=== PATIENT | female | born 1975 | race Caucasian/White ===

== ENCOUNTER 2017-12-24 02:38 | Outpatient (CLI) | payer BC, SELFPAY ==
--- NOTE | 2017-12-24 08:30 | DI.MAMMO_ITS ---
SYMPTOM/DIAGNOSIS: SCREENING, Z12.31 MAMMOGRAMS: Mammograms were interpreted according to the usual protocol including computer analysis with CAD system, tomosynthesis and C view imaging. Comparison is made with prior examinations. Breast density, category B. No suspicious masses or microcalcifications are seen. Well circumscribed nodules are again seen in the left breast. The skin and axilla are unremarkable. IMPRESSION: No evidence for malignancy. Yearly mammography is recommended. Category 2B. MQSA ASSESSMENT OF FINDINGS: Negative with benign findings. Category 2. Patient will receive a letter notifying them of these results. BI-RADS category B. There are scattered areas of fibroglandular density.
[2017-12-24 10:27] LABS: ALT 25 U/L (12-78); AST 16 U/L (15-37); Alkaline Phosphatase 89 U/L (46-116); Anion Gap 7.3 mmol/L (3-11); BUN 9 mg/dL (7-18); Bilirubin, Total 0.4 mg/dL (0.2-1.0); CO2 27.7 mmol/L (21.0-32.0); CREATININE 1.01 mg/dL (0.55-1.02); Calcium 9.1 mg/dL (8.5-10.1); Chloride 104 mmol/L (98-107); Cholesterol 185 mg/dL (50-200); Glucose 91 mg/dL (70-100); HDL Cholesterol 47 mg/dL (40-60); LDL CHOLESTEROL 129 mg/dL (<100); Potassium 4.7 mmol/L (3.5-5.1); Sodium 139 mmol/L (136-145); Total Protein 7.3 g/dL (6.4-8.2); Triglyceride 88 mg/dL (30-150)
== END 2017-12-24 02:58 ==
DX: Z12.31 Encounter for screening mammogram for malignant neoplasm of breast (principal); Z13.220 Encounter for screening for lipoid disorders; R63.8 Other symptoms and signs concerning food and fluid intake; Z00.00 Encounter for general adult medical examination without abnormal findings
CPT/HCPCS: 36415; 77063; 77067; 80053; 80061; 83721

== ENCOUNTER 2018-11-19 22:25 | Observation (INO) | payer BC, SELFPAY ==
[2018-11-19] VITALS (18 sets, daily range): BP systolic 105–131; BP diastolic 72–87; PULSE 71–112; RESP 13–22; TEMP 36.8; O2SAT 90–100
--- NOTE | 2018-11-19 22:30 | ED.GENADUL_ITS ---
Discharge Plan Disposition Patient [facility] Condition: Fair Discharge Details Chief Complaint: Chest Pain Clinical Impression: Pulmonary embolism Primary Care Provider: Shayy Donohue ED Provider: Aristeo Wade [place] Meds and New Rx's Prescriptions: No Action sertraline 100 mg tablet 100 mg PO DAILY Qty: 90 RF: 3 ibuprofen 200 MG capsule 3 tab PO PRN RF: 0 Medical Decision Making Patient presenting to ED with chest pain radiating to the back and neck. Ongoing for 3 hours. Pleuritic in nature to some degree. Initial EKG is unremarkable. Because of radiation to back and neck and will scan for dissection and will hold off on aspirin for the time being. We will try nitroglycerin to see if it helps at all. IV established and fluids started. Laboratory studies obtained. Nitroglycerin did not really seem to help. 4 mg of morphine given with decent relief. Laboratory studies unremarkable. First troponin negative. CT scan obtained. Per preliminary radiology report there is a right lower lobe segmental PE. Patient remains hemodynamically stable. Saturations remain normal on room air other than estrogen control in the form of Mirena which she has had for some time there appears to be no provoking etiology for PE. There is a history of factor V Leiden disease in the family. Patient reportedly has been tested for this in the past and was negative. Patient will be started on anticoagulation. Case discussed with hospitalist for admission. Lab Data Lab results reviewed: Yes I reviewed the patient's lab results. ECG Data Attestation: I personally reviewed and interpreted this ECG (s) as follows: Prior ECG tracings: not available for review Interpretation: Normal sinus rhythm at a rate of 81. Normal axis and intervals. No acute ST changes. HPI General Mode of arrival: ambulatory . Date/Time Provider Initiated Documentation: 11/19/18 22:29 . Limitations to Documentation: no limitations . Information obtained by: patient and RN notes reviewed . HPI Narrative: Patient presents to ED with complaint of chest pain that is now radiating to the back and neck. She has also developed some achiness in the right arm. Pain is pleuritic. She feels a little short of breath. She has some nausea but denies diaphoresis. Mild lightheadedness. Has never had this previously. Has had no recent illnesses or trauma. Has no leg pain or leg swelling. Has no significant past medical history. She is not a smoker. Father had cardiac disease but age over 55. Symptoms started about 3 hours ago. They are ongoing and seemed to be worse which is what prompted her to come in. Related Data Home Medications Medication Instructions Recorded Confirmed ibuprofen 3 tab PO PRN 12/08/12 11/19/18 sertraline 100 mg tablet 100 mg PO DAILY #90 tab 02/10/18 11/19/18 Previous Rx's Medication Instructions Recorded sertraline 100 mg tablet 100 mg PO DAILY #90 tab 02/10/18 Allergies Allergy/AdvReac Type Severity Reaction Status Date / Time amoxicillin Allergy Intermediate Rash Unverified 11/19/18 22:38 sulfamethoxazole Allergy Unknown SKIN RASH Verified 11/19/18 22:38 Review of Systems Review of Systems 01/25 Review of Systems completed and is negative except as stated above in HPI (Systems reviewed: Const, Eyes, ENT, Resp, CV, GI, , MSK, Skin, Neuro) [facility] Medical History Depression (Chronic) GERD (gastroesophageal reflux disease) (Chronic) Surgical History Cholecystectomy (10/31/09) Status post Mohs surgery (Acute ~09/02/18) Family History Mother Essential hypertension Depression Hyperlipidemia Neoplasm Father Essential hypertension Hyperlipidemia Myocardial infarction Sister Depression Factor 5 Leiden mutation, heterozygous Sister Depression Brother No problems noted. Grandfather Heart disease Grandfather Hyperlipidemia Myocardial infarction Grandmother Essential hypertension Hyperlipidemia Neoplasm Stroke Son Depression Daughter No problems noted. Daughter No problems noted. Daughter No problems noted. 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 Const: Overweight female in NAD. HEENT: NC/AT. Normal facial exam. Eyes: Normal conjunctiva and sclera. Neck: Supple. Trachea midline. Lungs: Normal respiratory effort. Lungs are clear. No chest wall tenderness. Cor: RRR without murmur/gallop. Good radial pulses. GI: Soft. NT/ND. No guarding or rebound. Neuro: A+O x 3. CN grossly in tact. Good strength and no focal deficit. Ext: No C/C/E. No calf tenderness. Skin: Warm and dry without rash.
[2018-11-19] MEDS: Lactated Ringers 1,000 ML 150 ML IV (22:47)
[2018-11-19 22:50] LABS: Abs Immature Grans 0.01 k/cumm (0.0-0.09); Absolute Basophil Count 0.02 k/cumm (0.0-0.2); Absolute Eosinophil Count 0.11 k/cumm (0.0-0.7); Absolute Lymphocyte Count 1.29 k/cumm (1.2-3.4); Absolute Monocyte Count 0.52 k/cumm (0.11-0.7); Absolute Neutrophil Count 7.72 k/cumm (1.2-6.7); Basophils % 0.2; Eosinophils % 1.1; HCT 38.2 % (36.0-46.0); HGB 12.8 g/dL (12.0-15.5); Immature Grans % 0.1; Lymphocytes % 13.3; Mean Corp. HGB Concentration 33.5 g/dL (32.0-36.0); Mean Corpuscular Hemoglobin 26.6 pg (27.0-33.0); Mean Corpuscular Volume 79.3 fL (80-95); Mean Platelet Volume 9.5 fL (8.0-11.0); Monocytes % 5.4; Neutrophils % 79.9; Platelet Count 307 x1000/uL (130-400); RBC 4.82 m/cumm (4.00-5.20); RBC Distribution Width 14.7 % (11.7-14.6); White Blood Cell Count 9.67 k/cumm (4.4-10.8)
[2018-11-19 23:07] LABS: ALT 28 U/L (12-78); AST 11 U/L (15-37); Albumin 3.4 g/dL (3.4-5.0); Alkaline Phosphatase 108 U/L (46-116); Anion Gap 9.5 mmol/L (3-11); BUN 13 mg/dL (7-18); Bilirubin, Total 0.2 mg/dL (0.2-1.0); CO2 25.5 mmol/L (21.0-32.0); CREATININE 0.98 mg/dL (0.55-1.02); Chloride 102 mmol/L (98-107); Glucose 116 mg/dL (70-100); Magnesium 1.8 mg/dL (1.8-2.4); Potassium 3.4 mmol/L (3.5-5.1); Sodium 137 mmol/L (136-145); Total Protein 7.6 g/dL (6.4-8.2); Troponin I < 0.05 ng/mL (0.00-0.06)
[2018-11-19 23:14] LABS: INR 0.9 (0.9-1.1); PTT Activated 22.8 sec (21.0-31.4); Prothrombin Time 9.3 sec (9.3-11.0)
[2018-11-19] MEDS: Omnipaque 350 MG/ML 100 ML BTL IJ (23:36)
[2018-11-19] MEDS: Omnipaque 350 MG/ML 50 ML BTL IJ (23:36)
--- NOTE | 2018-11-19 23:39 | DI.CT_ITS ---
SYMPTOM/DIAGNOSIS: CHEST/BACK/NECK PAIN, ? DISSECTION OR PE CHEST AND ABDOMEN CTA: CT angiography was performed with multi slice acquisition and multi planar and 3D reconstruction. CTA examination of the chest and abdomen was performed. 145 cc's of Omnipaque 350 was injected intravenously. Scanning of the thorax shows no bony abnormality. No aortic dissection or aneurysm. No mediastinal hematoma. No pericardial effusion. There are pulmonary emboli in right lower lobe segmental and subsegmental pulmonary arteries with associated peripheral areas of consolidation/atelectasis, pulmonary infarct may be present peripherally. Minimal findings of subsegmental pulmonary emboli also present in left lower lobe pulmonary arterial circulation. No evidence of right heart strain. There is mosaic attenuation of the lungs which is nonspecific. Tracheobronchial tree appears intact. No pleural effusion or pneumothorax. Scanning of the abdomen shows no focal bony abnormality. Liver and spleen are unremarkable. Gallbladder has been surgically removed. No biliary dilatation is seen. Pancreas appears normal. Adrenals and kidneys unremarkable except for an incidental approximately 3.5 cm. in diameter cyst of the right kidney. Abdominal aorta is of normal diameter as are the common iliac arteries and proximal internal and external iliac arteries. Major arterial branches of the abdomen are normal. No abdominal wall hernia is seen. Normal appearance of the appendix. CONCLUSION: 1. Pulmonary embolic disease predominantly involving right lower lobe segmental and subsegmental vessels with suspected peripheral pulmonary infarct. 2. No evidence of right heart strain. 3. No significant abnormality involving abdominal vasculature or abdominal contents.
[2018-11-20] VITALS (14 sets, daily range): BP systolic 119–128; BP diastolic 75–82; PULSE 61–117; RESP 16–23; TEMP 36.4–36.8; O2SAT 94–100
--- NOTE | 2018-11-20 00:17 | DI.VRAD_ITS ---
EXAM: CT Angiography Chest With Contrast EXAM DATE/TIME: 11/19/2018 10:42 PM CLINICAL HISTORY: 42 years old, female; Pain; Other: Chest/back neck; Prior surgery; Surgery date: 6+ months; Surgery type: Gallbladder TECHNIQUE: Imaging protocol: Axial computed tomographic angiography images of the chest with intravenous contrast using CT angiography protocol. Coronal and sagittal reformatted images were created and reviewed. 3D rendering: MIP reconstructed images were created and reviewed. Radiation optimization: All CT scans at this facility use at least one of these dose optimization techniques: automated exposure control; mA and/or kV adjustment per patient size (includes targeted exams where dose is matched to clinical indication); or iterative reconstruction. Contrast material: [id number];Contrast volume: 145 ml;Contrast route: IV 18G RAC; COMPARISON: No relevant prior studies available. FINDINGS: Pulmonary arteries: Right lower lobe segmental pulmonary artery filling defects. Aorta: Unremarkable. No aortic aneurysm. No aortic dissection. Lungs: Right lower lobe parenchymal consolidation. Scattered areas of subsegmental atelectasis in each lung. Pleural space: Small right pleural effusion. Heart: Unremarkable. No cardiomegaly. No pericardial effusion. Lymph nodes: Unremarkable. No enlarged lymph nodes. Bones/joints: Unremarkable. No acute fracture. Soft tissues: Unremarkable. IMPRESSION: 1. Right lower lobe segmental pulmonary emboli. 2. Right lower lobe infiltrate. 3. Small right pleural effusion EXAM: CT Angiography Abdomen With Contrast EXAM DATE/TIME: 11/19/2018 10:42 PM CLINICAL HISTORY: 42 years old, female; Pain; Other: Chest/back neck; Prior surgery; Surgery date: 6+ months; Surgery type: Gallbladder TECHNIQUE: Imaging protocol: Axial computed tomographic angiography images of the abdomen with intravenous contrast material. Coronal and sagittal reformatted images were created and reviewed. 3D rendering: MIP reconstructed images were created and reviewed. Radiation optimization: All CT scans at this facility use at least one of these dose optimization techniques: automated exposure control; mA and/or kV adjustment per patient size (includes targeted exams where dose is matched to clinical indication); or iterative reconstruction. COMPARISON: No relevant prior studies available. FINDINGS: VASCULATURE: Aorta: No aortic aneurysm or dissection. Celiac trunk and mesenteric arteries: No occlusion or significant stenosis. Renal arteries: No occlusion or significant stenosis. ABDOMEN: Liver: Normal. No mass. Gallbladder and bile ducts: The patient is status post cholecystectomy. No biliary ductal dilatation. Pancreas: Normal. No ductal dilation. Spleen: Normal. No splenomegaly. Adrenals: Normal. No mass. Kidneys and ureters: 3.5 cm simple cyst in interpolar right kidney. Too small to characterize lesion in left kidney. No hydronephrosis. Stomach and bowel: There is no evidence of intestinal perforation or obstruction. Intraperitoneal space: Unremarkable. No free air. No significant fluid collection. Bones/joints: Unremarkable. No acute fracture. No dislocation. Soft tissues: Unremarkable. Lymph nodes: Unremarkable. No enlarged lymph nodes. IMPRESSION: 1. No acute findings. 2. 3.5 cm cyst in right kidney. THIS REPORT CONTAINS FINDINGS THAT MAY BE CRITICAL TO PATIENT CARE. The findings were verbally communicated via telephone conference with Dr. Aristeo Wade, 11/20/2018 12:17 AM EDT. The findings were acknowledged and understood. Dictated and Authenticated by: Martin Jenkins MD. Ordering:HELENA Alberts MD
[2018-11-20] MEDS: Enoxaparin 100 MG/ML SYR SC ×2 (00:50→12:24)
--- NOTE | 2018-11-20 01:41 | HPE_ITS ---
Date of service: 11/20/18 Time of Service: 01:41 Assessment and Plan (1) Pulmonary embolus, right: Current visit: Yes Status: Acute continue w/ enoxaparin at 1 mg/kg SC Q 12hr and transition to oral anticoagulant tomorrow. I discussed pro/con of using DOAC vs warfarin. She understands that if she goes home on warfarin she will need to overlap for 5 to 7 days w/ enoxaparin shots and will have to have frequent prothrombin times checked. She favors using a DOAC. I will have the day hospitalist follow up on this and have rn case mgr check her insurance coverage for use of Apixaban or Rivaroxaban. She will get echo in the a.m. to evaluate for RV strain/PHTN although I doubt that this will be a problem due to the low clot burden seen on CT and her stable hemodynamic presentation. There is no clinical reason to check venous duplex and she has no symptoms of leg pain or edema. 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 Apparently she was checked for Leiden Factor V deficiency when she was 18 and was told that she is negative. However she has multiple family members with either some heterozygocity for Leiden Factor V or they have had thromboembolic events. I told her that she should remain on anticoagulants for minimum of 3 to 6 months. She also needs to inform her public weigher of her P.E. as she is higher risk of future PE with use of any hormonal based therapy. History of Present Illness Chief Complaint: chest pain Narrative: 42 yr old female non-smoker w/ PMH depression and GERD who presented to the ER with acute pleuritc right sided chest pain w/ radiation into her neck and right upper back. 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 She thought that this was indigestion. She drove herself home and called her mother who brought her to the ER. Dr. Wade, ER attending, performed workup that included CTA of her chest out of concern for dissecting aneurysm. CTA however demonstrated RLL segmental PE and RLL parenchymal consolidation and bilateral subsegmental atelectasis. NTG was intially tried to alleviate her pain prior to discovery of PE. NTG did not help with her pain. Morphine 4 mg IV however provided some relief. The patient w as hemodynamically stable and never hypoxemic. Her risk factors for PE included use of Mirena (an estrogen IUD) as well as use of oral BCP a few weeks ago while awaiting having her IUD replaces. There is a FH of Leiden Factor V in her family (sister is heterozygous, father is also a carrier for Leiden Factor V, mother has had multiple PE and DVT) however the patient has previously been tested and reportedly negative. The rest of her workup including EKG, troponin, CMP and CBC and coagulation profile were unremarkable, however a d-dimer was not performed. Patient will be admitted to med/surg on telemetry and enoxaparin at 1 mg/kg SC was intiated in the ER (100 mg dose). She will remain on enoxaparin overnight and can be transitioned to a DOAC tomorrow (Apixaban or Rivaroxaban); if Dabigatran or Edoxaban are used she will need to use concommittant enoxaparin 1 mg/kg SC Q12h for 5 day prior to either Dabigatran or Edoxaban. An echo has been ordered to evaluate for PHTN or RV strain. I will continue to cycle troponin and check BNP for prognostic reasons. Review of Systems Constitutional Reports system reviewed and no additional complaints, except as docu Cardiovascular Reports chest pain, Reports chest pain at rest, Denies chest pain with activity, Denies syncope, Denies pedal edema, Denies edema, Denies leg edema, Denies lightheadedness, Reports radiating jaw, neck or arm pain, Reports dyspnea, Reports dyspnea on exertion and Denies orthopnea Respiratory Denies chest congestion, Denies cough, Reports pain on inspiration, Reports dyspnea, Reports dyspnea on exertion and Denies wheezing Gastrointestinal Reports system reviewed and no additional complaints, except as docu Neurologic Denies syncope Hematologic/Lymphatic Reports system reviewed and no additional complaints, except as docu Allergic/Immunologic Denies wheezing [facility] Medical History (Updated 11/20/18 @ 03:08 by Josse Mcknight) Depression (Chronic) GERD (gastroesophageal reflux disease) (Chronic) Surgical History (Updated 11/20/18 @ 03:24 by Josse Mcknight) Cholecystectomy (10/31/09) History of laparoscopy (Chronic) S/P tubal ligation (Acute) Status post Mohs surgery (Acute ~09/02/18) Family History (Updated 11/20/18 @ 02:53 by Josse Mcknight) Mother Essential hypertension Depression Hyperlipidemia Neoplasm History of pulmonary embolism Father Essential hypertension Hyperlipidemia Myocardial infarction Factor V Leiden carrier Sister Depression Factor 5 Leiden mutation, heterozygous Sister Depression Grandfather Heart disease Grandfather Hyperlipidemia Myocardial infarction Grandmother Essential hypertension Hyperlipidemia Neoplasm Stroke Son Depression Maternal Uncle Myocardial infarction Daughter No problems noted. Daughter No problems noted. 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 Pets and animals: Yes Pets and animals: dog(s) Duration: 15-30 minutes/day Frequency: 1-2 times per week Special rachelle needs: No Female Reproductive History Menstrual control method: progestin IUCD History History 4 Para Hx # Term Pregnancies 3 Multiple births Hx # Pregnancies 3 Ectopic pregnancies AB induced Hx Number of Living Children 3 AB spontaneous 1 Meds Home Medications Medication Instructions Recorded Confirmed Type ibuprofen 3 tab PO PRN 12/08/12 11/19/18 History sertraline 100 mg tablet 100 mg PO DAILY #90 tab 02/10/18 11/19/18 Rx Allergies Allergy/AdvReac Type Severity Reaction Status Date / Time amoxicillin Allergy Intermediate Rash Unverified 11/19/18 22:38 sulfamethoxazole Allergy Unknown SKIN RASH Verified 11/19/18 22:38 Exam Const General: cooperative, healthy appearing and no acute distress Nutritional Appearance: overweight Orientation: alert, awake and oriented x3 Neck Neck: normal visual inspection, full ROM, no lymphadenopathy, trachea midline, supple and no JVD Carotids: normal carotid upstroke Resp Effort & Inspection: normal respiratory effort and able to speak in complete sentences Auscultation: clear to auscultation bilaterally Cardio Jugular venous pressure: no JVD Palpation: normal PMI Rate: regular rate Rhythm: regular rhythm Heart Sounds: S1 normal, S2 normal, normal, physiologic split S2, no gallops, no murmurs and no rubs Pulses: normal peripheral pulses GI Inspection: normal to inspection Palpation: soft, no hepatosplenomegaly and nontender Percussion: normal to percussion Auscultation: normal bowel sounds Neuro General: alert, awake and oriented x3 Cognition: normal cognition Speech: speech normal Motor: muscle tone normal throughout, strength 5/5 throughout and no movement abnormalities noted Sensory Exam: no sensory deficits noted Extrem General: normal to inspection, full ROM, no clubbing, cyanosis or edema, no pedal edema and no calf tenderness Psych Appearance: grossly normal Mental Status: mental status grossly normal Speech and Movement: speech and movement normal Mood: congruent mood Affect: normal affect Attitude: cooperative Thought Process: normal Thought Content: normal Insight: insight good Judgment: judgment good Results Imaging CT scan - chest: report reviewed (IMPRESSION: 1. Right lower lobe segmental pulmonary emboli. 2. Right lower lobe infiltrate. 3. Small right pleural effusion IMPRESSION: 1. Right lower lobe segmental pulmonary emboli. 2. Right lower lobe infiltrate. 3. Small right pleural effusion ) EKG: image reviewed Labs : 11/19/18 22:35 11/19/18 22:35 Laboratory Results - last 24 hr 11/19/18 11/19/18 11/19/18 22:35 22:35 22:35 WBC 9.67 RBC 4.82 Hgb 12.8 Hct 38.2 MCV 79.3 L MCH 26.6 L MCHC 33.5 RDW 14.7 H Plt Count 307 MPV 9.5 Immature Gran % 0.1 Neutrophils % 79.9 Lymphocytes % 13.3 Monocytes % 5.4 Eosinophils % 1.1 Basophils % 0.2 Absolute Neutrophils 7.72 H Absolute Lymphocytes 1.29 Absolute Monocytes 0.52 Absolute Eosinophils 0.11 Absolute Basophils 0.02 PT 9.3 INR 0.9 APTT 22.8 Sodium 137 Potassium 3.4 L Chloride 102 Carbon Dioxide 25.5 Anion Gap 9.5 BUN 13 Creatinine 0.98 Estimated GFR/1.73 m2 >= 60.00 Glucose 116 H Calcium 9.0 Magnesium 1.8 Total Bilirubin 0.2 AST 11 L ALT 28 Alkaline Phosphatase 108 Troponin I < 0.05 Total Protein 7.6 Albumin 3.4 11/20/18 01:45 WBC RBC Hgb Hct MCV MCH MCHC RDW Plt Count MPV Immature Gran % Neutrophils % Lymphocytes % Monocytes % Eosinophils % Basophils % Absolute Neutrophils Absolute Lymphocytes Absolute Monocytes Absolute Eosinophils Absolute Basophils PT INR APTT Sodium Potassium Chloride Carbon Dioxide Anion Gap BUN Creatinine Estimated GFR/1.73 m2 Glucose Calcium Magnesium Total Bilirubin AST ALT Alkaline Phosphatase Troponin I Cancelled Total Protein Albumin Last Vital Signs Temp 36.8 C 08/09/19 01:39 Pulse 72 11/20/18 01:39 Resp 18 11/20/18 01:39 BP 128/81 11/20/18 01:39 Pulse Ox 100 11/20/18 01:39
[2018-11-20] MEDS: Potassium Chloride 20 MEQ TABCR 40 MEQ PO (02:01)
[2018-11-20] MEDS: Pantoprazole 40 MG TABCR PO (02:08)
[2018-11-20] MEDS: Acetaminophen 325 MG TAB PO (02:08)
[2018-11-20 03:53] LABS: NT-proBNP 52 pg/mL; Troponin I < 0.05 ng/mL (0.00-0.06)
--- NOTE | 2018-11-20 04:37 | NUR.NOTE ---
Patient was admitted to the Med-Surg unit with a history of pleutric right sided chest pain with radiation into her neck and right upper back. She stated her symptoms began around 19:30 and she thought it was indigestion. She was taken to the hospital by her mother where she was treated and then subsequently admitted to the floor. She is totally alert and rational she complaint of headache which she was medicated with tylenol to alleviate symptoms. Other assessments done and charted.
[2018-11-20] MEDS: Lactated Ringers 1,000 ML 150 ML IV (05:44)
[2018-11-20] MEDS: traMADol 50 MG TAB 100 MG PO ×2 (05:46→10:54)
[2018-11-20 06:58] LABS: HCT 36.8 % (36.0-46.0); HGB 12.1 g/dL (12.0-15.5); Mean Corp. HGB Concentration 32.9 g/dL (32.0-36.0); Mean Corpuscular Hemoglobin 26.2 pg (27.0-33.0); Mean Corpuscular Volume 79.7 fL (80-95); Mean Platelet Volume 9.6 fL (8.0-11.0); Platelet Count 311 x1000/uL (130-400); RBC 4.62 m/cumm (4.00-5.20); RBC Distribution Width 14.7 % (11.7-14.6); White Blood Cell Count 10.49 k/cumm (4.4-10.8)
[2018-11-20 07:07] LABS: Anion Gap 11.1 mmol/L (3-11); BUN 9 mg/dL (7-18); CO2 22.9 mmol/L (21.0-32.0); Calcium 8.7 mg/dL (8.5-10.1); Chloride 103 mmol/L (98-107); Glucose 104 mg/dL (70-100); Potassium 4.2 mmol/L (3.5-5.1); Sodium 137 mmol/L (136-145)
[2018-11-20] MEDS: Sertraline 50 MG TAB 100 MG PO (07:55)
--- NOTE | 2018-11-20 10:41 | DI.US_ITS ---
SYMPTOMS/DIAGNOSIS: ACUTE PE DUPLEX VENOUS ULTRASOUND BOTH LOWER EXTREMITIES: Duplex evaluation of the deep venous system was performed according to the usual protocol. The deep veins are freely compressible throughout to the level of the popliteal veins. There is normal doppler flow visible throughout and there is excellent flow augmentation with manual calf compression. CONCLUSION: No evidence of deep venous thrombosis.
[2018-11-20] MEDS: Normal Saline Flush 10 ML SYR IVP (10:53)
--- NOTE | 2018-11-20 13:14 | DSE_ITS ---
Date of service: 11/20/18 Time of Service: 13:14 DS: Diagnosis Discharge Diagnosis (1) Pulmonary embolus, right: Status: Acute Discharge Plan Disposition Patient Disposition: HOME Condition: Stable Discharge Details Chief Complaint: Chest Pain Clinical Impression: Pulmonary embolism Reason For Visit: PULMONARY EMBOLUS Admit Date/Time: 11/20/18 00:40 Admit Provider: Josse Mcknight Attending Provider: Josse Mcknight Primary Care Provider: Shayy Donohue ED Provider: Aristeo Wade [facility] Course Hospital Course: Chief Complaint: Chest Pain HPI: For detailed history please see admission History & Physical from Dr. Demetrius Mcknight earlier this morning. In brief, 42 year old woman with a strong family history of hypercoagulability, with a father and sister who are diagnosed with FVL (father is a carrier), and a mother who has tested negative for this in the past but has a history of mu ltiple PEs, presented to the [facility] Emergency Department with chest pain and dyspnea, diagnosed with Pulmonary Emboli. She reports a recent history of OCP use via her [employer], while awaiting a change in her IUD - she states that this is due to a history of heavy menses. The patient presented with pleuritic chest pain with radiation into her neck and right upper back. CT showed evidence of segmental and subsegmental Embolic Disease in the RUL, with suspected peripheral pulmonary infarcts. Also with minimal findings of subsegmental PE in the LLL as well. There was no evidence of right heart strain by CT, and the patient was hemodynamically stable with normal blood pressure and heart rate, and nontachycardic. Subsequent LE Ultrasound showed no evidence of blood clot bilaterally. She was also afebrile, and without evidence of pulmonary infection. Dicussed case with Hematology at [facility], Dr. Xander Luz, in detail regarding Mrs. Silva's case - given her presentation and family history, recommendations are for maintaining patient on Therapeutic weight based Enoxaparin for now, with rapid follow-up with the Thrombosis Clinic at [facility] Hematology and Oncology offices for further work-up and ultimate determination of optimal anticoagulant for patient. She is being discharged with a prescription for both anticoagulation and PPI therapy. Care Management will ensure coverage for medication, and patient has undergone injection training prior to discharge. She is stable and deemed safe for discharge at this time, with a normal HR, normotensive, afebrile, and normal oxygen sats on room air. Home Meds and New Rx's Prescriptions: New acetaminophen [Tylenol] 325 mg Tablet 325 mg PO Q4H PRN PRN (Reason: pain) Qty: 1 RF: 0 pantoprazole 40 mg Tablet,Delayed Release (Dr/Ec) 40 mg PO HS Qty: 30 RF: 0 enoxaparin 100 mg/mL Syringe 100 mg subcut Q12H 30 Days Qty: 60 RF: 0 Continued sertraline 100 mg tablet 100 mg PO DAILY Qty: 90 RF: 3 Discontinued ibuprofen 200 MG capsule 3 tab PO PRN RF: 0 Discharge Instructions Activity:: No Strenuous Activity. No contact activities/sports. Equipment/Supplies:: No Equipment Needed Diet:: As Tolerated Discharge Orders Discharge Orders: Discharge Order (Routine); Ordered 11/20/18 Ordered By: Kirk Seay Exam Narrative Exam Narrative: General: Patient appears comfortable, AAOX3, NAD Neck: Supple CV: Regular, nontachycardic, S1S2, No rubs, murmurs, or gallops. Pulmonary: Clear to auscultation bilaterally, no crackles, wheezing, or rhonchi Abdomen: + Bowel Sounds, soft, nontender, nondistended Vascular: No lower extremity edema Psych: Normal mood and affect. DS: Data Vitals/I&O Vitals and I&O: Vital Signs Temperature 36.4 C L 11/20/18 07:25 Temperature Source Tympanic 11/20/18 07:25 Pulse 62 11/20/18 07:25 Pulse Rhythm Regular 11/20/18 07:55 Pulse 117 H 11/20/18 00:50 Respiratory Rate 16 11/20/18 07:25 Respiratory Effort Non-Labored 11/20/18 07:55 Respiratory Depth Normal 11/20/18 07:55 Respiratory Pattern Normal 11/20/18 07:55 Blood Pressure 119/80 11/20/18 07:25 Blood Pressure Mean 89 11/20/18 00:46 Blood Pressure Position Supine 11/19/18 22:30 Pulse Oximetry 96 11/20/18 07:25 Oxygen Delivery Method Room Air 11/20/18 07:25 Oxygen Flow Rate 0 11/20/18 07:25 Pain Level 5 11/20/18 10:54 Intake & Output 11/19/18 11/20/18 11/20/18 23:59 11:59 23:59 Intake Total 1240 / 1240 Output Total 550 / 550 Balance 690 / 690 Weight 98.1 kg 97.522 kg Intake: IV 1000 / 1000 Oral 240 / 240 Output: Urine 550 / 550 Other: Urine Color Yellow Urine Appearance Clear Urine Odor None Voiding Methods Toilet Completed studies during hospitalization [Text1]: Exam(s) 11/20/[address]:CT thorax & abdomen CTA SYMPTOM/DIAGNOSIS: CHEST/BACK/NECK PAIN, ? DISSECTION OR PE CHEST AND ABDOMEN CTA: CT angiography was performed with multi slice acquisition and multi planar and 3D reconstruction. CTA examination of the chest and abdomen was performed. 145 cc's of Omnipaque 350 was injected intravenously. Scanning of the thorax shows no bony abnormality. No aortic dissection or aneurysm. No mediastinal hematoma. No pericardial effusion. There are pulmonary emboli in right lower lobe segmental and subsegmental pulmonary arteries with associated peripheral areas of consolidation/atelectasis, pulmonary infarct may be present peripherally. Minimal findings of subsegmental pulmonary emboli also present in left lower lobe pulmonary arterial circulation. No evidence of right heart strain. There is mosaic attenuation of the lungs which is nonspecific. Tracheobronchial tree appears intact. No pleural effusion or pneumothorax. Scanning of the abdomen shows no focal bony abnormality. Liver and spleen are unremarkable. Gallbladder has been surgically removed. No biliary dilatation is seen. Pancreas appears normal. Adrenals and kidneys unremarkable except for an incidental approximately 3.5 cm. in diameter cyst of the right kidney. Abdominal aorta is of normal diameter as are the common iliac arteries and proximal internal and external iliac arteries. Major arterial branches of the abdomen are normal. No abdominal wall hernia is seen. Normal appearance of the appendix. CONCLUSION: 1. Pulmonary embolic disease predominantly involving right lower lobe segmental and subsegmental vessels with suspected peripheral pulmonary infarct. 2. No evidence of right heart strain. 3. No significant abnormality involving abdominal vasculature or abdominal contents. Exam(s) 11/20/2018 a US:US extremity venous BI SYMPTOMS/DIAGNOSIS: ACUTE PE DUPLEX VENOUS ULTRASOUND BOTH LOWER EXTREMITIES: Duplex evaluation of the deep venous system was performed according to the usual protocol. The deep veins are freely compressible throughout to the level of the popliteal veins. There is normal doppler flow visible throughout and there is excellent flow augmentation with manual calf compression. CONCLUSION: No evidence of deep venous thrombosis. Labs on day of discharge: Labs from last 24 hours 11/20/18 11/20/18 11/20/18 06:34 06:34 02:30 WBC 10.49 RBC 4.62 Hgb 12.1 Hct 36.8 MCV 79.7 L MCH 26.2 L MCHC 32.9 RDW 14.7 H Plt Count 311 MPV 9.6 Immature Gran % Neutrophils % Lymphocytes % Monocytes % Eosinophils % Basophils % Absolute Neutrophils Absolute Lymphocytes Absolute Monocytes Absolute Eosinophils Absolute Basophils PT INR APTT Sodium 137 Potassium 4.2 D Chloride 103 Carbon Dioxide 22.9 Anion Gap 11.1 H BUN 9 Creatinine 0.90 Estimated GFR/1.73 m2 >= 60.00 Glucose 104 H Calcium 8.7 Magnesium Total Bilirubin AST ALT Alkaline Phosphatase Troponin I < 0.05 NT-Pro-B Natriuret Pep 52 Total Protein Albumin 11/20/18 11/19/18 11/19/18 01:45 22:35 22:35 WBC 9.67 RBC 4.82 Hgb 12.8 Hct 38.2 MCV 79.3 L MCH 26.6 L MCHC 33.5 RDW 14.7 H Plt Count 307 MPV 9.5 Immature Gran % 0.1 Neutrophils % 79.9 Lymphocytes % 13.3 Monocytes % 5.4 Eosinophils % 1.1 Basophils % 0.2 Absolute Neutrophils 7.72 H Absolute Lymphocytes 1.29 Absolute Monocytes 0.52 Absolute Eosinophils 0.11 Absolute Basophils 0.02 PT 9.3 INR 0.9 APTT 22.8 Sodium Potassium Chloride Carbon Dioxide Anion Gap BUN Creatinine Estimated GFR/1.73 m2 Glucose Calcium Magnesium Total Bilirubin AST ALT Alkaline Phosphatase Troponin I Cancelled NT-Pro-B Natriuret Pep Total Protein Albumin 11/19/18 22:35 WBC RBC Hgb Hct MCV MCH MCHC RDW Plt Count MPV Immature Gran % Neutrophils % Lymphocytes % Monocytes % Eosinophils % Basophils % Absolute Neutrophils Absolute Lymphocytes Absolute Monocytes Absolute Eosinophils Absolute Basophils PT INR APTT Sodium 137 Potassium 3.4 L Chloride 102 Carbon Dioxide 25.5 Anion Gap 9.5 BUN 13 Creatinine 0.98 Estimated GFR/1.73 m2 >= 60.00 Glucose 116 H Calcium 9.0 Magnesium 1.8 Total Bilirubin 0.2 AST 11 L ALT 28 Alkaline Phosphatase 108 Troponin I < 0.05 NT-Pro-B Natriuret Pep Total Protein 7.6 Albumin 3.4 PFSH Medical History Depression (Chronic) GERD (gastroesophageal reflux disease) (Chronic) Surgical History Cholecystectomy (10/31/09) History of laparoscopy (Chronic) S/P tubal ligation (Acute) Status post Mohs surgery (Acute ~09/02/18) Family History Mother Essential hypertension Depression Hyperlipidemia Neoplasm History of pulmonary embolism Father Essential hypertension Hyperlipidemia Myocardial infarction Factor V Leiden carrier Sister Depression Factor 5 Leiden mutation, heterozygous Sister Depression Grandfather Heart disease Grandfather Hyperlipidemia Myocardial infarction Grandmother Essential hypertension Hyperlipidemia Neoplasm Stroke Son Depression Maternal Uncle Myocardial infarction Daughter No problems noted. Daughter No problems noted. 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
--- NOTE | 2018-11-20 14:58 | CHAPLAIN ---
Kesha was out of the room for an ultrasound when I visited, but I spoke with her mom, explained my role and offered support.
--- NOTE | 2018-11-20 17:52 | CMPROGNOTE_ITS ---
- If Service Date Differs Date of service: 11/20/18 Time of Service: 17:52 Care Management Progress Note S/O: CM met with Kesha at the bedside she is alert but tired she states she was awake most of the night. She describes events that led to admission and her concerns related to the PE's. She is planning on being discharged today on Lovenox BID. CM contacted [email or web address] in [facility] confirmed dose in stock and co-pay of 15.00. Kesha was shown by primary nurse how to inject the medication, CM provided additional education including recommended sites and how to dispose of needles. She has an educational kit in the room. She declines the need for home health. 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 P: Kesha will be discharged home with family. CM faxed and contacted [facility] hematology for follow up. [facility] will contact the patient directly to schedule.
== END 2018-11-20 16:10 | disposition home or self-care (01) ==
LOC: ER 11-20 00:53 → MS 11-20 01:30
PROVIDERS: Admitting Provider Internal Medicine; Emergency Provider Emergency Medicine; Visit Provider Internal Medicine
DX: I26.99 Other pulmonary embolism without acute cor pulmonale (principal); Z79.3 Long term (current) use of hormonal contraceptives; Z83.2 Family history of diseases of the blood and blood-forming organs and certain disorders involving the immune mechanism
CPT/HCPCS: 36415; 71275; 74175; 80048; 80053; 85027; 93005; 96360; 96361; 99217; 99220; 99285; 83735; 83880; 84484; 85025; 85610; 85730; 93010; 93970; 99236; G0378; J1650; J3490; Q9967

== ENCOUNTER 2019-02-03 08:28 | Outpatient (CLI) | payer BC, SELFPAY ==
[2019-02-03 09:46] LABS: HCT 39.6 % (36.0-46.0); Mean Corp. HGB Concentration 32.8 g/dL (32.0-36.0); Mean Corpuscular Hemoglobin 25.9 pg (27.0-33.0); Mean Platelet Volume 9.1 fL (8.0-11.0); Platelet Count 332 x1000/uL (130-400); RBC 5.01 m/cumm (4.00-5.20); RBC Distribution Width 15.1 % (11.7-14.6); White Blood Cell Count 9.59 k/cumm (4.4-10.8)
[2019-02-03 18:48] LABS: D-Dimer (UVM) <200 ng/mL (<230); PTT (UVM) 31 secs (26-37)
[2019-02-04 10:17] LABS: Antithrombin 3, Funct. 116 % (85-125); Factor 8 Assay 218 % (50-150)
[2019-02-04 16:47] LABS: Dilute Russell Viper Venom 35.2 secs (27.2-36.9); LA Cascade Summary SEE COMMENTS; Silica Clotting Time 37.3 sec (30.2-48.4)
[2019-02-05 13:53] LABS: Beta 2 GP1 Ab IgG <9.4 U/mL; Beta 2 GP1 Ab IgM <9.4 U/mL
[2019-02-05 18:43] LABS: Beta 2 Glycoprotein 1 Ab IgA <9.4 U/mL
[2019-02-10 14:20] LABS: Protein C, Functional 138 % (71-199)
[2019-02-10 14:56] LABS: Protein S, Functional 130 % (64-147)
== END 2019-02-03 08:48 ==
PROVIDERS: Visit Provider Internal Medicine Hematology
DX: D68.59 Other primary thrombophilia (principal)
CPT/HCPCS: 36415; 81240; 81241; 85027; 85300; 85303; 85306; 85307; 85610; 85613; 85730; 85732; 86146; 86147; 85240; 85379

== ENCOUNTER 2019-06-08 07:42 | Outpatient (CLI) | payer BC, SELFPAY ==
[2019-06-08 09:04] LABS: Calculated LDL 218 mg/dL (<100); Cholesterol 292 mg/dL (<200); HDL Cholesterol 44 mg/dL (40-60); Triglyceride 150 mg/dL (<150)
== END 2019-06-08 08:02 ==
PROVIDERS: Visit Provider Nurse Practitioner
DX: E78.5 Hyperlipidemia, unspecified (principal)
CPT/HCPCS: 36415; 80061

== ENCOUNTER 2019-08-04 01:47 | Outpatient (CLI) | payer BC, SELFPAY ==
[2019-08-04 14:49] LABS: HCT 39.1 % (36.0-46.0); Mean Corp. HGB Concentration 33.2 g/dL (32.0-36.0); Mean Corpuscular Hemoglobin 26.1 pg (27.0-33.0); Mean Corpuscular Volume 78.4 fL (80-95); Mean Platelet Volume 9.5 fL (8.0-11.0); Platelet Count 364 x1000/uL (130-400); RBC 4.99 m/cumm (4.00-5.20); RBC Distribution Width 15.2 % (11.7-14.6); White Blood Cell Count 8.84 k/cumm (4.4-10.8)
[2019-08-04 16:05] LABS: Calculated LDL 89 mg/dL (<100); Cholesterol 177 mg/dL (<200); Folate 15.2 ng/mL (8.6-20.0); HDL Cholesterol 53 mg/dL (40-60); Triglyceride 177 mg/dL (<150); Vitamin B12 283 pg/mL (193-986)
== END 2019-08-04 02:07 ==
PROVIDERS: PCP Nurse Practitioner; Visit Provider Nurse Practitioner
DX: E78.2 Mixed hyperlipidemia (principal); R20.0 Anesthesia of skin; R20.2 Paresthesia of skin
CPT/HCPCS: 36415; 80061; 85027; 82607; 82746

== ENCOUNTER 2019-11-11 08:25 | Emergency (ER) | payer BC, SELFPAY ==
[2019-11-11] VITALS (41 sets, daily range): BP systolic 110–138; BP diastolic 79–89; PULSE 54–88; RESP 11–24; TEMP 36.6–36.7; O2SAT 96–100
--- NOTE | 2019-11-11 08:15 | RT.EKG_ITS ---
APPROVED REPORT Exam: Resting ECG Patient Location: E HR:73 bpm ECG Measurements Heart Rate 73 AXIS WA 138 P 47 QRSd 84 QRS 4 QT 390 T 21 QTc 432 <Conclusion> Sinus rhythm...normal P axis, V-rate 60- 99 Low voltage, precordial leads...precordial leads <1.0mV
[2019-11-11] MEDS: Aspirin 81 MG CHEW 324 MG CH (09:07)
[2019-11-11 09:09] LABS: Abs Immature Grans 0.05 10^3/uL (0.0-0.06); Absolute Basophil Count 0.02 10^3/uL (0.0-0.2); Absolute Eosinophil Count 0.12 10^3/uL (0.0-0.7); Absolute Monocyte Count 0.56 10^3/uL (0.1-0.8); Absolute Neutrophil Count 6.87 10^3/uL (1.2-6.7); Basophils % 0.2; Eosinophils % 1.3; HCT 41.1 % (36.0-46.0); HGB 13.3 g/dL (11.2-15.7); Immature Grans % 0.6; Lymphocytes % 15.5; MCH 25.8 pg (27.0-33.0); MCHC 32.4 % (32.0-36.0); MCV 79.7 fL (80-95); MPV 10.3 fL (8.0-11.0); Monocytes % 6.2; Neutrophils % 76.2; Platelet Count 303 10^3/uL (130-400); RBC 5.16 10^6/uL (3.93-5.22); RDW 14.8 % (11.7-14.6); RDW-SD 42.6 fL; WBC 9.02 10^3/uL (4.4-10.8)
[2019-11-11 09:23] LABS: PTT Activated 24.3 sec (21.0-31.4); Prothrombin Time 9.8 sec (9.3-11.0)
[2019-11-11 09:31] LABS: ALT 39 U/L (14-59); AST 21 U/L (15-37); Albumin 4.1 g/dL (3.4-5.0); Alkaline Phosphatase 111 U/L (46-116); Anion Gap 8.5 mmol/L (3-11); BUN 16 mg/dL (7-18); Bilirubin, Total 0.3 mg/dL (0.2-1.0); CO2 27.5 mmol/L (21.0-32.0); CREATININE 1.07 mg/dL (0.55-1.02); Calcium 8.9 mg/dL (8.5-10.1); Chloride 102 mmol/L (98-107); Estimated GFR 56.24 (mL/min/1.73m2); Glucose 106 mg/dL (74-106); NT-proBNP 157 pg/mL (<300); Potassium 3.9 mmol/L (3.5-5.1); Sodium 138 mmol/L (136-145); Total Protein 8.2 g/dL (6.4-8.2)
[2019-11-11 09:32] LABS: Troponin I < 0.05 ng/mL (<0.06)
[2019-11-11] MEDS: Normal Saline 1,000 ML 1000 ML IV (09:57)
[2019-11-11] MEDS: Omnipaque 350 MG/ML 100 ML BTL IJ (09:59)
[2019-11-11] MEDS: Normal Saline - Diluent 50 ML VIAL IV (09:59)
--- NOTE | 2019-11-11 10:00 | DI.CT_ITS ---
EXAM: CT CHEST PE CTA CLINICAL HISTORY: pain/sob, hx of PE, not anticoagulated. TECHNIQUE: Imaging Protocol: Axial CT angiography was performed with multi-slice acquisition and mu lti-planar and/or 3D reconstructions. CONTRAST MATERIAL: Intravenous: Omnipaque 350 Contrast volume:100 ml COMPARISON: CT CT thorax abdomen CTA from 11/19/2018 FINDINGS: The exam is somewhat limited by patient body habitus and mild respiratory motion. Pulmonary Arteries: No evidence of filling defect to suggest pulmonary emboli. Tracheobronchial tree: Patent where visualized. Mediastinum and Elidia: No dominant adenopathy or fluid collection. Pulmonary parenchyma: There is a small area of atelectasis at the right costophrenic angle posteriorl y. Pleura: No effusion or pneumothorax. Heart: The heart is not dilated. No coronary artery calcifications are seen. Aorta: Thoracic aorta non-dilated. Upper abdomen: Enlarged fatty liver. Bones: Normal. IMPRESSION: No evidence of pulmonary embolism or other acute abnormality.. RADIATION DOSE DELIVERED: 468.9mGy.cm Total DLP DATA REPOSITORY: All CT scans at this facility are submitted to the National Radiology Data Registry (NRDR) Dose Index Registry (DIR) with the [employer] (A[employer]). RADIATION OPTIMIZATION: All CT scans at this facility use at least one of these dose optimization te chniques: automated exposure control; mA and/or kV adjustment per patient size (includes targeted exa ms where dose is matched to clinical indication); or iterative reconstruction.
[2019-11-11] MEDS: Ketorolac 30 MG/ML VIAL IVP (10:33)
--- NOTE | 2019-11-11 11:15 | RT.EKG_ITS ---
APPROVED REPORT Exam: Resting ECG Patient Location: E HR:56 bpm ECG Measurements Heart Rate 56 AXIS ME 156 P 40 QRSd 83 QRS 3 QT 430 T 17 QTc 417 <Conclusion> Sinus bradycardia...rate< 60 Low voltage, precordial leads...precordial leads <1.0mV
[2019-11-11 12:13] LABS: Troponin I < 0.05 ng/mL (<0.06)
--- NOTE | 2019-11-11 12:49 | ED.GENADUL_ITS ---
Discharge Plan Disposition Patient Disposition: HOME Condition: Stable Discharge Details Chief Complaint: SOB Clinical Impression: Chest pain, Dyspnea, Arm pain, left Primary Care Provider: Sylvie Hays ED Provider: Josse Lomeli Home Meds and New Rx's Prescriptions: Continued trazodone 50 mg tablet 50 mg PO QHS Qty: 30 RF: 6 sertraline 100 mg tablet 150 mg PO DAILY Qty: 135 RF: 3 pantoprazole 40 mg tablet,delayed release (DR/EC) 40 mg PO HS Qty: 30 RF: 12 atorvastatin 40 mg tablet 40 mg PO DAILY Qty: 90 RF: 3 acetaminophen [Tylenol] 325 mg Tablet 325 mg PO Q4H PRN PRN (Reason: pain) Qty: 1 RF: 0 Discharge Instructions Instructions: Chest Pain (ED), Dyspnea (ED) Additional Instructions: Work-up in the ER today does not reveal any obvious emergent process. As we discussed I do recommend that you attempt to expedite your outpatient sightseeing guide appointment. Also recommend that you contact your primary care provider for prompt outpatient reevaluation. Outpatient stress test may be david cated if your symptoms persist. Please watch for new or worsening symptoms and return to the ER for any concerns. Discharge Data Discharge Date/Time-TO BE ENTERED AT DEPARTURE: 11/11/19 13:06 Medical Decision Making 43-year-old female history of PE, factor VIII disorder, presents reporting year- long history of chest pain and back pain currently being evaluated by a wiping rag washer and recently referred to a sightseeing guide. Now with 2-week history of left-sided neck shoulder and left arm pain. Pain is worse with movement or deep breathing. On exam she appears well, nontoxic in no acute distress. O2 sats are 99% on room air, she is without a fever. Pulse in the 70s, blood pressure 138/80. There is reproducible discomfort to her chest, back, left trapezius. Given the duration of her symptoms, certainly lower suspicion for ACS but with her history of PE and factor VIII disorder, I do believe initiating a cardiac work-up including chest CTA, repeat troponin 3 hours as well as a repeat troponin is certainly reasonable. She denies cough or fever, lower suspicion for infectious process. Very well could be musculoskeletal in nature. Now with the left arm pain and trapezius sensation there may be a radicular component, denies any posterior neck discomfort. I had a long discussion with the patient regarding my thought process and work-up. She is agreeable. She currently has no questions or concerns. Although low suspicion for ACS, will give a full dose aspirin initiate 1 L IV fluid. Initial laboratory values reveal a white count of 9.02 hemoglobin 13.3 hematocrit 41.1. Platelet count 303. Coags unremarkable. Chemistries reveal normal electrolytes, creatinine of 1.07 with a GFR of 56.24. Magnesium 2. LFTs unremarkable. Initial troponin less than 0.05. CTA read by radiology as negative, no acute process. Discussed initial work-up with patient. She is relieved. She is agreeable to wait for repeat troponin and EKG. In the meantime will provide a single dose of Toradol. Repeat troponin is less than 0.05. Repeat EKG at 1142 reviewed and interpreted with Dr. Pavon, please see his official report. Sinus bradycardia, ventricular rate 56. No STEMI On reevaluation after repeat troponin and EKG. She did experience some relief with the Toradol. Negative chest CTA for any etiology. 3-hour repeat troponin EKG negative here in the ER. No clear emergent source of her discomfort. We discussed her options. She is quite comfortable with discharge now been relieved that the work-up here in the ER did not reveal any obvious process. She will continue to follow-up with her wiping rag washer and she will contact her pulmonology team to help expedite outpatient care for her ongoing symptoms. She was encouraged to watch for new or worsening symptoms and return immediately to the ER. Medical Records Medical records reviewed: Yes I reviewed the patient's medical records. Lab Data Lab results reviewed: Yes I reviewed the patient's lab results. Lab results narrative: Laboratory Tests Range/Units 11/11/19 11/11/19 11/11/19 08:40 08:40 08:40 WBC (4.4-10.8) 10^3/uL 9.02 RBC (3.93-5.22) 10^6/uL 5.16 Hgb (11.2-15.7) g/dL 13.3 Hct (36.0-46.0) % 41.1 MCV (80-95) fL 79.7 L MCH (27.0-33.0) pg 25.8 L MCHC (32.0-36.0) % 32.4 RDW (11.7-14.6) % 14.8 H Plt Count (130-400) 10^3/uL 303 MPV (8.0-11.0) fL 10.3 Immature Gran % 0.6 Neutrophils % 76.2 Lymphocytes % 15.5 Monocytes % 6.2 Eosinophils % 1.3 Basophils % 0.2 Absolute Neutrophils (1.2-6.7) 10^3/uL 6.87 H Absolute Lymphocytes (1.2-3.4) 10^3/uL 1.40 Absolute Monocytes (0.1-0.8) 10^3/uL 0.56 Absolute Eosinophils (0.0-0.7) 10^3/uL 0.12 Absolute Basophils (0.0-0.2) 10^3/uL 0.02 PT (9.3-11.0) sec 9.8 INR (0.9-1.1) 1.0 APTT (21.0-31.4) sec 24.3 Sodium (136-145) mmol/L 138 Potassium (3.5-5.1) mmol/L 3.9 Chloride (98-107) mmol/L 102 Carbon Dioxide (21.0-32.0) mmol/L 27.5 Anion Gap (3-11) mmol/L 8.5 BUN (7-18) mg/dL 16 Creatinine (0.55-1.02) mg/dL 1.07 H Estimated GFR/1.73 m2 (mL/min/1.73m2) 56.24 Glucose (74-106) mg/dL 106 Calcium (8.5-10.1) mg/dL 8.9 Magnesium (1.8-2.4) mg/dL 2.0 Total Bilirubin (0.2-1.0) mg/dL 0.3 AST (15-37) U/L 21 ALT (14-59) U/L 39 Alkaline Phosphatase (46-116) U/L 111 Troponin I (<0.06) ng/mL < 0.05 NT-Pro-B Natriuret Pep (<300) pg/mL 157 Total Protein (6.4-8.2) g/dL 8.2 Albumin (3.4-5.0) g/dL 4.1 Range/Units 11/11/19 11:40 WBC (4.4-10.8) 10^3/uL RBC (3.93-5.22) 10^6/uL Hgb (11.2-15.7) g/dL Hct (36.0-46.0) % MCV (80-95) fL MCH (27.0-33.0) pg MCHC (32.0-36.0) % RDW (11.7-14.6) % Plt Count (130-400) 10^3/uL MPV (8.0-11.0) fL Immature Gran % Neutrophils % Lymphocytes % Monocytes % Eosinophils % Basophils % Absolute Neutrophils (1.2-6.7) 10^3/uL Absolute Lymphocytes (1.2-3.4) 10^3/uL Absolute Monocytes (0.1-0.8) 10^3/uL Absolute Eosinophils (0.0-0.7) 10^3/uL Absolute Basophils (0.0-0.2) 10^3/uL PT (9.3-11.0) sec INR (0.9-1.1) APTT (21.0-31.4) sec Sodium (136-145) mmol/L Potassium (3.5-5.1) mmol/L Chloride (98-107) mmol/L Carbon Dioxide (21.0-32.0) mmol/L Anion Gap (3-11) mmol/L BUN (7-18) mg/dL Creatinine (0.55-1.02) mg/dL Estimated GFR/1.73 m2 (mL/min/1.73m2) Glucose (74-106) mg/dL Calcium (8.5-10.1) mg/dL Magnesium (1.8-2.4) mg/dL Total Bilirubin (0.2-1.0) mg/dL AST (15-37) U/L ALT (14-59) U/L Alkaline Phosphatase (46-116) U/L Troponin I (<0.06) ng/mL < 0.05 NT-Pro-B Natriuret Pep (<300) pg/mL Total Protein (6.4-8.2) g/dL Albumin (3.4-5.0) g/dL ECG Data Attestation: I personally reviewed and interpreted this ECG (s) as follows: Interpretation: EKG performed at 836, reviewed and interpreted with Dr. Pavon, please see his official report. Sinus rhythm, ventricular of 73. No STEMI HPI General Mode of arrival: ambulatory . Date/Time Provider Initiated Documentation: 11/11/19 08:29 . Limitations to Documentation: no limitations . Information obtained by: patient . HPI Narrative: This is a 43-year-old female with history of hypertension, factor VIII disorder, hyperlipidemia, GERD, obesity, depression, PE presenting to the ER today with chest pain, back pain, left [id number] discomfort. She reports that she has had chest pain and back pain chronically now for approximately 1 year. She is followed by a wiping rag washer in [place] and has most recently been referred to a pulmonolo gist for her ongoing symptoms. She reports a history of PE last year however was taken off any anticoagulation last February. She reports that the chest pain is more like a pressure, constant, mild, the back pain is moderate in nature and constant as well. They are made worse with deep breathing or movement. She reports now for the past 2 weeks she has had some left-sided neck, shoulder, arm aching with some occasional paresthesias. She later tells me that she has had paresthesias in all 4 extremities intermittently for several months and that her wiping rag washer does already know about this. She denies recent illness or trauma. She denies fever, posterior neck pain, sore throat, visual changes, cough, shortness of breath, abdominal pain, nausea, vomiting, weakness, change in bowel or bladder function. She is concerned primarily today regarding her factor a disorder and history of PE although the symptoms today do not feel exactly like her PE. She denies any cardiac history. She does report that when she had her PE she did have an echocardiogram but never had a stress test. The pain that she is experiencing feels separate and they do not radiate from one place to the next. She is not a smoker. She does admit to a dull headache over the past several days. Related Data Home Medications Medication Instructions Recorded Confirmed acetaminophen [Tylenol] 325 mg PO Q4H PRN PRN #1 tab 11/20/18 11/11/19 sertraline 100 mg tablet 150 mg PO DAILY #135 tab 05/11/19 11/11/19 pantoprazole 40 mg tablet,delayed 40 mg PO HS #30 tab 08/02/19 11/11/19 release atorvastatin 40 mg tablet 40 mg PO DAILY #90 tab 08/18/19 11/11/19 trazodone 50 mg tablet 50 mg PO QHS #30 tab 08/19/19 11/11/19 Previous Rx's Medication Instructions Recorded acetaminophen [Tylenol] 325 mg PO Q4H PRN PRN #1 tab 11/20/18 sertraline 100 mg tablet 150 mg PO DAILY #135 tab 05/11/19 pantoprazole 40 mg tablet,delayed 40 mg PO HS #30 tab 08/02/19 release atorvastatin 40 mg tablet 40 mg PO DAILY #90 tab 08/18/19 trazodone 50 mg tablet 50 mg PO QHS #30 tab 08/19/19 Allergies Allergy/AdvReac Type Severity Reaction Status Date / Time amoxicillin Allergy Intermediate Rash Verified 11/11/19 08:39 sulfamethoxazole Allergy Unknown SKIN RASH Verified 11/11/19 08:39 General Stated Complaint: SOB DALY: 2 Review of Systems Constitutional Constitutional: Denies fatigue, Reports fever(s), Reports headache(s) and Denies weakness Eyes Eyes: Denies change in vision ENT Ears, Nose, Mouth, and Throat: Reports headache(s), Reports neck pain and Denies sore throat Cardiovascular Cardiovascular: Reports chest pain and Denies dyspnea Respiratory Respiratory: Denies cough and Denies dyspnea Gastrointestinal Gastrointestinal: Denies abdominal pain, Denies diarrhea and Denies vomiting Genitourinary Genitourinary: Denies dysuria Musculoskeletal Musculoskeletal: Reports back pain, Reports neck pain, Denies numbness and Reports tingling Integumentary/Breasts Skin/Breast: Denies rash Neurologic Neurologic: Reports headache(s), Denies numbness, Reports tingling and Denies weakness Endocrine Endocrine: Denies fatigue Hematologic/Lymphatic Hematologic/Lymphatic: Denies easy bleeding and Denies easy bruising [facility] Medical History Depression (Chronic) GERD (gastroesophageal reflux disease) (Chronic) Pulmonary embolus, right (Inactive) Surgical History Cholecystectomy (10/31/09) [facility]; Dr. Gloria Acosta History of laparoscopy (Chronic) S/P tubal ligation (Acute) Status post Mohs surgery (Acute ~09/02/18) 09/02/18 [facility] [place] TIP OF NOSE-KB Family History Mother Essential hypertension Depression Hyperlipidemia Neoplasm BREAST History of pulmonary embolism Father Essential hypertension Hyperlipidemia Myocardial infarction X 2 07/30 Factor V Leiden carrier Sister Depression Factor 5 Leiden mutation, heterozygous Sister Depression Grandfather Heart disease Grandfather Hyperlipidemia Myocardial infarction Grandmother Essential hypertension Hyperlipidemia Neoplasm SKIN Stroke Son Depression Maternal Uncle Myocardial infarction Daughter No problems noted. Daughter No problems noted. 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 Pets and animals: Yes Pets and animals: dog(s) Duration: 15-30 minutes/day Frequency: 1-2 times per week Special rachelle needs: No Female Reproductive History Menstrual control method: progestin IUCD History History 4 Para Hx # Term Pregnancies 3 Multiple births Hx # Pregnancies 3 Ectopic pregnancies AB induced Hx Number of Living Children 3 AB spontaneous 1 Exam Const General: cooperative, healthy appearing, comfortable and no acute distress Orientation: alert, awake and oriented x3 HENMT Head: normal to inspection, normocephalic and atraumatic Ears: external ears normal, TM's normal bilaterally and EAC's normal Face and sinus: normal facial exam Mouth: moist mucous membranes Throat: posterior oropharynx normal Eyes General: appearance normal, both eyes and all related structures Alignment and Position: alignment normal Periorbital: periorbital findings normal Eyelids: eyelids normal Conjunctivae: conjunctivae normal Sclera: sclerae normal Cornea: corneas normal Pupils: PERRL EOM: EOM intact bilaterally Direct ophthalmoscopy: normal light reflex Neck Neck: normal visual inspection, full ROM, no lymphadenopathy, trachea midline, supple and nontender Chest Chest: normal inspection of the chest and tenderness costochondral junction (Mild, left-sided) Resp Effort & Inspection: normal respiratory effort and able to speak in complete sentences Auscultation: clear to auscultation bilaterally Cardio Rate: regular rate Rhythm: regular rhythm GI Palpation: soft, not firm, no guarding, not rigid and nontender Back/Spine/Pelvis Back: no CVA tenderness and back tenderness (Diffuse thoracic, mild. No midline tenderness) Skin General skin exam: no rashes or lesions noted Neuro General: patient alert, patient awake, patient oriented x3, moves all extremities and no focal motor deficits Cranial Nerves: CN's II-XI intact bilaterally Cognition: normal cognition Speech: speech normal Gait: normal gait Motor: muscle tone normal throughout and strength 5/5 throughout Sensory Exam: no sensory deficits noted Extrem General: normal to inspection, full ROM and capillary refill normal Right upper extremity: normal to inspection, full ROM and normal capillary refill Left upper extremity: normal to inspection, full ROM, normal capillary refill and shoulder/upper arm Details: inspection abnormal, tenderness (Mild left trapezius discomfort), axillary nerve sensory function normal and normal ROM; no swelling, no ecchymosis and no crepitus Right lower extremity: normal to inspection, full ROM and normal capillary refill Left lower extremity: normal to inspection, full ROM and normal capillary refill Other: Negative Homans sign bilateral lower extremities Psych Appearance: grossly normal Mental Status: mental status grossly normal Course Vital Signs Vital signs: Vital Signs Pulse 79 11/11/19 08:33 Blood Pressure 138/80 11/11/19 08:33 Temperature 36.7 C 11/11/19 08:34 Temperature Source Skin 11/11/19 08:34 Pulse 55 L 11/11/19 11:31 Pulse 63 11/11/19 11:31 Respiratory Rate 20 11/11/19 11:31 Respiratory Effort Non-Labored 11/11/19 08:43 Respiratory Depth Normal 11/11/19 08:43 Respiratory Pattern Normal 11/11/19 08:43 Blood Pressure 114/82 11/11/19 11:31 Blood Pressure Mean 89 11/11/19 11:31 Blood Pressure Position Supine 11/11/19 08:34 Pulse Oximetry 96 11/11/19 11:31 Oxygen Delivery Method Room Air 11/11/19 08:34 Oxygen Flow Rate 0 11/11/19 08:34 Pain Level 7 11/11/19 10:33 Lab/Test Results Lab/Test Results: Laboratory Tests Range/Units 11/11/19 11/11/19 11/11/19 08:40 08:40 08:40 WBC (4.4-10.8) 10^3/uL 9.02 RBC (3.93-5.22) 10^6/uL 5.16 Hgb (11.2-15.7) g/dL 13.3 Hct (36.0-46.0) % 41.1 MCV (80-95) fL 79.7 L MCH (27.0-33.0) pg 25.8 L MCHC (32.0-36.0) % 32.4 RDW (11.7-14.6) % 14.8 H Plt Count (130-400) 10^3/uL 303 MPV (8.0-11.0) fL 10.3 Immature Gran % 0.6 Neutrophils % 76.2 Lymphocytes % 15.5 Monocytes % 6.2 Eosinophils % 1.3 Basophils % 0.2 Absolute Neutrophils (1.2-6.7) 10^3/uL 6.87 H Absolute Lymphocytes (1.2-3.4) 10^3/uL 1.40 Absolute Monocytes (0.1-0.8) 10^3/uL 0.56 Absolute Eosinophils (0.0-0.7) 10^3/uL 0.12 Absolute Basophils (0.0-0.2) 10^3/uL 0.02 PT (9.3-11.0) sec 9.8 INR (0.9-1.1) 1.0 APTT (21.0-31.4) sec 24.3 Sodium (136-145) mmol/L 138 Potassium (3.5-5.1) mmol/L 3.9 Chloride (98-107) mmol/L 102 Carbon Dioxide (21.0-32.0) mmol/L 27.5 Anion Gap (3-11) mmol/L 8.5 BUN (7-18) mg/dL 16 Creatinine (0.55-1.02) mg/dL 1.07 H Estimated GFR/1.73 m2 (mL/min/1.73m2) 56.24 Glucose (74-106) mg/dL 106 Calcium (8.5-10.1) mg/dL 8.9 Magnesium (1.8-2.4) mg/dL 2.0 Total Bilirubin (0.2-1.0) mg/dL 0.3 AST (15-37) U/L 21 ALT (14-59) U/L 39 Alkaline Phosphatase (46-116) U/L 111 Troponin I (<0.06) ng/mL < 0.05 NT-Pro-B Natriuret Pep (<300) pg/mL 157 Total Protein (6.4-8.2) g/dL 8.2 Albumin (3.4-5.0) g/dL 4.1 Range/Units 11/11/19 11:40 WBC (4.4-10.8) 10^3/uL RBC (3.93-5.22) 10^6/uL Hgb (11.2-15.7) g/dL Hct (36.0-46.0) % MCV (80-95) fL MCH (27.0-33.0) pg MCHC (32.0-36.0) % RDW (11.7-14.6) % Plt Count (130-400) 10^3/uL MPV (8.0-11.0) fL Immature Gran % Neutrophils % Lymphocytes % Monocytes % Eosinophils % Basophils % Absolute Neutrophils (1.2-6.7) 10^3/uL Absolute Lymphocytes (1.2-3.4) 10^3/uL Absolute Monocytes (0.1-0.8) 10^3/uL Absolute Eosinophils (0.0-0.7) 10^3/uL Absolute Basophils (0.0-0.2) 10^3/uL PT (9.3-11.0) sec INR (0.9-1.1) APTT (21.0-31.4) sec Sodium (136-145) mmol/L Potassium (3.5-5.1) mmol/L Chloride (98-107) mmol/L Carbon Dioxide (21.0-32.0) mmol/L Anion Gap (3-11) mmol/L BUN (7-18) mg/dL Creatinine (0.55-1.02) mg/dL Estimated GFR/1.73 m2 (mL/min/1.73m2) Glucose (74-106) mg/dL Calcium (8.5-10.1) mg/dL Magnesium (1.8-2.4) mg/dL Total Bilirubin (0.2-1.0) mg/dL AST (15-37) U/L ALT (14-59) U/L Alkaline Phosphatase (46-116) U/L Troponin I (<0.06) ng/mL < 0.05 NT-Pro-B Natriuret Pep (<300) pg/mL Total Protein (6.4-8.2) g/dL Albumin (3.4-5.0) g/dL
== END 2019-11-11 13:06 | disposition home or self-care (01) ==
PROVIDERS: Emergency Provider Physician Assistant; PCP Nurse Practitioner
DX: R06.00 Dyspnea, unspecified (principal); R07.9 Chest pain, unspecified; M79.602 Pain in left arm; M54.2 Cervicalgia; Z86.711 Personal history of pulmonary embolism; D68.318 Other hemorrhagic disorder due to intrinsic circulating anticoagulants, antibodies, or inhibitors; I10 Essential (primary) hypertension
CPT/HCPCS: 36415; 71275; 80053; 93005; 96361; 96374; 99285; 83735; 83880; 84484; 85025; 85610; 85730; 93010; J1885; J3490

== ENCOUNTER 2019-12-06 09:01 | Outpatient (CLI) | payer BC, SELFPAY ==
[2019-12-08 02:38] LABS: COVID-19 RT-PCR Result NEGATIVE (Negative)
== END 2019-12-06 09:21 ==
PROVIDERS: PCP Nurse Practitioner; Visit Provider Nurse Practitioner
DX: R06.09 Other forms of dyspnea (principal)
CPT/HCPCS: U0003

== ENCOUNTER 2019-12-07 00:28 | Outpatient (CLI) | payer BC, SELFPAY ==
--- NOTE | 2019-12-07 06:15 | DI.MAMMO_ITS ---
EXAM: MAMMO SCREENING CLINICAL HISTORY: screening,Z12.39 TECHNIQUE: Mammograms were interpreted according to the usual protocol including computer analysis w [employer] CAD system, tomosynthesis and C-view imaging. COMPARISON: FINDINGS: The breasts are of moderate density with fairly symmetrical distribution of fibroglandular tissue. N o dominant mass or clumped microcalcification is identified in either breast. The current examinatio n is compared with prior studies including December 2017 and there is increased prominence of a foca l area of asymmetric density with a vaguely nodular appearance projected in the medial portion of the left breast on CC view, this may lie posteriorly and inferiorly on the MLO view. Additional mammogr aphic views of this area are requested to include CC and MLO spot compression views of the left breas t. Left breast ultrasound recommended as well. No other significant change seen in comparison with the previous studies. IMPRESSION: Additional mammographic views of the left breast and left breast ultrasound requested as described ab azul. BI-RADS Category 0 - Assessment Incomplete: Need additional imaging evaluation Breast Density - Category B - Scattered areas of fibroglandular density
== END 2019-12-07 00:48 ==
PROVIDERS: PCP Nurse Practitioner; Visit Provider Nurse Practitioner
DX: Z12.31 Encounter for screening mammogram for malignant neoplasm of breast (principal); R92.2 Inconclusive mammogram; R92.8 Other abnormal and inconclusive findings on diagnostic imaging of breast
CPT/HCPCS: 77063; 77067

== ENCOUNTER 2019-12-13 02:16 | Outpatient (CLI) | payer BC, SELFPAY ==
--- NOTE | 2019-12-13 | DI.MAMMO_ITS ---
EXAM: MG MAMMO SCREEN CALL BACK UNI and U/S breast LT limited CLINICAL HISTORY: F/U MAMMO, FOCAL ASYMMETRIC DENSITY LT. TECHNIQUE: Craniocaudal and mediolateral oblique Full Field Digital Mammography views of the left br east with Computer Aided Diagnosis followed by Tomosynthesis and left breast ultrasound. COMPARISON: Priors available for comparison. FINDINGS: Mammography/Tomosynthesis: Masses/Architectural Distortion: There is a persistent small ovoid asymmetric density in the central medial left breast on the additional view. It is only appreciated on the craniocaudad view. A well- circumscribed ovoid density is seen more anteriorly in the medial portion of the left breast which ap pears stable. Microcalcifictions: No suspicious pleomorphic-type are seen. Skin Thickening/Nipple Retraction: None. Left breast US: Echotexture: Normal appearance of the glandular tissue. Shadowing: No suspicious foci. Cyst: There is a 0.6 x 0.4 x 0.5 cm cyst in the medial left breast which appears to correspond to the stable more anterior lesion. No other cystic or solid lesions are seen in the medial half of the br east sonographically. Solid lesions: None seen. Ductal dilation: None. IMPRESSION: 1. No evidence of malignancy is noted. 2. A six-month follow-up left mammogram is recommended for further evaluation. 3. The findings were discussed with the patient on the date of the examination. BI-RADS Category 3 - 6 month - Probably Benign Finding: Recommend follow-up mammography in 6 months Breast Density - Category B - Scattered areas of fibroglandular density A negative radiographic report should not delay biopsy if a dominant or clinically suspicious mass is present. Up to ten percent of cancers are not identified on mammography. A negative report may reinforce clinical impression. Adenosis and dense breasts may obscure an underlying neoplasm. False positive reports average 6 to 10%. Patient will receive a letter notifying them of these results.
== END 2019-12-13 02:36 ==
PROVIDERS: PCP Nurse Practitioner; Visit Provider Nurse Practitioner
DX: Z12.39 Encounter for other screening for malignant neoplasm of breast (principal); R92.8 Other abnormal and inconclusive findings on diagnostic imaging of breast
CPT/HCPCS: 76642; 77063; 77067

== ENCOUNTER → 2020-03-27 01:10 | Outpatient (CLI) | payer BC, SELFPAY ==
--- NOTE | 2020-03-27 | DI.MRI_ITS ---
EXAM: MR ORBIT FACIAL NECK WO/W CLINICAL HISTORY: PSEUDOPAPILLEDEMA OF OPTIC DISC,VISUAL FIELD DEFECTS,COLOR VISION DEFICIENC TECHNIQUE: Multiplanar multisequence MRI was performed. CONTRAST MATERIAL: IV Contrast: 20 mL of oral contrast administered. No glands FINDINGS: There is no evidence of proptosis or obvious dysconjugate gaze. Orbital globes appear unremarkable. Lacrimal glands unremarkable. Retro conal fat is unremarkable with no abnormal infiltration. Extra-ocular muscles appear unremarkable. Optic nerves appear unremarkable. Optic chiasm also appears unremarkable. There is no evidence of pituitary or suprasellar mass. Indeed, the pituitary gland appears confined mostly to the floor of the sella turcica consistent with an element of empty sella syndrome. Caverno us sinuses appear unremarkable. Expected flow voids are noted. No aneurysm evident. Basilar artery is formed by the dominant right vertebral artery. Visualized maxillary sinuses appear unremarkable. The oil air cells and sphenoid sinuses unremarkabl e. IMPRESSION: No significant intraorbital findings. Other incidental findings as above. DATA REPOSITORY:
--- NOTE | 2020-03-27 | DI.MRI_ITS ---
EXAM: MR BRAIN WO/W CLINICAL HISTORY: HEADACHES,PSEUDOPAPILLEDEMA OF OPTIC DISC,VISUAL FIELD DEFECT,COLOR TECHNIQUE: Multiplanar multisequence MRI of the brain was performed. Both noninfused and contrast i nfused sequences were performed. IV Contrast injected was 20 cc Dotarem. COMPARISON: Brain CT scan October 2009 was reviewed. FINDINGS: CEREBRAL PARENCHYMA: No evidence of intracranial hemorrhage, mass effect nor shift of midline structu re. No extraaxial fluid collections. Ventricles are not enlarged nor shifted. There is no significant focal signal abnormality in the cerebellar hemispheres nor within the jose, m idbrain, and thalami. There are multiple small tiny nonspecific FLAIR bright signal foci in the Carol in supra ventricular w franklin matter, not associated with abnormal enhancement or surrounding edema. There are no ring enhancing lesions in the brain. There is no abnormal meningeal enhancement. PITUITARY GLAND: No mass nor parasellar abnormality. No obvious abnormality in the cavernous sinuses. FLOW VOIDS: The expected flow void are noted. No evidence of obvious aneurysm nor obvious vascular ma lformation. PARANASAL SINUSES: The visualized paranasal sinuses appear unremarkable. IMPRESSION: 1. No significant intracranial findings on this MRI scan of the brain. 2. No abnormal enhancing intracranial lesions. No abnormal meningeal enhancement. DATA REPOSITORY:
[2020-03-27] MEDS: Normal Saline Flush 10 ML SYR IVP (08:35)
[2020-03-27] MEDS: Gadoterate meglumine 20 ML VIAL IVP (08:36)
== END ==
PROVIDERS: PCP Nurse Practitioner; Visit Provider Optometrist
DX: R51.9 Headache, unspecified (principal); H47.339 Pseudopapilledema of optic disc, unspecified eye; H54.7 Unspecified visual loss; H53.50 Unspecified color vision deficiencies
CPT/HCPCS: 70553; 70543

== ENCOUNTER 2020-06-08 02:05 | Outpatient (CLI) | payer BC, SELFPAY ==
--- NOTE | 2020-06-08 08:15 | DI.MAMMO_ITS ---
EXAM: MG MAMMO DIAGNOSTIC UNI-left CLINICAL HISTORY: f/u ABNORMAL MAMMO,close follow pu, r92.8. TECHNIQUE: Cc and MLO 3D images were obtained with 3D Tomosynthesistechnique and utilizing computer aided detection (CAD). COMPARISON: Prior mammograms dating back to 2017, the most recent being November 2019. Prior ultrasou nd was reviewed. FINDINGS: Findings remain stable and benign appearance. Nodular density located medially in the left breast ap pears unchanged from prior studies. Another fainter benign-appearing nodule which exhibits a notch i s noted which is probably a benign lymph node, unchanged. There are no new spiculated masses nor malignant-appearing microcalcification groups in the left crystal st. No new architectural distortion or skin thickening-traction. IMPRESSION: Stable benign-appearing left breast findings. Appropriate follow-up is keep this patient yearly mammogram schedule, this implying the next bilatera l mammogram would be in November 2020, with earlier imaging if a self detected breast changes noted.. BI-RADS Category 2 - Benign Findings Breast Density - Category B - Scattered areas of fibroglandular density Breast density Category C or D implies that the patient has dense breast tissue. Dense breast tissue can make it harder to find cancer on a mammogram. Dense breast tissue is also associated with an incr eased risk of breast cancer. This information about the result of the mammogram report was provided to the patient to raise their awareness. Use this report when you speak with the patient about their risks for breast cancer, which includes their family history. At that time, you may recommend additional screening tests (Ultrasoun d or MRI) as these tests may add significant information. A negative radiographic report should not delay biopsy if a dominant or clinically suspicious mass is present. Up to ten percent of cancers are not identified on mammography. A negative report may reinforce clinical impression. Adenosis and dense breasts may obscure an underlying neoplasm. False positive reports average 6 to 10%. Patient will receive a letter notifying them of these results.
== END 2020-06-08 02:06 ==
LOC: DI 02:05
PROVIDERS: PCP Nurse Practitioner; Visit Provider Nurse Practitioner
DX: R92.8 Other abnormal and inconclusive findings on diagnostic imaging of breast (principal)
CPT/HCPCS: 77061; 77065; G0279

== ENCOUNTER 2020-11-09 04:11 | Outpatient (CLI) | payer BC, SELFPAY ==
[2020-11-09 07:49] LABS: Hemoglobin A1C 6.1 % (<5.7)
[2020-11-09 09:19] LABS: Calculated LDL 106 mg/dL (<100); Cholesterol 178 mg/dL (<200); HDL Cholesterol 43 mg/dL (40-60); Triglyceride 145 mg/dL (<150)
== END 2020-11-09 04:12 | disposition home or self-care (01) ==
LOC: LBO 04:11
PROVIDERS: PCP Nurse Practitioner; Visit Provider Nurse Practitioner
DX: E78.2 Mixed hyperlipidemia (principal); R73.03 Prediabetes
CPT/HCPCS: 36415; 80061; 83036

== ENCOUNTER 2021-07-03 03:21 | Outpatient (CLI) | payer BC, SELFPAY ==
--- NOTE | 2021-07-03 11:30 | NS.NUTBLAN_ITS ---
Kesha was referred for weight management education. 64 inches 233 lbs BMI 39. She has gained 70 lbs in last 6 years. PMH: obesity, HLD, prediabetes, hx of PE. Meds: statin. Typical weight as adult: 155-160 lbs. 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 Has 2 adult children. Diet Recall: fruit, chicken delilah salad, cereal and milk Exericse: 4-5 times weekly, walking, spin Session today discussed impact of metabolic syndrome on trunkal weight gain, lipids and glycemic control. Suspect Kesha may have insulin resistance leading to progressive weight gain despite eating healthy diet. Provided education on how to follow a lower carb, higher protein diet with focus on non starchy vegetables, lean protein and healthy fats. Encouraged daily walking of 30 minutes. Reviewed how Trulicity or a GLP1ra may help her lose weight. Goal is for 1-2 lbs weight loss per week with initial goal weight of 199 lbs. Discussed role of weight loss surgery if unable to attain significant weight loss with diet and exercise. Follow up scheduled 07/31/21 at 1130
== END 2021-07-03 03:22 | disposition home or self-care (01) ==
PROVIDERS: PCP Nurse Practitioner; Visit Provider Dietitian, Registered
DX: E66.8 Other obesity (principal); R73.03 Prediabetes; E78.5 Hyperlipidemia, unspecified; Z71.3 Dietary counseling and surveillance
CPT/HCPCS: 97802

== ENCOUNTER 2021-07-06 03:45 | Outpatient (CLI) | payer BC, SELFPAY ==
[2021-07-06 11:54] LABS: Hemoglobin A1C 6.2 % (<5.7)
== END 2021-07-06 03:46 | disposition home or self-care (01) ==
LOC: LBO 03:45
PROVIDERS: PCP Nurse Practitioner; Visit Provider Nurse Practitioner
DX: R73.03 Prediabetes (principal)
CPT/HCPCS: 36415; 83036

== ENCOUNTER 2021-07-31 02:31 | Outpatient (CLI) | payer BC, SELFPAY | END 2021-07-31 02:32 | disposition home or self-care (01) | LOC: DS 02:32 | PROVIDERS: PCP Nurse Practitioner; Visit Provider Dietitian, Registered ==

== ENCOUNTER 2021-08-06 05:35 | Outpatient (CLI) | payer BC, SELFPAY ==
--- NOTE | 2021-08-06 10:30 | NS.NUTBLAN_ITS ---
Kesha returns for weight management education. Wt: 226 lbs, has lost 7 lbs in last 4 weeks. Kesha reports using boogie on her phone to log her meals and that she is following following recommendations daily: [id number] k carly, 80-100 g CHO, 60-70 g Pro, 45-55 g FAT. Diet Recall: eggs with toast, cottage cheese and quest bar, meat/vegetable at night. No routine exercise but wants to start walking daily again. Kesha is doing great with following lower carb diet and losing weight. Recommend minimum of 8000 steps daily to help her continue to lose weight and reach her goal of 190 lbs. Follow up scheduled for 09/10/21 at 1130.
== END 2021-08-06 05:36 | disposition home or self-care (01) ==
PROVIDERS: PCP Nurse Practitioner; Visit Provider Dietitian, Registered
DX: E66.8 Other obesity (principal); Z71.3 Dietary counseling and surveillance
CPT/HCPCS: 97803

== ENCOUNTER → 2021-12-11 01:47 | Outpatient (CLI) | payer BC, SELFPAY ==
--- NOTE | 2021-12-11 07:43 | DI.MAMMO_ITS ---
Exam(s) MAMMO SCREENING EXAM: MAMMO SCREENING CLINICAL HISTORY: screening, Z12.39 TECHNIQUE: Mammograms were interpreted according to the usual protocol including computer analysis w Digitel CAD system, tomosynthesis and C-view imaging. COMPARISON: FINDINGS: The breasts are of moderate density with fairly symmetrical distribution of fibroglandular tissue. N o dominant mass or clumped microcalcification is identified in either breast. The current examinatio n is compared with previous examinations including November 2019 and there has been no gross interval c hange in appearance in comparison with the prior studies. IMPRESSION: No specific evidence of malignancy at this time. Routine screening examinations are suggested at yea rly intervals due to the family history of breast carcinoma. BI-RADS Category 1 - Negative Breast Density - Category B - Scattered areas of fibroglandular density
== END ==
PROVIDERS: PCP Nurse Practitioner; Visit Provider Nurse Practitioner
DX: Z12.31 Encounter for screening mammogram for malignant neoplasm of breast (principal); Z80.3 Family history of malignant neoplasm of breast
CPT/HCPCS: 77063; 77067

== ENCOUNTER 2021-12-11 03:05 | Outpatient (CLI) | payer BC, SELFPAY ==
[2021-12-11 08:14] LABS: Calculated LDL 77 mg/dL (<100); Cholesterol 157 mg/dL (<200); HDL Cholesterol 52 mg/dL (40-60); Triglyceride 144 mg/dL (<150)
== END 2021-12-11 03:06 | disposition home or self-care (01) ==
PROVIDERS: PCP Nurse Practitioner; Visit Provider Nurse Practitioner
DX: E78.2 Mixed hyperlipidemia (principal)
CPT/HCPCS: 36415; 80061

== ENCOUNTER 2022-06-24 01:58 | Outpatient (CLI) | payer BC, SELFPAY ==
--- NOTE | 2022-06-24 06:51 | DI.CT_ITS ---
Exam(s) CT CHEST PE CTA EXAM: CT CHEST PE CTA CLINICAL HISTORY: Chest pressure with cough, hx of PE,COUGH, R05.9,R07.89. TECHNIQUE: Imaging Protocol: Axial CT angiography was performed with multi-slice acquisition and mu lti-planar and/or 3D reconstructions. CONTRAST MATERIAL: Intravenous: Omnipaque 350 contrast volume:100 mL COMPARISON: CT CT CHEST PE CTA from 11/11/2019 FINDINGS: Tracheobronchial tree: Patent where visualized. Pulmonary parenchyma: There is poor inspiration with atelectasis present. There is an area of atelec tasis in the right lower lobe. No focal consolidating infiltrates are seen. No architectural distor tion. Pulmonary Arteries: No evidence of filling defect to suggest pulmonary emboli. Mediastinum and Elidia: No dominant adenopathy or fluid collection. The esophagus is unremarkable. Visualized thyroid gland: Unremarkable. Pleura: No effusion or pneumothorax. Heart: The heart is not dilated. No coronary artery calcifications are seen. No pericardial effusion. Aorta: Thoracic aorta non-dilated. No evidence of dissection. Upper abdomen: Unremarkable. Soft tissues: Unremarkable. Bones: Within normal limits for the patient's age. IMPRESSION: 1. No evidence of pulmonary embolism, thoracic aortic dissection or aneurysm. 2. Poor inspiration with areas of atelectasis. 3. Focal atelectasis in the right lower lobe. RADIATION DOSE DELIVERED: 472.29mGy.cm Total DLP DATA REPOSITORY: All CT scans at this facility are submitted to the National Radiology Data Registry (NRDR) Dose Index Registry (DIR) with the [employer] (ACR). RADIATION OPTIMIZATION: All CT scans at this facility use at least one of these dose optimization te chniques: automated exposure control; mA and/or kV adjustment per patient size (includes targeted exa ms where dose is matched to clinical indication); or iterative reconstruction.
[2022-06-24] MEDS: Normal Saline - Diluent 50 ML VIAL IJ (08:15)
[2022-06-24] MEDS: Omnipaque 350 MG/ML 100 ML BTL IJ (08:15)
[2022-06-24] MEDS: Normal Saline Flush 10 ML SYR IVP (08:16)
== END 2022-06-24 02:18 ==
LOC: DI 01:58
PROVIDERS: PCP Nurse Practitioner Family; Visit Provider Nurse Practitioner Family
DX: R07.89 Other chest pain (principal); R05.8 Other specified cough; J98.11 Atelectasis; Z86.711 Personal history of pulmonary embolism
CPT/HCPCS: 71275; J3490

== ENCOUNTER → 2023-07-15 03:42 | Outpatient (CLI) | payer BC, SELFPAY ==
--- NOTE | 2023-07-15 08:00 | DI.MAMMO_ITS ---
Exam(s) MAMMO SCREENING EXAM: MAMMO SCREENING CLINICAL HISTORY: screening,z12.39. TECHNIQUE: Bilateral full field digital CC and MLO mammographic images were obtained with 3D tomosyn thesis and utilizing computer aided detection (CAD). COMPARISON: Prior mammograms were reviewed. FINDINGS: There has been no significant change in the appearance and distribution of the fibroglandular tissue. Asymmetric tissue posteriorly in the right breast is unchanged from prior studies. There are no new spiculated masses nor malignant appearing microcalcification groups. There is no significant architectural distortion nor skin thickening-retraction. IMPRESSION: No radiographic evidence of malignancy. BI-RADS Category 1 - Negative Breast Density - Category B - Scattered areas of fibroglandular density Breast density Category C or D implies that the patient has dense breast tissue. Dense breast tissue can make it harder to find cancer on a mammogram. Dense breast tissue is also associated with an incr eased risk of breast cancer. This information about the result of the mammogram report was provided to the patient to raise their awareness. Use this report when you speak with the patient about their risks for breast cancer, which includes their family history. At that time, you may recommend additional screening tests (Ultrasoun d or MRI) as these tests may add significant information. A negative radiographic report should not delay biopsy if a dominant or clinically suspicious mass is present. Up to ten percent of cancers are not identified on mammography. A negative report may reinforce clinical impression. Adenosis and dense breasts may obscure an underlying neoplasm. False positive reports average 6 to 10%. Patient will receive a letter notifying them of these results.
== END ==
PROVIDERS: PCP Nurse Practitioner Family; Visit Provider Nurse Practitioner Family
DX: Z12.31 Encounter for screening mammogram for malignant neoplasm of breast (principal)
CPT/HCPCS: 77063; 77067

== ENCOUNTER 2023-07-15 04:52 | Outpatient (CLI) | payer BC, SELFPAY ==
[2023-07-15 11:07] LABS: Abs Immature Grans 0.07 10^3/uL (0.0-0.06); Absolute Basophil Count 0.03 10^3/uL (0.0-0.2); Absolute Eosinophil Count 0.13 10^3/uL (0.0-0.7); Absolute Lymphocyte Count 1.35 10^3/uL (1.2-3.4); Absolute Monocyte Count 0.53 10^3/uL (0.1-0.8); Absolute Neutrophil Count 6.84 10^3/uL (1.2-6.7); Basophils % 0.3; ESR 5 mm/hr (0-20); Eosinophils % 1.5; HCT 41.5 % (36.0-46.0); Immature Grans % 0.8; Lymphocytes % 15.1; MCH 25.8 pg (27.0-33.0); MCHC 31.3 % (32.0-36.0); MCV 82 fL (80-95); MPV 9.7 fL (8.0-11.0); Monocytes % 5.9; Neutrophils % 76.4; Platelet Count 265 10^3/uL (130-400); RBC 5.04 10^6/uL (3.93-5.22); RDW 14.6 % (11.7-14.6); RDW-SD 43.8 fL; WBC 8.95 10^3/uL (4.4-10.8)
[2023-07-15 12:37] LABS: ALT 70 U/L (14-59); AST 27 U/L (15-37); Albumin 3.9 g/dL (3.4-5.0); Alkaline Phosphatase 134 U/L (46-116); Anion Gap 12.2 mmol/L (3-11); BUN 12 mg/dL (7-18); Bilirubin, Total 0.3 mg/dL (0.2-1.0); CO2 24.8 mmol/L (21.0-32.0); Calcium 9.1 mg/dL (8.5-10.1); Calculated LDL 111 mg/dL (<100); Chloride 106 mmol/L (98-107); Cholesterol 189 mg/dL (<200); Estimated GFR 70.36 (mL/min/1.73m2); Glucose 92 mg/dL (74-106); HDL Cholesterol 62 mg/dL (40-60); Potassium 4.4 mmol/L (3.5-5.1); Sodium 143 mmol/L (136-145); TSH (W/Ref FT4) 1.97 uIU/mL (0.36-3.74); Total Protein 7.4 g/dL (6.4-8.2); Triglyceride 84 mg/dL (<150)
[2023-07-15 18:12] LABS: CRP, High Sensitivity 2.53 mg/L (See Note); Rheumatoid Factor <8.6 IU/mL (<12.0)
[2023-07-16 08:18] LABS: Cyclic Citrullinated Peptide <2.5 U/mL (<5.0)
[2023-07-16 10:47] LABS: Lyme Ab w Rflx to Lyme Confirm Negative (Negative)
[2023-07-16 12:22] LABS: ANA Interpretation Negative (Negative)
[2023-07-18 16:48] LABS: Anaplasma phagocytophilum Negative (Negative); B. miyamotoi PCR Negative (Negative); Babesia divergens/MO-1 Negative (Negative); Babesia duncani Negative (Negative); Babesia microti Negative (Negative); Ehrlichia chaffeensis Negative (Negative); Ehrlichia ewingii/canis Negative (Negative); Ehrlichia muris eauclairensis Negative (Negative)
== END 2023-07-15 04:53 | disposition home or self-care (01) ==
PROVIDERS: PCP Nurse Practitioner Family; Visit Provider Nurse Practitioner Family
DX: Z00.00 Encounter for general adult medical examination without abnormal findings; K21.9 Gastro-esophageal reflux disease without esophagitis; R73.03 Prediabetes; D68.318 Other hemorrhagic disorder due to intrinsic circulating anticoagulants, antibodies, or inhibitors; E78.2 Mixed hyperlipidemia; F32.9 Major depressive disorder, single episode, unspecified
CPT/HCPCS: 36415; 80053; 80061; 85652; 86141; 86200; 87798; 84443; 85025; 86038; 86431; 86618

== ENCOUNTER 2023-09-19 08:13 | Day surgery (SDC) | payer BC, SELFPAY ==
--- NOTE | 2023-09-18 20:15 | W.PM.DSUDISC ---
Date of service: 09/19/23 Time of Service: 10:06 Discharge Plan Disposition Patient Disposition: Home Condition: Good Discharge Details Reason For Visit: screening colonoscopy Attending Provider: Valente Patel Primary Care Provider: Oxana Maciel Home Meds and New Rx's Prescriptions: Continued albuterol sulfate 90 mcg/actuation HFA aerosol inhaler 2 inh inhalation Q6H PRN (Reason: shortness of breath or wheezing) Qty: 18 4RF Women's Daily Formula 27-0.4 mg tablet 1 tab PO DAILY acetazolamide 500 mg capsule, extended release 500 mg PO QHS atorvastatin 40 mg tablet 40 mg PO DAILY Qty: 90 3RF pantoprazole 40 mg tablet,delayed release (DR/EC) 40 mg PO DAILY Qty: 90 3RF sertraline 100 mg tablet 150 mg PO DAILY Qty: 135 3RF trazodone 50 mg tablet 50 mg PO QHS PRN (Reason: insomnia) Qty: 30 1RF acetaminophen [Tylenol] 325 mg Tablet 325 mg PO Q4H PRN PRN (Reason: pain) Qty: 1 0RF Discontinued polyethylene glycol 3350 17 gram/dose powder 238 g PO ONCE Qty: 238 0RF Rx Instructions: take per colonoscopy instructions bisacodyl [Dulcolax (bisacodyl)] 5 mg tablet,delayed release (DR/EC) 5 mg PO ONCE Qty: 4 0RF Rx Instructions: take per colonoscopy instructions Discharge Instructions Instructions: Colorectal Polyps (GEN) Additional Instructions: Needed, we are able to complete the colonoscopy today without any difficulty. There were 2 very small areas that had some features consistent with polyp. I did remove these today, and I will send them off for testing. Once I have the results of that, the office will be in touch with any other recommendations. If you have any questions in the meantime, please do not hesitate to call or ask at any point. 1. If tolerated, consume a soft, low fiber diet for 1-2 days. 2[address] Do not drive, drink alcohol, operate machinery, make critical decisions, or do activities that require coordination or balance for 24 hours. 3. Because air was put into your colon during the procedure, expelling air from your rectum (passing gas or farting) is normal. 4. You may not have a bowel movement for 1-3 days because of the colonoscopy prep. This is normal. 5. Go directly to the emergency room if you notice any of the following: Develop chills (warm to touch), or if you have a thermometer and your temperature is above 101 Difficulty breathing or difficultly swallowing Persistent vomiting Severe abdominal pain, other than gas cramps Severe chest pain Black, tarry stools Any bleeding ? exceeding one tablespoon 6. Call your physician if the site where your intravenous was started becomes red, swollen, painful, and warm to touch. 7. Your physician has reviewed your pre-procedure medications. Please continue to take those medications as previously ordered. You will be given specific information/education regarding any changes to your medications before leaving. Activity:: Activity as Tolerated Diet:: As Tolerated Discharge Orders Discharge Orders: Discharge Order (Routine); Ordered 09/18/23 Ordered By: Valente Patel DS: Diagnosis Discharge Diagnosis (1) Encounter for screening colonoscopy: Status: Acute Asessment and Plan: Follow-up on polypectomy results
--- NOTE | 2023-09-18 20:16 | COLE_ITS ---
Date of service: 09/19/23 Time of Service: 10:10 Colonoscopy Report Date of procedure: 09/19/23 Pre-op diagnosis general: screening colonoscopy Post-op diagnosis procedure note: other (Colon polyps) Procedure: colonoscopy with polypectomy Surgeon: Valente Patel Anesthesia Type: General:No Airway Estimated blood loss (mL): 5 Pathology: other (0.25 cm flat polyps at 70 cm, and 20 cm) Complications: None Disposition: same day Indications: Kesha is a47 year old woman who needs a screening colonoscopy Prep: Miralax/Dulcolax Procedure Start Time: 09:46 Procedure End Time: 10:02 Retraction Time: 11 Findings: 0.25 cm flat polyp at 70 cm, 0.25 cm flat polyp 20 cm Procedure Description: After the induction of anesthesia, and with the patient in left lateral decubitus position, I began by performing an external anorectal exam.? Perineum and skin were normal, as was the anal verge.? There was no evidence of external hemorrhoids.? Next, I performed a digital rectal exam.? I did not appreciate any abnormal findings.? Next, I advanced a colonoscope into the rectal vault.? I performed retroflexion.? This was normal.? Using insufflation, I then advanced the colonoscope beyond the rectal folds and into the sigmoid colon before a dvancing towards the cecum.? The scope was noted to be in the cecum by identification of the ileocecal valve and appendiceal orifice.? I then began withdrawing the colonoscope using repeated irrigation as necessary for full evaluation of the colonic mucosa. Around 70 cm from the anal verge was a small area of polypoid mucosa. It was well less than 0.25 cm this was removed with cold forceps without any issues. I found another polyp around 20 cm from the anal verge. This was also about 0.25 cm and flat. Similar to the first, this was removed with cold forceps without any difficulty. Once the scope was withdrawn to the level of the rectum, great care was taken to examine portions of the rectal folds.? Finally, the scope was withdrawn and the patient was brought to the same-day surgery recovery unit as the anesthetic wore off. ?The findings and instructions were shared with the patient prior to discharge. [place] Bowel Prep [place] Bowel Prep Right Colon: 3 Left Colon: 3 Transverse Colon: 3 Total Score: 9
[2023-09-19 08:37] VITALS: BP 144/97; PULSE 79; RESP 16; TEMP 36.7; O2SAT 94
[2023-09-19] MEDS: Lactated Ringers 1,000 ML 80 ML IV (08:40)
--- NOTE | 2023-09-19 09:25 | ANES.PREOP_ITS ---
General Info Date of Service Date Performed: 09/19/23 Height: 5 ft 4 in Weight: 107.1 kg Body Mass Index (BMI): 40.5 Surgical Procedure: Operation Date: 09/19/23 10:05 Proposed Procedure Side Surgeon p Colonoscopy Valente Patel MD Actual Procedure Side Surgeon p Colonoscopy Not Applicable Valente Patel MD Meds Allergies and Home Medications Allergies Allergy/AdvReac Type Severity Reaction Status Date / Time amoxicillin Allergy Intermediate Rash Verified 09/19/23 08:22 sulfamethoxazole Allergy Unknown SKIN RASH Verified 09/19/23 08:22 Home Medication Medication Instructions Recorded acetaminophen 325 mg tablet 325 mg PO Q4H PRN PRN pain #1 tab 11/20/18 (Tylenol) acetazolamide 500 mg 500 mg PO QHS 05/16/20 capsule,extended release albuterol sulfate 90 mcg/actuation 2 inh inhalation Q6H PRN shortness 06/20/22 aerosol inhaler of breath or wheezing #18 grams atorvastatin 40 mg tablet 40 mg PO DAILY #90 tabs 09/05/22 pantoprazole 40 mg tablet,delayed 40 mg PO DAILY #90 tabs 09/05/22 release sertraline 100 mg tablet 150 mg (1.5 x 100 mg) PO DAILY 09/05/22 #135 tabs trazodone 50 mg tablet 50 mg PO QHS PRN insomnia #30 tabs 09/05/22 hwovltagzljh-Du-owaz-minerals 27 1 tab PO DAILY 09/09/23 mg-0.4 mg tablet (Women's Daily Formula) Current Visit Medications: Current Medications Generic Name Dose Route Start Last Admin Trade Name Freq PRN Reason Stop Dose Admin Hyoscyamine Sulfate 0.125 mg 09/18/23 20:18 Hyoscyamine 0.125 Mg Sl/Oral/Chew SL 10/18/23 20:17 DIRECTED PRN Ringer's Solution 1,000 mls @ 80 mls/hr 09/19/23 06:00 09/19/23 08:40 IV 09/19/23 23:59 80 mls/hr INFUSION MARJAN Administration IV Miscellaneous Supplies 1 each 09/19/23 06:00 Iv Access IV 09/19/23 23:59 DIRECTED MARJAN Ondansetron HCl 4 mg 09/18/23 20:18 Ondansetron 4 Mg/2 Ml Vial IVP 10/18/23 20:17 Q4H PRN PRN Nausea / Vomiting Sodium Chloride 0 ml 09/19/23 06:00 Normal Saline Flush 10 Ml Syr IV 09/19/23 23:59 PRN PRN Sodium Chloride 0 ml 09/19/23 06:00 Normal Saline 10 Ml Vial IJ 09/19/23 23:59 DIRECTED PRN Sterile Water 0 ml 09/19/23 06:00 Water,Injection,Sterile 10 Ml Vial IJ 09/19/23 23:59 DIRECTED PRN PFSH Active Problems Active Problems: Problem Status Onset Code Encounter for screening colonoscopy Z12.11 Joint ache M25.50 Asthma J45.909 Empty sella syndrome E23.6 Prediabetes R73.03 Fatigue R53.83 Insomnia G47.00 Factor VIII inhibitor disorder D68.318 Hyperlipidemia E78.5 Obesity E66.9 Depression F32.9 GERD (gastroesophageal reflux disease) K21.9 Medical History Medical History History of pulmonary embolism 2018-Has f/u and been released from their care Pulmonary embolus, right Surgical History Surgical History S/P hysterectomy 2020-Not for cancer; looks like ovarys left in place-([facility]) History of suburethral sling procedure [facility] 2020 History of laparoscopy S/P tubal ligation Status post Mohs surgery (~09/02/18) 09/02/18 [facility] [place]; LEFT TIP OF NOSE-KB Cholecystectomy (10/31/09) [facility]; Dr. Gloria Acosta Tobacco Smoking/Tobacco Use Status: Never Passive smoking exposure: No Second hand exposure: Yes Alcohol Alcohol Intake: current Alcohol intake frequency: a few times a month Alcohol type: beer, wine and hard liquor Substance Use Substance use: Never Substance use type: does not use Prental History History 4 Para Hx # Term Pregnancies 3 Multiple births Hx # Pregnancies 3 Ectopic pregnancies AB induced Hx Number of Living Children 3 AB spontaneous 1 Vital Signs and Lab Results Vital Signs Most Recent Vital Signs in EMR: Most Recent Vital Signs Temp Pulse Resp BP Pulse Ox 36.7 C 79 16 144/97 H 94 09/19/23 08:37 09/19/23 08:37 09/19/23 08:37 09/19/23 08:37 09/19/23 08:37 Lab Results Blood Type / Crossmatch: No Data to Display Complete Blood Count: No Data to Display Complete Metabolic Panel: No Data to Display Liver Function Panel: No Data to Display Coagulation Panel: No Data to Display Cardiac Panel: No Data to Display Arterial Blood Gas: No Data to Display Venous Blood Gas: No Data to Display Pancreas Panel: No Data to Display Thyroid Panel: No Data to Display Infectious Disease: No Data to Display Blood Cultures: No Data to Display Toxicology Panel: No Data to Display Panel: No Data to Display Anesthesia Assessment and Plan Anesthesia History Personal History: No History of Anesthesia Complications Family History: No Family History of Anesthesia Complications Exercise Tolerance Exercise Tolerance: Metabolic Equivalents>4 Pertinent Negatives Pertinent Negatives: No Symptoms of GERD Cardiac & Pulmonary Exam Cardiac Exam: Normal S1/S2 Heart Sounds Pulmonary Exam: Clear Bilateral Breath Sounds Implantable Cardiac Device Does patient have a Pacemaker or an ICD?: No Airway Exam Known Difficult Airway: No Mallampati Class: 2 Mouth Opening: Normal (> 3cm) Thyromental Distance: Greater than 3 cm Neck Range of Motion: Full ROM Neck Circumference: Normal Teeth Condition: Normal Dentition ASA Classification ASA Score: ASA 2 Emergency Case?: No NPO Status NPO Status: NPO Clears >2 hours, Solids >8 hours Status Status: History of Hysterectomy Anesthesia Plan Resuscitation Status: Full Code Anesthesia Technique: General Anesthesia Airway Planned: Natural Airway Monitors Used: Standard Monitors
[2023-09-19 09:26] VITALS: BMI 40.5
--- NOTE | 2023-09-19 09:53 | BOWEL_PTH ---
PATIENT: Kesha Silva LOC: [facility] U#:[id number] AGE/SX: 47/F ROOM: RE09/19/[address]: Valente Patel MD : 1975 BED: DIS: 09/19/2023 SPEC #: [id number] RECD: 09/19/23 10:35 STATUS: JULIA RE #: [id number] JF: 09/19/23 09:[address]: Valente Patel DEPT: Surgical Specimen RECD BY: Kirti Fuchs ENTERED: 09/19/23 10:36 SP TYPE: Bowel OTHR DR: Oxana Maciel, SARABJIT Tissues: 1 - BIOPSY BOWEL 2 - BIOPSY BOWEL Procedures: GROSS AND MICRO LEVEL 4 Comments: [id number]
[2023-09-19 10:08] VITALS: BP 124/84; PULSE 82; RESP 18; TEMP 36.3; O2SAT 96
--- NOTE | 2023-09-19 10:15 | W.ANESPOSTOP ---
Postoperative Evaluation Date, Time and Location Date Performed: 09/19/23 Time Performed: 10:15 Patient Location: Day Surgery Unit Vital Signs Most Recent Imported Vital Signs: Most Recent Vital Signs Temp Pulse Resp BP Pulse Ox 36.7 C 79 16 144/97 H 94 09/19/23 08:37 09/19/23 08:37 09/19/23 08:37 09/19/23 08:37 09/19/23 08:37 Pain Score Most Recent Pain Score: Most Recent Pain Score Pain Level 0 09/19/23 08:37 Assessment Mental Status: Awake (Alert & Oriented to Patient Baseline) Airway and Respiratory Function: Patent airway with normal (patient baseline) respiratory exam Cardiovascular Function: Hemodynamically Stable Hydration Status: Adequately Hydrated Nausea & Vomiting: No Nausea or Vomiting Pain: Pt. Denies Any Pain Peripheral Nerve Block: Patient did not receive a nerve block Postoperative Comments:: Significant EVELYN.
[2023-09-19 10:32] VITALS: BP 124/84; PULSE 80; RESP 131; TEMP 36.4; O2SAT 97
== END 2023-09-19 10:45 | disposition home or self-care (01) ==
LOC: SUR 08:14
PROVIDERS: PCP Nurse Practitioner Family; Visit Provider Surgery
PROC: 0DJD8ZZ Inspection of Lower Intestinal Tract, Via Natural or Artificial Opening Endoscopic (ICD-10-PCS; CPT 45378; principal; 2023-09-19 10:00)
DX: Z12.11 Encounter for screening for malignant neoplasm of colon (principal); K63.5 Polyp of colon; K21.9 Gastro-esophageal reflux disease without esophagitis
CPT/HCPCS: 45380; 88305; J2001; J2704

== ENCOUNTER 2024-02-25 15:16 | Outpatient (CLI) | payer BC, SELFPAY ==
--- NOTE | 2024-02-25 15:00 | DI.RAD_ITS ---
Exam(s) XR CHEST 2V PA LATERAL EXAM: XR CHEST 2V PA LATERAL CLINICAL HISTORY: ASTHMA,COUGH, PROBABLE PNEUMONIA,R05.9,J45.909,J18.9 TECHNIQUE: 2D digital imaging was performed. Two views. COMPARISON: CT CT CHEST PE CTA from 06/24/2022 FINDINGS: HEART: Normal size. Aorta: Not dilated. PULMONARY VASCULATURE: Normal. MEDIASTINUM: Unremarkable. LUNGS: Question of streaky density seen above the left diaphragm which could represent infiltrate caitlin yola atelectasis. PLEURAL SPACE: No pleural effusion or pneumothorax. BONE:Unremarkable for age. SOFT TISSUES: Unremarkable. IMPRESSION: Question of infiltrate versus atelectasis at the left lung base. DATA REPOSITORY: RADIATION DOSE DELIVERED:
--- OUTSIDE RECORDS SUMMARY | 2024-02-25 15:18 | XMS_ITS | Continuity of Care Document ---
Author Organization [facility] Address [address] [place] [address] Care Team Providers Care Sleever Name Role Phone Janell KELLY-N, Oxana Cadet Primary Care Physici an Encounter [facility] Date(s): 10/21/23 - 10/21/23 [facility] [address] [place] [address] Discharge Disposition: Home Allergies, Adverse Reactions, Alerts Substance Reaction Severity Status amoxicillin Rash Mild Active sulfamethizole 1 Rash Moderate Active 1mild to moderate severity Assessment and Plan Future Appointments Medications acetaZOLAMIDE 500 mg oral capsule, extended release 500 mg = 1 cap, Oral, Daily, # 30 cap, 0 Refill(s) Start Date: 02/04/22 Status: Ordered atorvastatin 40 mg oral tablet 40 mg = 1 tab, Oral, Daily, # 30 tab, 0 Refill(s) Start Date: 02/04/22 Status: Ordered fluticasone CFC free 44 mcg/inh inhalation aerosol 2 puffs, Inhale, BID, # 10.6 g, 0 Refill(s) Start Date: 02/04/22 Status: Ordered pantoprazole 40 mg oral delayed release tablet 40 mg = 1 tab, Oral, Daily, # 60 tab, 0 Refill(s) Start Date: 02/04/22 Status: Ordered sertraline 100 mg oral tablet 150 mg = 1.5 tab, Oral, Daily, # 30 tab, 0 Refill(s) Start Date: 02/04/22 Status: Ordered traZODone 50 mg oral tablet 50 mg = 1 tab, Oral, # 270 tab, 0 Refill(s) Start Date: 02/04/22 Status: Ordered zolpidem 5 mg oral tablet See Instructions, Take 1-2 PO night of sleep study if needed, # 2 tab, 0 Refill(s), Pharmacy: [id number], 162.56, cm, 10/21/23 11:06:00 EDT, Height, 108.86, kg, 10/21/23 11:09:00 EDT, Weight Dosing Start Date: 10/21/23 Status: Ordered Problem List Condition Confirmation Course Effective Dates Status H ealth Status Informant 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 Active Body mass index 38.0-38.9, adult Confirmed Active Chronic depression Confirmed 01/14/20 Active Other hemorrhagic disorder due to intrinsic circulating anticoagulants, antibodies, or inhibitors Confirmed Active Other disorders of pituitary gland Confirmed Active Other fatigue Confirmed Active Gastroesophageal reflux disease Confirmed 01/14/20 Active Gastro-esophageal reflux disease without esophagitis Confirmed Active Other insomnia Confirmed Active Insomnia Confirmed Active Major depressive disorder, single episode, unspecified Confirmed Active Mixed hyperlipidemia Confirmed Active Encounter for other screening for malignant neoplasm of breast Confirmed Active Adult general medical exam Confirmed Active Prediabetes Confirmed Active Pulmonary embolism Confirmed 01/14/20 Active Restless leg syndrome Confirmed Active Other obesity due to excess calories Confirmed Active Snoring Confirmed Active Social History Social History Type Response Tobacco Never tobacco user T obacco Use:. Sex Female Patient Care team information Care Team Personnel Name: Oxana Villanueva NP Position: PowerChart View Only Member Role: Primary Care Physician Address: Address: [address] [address]- [place] Care Team Related Persons Name: JASON HERNANDEZ
--- OUTSIDE RECORDS SUMMARY | 2024-02-25 15:19 | XMS_ITS | Encounter Summary ---
Author Organization [facility] Address [address] [place] [address] Care Team Providers Care Public Health Advisor Name Role Phone Shayy Donohue NP Primary Care Provider Encounter Details Date Type Department Care Team (Late st Contact Info) Description 09/22/2023 Lab Requisition [facility] Pathology & Laboratory Medicine - [facility] [address] [place] [address] Valente Patel MD [address] [place] [address], [address] [place], [place] [id number] Encounter for other general examination Social History Tobacco Use Types Packs/Day Years Used Date Smoking Tobacco: Never Smokeless Tobacco: Never Alcohol Use Standard Drinks/Week Comments Yes 0 (1 standard drink = 0.6 oz pure alcohol) 1-2 drinks a few times a months AUDIT-C Answer Date Recorded Frequency of Alcohol Consumption 2-4 times a mon 11/23/2018 Average Number of Drinks Not on file 019 Frequency of Binge Drinking Not on file 11/12 PHQ-2 Answer Date Recorded PHQ-2 Score 0 11/14/2019 Interpersonal Safety Answer Date Record ed Physically Hurt Never 11/14/2019 Verbally Threaten Not on file 11/14/2019 Comments No Sex and Gender Information Value Date Recorded Sex Assigned at Not on file Legal Sex Female 18:13 EST Gender Identity Female 02/22/2019 12:49 EST Sexual Orientation Not on file documented as of this encounter Functional Status * Because of a physical, mental, or emotional condition, does this person have difficulty doing errands alone such as visiting a doctor's office or shopping? Answer Date of Assessment Author No 11/23/2018 12:12 EDT documented as of this encounter Mental Status * Because of a physical, mental, or emotional condition, does this person have serious difficulty concentrating, remembering, or making decisions? Answer Entry Date Author No 11/23/2018 12:12 EDT documented in this encounter Plan of Treatment Not on file documented as of this encounter Procedures Procedure Name Priority Date/Time Associated Diagnosis Comments SURGICAL PATHOLOGY Today 09/19/2023 9: 53 EDT Encounter for other general examination documented in this encounter Results * SURGICAL PATHOLOGY (09/19/2023 9:53 EDT) Note to Patient The following pathology results have been interpreted by your pathologist and may be available to you before your health provider has had the opportunity to review them. Please allow time for your provider to receive these results and explore management options, if applicable. 09/24/2023 9:27 [facility] Final Diagnosis A. COLON, 70 CM, POLYP, BIOPSY: - Colonic mucosa with no significant diagnostic abnormalities. - Deeper levels have been examined. B. COLON, 20 CM, POLYP, BIOPSY: - Colonic mucosa with prominent lymphoid aggregate. - Deeper levels have been examined. 09/24/2023 9:27 [facility] Attestation By the signature below, the attending physician certifies that they have 1) personally conducted a gross and/or microscopic examination of the described specimen(s), and/or personally interpreted the results of laboratory testing of the described specimen(s), and 2) personally rendered or confirmed the above diagnosis. 09/24/2023 9:27 [facility] at 0927 Clinical History Screening colonoscopy, polyps 09/24/2023 9:27 [facility] Gross Description A. Specimen (B) is initially received with the incorrect specimen site. In accordance with the Laboratory Specimen Rejection Policy and Laboratory Accountability policy, ELIJAH Llanes, spoke with ELIJAH Cotto, at [facility]. They have verified that specimen (B) is ? colon polyp at 20 cm? and have taken full responsibility for correcting specimen B with the correct specimen site. Received in formalin labelled with proper patient identification (initials M, A) and 1. Colon polyp at 70 cm is a correa tissue (0.8 x 0.3 x 0.1 cm). Entirely submitted in A1. B. Received in formalin labelled with proper patient identification (initials M, A) and 2. Colon polyp at 20 cm is a correa-brown tissue (0.4 x 0.2 x 0.1 cm). Entirely submitted in B1. SOLANGE ARCHIBALD(ASCP) 09/22/2023 13:48 09/24/2023 9:27 EDT [facility] Performing Lab [facility] 09/24/2023 9:27 EDT [facility] Scanned Images 09/24/2023 9:27 EDT [facility] Tissue COLON STRUCTURE / Unknown 09/19/2023 9:53 EDT 09/22/2023 11:49 EDT Tissue specimen (specimen) COLON STRUCTURE / Unknown 09/19/2023 9:53 EDT 09/22/2023 11:50 EDT us Valente Patel MD PATHOLOGY ORDERABLES Final Resu lt [facility] [address], [place] [address] documented in this encounter Visit Diagnoses Diagnosis Encounter for other general examination documented in this encounter Care Teams Public Health Advisor Relationship Specialty Start Date End Date Shayy Donohue NP [address] [place] [phone] PCP - General 11/20/18 documented as of this encounter
--- OUTSIDE RECORDS SUMMARY | 2024-02-25 15:19 | XMS_ITS | Encounter Summary ---
Author Organization [facility] Address [address] [place] [address] Care Team Providers Care Progress Clerk Name Role Phone Shayy Donohue REGIONAL BUSINESS MANAGER Primary Care Provider [phone] Encounter Details Date Type Department Care Team (Late st Contact Info) Description 12/06/2019 Lab Requisition [facility] Pathology & Laboratory Medicine - [facility] [address] [place] [address] Outr Resulting Lab, Provider Social History Tobacco Use Types Packs/Day Years Used Date Smoking Tobacco: Never Smokeless Tobacco: Never Alcohol Use Standard Drinks/Week Comments Yes 0 (1 standard drink = 0.6 oz pure alcohol) 1-2 drinks a few times a months AUDIT-C Answer Date Recorded Frequency of Alcohol Consumption 2-4 times a fri11/23/2018 Average Number of Drinks Not on file [...] Procedure Name Priority Date/Time Associated Diagnosis Comments DO NOT ORDER STANDALONE - BROAD COVID TEST Today 12/06/2019 11:13 EDT COVID-19 TESTING Routine 12/06/2019 11:1 3 EDT documented in this encounter Results * DO NOT ORDER STANDALONE - BROAD COVID TEST (12/06/2019 11:13 EDT) COVID-19 rt-PCR Result NEGATIVE Negative 12/07/2019 23:45 EDT [facility] Comment: 2019-novel Coronavirus (2019-nCoV) not detected by the qRT-PCR assay. Consider testing for other respiratory viruses or re-collecting for 2019-nCoV testing. Note: Optimum timing for peak viral levels during infections caused by 2019-nCoV have not been determined. Collection of multiple specimens from the same patient may be necessary to detect the virus. Limitations Positive results are indicative of active infection with SARS-CoV-2 but do not rule out bacterial infection or co-infection with other viruses. The agent detected may not be the definite cause of disease. In addition, detection of viral RNA may not indicate the presence of infectious virus or that SARS-CoV-2 is the causative agent for clinical symptoms. Negative results do not preclude SARS-CoV-2 infection and should not be used as the sole basis for patient management decisions. Negative results must be combined with clinical observations, patient history, and epidemiological information. False negative results may also occur if amplification inhibitors are present in the specimen or if inadequate numbers of organisms are present in the specimen. Optimum specimen types and timing for peak viral levels during infections caused by SARS-CoV-2 have not been fully determined. Collection of multiple specimens (types and time points) from the same patient may be necessary to detect the virus. The test was validated for use with upper respiratory specimens obtained via nasopharyngeal or oropharyngeal swabs in VTM, UTM, M4, M5, M6, saline, and MTM media. The performance of this test has not been established for other specimens. Specimens collected using other FDA recommended Specimen Collection Materials listed in the FDA COVID-19 [employer] communication (July 08, 2019) are processed with the caveat that they were not all validated for use with this test and the result must be interpreted in this context. Furthermore, a false negative results may occur if a specimen is improperly collected, transported or handled. If the virus mutates in the RT-PCR target region, SARS-CoV-2 may not be detected or may be detected less predictably. Inhibitors or other types of interference may produce a false negative result. An interference study evaluating the effect of common cold medications was not performed. This test is not FDA-cleared but its performance characteristics were established by our CLIA-certified, CAP-accredited, high complexity laboratory in accordance with CLIA regulations, College of [place] [employer] (CAP) guidelines (Jul 01, 2019), and FDA guidance (Jun 12, 2019). This test is only for use under the Food and Drug Administration's Emergency Use Authorization. Swab ENTIRE NASOPHARYNX / Unknown 12/06/2019 11:13 EDT 12/06/2019 15:49 EDT us Provider Outr Resulting Lab MICROBIOLOGY - GENER AL ORDERABLES Final Result [facility] [place] [place] * COVID-19 TESTING (12/06/2019 11:13 EDT) COVID-19 rt-PCR Result NEGATIVE Negative 12/08/2019 2:32 EDT [facility] Comment: 2019-novel Coronavirus (2019-nCoV) not detected by the qRT-PCR assay. Consider testing for other respiratory viruses or re-collecting for 2019-nCoV testing. Note: Optimum timing for peak viral levels during infections caused by 2019-nCoV have not been determined. Collection of multiple specimens from the same patient may be necessary to detect the virus. Limitations Positive results are indicative of active infection with SARS-CoV-2 but do not rule out bacterial infection or co-infection with other viruses. The agent detected may not be the definite cause of disease. In addition, detection of viral RNA may not indicate the presence of infectious virus or that SARS-CoV-2 is the causative agent for clinical symptoms. Negative results do not preclude SARS-CoV-2 infection and should not be used as the sole basis for patient management decisions. Negative results must be combined with clinical observations, patient history, and epidemiological information. False negative results may also occur if amplification inhibitors are present in the specimen or if inadequate numbers of organisms are present in the specimen. Optimum specimen types and timing for peak viral levels during infections caused by SARS-CoV-2 have not been fully determined. Collection of multiple specimens (types and time points) from the same patient may be necessary to detect the virus. The test was validated for use with upper respiratory specimens obtained via nasopharyngeal or oropharyngeal swabs in VTM, UTM, M4, M5, M6, saline, and MTM media. The performance of this test has not been established for other specimens. Specimens collected using other FDA recommended Specimen Collection Materials listed in the FDA COVID-19 [employer] communication (July 08, 2019) are processed with the caveat that they were not all validated for use with this test and the result must be interpreted in this context. Furthermore, a false negative results may occur if a specimen is improperly collected, transported or handled. If the virus mutates in the RT-PCR target region, SARS-CoV-2 may not be detected or may be detected less predictably. Inhibitors or other types of interference may produce a false negative result. An interference study evaluating the effect of common cold medications was not performed. This test is not FDA-cleared but its performance characteristics were established by our CLIA-certified, CAP-accredited, high complexity laboratory in accordance with CLIA regulations, College of [place] [employer] (CAP) guidelines (Jul 01, 2019), and FDA guidance (Jun 12, 2019). This test is only for use under the Food and Drug Administration's Emergency Use Authorization. Performing Lab [email or web address] 12/08/2019 2:32 EDT [facility] Swab 12/06/2019 11:1 3 EDT 12/06/2019 15:49 EDT us Provider Outr Resulting Lab MICROBIOLOGY - GENER AL ORDERABLES Final Result [facility] [address] [place] [address] [facility] [place] documented in this encounter Visit Diagnoses Not on filedocumented in this encounter Care Teams Progress Clerk Relationship Specialty Start Date End Date Shayy Donohue NP [address] [place] [phone] PCP - General 11/20/18 documented as of this encounter
--- OUTSIDE RECORDS SUMMARY | 2024-02-25 15:19 | XMS_ITS | Encounter Summary ---
Author Organization [facility] Address [address] [place] [address] Care Team Providers Care Supervisor Paper Coating Name Role Phone Shayy Donohue APPRENTICE COOK Primary Care Provider [phone] Encounter Details Date Type Department Care Team (Late st Contact Info) Description 09/19/2023 Lab Requisition [facility] Pathology & Laboratory Medicine - [facility] [address] [place] [address] Valente Patel MD [address] [place] [address], [address] [place], [place] [id number] Encounter for screening for malignant neoplasm of colon Social History Tobacco Use Types Packs/Day Years [...] documented in this encounter Plan of Treatment Scheduled Orders Name Type Priority Associated Diagnoses Orde r Schedule SURGICAL PATHOLOGY Pathology Today Encounter for screening for malignant neoplasm of colon Ordered: 09/19/2023 documented as of this encounter Visit Diagnoses Diagnosis Encounter for screening for malignant neoplasm of colon Special screening for malignant neoplasms, colon documented in this encounter Care Teams Supervisor Paper Coating Relationship Specialty Start Date End Date Shayy Donohue NP [address] [place] [phone] PCP - General 11/20/18 documented as of this encounter
--- OUTSIDE RECORDS SUMMARY | 2024-02-25 15:19 | XMS_ITS | Referral Summary ---
Author Organization [facility] Address [address] [place] [address] Care Team Providers Care Butcher'S Assistant Name Role Phone Shayy Donohue TRUCK REPAIR SUPERVISOR Primary Care Provider [phone] Allergies Active Allergy Reactions Criticality Noted Date Comments Penicillins 11/23/2018 rash Glycopyrrolate Other (See Comments) 07/02/2011 Visual changes for 2 weeks following Sulfa (Sulfonamide Antibiotics) Rash 07/02/2011 Medications acetaminophen 325 mg capsule Take by mouth as needed. Active sertraline (ZOLOFT) 50 mg tabletIndicatio ns:Patient is taking 150 mg per day Take 150 mg by mouth daily. Active pantoprazole (PROTONIX) 40 mg tablet Take 40 mg by mouth daily. Active apixaban (ELIQUIS) 5 mg tablet Take 1 Tab by mouth 2 times daily. 60 Tab 3 9 Active Additional Information Patient not taking.Reported on 10/29/2019 atorvastatin (LIPITOR) 10 mg tablet Take 1 Tab by mouth daily. 30 Tab 2 9 Active traZODone (DESYREL) 50 mg tablet Take 50 mg by mouth daily. Active fluticasone propionate (FLOVENT HFA) 44 mcg/actuation inhaler Inhale 2 Puffs as directed 2 times daily. 1 Inhaler 3 0 Active Active Problems Problem Noted Date Diagnosed Date Other pulmonary embolism wit hout acute cor pulmonale (HCC-CMS) 10/29/2019 Prothrombin gene mutation ([facility]) 10/29/2019 Overview (10/29/2019): heterozygous Other hyperlipidemia 02/22/2019 Overview (02/22/2019): LDL cholesterol 190 in . Advised weight loss and exercise. Would advocate atorvastatin 10 mg daily. -also has prediabetes by A1C criteria Elevated hemoglobin A1c 02/22/2019 Overview (02/22/2019): -5.8 in 2019 Class 2 obesity in adult 02/21/2019 Hypercoagulable state ([facility]) 11/23/2018 Overview (01/02/2020): 1. Event: Unprovoked isolated PE age 43 associated with OC use for 2 weeks, Nov 20, 2018 (confirmed with prescriber - there was some question about it). Was awaiting insurance approval to replace IUD as Rx for heavy menses. Unknown which pill. Rx lovenox then transition to apixaban 12-03-18. ED eval for persistent pleuritic CP, fatigue and MCKENZIE 12-11-18. CTPE: improved from previous and discharged on apixaban. 2. FH: pos for VTE on both sides -Sister with DVT and possible PE age 17 on OCP with FVL. S/p stent placement. -Mother with CTEPH s/p surgery for that; not known if tested for thrombophilia (never saw hat cone inspector so perhaps no). -Father with factor V Leiden and no thrombosis but has CAD. -17 yo daughter on OCP- switched to IUD. 19 yo daughter with IUD 3. Risk Factors -Prior testing after IUFD pos for prothrombin mutation heterozygosity ([facility]) and neg for FVL. 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 D-dimer <200. APCr normal. -Obesity (BMI 37.4 in 2019; rising). 4. 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 Resolved Problems Problem Noted Date Diagnosed Date Resolved Date Female infertility 01/10/2009 9 Social History Tobacco Use Types Packs/Day Years [...] 12:49 EST Sexual Orientation Not on file Last Filed Vital Signs Vital Sign Reading Time Taken Comments Blood Pressure 127/94 12/10/2019921 EDT Pulse 80 12/10/2019921 EDT Temperature 36.2 ??C (97.1 ??F) 12/10/2019921 EDT Respiratory Rate 18 12/10/2019921 EDT Oxygen Saturation 97% 12/10/2019921 EDT Inhaled Oxygen Concentration - - Weight 106.5 kg (234 lb 12.6 oz) 12/10/2019921 EDT Height 163.2 cm (5' 4.25) 12/10/2019921 EDT Body Mass Index 39.99 12/10/2019921 EDT Functional Status * Because of a physical, mental, or emotional condition, does this person have difficulty doing errands alone such as visiting a doctor's office or shopping? Answer Date of Assessment Author No 11/23/2018 12:12 EDT Mental Status * Because of a physical, mental, or emotional condition, does this person have serious difficulty concentrating, remembering, or making decisions? Answer Entry Date Author No 11/23/2018 12:12 EDT Plan of Treatment Not on file Procedures Procedure Name Priority Date/Time Associated Diagnosis Comments PROFILE IVF NON DONOR Routine 07/02/2011 16:30 EDT Female infertility of unspecified origin from Last 3 Months or Most Recently Relevant to Health Maintenance Results * PROFILE IVF NON DONOR (07/02/2011 16:30 EDT) Hepatitis B Surface Ag Negative [facility] Comment:Reference Range: Neg ative Syphilis Serology Interpretation: Nonreactive [facility] Comment:Reference Range: Non reactive Hep B Core Ab Negative [facility] Comment: Reference Range: ??Negative Interpretation depends on clinical setting. Hepatitis C Ab Negative [facility] Comment:Reference Range: Neg ative HIV 1/2 Antibody Negative [facility] Comment: Reference Range: ??Negative Assayed utilizing [employer] chemiluminescent technology. Blood specimen (specimen) 07/02/2011 16:30 EDT 07/02/2011 17:19 EDT Renee Blackman MD PACKAGES & DNA PROBE OR DERABLES Final Result [facility] [address] [place] [address] from Last 3 Months or Most Recently Relevant to Health Maintenance [address] [place], [place] [address] Care Teams Butcher'S Assistant Relationship Specialty Start Date End Date Shayy Donohue NP [address] [place] [phone] [facility] - General 11/20/18
--- OUTSIDE RECORDS SUMMARY | 2024-02-25 15:19 | XMS_ITS | Encounter Summary ---
Author Organization [facility] Address [address] [place] [address] Care Team Providers Care Dock Grader Name Role Phone Shayy Donohue BLOCK FEEDER Primary Care Provider [phone] Encounter Details Date Type Department Care Team (Late st Contact Info) Description 07/15/2023 Lab Requisition [facility] Pathology & Laboratory Medicine - [facility] [address] [place] [address] Outr Resulting Lab, Provider Social History Tobacco [...] Procedure Name Priority Date/Time Associated Diagnosis Comments CCP ANTIBODIES Routine 07/15/2023 10:48 EDT LYME AB Routine 07/15/2023 10:48 EDT RHEUMATOID FACTOR Routine 07/15/2023 10: 48 EDT HIGH SENSITIVITY C-REACTIVE PROTEIN (CARDIOVASCULAR DISEASE) Routine 07/15/2023 10:48 EDT ANTI NUCLEAR AB (LUKE), IFA Routine 07/15/2023 10:48 EDT documented in this encounter Results * LYME AB (07/15/2023 10:48 EDT) Lyme Ab Negative Negative 07/16/2023 10:43 EDT [facility] Blood VENOUS BLOOD / Unknown 07/15/2023 10:48 EDT 07/15/2023 17:27 EDT us Provider Outr Resulting Lab IMMUNOLOGY AND SEROL OGY ORDERABLES Final Result [facility] [address] [place] [address] * RHEUMATOID FACTOR (07/15/2023 10:48 EDT) Rheumatoid Factor <8.6 <12.0 IU/mL 07/15/2023 18:07 EDT [facility] Blood VENOUS BLOOD / Unknown 07/15/2023 10:48 EDT 07/15/2023 17:27 EDT us Provider Outr Resulting Lab CHEMISTRY & BLOOD GA S ORDERABLES Final Result Performing Organization Address [facility]/ZIP Co de Phone Number [facility] [address] [place] [address] * ANTI NUCLEAR AB (LUKE), IFA (07/15/2023 10:48 EDT) [facility] LUKE Interpretation Negative Negative 2023 12:16 EDT [facility] Comment:No titer performed, LUKE Screen is negative. Blood VENOUS BLOOD / Unknown 07/15/2023 10:48 EDT 07/15/2023 17:27 EDT Narrative [facility] - 07/16/2023 12:16 EDT Results were obtained with the [employer] NOVA Lite HEp-2 LUKE Kit by indirect immunofluorescence. us Provider Outr Resulting Lab IMMUNOLOGY AND SEROL OGY ORDERABLES Final Result Performing Organization Address [facility] Co de Phone Number [facility] [address] [place] [phone] * CCP ANTIBODIES (07/15/2023 10:48 EDT) [facility] CCP Antibodies <2.5 <5.0 U/mL 07/16/2023 8:13 EDT [facility] Blood VENOUS BLOOD / Unknown 07/15/2023 10:48 EDT 07/15/2023 17:27 EDT us Provider Outr Resulting Lab IMMUNOLOGY AND SEROL OGY ORDERABLES Final Result Performing Organization Address [facility]/ZIP Co de Phone Number [facility] [address] [place], [place] [id number] * HIGH SENSITIVITY C-REACTIVE PROTEIN (CARDIOVASCULAR DISEASE) (07/15/2023 10:48 EDT) [facility] High Sensitivity CRP 2.53 See Note mg/L 07/15/2023 18:07 EDT [facility] Comment: Reference Range: ??Low Risk: ? <1.0 mg/L ??Average Risk: ?? 1.0 - 3.0 mg/L ??High Risk: ?>3.0 mg/L ??Indeterminate*: >10.0 mg/L ??*May be an indication of another source of inflammation or infection Blood VENOUS BLOOD / Unknown 07/15/2023 10:48 EDT 07/15/2023 17:27 EDT us Provider Outr Resulting Lab CHEMISTRY & BLOOD GA S ORDERABLES Final Result Performing Organization Address City/State/[facility] Co de Phone Number [facility] [address] [place], [place] [phone] documented in this encounter Visit Diagnoses Not on filedocumented in this encounter Care Teams Dock Grader Relationship Specialty Start Date End Date Shayy Donohue NP [address] [place] [phone] PCP - General 11/20/18 documented as of this encounter
--- OUTSIDE RECORDS SUMMARY | 2024-02-25 15:19 | XMS_ITS | Encounter Summary ---
Author Organization [facility] Address [address] [place] [address] Care Team Providers Care Lead Massage Therapist Name Role Phone Shayy Donohue NP Primary Care Provider [phone] Reason for Visit * Reason Comments New Patient Visit * Consult (Routine) - Order Cancelled Specialty Diagnoses / Procedures Referred By Paula perrin Referred To Contact Pulmonary Disease Diagnoses Primary hypercoagulable state ([facility]) Ace Pickett PA-C Phone: tel: fax: [facility] [address] [address] Phone: tel: fax: Referral ID Status Reason Start Date Expiration Date Visits Requested Visits Authorized [id number] Order Cancelled Specialty Services Required 10/29/2019 1 1 Encounter Details Date Type Department Care Team (Late st Contact Info) Description 12/10/2019 10:00 EDT Office Visit [facility] Pulmonology & Critical [address] [id number] Felicia Grullon MD [address] [facility], [address] [place] [phone] Dyspnea on exertion (Primary Dx) Social History Tobacco Use Types Packs/Day Years [...] on file documented as of this encounter Last Filed Vital Signs Vital Sign Reading Time Taken Comments Blood Pressure 127/94 12/10/2019921 EDT Pulse 80 12/10/2019921 EDT Temperature 36.2 ??C (97.1 ??F) 12/10/2019921 EDT Respiratory Rate 18 12/10/2019921 EDT Oxygen Saturation 97% 12/10/2019921 EDT Inhaled Oxygen Concentration - - Weight 106.5 kg (234 lb 12.6 oz) 12/10/2019921 EDT Height 163.2 cm (5' 4.25) 12/10/2019921 EDT Body Mass Index 39.99 12/10/2019921 EDT documented in this encounter Functional Status * Because of [...] 11/23/2018 12:12 EDT documented in this encounter Ordered Prescriptions Prescription Sig Dispense Quantity Refills Last Filled Start Date End Date fluticasone propionate (FLOVENT HFA) 44 mcg/actuation inhaler Inhale 2 Puffs as directed 2 times daily. 1 Inhaler 3 12/10/2019 documented in this encounter Progress Notes * Graciela Amaya MA - 12/10/2019 1000 EDT Pulmonary Review of Symptoms Constitutional: Malaise/Fatigue, Weakness and Snoring Hematology: NONE Eyes: Blurred Vision Ear, Nose and Throat: Headaches Allergies: Seasonal and Dust Skin: NONE Neurological: NONE Genitourinary: NONE Endocrine / Heme / Allergies: NONE Psychiatric: Difficulty Sleeping Gastrointestinal: NONE Cardiovascular: Chest Pain and Shortness of Breath when Lying Down Musculoskeletal: Back Pain; pt reports back pain seems to be behind her lungs Respiratory: Cough, Shortness of Breath, Wheezing and Medication Allergy Other Comments / Notes: * Felicia Grullon MD - 12/10/2019 1000 EDT Images from the original note were not included. [facility] - Pulmonary Clinic NEW PATIENT EVALUATION PCP: Shayy Donohue Chief Complaint Patient presents with ??? New Patient Visit HISTORY OF PRESENT ILLNESS: Kesha is a 44 yo woman with history of pulmonary embolism diagnosed in 11/19/18 at [facility] when she presented with acute pleuritic right sided chest pain. CTA revealed RLL segmental PE and infarct. She was hemodynamically stable and on room air. She had negative biomarkers. Echo performed a few days later 11/23/18 revealed mildly dilated RV, normal function, and normal PASP 25-30mmHg. Bilateral dopplers negative for DVT. She was initially started on Lovenox and transitioned to Eliquis BID. There is documentation from [facility] that this was related to oral contraceptive use but the patient denies this today, stating that she has an IUD. She had continued symptoms including cough and dyspnea on exertion prompting repeat CTA done on 12/10/18 that revealed improvement in PE and evolution of the infarction. No new pulmonary emboli. She completed 3 months of anticoagulation with Eliquis and stopped. [facility] notes indicate they recommended taking Aspirin daily after stopping AC but patient says she never did this. Hypercoag work up did reveal hetrozygous prothrombin mutation and elevated factor VIII levels. Today she reports continued dyspnea on exertion over the last 1 year. She has gained 60-70lbs, starting before the PE, due to stress and fear of overexerting herself. She complains of an intermittentsensation in the center of her chest and into her throat that feels like it is on fire. This happens at rest and with exertion. She also has an occasional ache in her upper back, presumably unrelated. She does report dry cough most days and intermittent wheezing as well. She has no limitations inADLS but feels like moderate activity makes her easily winded and fatigued. She denies any new leg pain or swelling. No pleuritic chest pain or palpitations. Rare lightheadedness but no syncope. She r eports having another CT PE done at [facility] earlier this month for her complaints which was negative for acute or chronic PE but we do not have these results for review. She denies any reflux or heartburn taking PPI daily. She denies significant sinus congestion or post nasal drip, does have mild seasonal allergies. Also states that PCP is working her up for possible sleep apnea, sleep study pendingin January. PAST MEDICAL HISTORY: has a past medical history of Basal cell carcinoma of nose, Class 2 obesity in adult, Depression, Elevated hemoglobin A1c, GERD, History of IUFD, Infertility, Hyperlipidemia, pulmonary embolism. PAST SURGICAL HISTORY has a past surgical history that includes Cholecystectomy (2009). CURRENT MEDICATIONS: Current Outpatient Medications on File Prior to Visit Medication Sig Dispense Refill ??? acetaminophen 325 mg capsule Take by mouth as needed. ??? apixaban (ELIQUIS) 5 mg tablet Take 1 Tab by mouth 2 times daily. (Patient not taking: Reportedon 10/29/2019) 60 Tab 3 ??? atorvastatin (LIPITOR) 10 mg tablet Take 1 Tab by mouth daily. 30 Tab 2 ??? pantoprazole (PROTONIX) 40 mg tablet Take 40 mg by mouth daily. ??? sertraline (ZOLOFT) 50 mg tablet Take 150 mg by mouth daily. ??? traZODone (DESYREL) 50 mg tablet Take 50 mg by mouth daily. No current facility-administered medications on file prior to visit. ALLERGIES: Allergies Allergen Reactions ??? Penicillins rash ??? Robinul [Glycopyrrolate] Other (See Comments) Visual changes for 2 weeks following ??? Sulfa (Sulfonamide Antibiotics) Rash FAMILY HISTORY: family history includes Cancer in her mother; Clotting Disorder in her father, mother, and sister; Heart Attack (age of onset: 64) in her father; High Blood Pressure in her father and mother; High Cholesterol in her father and mother; No Known in her brother and sister; Stroke (age of onset: 45) inher maternal grandmother. Mother with CTEPH s/p [facility]. SOCIAL HISTORY: Social History Socioeconomic History ??? Marital status: Occupational History ??? 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 [place]. Tobacco Use ??? Smoking status: Never Smoker ??? Smokeless tobacco: Never Used Substance and Sexual Activity ??? Alcohol use: Yes Frequency: 2-4 times a month Comment: 1-2 drinks a few times a months ??? Drug use: Not Currently Social History Narrative Lives in old home (built in 1800s) in [facility]. Pet dog who sleeps in her bedroom. No cats or birds. Basement is partial cement with dirt crawl space. No water or mold damage. No wood stove or fireplace. No down products. No hot tub or sauna. Minimal carpet. REVIEW OF SYSTEMS: ROS 14 point completed, please see MA note and HPI for further details PHYSICAL EXAM: BP (!) 127/94 Pulse 80 Temp 36.2 ??C (97.1 ??F) (Tympanic) Resp 18 Ht 163.2 cm (64.25) Wt (!) 106.5 kg (234 lb 12.6 oz) SpO2 97% BMI 39.99 kg/m?? Physical Exam Constitutional: She is oriented to person, place, and time and well-developed, well-nourished, and in no distress. overweight female, appears stated age, wearing mask HENT: Head: Normocephalic and atraumatic. Eyes: Pupils are equal, round, and reactive to light. EOM are normal. No scleral icterus. Neck: Neck supple. No JVD (at 45 degrees) present. Cardiovascular: Normal rate, regular rhythm and normal heart sounds. No murmur heard. P2 not accentuated Pulmonary/Chest: Effort normal. She has no wheezes. She has no rales. Abdominal: Soft. Bowel sounds are normal. She exhibits no distension. There is no abdominal tenderness. Musculoskeletal: Normal range of motion. General: No tenderness or edema. Lymphadenopathy: She has no cervical adenopathy. Neurological: She is alert and oriented to person, place, and time. No cranial nerve deficit. Skin: Skin is warm and dry. No rash noted. Psychiatric: Mood and affect normal. IMAGING FINDINGS: I have independently reviewed the images below. Echo 11/23/18 1. Left ventricle: The cavity size was normal. Wall thickness was normal. Systolic function was normal. The estimated ejection fraction was 60-65%. Wall motion was normal; there were no regional wall motion abnormalities. Diastolic parameters were normal. 2. Right ventricle: The cavity size was mildly dilated. Wall thickness was normal. Systolic function was normal. 3. Tricuspid valve: There was mild-moderate regurgitation. 4. Inferior vena cava: The vessel was normal in size. The respirophasic diameter changes were in the normal range (greater than or equal to 50%), consistent with normal central venous pressure CT Chest 12/10/18 Pulmonary emboli within the right lower lobe have largely resolved since the prior examination, andthere is decreased size of the region of consolidation in the right lower lobe consistent with evolution of the infarct in this region. No new pulmonary emboli. CT Chest 11/19/18 ([facility]) 1. RLL segmental PE 2. RLL infiltrate 3. Small R pleural effusion BLE Doppler 11/24/18 ([facility]) PULMONARY FUNCTION TESTS: Pulmonary function tests were performed as a separate procedure today Pulmonary function testing Date FVC FEV1 FEV1/FVC TLC FRC ERV RV DLCO 12/10/19 3.44 (94) 2.67 (90) 78% 105% Six minute walk test 12/10/19 - 1470 feet, Amber 3, normal sat on room air IMPRESSION Kesha is a very pleasant 44 yo woman with family history of VTE and CTEPH who had acute low risk PEin 11/2018, presumed provoked due to OCP use but patient denies this today. She completed 3 months of therapeutic anticoagulation with hypercoagulable work up revealing heterozygous prothrombin mutation and elevated factor VIII level. It was recommended for her to take daily baby aspirin but she hasnot been doing that. She currently complains of dyspnea on exertion, exercise intolerance, intermittent cough and wheezing. She reportedly had recent CT for these complaints at [facility] that was negativefor acute PE. We discussed that her current complaints are unlikely related to chronic thromboembolic disease or CTEPH given diagnostic testing to date. Need to review images from recent CT PE to confirm. Today she has normal PFTs including DLCO and excellent 6MWD of almost 500 meters. I wonder if her complaintsare related to another etiology such as asthma, with obesity and deconditioning as well. We discussed empiric therapy for asthma with ICS vs pursuing confirmatory testing with Methacholine challenge.She is willing to trial empiric Flovent. I will call her in a few weeks to see how she is feeling on this. RECOMMENDATIONS 1. Will attempt to obtain recent CT PE study images from [facility] 2. Start Flovent BID with spacer, teaching provided today 3. Consider Methacholine challenge for confirmation of asthma if not responding to empiric therapy 4. Will touch base with [facility] clinic providers about need for anticoagulation or aspirin prophylaxis going forward to prevent recurrent VTE 5. Encouraged exercise and dietary changes for weight loss as able 6. Agree with work up for EVELYN per PCP 7. Low threshold to consider V/Q scan +/- repeat TTE in the future if not responding to asthma therapy or clinical picture changes Thank you for letting me participate in the care of Kesha Silva. I will see her back in 3 monthsvia video. Please call me at [phone] if any further questions arise. Felicia Grullon MD Pulmonary and Critical Care Medicine [facility] * Shimon Ramirez RT - 12/10/2019 1000 EDT Patient Education Topic: Flovent and spacer Method: Demonstration and Verbal Taught to: Patient Barriers: None Outcomes: verbalized understanding and return demonstration documented in this encounter Plan of Treatment Not on file documented as of this encounter Visit Diagnoses Diagnosis Dyspnea on exertion- Primary Other dyspnea and respiratory abnormality documented in this encounter Care Teams Lead Massage Therapist Relationship Specialty Start Date End Date Shayy Donohue, TRACK LAMINATING MACHINE TENDER [address] [place] [phone] PCP - General 11/20/18 documented as of this encounter
--- OUTSIDE RECORDS SUMMARY | 2024-02-25 15:19 | XMS_ITS | Encounter Summary ---
Author Organization [facility] Address [address] [place] [address] Care Team Providers Care Cold Type Composing Machine Operator Name Role Phone Shayy Donohue TRACK REPAIR WORKER Primary Care Provider [phone] Encounter Details Date Type Department Care Team (Late st Contact Info) Description 11/02/2019 Orders Only [facility] Pulmonology & Critical Care - [facility] [address], [place] [phone] Cong Quevedo, JUAN R Other acute pulmonary embolism without acute cor pulmonale (HCC-CMS) (Primary Dx) Social History Tobacco Use Types [...] of Binge Drinking Not on file 11/12 Comments No Sex and Gender Information Value [...] 11/23/2018 12:12 EDT documented in this encounter Progress Notes * Cong Quevedo, RN - 11/02/2019 1553 EDT Pre-procedure COVID-19 testing ordered for 12/10/19 PFT. documented in this encounter Plan of Treatment Not on file documented as of this encounter Visit Diagnoses Diagnosis Other acute pulmonary embolism without acute cor pulmonale (HCC-CMS)- Primary documented in this encounter Care Teams Cold Type Composing Machine Operator Relationship Specialty Start Date End Date Shayy Donohue NP [address] [place] [phone] PCP - General 11/20/18 documented as of this encounter
--- OUTSIDE RECORDS SUMMARY | 2024-02-25 15:19 | XMS_ITS | Encounter Summary ---
Author Organization [facility] Address [address] [place] [address] Care Team Providers Care Radiographer Angiogram Name Role Phone Shayy Donohue NP Primary Care Provider [phone] Reason for Visit * Reason Comments Follow-up Encounter Details Date Type Department Care Team (Late st Contact Info) Description 12/25/2018 14:00 EDT Office Visit [facility] Hematology & Oncology - [facility] [address] [place] [address] Ace Pickett, PA-C [address] [facility], [address] 2 [place] [phone] Hypercoagulable state (HCC-CMS) (Primary Dx); Menorrhagia with irregular cycle Social History Tobacco Use Types Packs/Day Years [...] Sign Reading Time Taken Comments Blood Pressure 128/86 12/25/2018 1332 EDT Pulse 72 12/25/2018 1332 EDT Temperature 37.2 ??C (99 ??F) 12/25/2018 1332 EDT Respiratory Rate 18 12/25/2018 1332 EDT Oxygen Saturation 97% 12/25/2018 1332 EDT Inhaled Oxygen Concentration - - Weight 98.7 kg (217 lb 8 oz) 12/25/2018 1332 EDT Height - - Body Mass Index 37.33 12/10/2018 1542 EDT documented in this encounter Functional Status [...] documented in this encounter Progress Notes * Ace Torres - 12/25/2018 1400 EDT Thrombosis & Hemostasis Program (THP) Follow Up Visit Date of Service: 12/24/2018 Reason for Visit: hypercoagulable state Problem List: Patient Active Problem List Diagnosis ??? Depression ??? GERD (gastroesophageal reflux disease) ??? Hypercoagulable state ([facility]) -Unprovoked isolated PE age 43 associated with OC use Nov 20, 2018. Pt had a few weeks of OC exposure prescribed while awaiting insurance approval to replace her IUD as Rx for heavy menses. Unknown which pill. Rx lovenox initially and transition to apixaban 12-03-18. -FH pos for VTE on both sides -Sister with DVT and possible PE age 17 on OCP with FVL. S/p stent placement. -Mother with CTEPH s/p surgery for that; not known if tested for thrombophilia (never saw tenant relations coordinator so perhaps no). -Father with factor V Leiden and no thrombosis but has CAD. -17 yo daughter on OCP. 19 yo daughter with IUD -Pt negative for factor V Leiden and antiphospholipid syndrome, but pos for prothrombin mutation and 'normal protein C and S,' tested after IUFD. To ED with persistent pleuritic CP, fatigue and MCKENZIE 12-11-18. CTPE: Filling defects in segmental andsubsegment of pulmonary arteries in the right lower lobe, some of which are linear and eccentric and likely chronic in etiology whereas others remain nearly occlusive particularly involving subsegmental pulmonary arteries. As there is no comparison CT available for review, new thrombus cannot be excluded. In the distribution of the aforementioned filling defects, there is a wedge-shaped opacity which is most likely a pulmonary infarct.Filling defects in segmental and subsegment of pulmonary arteries in the right lower lobe, some of which are linear and eccentric and likely chronic in etiologywhereas others remain nearly occlusive particularly involving subsegmental pulmonary arteries. As there is no comparison CT available for review, new thrombus cannot be excluded. In the distribution of the aforementioned filling defects, there is a wedge-shaped opacity which is most likely a pulmonary infarct. ED review of her prior CT found the current CT was improved and pt was discharged on her apixaban. ??? History of IUFD -IUFD of di-di twin A end of trimester 1, then twin B 1 week before term with autopsy showing no apparent reason ( hypoxia), though placenta small with one peripheral infarct ??? Female infertility of tubal origin HPI: Kesha Silva presents today for 1 month follow up for hypercoagulable state outlined above, afterinitially seeing Dr. Dior. In review, Kesha has a known history of prothrombin gene mutation, who was admitted at OSH in November, with PE after presenting with right sided pleuritic pain radiating to her neck and back and shortness of breath. CTA of the chest was done which revealed RLL segmental PE and atelectasis. Bilateral ultrasounds were negative for DVT. Just prior to this event, she had taken several weeks of OCPs for menorrhagia while waiting for IUD to be covered by insurance. She was kept overnight for observation and treated with enoxaparin, which she was discharged on. She was then seen by Dr. Dior in our clinic on 11/23/18, who transitioned her to [facility]. She alsohad an echocardiogram performed on 12/10, which showed a mildly dilated RV but with normal systolicfunction and thickness. She has mild-moderate tricuspid regurgitation. Pt negative for factor V Leiden and antiphospholipid syndrome, but pos for prothrombin mutation and 'normal protein C and S,' tested after IUFD. Most recently, Kesha was seen in the ED for cough on 12/10/18 to rule out progression. She was hemodynamically stable. She underwent CT PE protocol, which when compared to initial CT performed on 11/19/18, did not show propagation of clot and looked improved, so she was discharged with the plan to continue with Eliquis. Today, Kesha reports overall her symptoms are relatively unchanged. She notes that she gets winded easily, even with light exertion like walking down the hallway. She does not have any chest pain or shortness of breath she is sitting quietly. Has not been doing any physical activity because of thisconcern for her shortness of breath. She continues to have a mild cough which comes and goes and isnonproductive. She also reports that she has been having some left-sided arm pain that started a few days after her IV when she was in the emergency department at the end of November. There is no discoloration, cording, or swelling, but she will have some tingling which can span from the neck down to her fingers. In regards to her menorrhagia, she had continued vaginal bleeding from the time of her IUD placement until about 2 days ago. She is hoping that this will regulate, as she did well with her prior IUD for about 4 years. If this is not successful, her next step will be to proceed with hysterectomy. ROS: I completed a 10 point review of systems which is documented on the follow up visit form scanned into [employer]. Pertinent positives and negatives are mentioned above. Social History: Patient reports that she has never smoked. She has never used smokeless tobacco. She reports that she drinks alcohol. She reports that she has current or past drug history. Medications: acetaminophen, apixaban, enoxaparin, pantoprazole, and sertraline Allergies: Patient is allergic to penicillins; robinul [glycopyrrolate]; and sulfa (sulfonamide antibiotics). Physical Exam: There were no vitals filed for this visit. Estimated body mass index is 36.39 kg/m?? as calculated from the following: Height as of 12/10/18: 162.6 cm (64). Weight as of 12/10/18: 96.2 kg (212 lb). General: Alert and cooperative and in no acute distress. Speaking in full sentences without difficulty or without any tachypnea or shortness of breath. Lungs: Clear to auscultation bilaterally. Heart: Regular, normal S1 and S2, no murmurs, rubs, or gallops Abdomen: Deferred Extremities: Upper: No erythema, cording, swelling or discoloration bilaterally. Lower: No lower extremity edema, no discoloration. Calves soft, non-tender on compression. Labs: Basic Metabolic Panel Lab Results Component Value Date NA 139 12/10/2018 K 4.1 12/10/2018 CL 104 12/10/2018 CO2 23 12/10/2018 BUN 9 (L) 12/10/2018 CREATININE 0.98 12/10/2018 CALCGFR 71 12/10/2018 MG 2.1 12/10/2018 Complete Blood Count Lab Results Component Value Date WBC 6.59 12/10/2018 WBC 8.08 11/23/2018 RBC 5.04 12/10/2018 HGB 13.2 12/10/2018 HGB 12.7 11/23/2018 HCT 39.6 12/10/2018 MCV 79 (L) 12/10/2018 PLT 278 12/10/2018 PLT 347 11/23/2018 MPV 9.8 12/10/2018 RDWCV 14.4 12/10/2018 Coagulation Lab Results Component Value Date PROTIME 13.3 12/10/2018 INR 1.1 12/10/2018 PTT 32 12/10/2018 PATT50 Test cancelled, normal APTT 08/01/2011 CARDIOLIGGC 2.98 08/01/2011 CARDIOLIGMC 5.38 08/01/2011 DRVVT 31.9 08/01/2011 Imaging: *STUDY CONCLUSIONS* Summary: 1. Left ventricle: The cavity size was normal. Wall thickness was ? normal. Systolic function was normal. The estimated ejection fraction ? was 60-65%. Wall motion was normal; there were no regional wall ? motion abnormalities. Diastolic parameters were normal. 2. Right ventricle: The cavity size was mildly dilated. Wall thickness ? was normal. Systolic function was normal. 3. Tricuspid valve: There was mild-moderate regurgitation. 4. Inferior vena cava: The vessel was normal in size. The respirophasic ? diameter changes were in the normal range (greater than or equal to ? 50%), consistent with normal central venous pressure. CTA CHEST W CONTRAST (PE) PROTOCOL ??12/10/2018 6:08 PM ?? Clinical History/Comments: known pulmonary embolism sent here for repeat CT ?? Technique: A contrast-enhanced helical CT acquisition of the chest from apices through the lung bases was performed with a reconstructed slice thickness of 0.9 mm with overlapping 0.45 mm intervals following the intravenous administration of 75-100 cc of 350-370 mg% nonionic contrast injected at a rate of 4-5 cc/second. ??A small test bolus was used for image acquisition. Scans were reviewed on a dedicated PACS workstation for analysis. The radiologist reviewed and/or adjusted the images for the 3D/MIP rendering on an independent workstation, as necessary, prior to interpretation. ?? Exam description: CTA of the chest ?? Comparison: 11/19/2018. ?? Findings: Opacification of the pulmonary vasculature is good. Some of the previous pulmonary emboli within the right lower lobe have resorbed, with a few minimal regions of residual filling defect within the posterior basal and lateral basal segmental arteries in the right lower lobe. No new pulmonary emboli. ?? Lower neck: No abnormalities. ?? Chest wall soft tissues: No abnormalities. ?? Mediastinum and viry: No enlarged mediastinal or hilar lymph nodes. ?? Heart and mediastinal vasculature: ??Normal. RV to LV ratio is less than one. ?? Large airways: ??The large airways are mildly thickened. ?? Lungs: ??There is evolution of the infarct within the lateral basal segment of the right lower lobe, denser than previously but also smaller. Increased lung attenuation is due to deflation. No new parenchymal abnormalities. ?? Pleura: Resolved right pleural effusion. ?? Upper abdomen (limited to upper abdomen, not optimized for abdominal imaging): No abnormalities. ?? Bones: ??No significant abnormalities. ?? Impression: 1. ??Pulmonary emboli within the right lower lobe have largely resolved since the prior examination, and there is decreased size of the region of consolidation in the right lower lobe consistent with evolution of the infarct in this region. No new pulmonary emboli. Assessment: 43 y.o. female with prothrombin gene mutation and family history of VTE in her mother and father, recently diagnosed with PE after a few weeks of oral contraceptive pills. She was initially treated with a few weeks of Lovenox injections and was then transitioned to Eliquis 5 mg twice daily. She wasseen in the emergency department here at [facility] on [facility], for worsening cough. She underwent CT PE protocol to rule out clot propagation. When compared to her prior CT on 11/20, clot burden appeared improved with decreased size of consolidation in the right lobe, suggesting improvement in the infarction.She continues to have some symptoms related to this event including decreased stamina and dyspnea with exertion. She admittedly has not been doing much physical activity because of this concern of her breathing. We discussed that healing can be a slow process. Her imaging thus far has been encouraging with her echocardiogram being unremarkable without elevated pressures or RV strain and her CT PEprotocol revealing improvement after only a few weeks. Discussed that she does not have any activity restrictions at this point as long as she is being active within her abilities, stopping with any chest pain, dizziness, or significant shortness of breath. 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 In regards to her left upper extremity discomfort, I have a low suspicion that that this is a DVT. There is no swelling, cording, or any discoloration noted in that arm when compared to the left. Symptoms sound more consistent with MSK origin with tingling with head movements and a sore neck. We did discuss that if this worsens or she should develop any swelling or discoloration, I would send herfor an upper extremity ultrasound. Plan: 1. Anticoagulation: Continue Eliquis 5 mg twice daily. 2. Echocardiogram performed 12/10 without evidence of right heart strain or elevated pulmonary pressures. Also had repeat CT scan that same day due to concern of worsening cough, which revealed improvement in clot burden and pulmonary infarct. 3. Education: Reviewed signs/symptoms of VTE and increased bleeding risk while on an anticoagulant.Head trauma sustained while on full dose anticoagulation warrants immediate medical evaluation. 4. Okay to be physically active as long as she is doing this within her capacity. 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 5. She will inform us if arm or neck pain worsens or she develops any erythema or swelling, and will send for upper extremity ultrasound. 6. She has had continued menorrhagia since her IUD was placed in October. Bleeding recently stopped 2 days ago. Will check iron studies today to make sure she is not anemic. If so, she will start an iron supplemen 7. Follow-up: Follow up in [address] Dior to check in and discuss pursuing thrombophiliatesting. Please contact my office with questions/concerns. *I spent a total of 25 minutes in face to face time with this patient today and >15 minutes was spent in direct patient education and counseling. SOLANGE Ferreira 12/24/2018 15:11 Thrombosis and Hemostasis Program CC: Shayy Donohue documented in this encounter Plan of Treatment Not on file documented as of this encounter Results * IBC (12/25/2018 14:18 EDT) TIBC 366 265 - 497 ug/dl 12/25/2018 15:14 EDT [facility] Blood specimen (specimen) BLOOD SPECIMEN / Unknown 12/25/2018 14:18 EDT 12/25/2018 14:31 EDT Ace Pickett PA-C CHEMISTRY & BLOOD GAS ORDE RABDELIA Final Result Performing Organization Address City/[facility]/ZIP Co de Phone Number [facility] [address] [place] [id number] * FERRITIN (12/25/2018 14:18 EDT) Ferritin 50 10 - 291 ng/ml 12/28/2018 15:54 EDT [facility] Blood specimen (specimen) BLOOD SPECIMEN / Unknown 12/25/2018 14:18 EDT 12/25/2018 14:31 EDT Ace Pickett PA-C CHEMISTRY & BLOOD GAS ORDE RABDELIA Final Result [facility] [address] [place] [address] * IRON (12/25/2018 14:18 EDT) Iron 57 37 - 170 ug/dl 12/25/2018 15:04 [facility] Blood specimen (specimen) BLOOD SPECIMEN / Unknown 12/25/2018 14:18 EDT 12/25/2018 14:31 EDT Ace Pickett PA-C CHEMISTRY & BLOOD GAS ORDJeannie HOOKER Final Result [facility] [address] [place] [address] * (ABNORMAL) COMPLETE BLOOD COUNT AND DIFFERENTIAL (12/25/2018 14:18 EDT) WBC 8.38 4.0 - 12.4 K/cmm 12/25/2018 14:39 [facility] RBC 5.09(H) 3.86 - 5.04 M/cmm 12/25/2018 14:39 [facility] Hemoglobin 13.5 11.6 - 15.2 gm/dl 12/25/2018 14:39 [facility] HCT 40.5 34.9 - 44.4 % 12/25/2018 14:39 [facility] MCV 80(L) 81 - 98 fl 12/25/2018 14:39 [facility] MCH 26.5(L) 26.7 - 33.3 pg 12/25/2018 14:39 [facility] MCHC 33.3 32.1 - 35.9 gm/dl 12/25/2018 14:39 [facility] RDW-CV 14.5 <14.7 % 12/25/2018 14:39 [facility] RDW-SD 41.7 <50.4 fl 12/25/2018 14:39 [facility] PLT 303 141 - 377 K/cmm 12/25/2018 14:39 [facility] MPV 9.6 9.5 - 12.7 fl 12/25/2018 14:39 [facility] % Neutrophils 70.9 % 12/25/2018 14:39 [facility] % Lymphocytes 19.2 % 12/25/2018 14:39 [facility] % Monocytes 7.2 % 12/25/2018 14:39 [facility] % Eosinophils 1.7 % 12/25/2018 14:39 [facility] % Basophils 0.2 % 12/25/2018 14:39 [facility] % Immature Grans 0.8 % 12/25/2018 14:39 [facility] ABS Neutrophils 5.94 2.20 - 8.85 K/cmm 12/25/2018 14:39 [facility] ABS Lymphs 1.61 1.09 - 3.30 K/cmm 12/25/2018 14:39 [facility] ABS Monocytes 0.60 0.1 - 0.8 K/cmm 12/25/2018 14:39 [facility] ABS Eosinophils 0.14 0.03 - 0.61 K/cmm 12/25/2018 14:39 [facility] ABS Basophils 0.02 0.01 - 0.11 K/cmm 12/25/2018 14:39 [facility] ABS Immature Grans 0.07(H) 0 - 0.06 K/cmm 12/25/2018 14:39 [facility] Type of Diff: Automated 12/25/2018 14:39 [facility] Blood specimen (specimen) BLOOD SPECIMEN / Unknown 12/25/2018 14:18 EDT 12/25/2018 14:31 EDT us Ace Pickett PA-C PACKAGES & DNA PROBE ORDER SHARAN Final Result [facility] [address] [place] [address] documented in this encounter Visit Diagnoses Diagnosis Hypercoagulable state (HCC-CMS)- Primary Primary hypercoagulable state Menorrhagia with irregular cycle Excessive or frequent menstruation documented in this encounter Care Teams Radiographer Angiogram Relationship Specialty Start Date End Date Shayy Donohue NP [address] [place] [phone] PCP - General 11/20/18 documented as of this encounter
--- OUTSIDE RECORDS SUMMARY | 2024-02-25 15:19 | XMS_ITS | Encounter Summary ---
Author Organization [facility] Address [address] [place] [address] Care Team Providers Care Pipeline Maintenance Supervisor Name Role Phone Shayy Donohue NP Primary Care Provider [phone] Reason for Visit * Reason Onset Date Comments Cough 12/09/2018 Encounter Details Date Type Department Care Team (Late st Contact Info) Description 12/09/2018 Telephone [facility] Cancer Center Hematology & Oncology - [facility] [address] [place] [address] Anitha Dior MD [address] [facility], [address] [place] [phone] Cough Social History Tobacco Use Types Packs/Day Years [...] 11/23/2018 12:12 EDT documented in this encounter Miscellaneous Notes * Telephone Encounter - Lexy Reich RN - 12/10/2018 1542 EDT Pt stopped by clinic today. Discussed cough, current s/s decided to take pt to ED for eval for progression of PE. Pt agrees with plan * Telephone Encounter - Devora Alberts - 12/09/2018 0847 EDT Reason for Call: Cough Summary/Symptoms: Patient is reporting a cough that is giving her a tingy bloody taste but no visual blood Would like to speak to Haley about this please call back Devora Alberts 12/09/2018 8:47 documented in this encounter Plan of Treatment Not on file documented as of this encounter Visit Diagnoses Not on filedocumented in this encounter Care Teams Pipeline Maintenance Supervisor Relationship Specialty Start Date End Date Shayy Donohue NP [address] [place] [phone] PCP - General 11/20/18 documented as of this encounter
--- OUTSIDE RECORDS SUMMARY | 2024-02-25 15:19 | XMS_ITS | Encounter Summary ---
Author Organization [facility] Address [address] [place] [address] Care Team Providers Care Oracle Sql Developer Name Role Phone Shayy Donohue NP Primary Care Provider [phone] Encounter Details Date Type Department Care Team (Late st Contact Info) Description 12/25/2018 14:10 EDT - 12/25/2018 23:59 EDT Hospital Encounter [facility] [address] [place] [address] Ace Pickett, PA-C [address] [facility], [address] [place] [phone] Discharge Disposition: Auto Discharge Social History Tobacco Use Types Packs/Day Years [...] 11/23/2018 12:12 EDT documented in this encounter Discharge Diagnoses Diagnosis 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 apixaban (ELIQUIS) 5 mg tablet Take 1 Tab by mouth 2 times daily. 60 Tab 3 12/03/2018 pantoprazole (PROTONIX) 40 mg tablet Take 40 mg by mouth daily. sertraline (ZOLOFT) 50 mg tabletIndications :Patient is taking 150 mg per day Take 150 mg by mouth daily. enoxaparin (LOVENOX) 100 mg/mL syringe Inject 100 mg into the skin every 12 hours. 02/22/2019 documented as of this encounter Discharge Disposition Disposition Code Departure Means Destination Auto Discharge Home documented in this encounter Plan of Treatment Not on file documented as of this encounter Visit Diagnoses Not on filedocumented in this encounter Care Teams Oracle Sql Developer Relationship Specialty Start Date End Date Shayy Donohue NP [address] [place] [phone] PCP - General 11/20/18 documented as of this encounter
--- OUTSIDE RECORDS SUMMARY | 2024-02-25 15:19 | XMS_ITS | Encounter Summary ---
Author Organization [facility] Address [address] [place] [address] Care Team Providers Care Taxicab Driver Name Role Phone Shayy Donohue [employer] COUNSELOR Primary Care Provider Reason for Visit * Reason Comments Cough At [facility] for echocar diogram. Pt has recently changed blood thinners and has developed a cough, Has some central chest pain at baseline, has been increasing over last several days. Encounter Details Date Type Department Care Team (Late st Contact Info) Description 12/10/2018 15:33 EDT - 12/10/2018 21:09 EDT Emergency [facility] Emergency Department - [place] [address] [place] [address] [id number] Michele Diez MD MSc [address] [facility] [place] [id number] Emergency, MD Мария Chronic pulmonary embolism without acute cor pulmonale, unspecified pulmonary embolism type (HCC-CMS) (Primary Dx) Discharge Disposition: Home or Self Care Social History Tobacco Use Types Packs/Day Years [...] Sign Reading Time Taken Comments Blood Pressure 113/72 12/10/20182099 EDT Pulse 70 12/10/2018 154 EDT Temperature 36.1 ??C (97 ??F) 12/10/2018 154 EDT Respiratory Rate 17 12/10/20182099 EDT Oxygen Saturation 96% 12/10/20182099 EDT Inhaled Oxygen Concentration - - Weight 96.2 kg (212 lb) 12/10/2018 154 EDT Height 162.6 cm (5' 4) 12/10/2018 154 EDT Body Mass Index 36.39 12/10/2018 154 EDT documented in this encounter Functional Status [...] documented in this encounter Discharge Diagnoses Diagnosis I27.82 Chronic pulmonary embolism-I27.82[ICD-10-CM] K21.9 Gastro-esophageal reflux disease without esophagitis-K21.9[ICD-10-CM] Z86.711 Personal history of pulmonary embolism-Z86.711[ICD-10-CM] Z90.49 Acquired absence of other specified parts of digestive tract-Z90.49[ICD-10-CM] 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 You underwent a CT scan and blood work which were reassuring. The clot burden in your chest appears somewhat improved and the CAT scan today is not worse compared to before. 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 Should you feel worse or develop any new or additional symptoms of concern, then return right away. Both theCAT scan today and 3 weeks ago does suggest a pulmonary infarct which may be causing the persistentdiscomfort which you should continue to control with acetaminophen. * Attachments The following attachments cannot be sent through Care Everywhere. * Pulmonary Embolism (Hungarian) documented in this encounter Medications at Time [...] Discharge Disposition Disposition Code Departure Means Destination Home or Self Care documented in this encounter ED Notes * Jenny Beckett RN - 12/10/20182105 EDT NAD at dispo. Able to ambulate with steady gait and clear speech to lobby at dispo. States mom to drive her home. Verb understanding of DC instructions. * Jaime Anton RN - 12/10/20181947 EDT Patient ambulatory to the bathroom, in no apparent distress * Jaime Anton RN - 12/10/2018 1945 EDT Patient with headache, requested tylenol, patient updated on ct scan and to hold eliquis at this time * Jaime Anton RN - 12/10/[address], in no apparent distress * Michele Diez MD - 12/10/2018 1643 EDT This patient received an evaluation and medical screening exam for emergent medical conditions at the [facility] on 12/10/2018 Scribe attestation: This documentation is recorded by Ramona Rachel acting as Scribe under the direction and presence of Michele Diez MD. Michele Diez MD: I personally performed the services recorded by the scribe in my presence. I confirm the scribe's documentation has been reviewed by me to accurately and completely record my work, treatment, procedures, and medical decision making. HEAVEN Silva is a 43 y.o. female with PMH including pulmonary embolism, heavy vaginal bleeding, and GERD who presents to the ED for a cough. Patient reports on 11/19/18 she was diagnosed with pulmonary embolism. Patient states that because of this diagnosis, she was concerned about her worsening persistent cough that she reports began four days ago. Patient reports associated symptoms SOB, chest pain on deep inspiration, and headache, as well as moderate MCKENZIE. She reports she spoke to a nurse inhematology at her scheduled echocardiogram appointment today, who suggested she come to the ED for a CT scan to ensure clotting was not worse. Patient additionally explains that because of her chronic heavy vaginal bleeding, she had to switch medications from Lovenox to Eliquis one week ago. She states that she is worried that her body may not be working well with the Eliquis. Of note, patient had an echocardiogram that appeared normal today. Patient denies abdominal pain, fever, N/V/D, fever, chills, dysuria, or hematuria. Family Hx: Patient reports her sister has a factor-5 iron deficiency and her mother has had surgeryfor pulmonary hypertension. Social history: Patient denies smoking. History was provided by: Patient. Medical records. Patient's pertinent PMH, FH, SH were reviewed and updated PRN. ROS A 10-point review of systems was performed. The patient answered negative to all questions with theexceptions of those explicitly detailed as positives in the HPI. Pertinent negatives are also explicitly stated. Physical Exam Vital Signs Temp: 36.1 ??C (97 ??F) Temp src: Temporal Pulse: 70 Heart Rate: 68 BPM Cardiac Rhythm: Normal sinus rhythm Resp: 17 SpO2: 96 % BP: 113/72 BP MAP: 81 mm Hg O2 Device: None (Room air) Nursing notes and vital signs were reviewed. Constitutional: Well appearing in no acute distress Eyes: Pupils equal and reactive to light, no scleral icterus Mouth: Moist oral mucosa without apparent lesions Neck: Full ROM, no cervical LAD Heart: RRR without MRG, no friction rub, no chest wall tenderness Lungs: Clear to auscultation Abdomen: Soft NT/ND, positive BS Skin: No overt rashes on exposed skin, no pallor. Extremities: Moving spontaneously, warm and well perfused, no edema, no calf tenderness. Neuro: Grossly neurologically intact with normal speech, A&Ox3 Psych: No agitation or overt thought disorder Results Labs Reviewed PROFILE ED CARDIAC PACK - Abnormal Result Value Status Sodium 139 Final Potassium 4.1 Final Chloride 104 Final CO2 23 Final BUN 9 (*) Final Creatinine 0.98 Final GFR, Calculated 71 Final Magnesium 2.1 Final WBC 6.59 Final RBC 5.04 Final Hemoglobin 13.2 Final HCT 39.6 Final MCV 79 (*) Final MCH 26.2 (*) Final MCHC 33.3 Final RDW-CV 14.4 Final RDW-SD 40.9 Final PLT 278 Final MPV 9.8 Final Neutrophils 66.4 Final Lymphocytes 22.6 Final Monocytes 7.6 Final Eosinophils 2.6 Final Basophils 0.3 Final Immature Grans 0.5 Final ABS Neutrophils 4.38 Final ABS Lymphs 1.49 Final ABS Monocytes 0.50 Final ABS Eosinophils 0.17 Final ABS Basophils 0.02 Final ABS Immature Grans 0.03 Final Type of Diff: Automated Final Troponin I <0.034 Final Glucose, Screening 92 Final Hold Blue Top Final Value: Sample for coagulation will be discarded after 4 hours PROTIME Pro Time 13.3 Final I.N.R. 1.1 Final PTT PTT 32 Final NT PRO BNP NT Pro BNP [address] CHEST (PE) PROTOCOL W CONTRAST (Preliminary result) Result time 12/10/18 18:19:43 Preliminary result Narrative: PRELIMINARY RESIDENT REPORT CTA CHEST W CONTRAST (PE) PROTOCOL 12/10/2018 6:08 PM Clinical History/Comments: known pulmonary embolism sent here for repeat CT Technique: A contrast-enhanced helical CT acquisition of the chest from apices through the lung bases was performed with a reconstructed slice thickness of 0.9 mm with overlapping 0.45 mm intervals following the intravenous administration of 75-100 cc of 350-370 mg% nonionic contrast injected at a rate of 4-5 cc/second. A small test bolus was used for image acquisition. Scans were reviewed on a dedicated PACS workstation for analysis. The radiologist reviewed and/or adjusted the images for the 3D/MIP rendering on an independent workstation, as necessary, prior to interpretation. Exam Description: CTA of the chest. Comparison: Outside DVT ultrasound from November 20, 2018. Findings: Opacification of the pulmonary vasculature is good. There are filling defects noted in segmental and subsegmental pulmonary arteries in the right lower lobe. While some of these filling defects are more eccentric and linear, others continue to remain nearly occlusive, for example a subsegmental pulmonary artery (axial #247). Lower neck: No significant abnormality. Chest wall soft tissues: No significant abnormality. Mediastinum and viry: No enlarged mediastinal or hilar lymph nodes. The esophagus appears normal. Heart and mediastinal vasculature: The cardiac chambers are normal in size. There is no evidence of right heart strain. The aorta and pulmonary trunk are normal in caliber. No pericardial effusion. No coronary or aortic atherosclerosis. Large airways: Mildly diffusely thickened, however normal in caliber. Lungs: A wedge-shaped opacity is present in the posterior right costal phrenic sulcus. There is bibasilar atelectasis. Heterogeneous attenuation of the lung parenchyma is likely attributable to expiratory phase. Pleura: No pleural effusion or pneumothorax. Upper abdomen (limited to upper abdomen, not optimized for abdominal imaging): Prior cholecystectomy. No significant intra-abdominal abnormality. Bones: No significant abnormalities. Impression: Filling defects in segmental and subsegment of pulmonary [...] which is most likely a pulmonary infarct. Data Interpretation Imaging obtained was reviewed and independently interpreted: Filing defects in segmental and subsegmet of pulmonary arteries in the right lower lobe Laboratory results independently reviewed, significant for: No acute abnormalities Procedures Procedures Medical Decision Making/ED Course A medical screening exam was performed. In summary, the patient is a 43-year-old woman with a known pulmonary embolism diagnosed earlier this month who presents at the request of the hematology clinic nurse for reevaluation of possible clot progression via CT scan. She reports persistent pleuritic chest discomfort and dyspnea and easy fatigability despite compliance with Lovenox and transition to Eliquis. She has been evaluated by hematology for possible hypercoagulable state as she has a family history of factor V Leiden deficiency,but does not know of any hypercoagulability in herself. She reports chronic irregular vaginal bleeding, but denies new symptoms, abdominal pain, fever, hemoptysis although she does report a 10 taste in her mouth with coughing. She denies new fever or additional new symptoms. On exam, she is awake and alert, well-appearing, hemodynamically stable and afebrile. Heart rate is regular and without murmur or pericardial friction rub, lungs are clear to auscultation and breath sounds are symmetric, abdomen is soft, nontender and nondistended. Mucous membranes are moist, there is no JVD, no pretibialpitting edema and her extremities are warm and well- perfused and there is no calf tenderness or palpable cords. She had an echocardiogram earlier today which was unremarkable. I clinically doubt signi ficant progression of pulmonary embolism although there is clinical concern that she may not be an appropriate responder to her current anticoagulants and does have persistent symptoms so it is reasonable to obtain labs to assess for right heart strain and a repeat CT scan today. (0) Hydrated with 500 mL IV Bolus. (1854) Paged hematology and spoke to hematology fellow about the pulmonary infarct. They suggested we compare prior CT to today's and admit if clot burden significantly worsens. (1944) Gave 1000 mg PO Tylenol. On comparison of CT today with CT on 11/19, condition somewhat improved. Given this information, the patient is appropriate for discharge. (2057) Re-evaluated patient and informed her of the results. The patient is amenable with the plan for discharge The patient was discharged with instructions to continue her medications as prescribed. Pain Management While under my care in the Emergency Department, the patient's pain was managed to an adequate level weighing risk vs. benefit of medication. Upon departure from the Emergency Department, the patient's pain was 1 on a zero to ten scale. Any further pain treatment will be at the discretion of the provider following up with the patient based on their clinical assessment. Condition at departure from the Emergency Department: Improved Following departure from our facility, any remaining pain can with all likelihood be managed by thepatient using prescribed non-opioid medication, OTC analgesics, or non-pharmacological agents such heat or ice packs. The patient was advised to follow-up with his/her primary care provider if additional or prolonged pain management is needed. If the pain worsens, the patient is instructed to return for re-evaluation. Disposition Disposition decisions were made weighing risks and benefits of hospitalization vs. outpatient treatment, the risk for further decompensation, and the patient???s wishes. - If discharged: the patient was stable, improved, or requested discharge. Prior to discharge my usual and customary return precautions were reviewed with the patient and/or family. This included follow-up instructions and reasons to return to the Emergency Department if condition worsens, does notimprove as expected, or other new concerns arise. - If admitted: the patient???s condition was severe enough to require additional inpatient evaluation and treatment, or the patient was at risk of sudden decompensation. This documentation is recorded by Ramona Rachel acting as Scribe under the direction and presence of Michele Diez MD. Michele Diez MD: I personally performed the services recorded by the scribe in my presence. I confirm the scribe's documentation has been reviewed by me to accurately and completely record my work, treatment, procedures, and medical decision making. documented in this encounter Miscellaneous Notes * Plan of Care - Amber Negron MD PhD - 12/10/[address] Diez called from ED re: patient with known PE on apixaban after lovenox induction who was referred for increasing pleuritic pain and SOB. On scan, PEs have some appearance of chronicity but someare completely occlusive. They were not compared to prior study as it was done at OSH Recommend retrieval of images from prior PE for comparison; if there is progression of the thrombosis or no other explanation for pain recommend admission for heparin gtt or lovenox. If no change or improved recommended continued apixaban and symptom control. Discussed with Dr. Barby Negron MD PHD 12/10/2018 19:21 Cosigned by Anitha Dior MD, MD at 12/11/2018 10:22 EDT documented in this encounter Plan of Treatment Not on file documented as of this encounter Procedures Procedure Name Priority Date/Time Associated Diagnosis Comments CT CHEST (PE) PROTOCOL W CONTRAST STAT 12/10/2018 18:08 EDT PROFILE ED CARDIAC PACK STAT 12/10/2018 17:01 EDT PTT STAT 12/10/2018 17:01 EDT PROTIME STAT 12/10/2018 17:01 EDT NT PRO BNP STAT 12/10/2018 17:01 EDT documented in this encounter Results * CT CHEST (PE) PROTOCOL W CONTRAST (12/10/2018 18:08 EDT) Anatomical Region Laterality Modality Other 12/10/2018 18:0 8 EDT 12/11/2018 8:38 EDT Narrative 12/11/2018 8:38 EDT CTA CHEST W CONTRAST (PE) PROTOCOL ??12/10/2018 6:08 PM Clinical History/Comments: known pulmonary embolism sent here for repeat CT Technique: A contrast-enhanced helical CT acquisition of [...] independent workstation, as necessary, prior to interpretation. Exam description: CTA of the chest Comparison: 11/19/2018. Findings: Opacification of the pulmonary vasculature is good. Some of the previous pulmonary emboli within the right lower lobe have resorbed, with a few minimal regions of residual filling defect within the posterior basal and lateral basal segmental arteries in the right lower lobe. No new pulmonary emboli. Lower neck: No abnormalities. Chest wall soft tissues: No abnormalities. Mediastinum and viry: No enlarged mediastinal or hilar lymph nodes. Heart and mediastinal vasculature: ??Normal. RV to LV ratio is less than one. Large airways: ??The large airways are mildly thickened. Lungs: ??There is evolution of the infarct within the lateral basal segment of the right lower lobe, denser than previously but also smaller. Increased lung attenuation is due to deflation. No new parenchymal abnormalities. Pleura: Resolved right pleural effusion. Upper abdomen (limited to upper abdomen, not optimized for abdominal imaging): No abnormalities. Bones: ??No significant abnormalities. Impression: 1. ??Pulmonary emboli within the right lower lobe have largely resolved since the prior examination, and there is decreased size of the region of consolidation in the right lower lobe consistent with evolution of the infarct in this region. No new pulmonary emboli. I have personally reviewed the images and the above interpretation and agree with the findings. Procedure Note Dg Stephen MD, MD - 12/11/2018 CTA CHEST W CONTRAST (PE) PROTOCOL 12/10/2018 6:08 PM Clinical History/Comments: known pulmonary embolism sent here for repeat CT Technique: A contrast-enhanced helical CT acquisition of the chest from apices through the lung bases was performed with a reconstructed slice thickness of 0.9 mm with overlapping 0.45 mm intervals following the intravenous administration of 75-100 cc of 350-370 mg% nonionic contrast injected at a rate of 4-5 cc/second. A small test bolus was used for image acquisition. Scans were reviewed on a dedicated PACS workstation for analysis. The radiologist reviewed and/or adjusted the images for the 3D/MIP rendering on an independent workstation, as necessary, prior to interpretation. Exam description: CTA of the chest Comparison: 11/19/2018. Findings: Opacification of the pulmonary vasculature is good. Some of the previous pulmonary emboli within the right lower lobe have resorbed, with a few minimal regions of residual filling defect within the posterior basal and lateral basal segmental arteries in the right lower lobe. No new pulmonary emboli. Lower neck: No abnormalities. Chest wall soft tissues: No abnormalities. Mediastinum and viry: No enlarged mediastinal or hilar lymph nodes. Heart and mediastinal vasculature: Normal. RV to LV ratio is less than one. Large airways: The large airways are mildly thickened. Lungs: There is evolution of the infarct within the lateral basal segment of the right lower lobe, denser than previously but also smaller. Increased lung attenuation is due to deflation. No new parenchymal abnormalities. Pleura: Resolved right pleural effusion. Upper abdomen (limited to upper abdomen, not optimized for abdominal imaging): No abnormalities. Bones: No significant abnormalities. Impression: 1. Pulmonary emboli within the right lower lobe have largely resolved since the prior examination, and there is decreased size of the region of consolidation in the right lower lobe consistent with evolution of the infarct in this region. No new pulmonary emboli. I have personally reviewed the images and the above interpretation and agree with the findings. us Michele Diez MD MSc IMG CT ORDERABLES Final R esult * NT PRO BNP (12/10/2018 17:01 EDT) NT Pro BNP 89 <300 pg/ml 12/10/2018 17:53 EDT [facility] Comment: Reference Range: NT-proBNP values less than 300 pg/ml have a 99% negative predictive value for excluding acute congestive heart failure. A diagnostic NT-proBNP cutoff of 900 pg/ml has been suggested in adults over 50 years of age in the absence of renal failure. A cutoff of 1200 pg/ml for patients with an eGFR <60 yields a diagnostic sensitivity and specificity of 89% and 72% for acute congestive failure. The results of this assay can be falsely lowered due to the consumption of Biotin. Blood specimen (specimen) BLOOD SPECIMEN / Unknown 12/10/2018 17:01 EDT 12/10/2018 17:23 EDT us Michele Diez MD MSc CHEMISTRY & BLOOD GAS ORD ERABLES Final Result Performing Organization Address [facility]/ZIP Co de Phone Number [facility] [address] [place] [address] * PTT (12/10/2018 17:01 EDT) PTT 32 26 - 37 secs 12/10/2018 17:49 EDT [facility] Blood specimen (specimen) BLOOD SPECIMEN / Unknown 12/10/2018 17:01 EDT 12/10/2018 17:23 EDT Result Poppy Diez MD, MSc HEMATOLOGY & PF4 ORDERABL ES Final Result Performing Organization Address [facility] Co de Phone Number [facility] [address] [place] [address] * PROTIME (12/10/2018 17:01 EDT) Pro Time 13.3 10.3 - 13.4 secs 12/10/2018 17:49 EDT [facility] I.N.R. 1.1 0.9 - 1.1 Ratio 12/10/2018 17:49 EDT [facility] Comment: Moderate Intensity Coumadin INR = 2.0-3.0 Adjustments in anticoagulant therapy dose should be based upon the INR and NOT the Pro Time. Blood specimen (specimen) BLOOD SPECIMEN / Unknown 12/10/2018 17:01 EDT 12/10/2018 17:23 EDT us Michele Diez MD MSc HEMATOLOGY & PF4 ORDERABL ES Final Result Performing Organization Address [facility]/ZIP Co de Phone Number [facility] [address] [place] [address] * (ABNORMAL) PROFILE ED CARDIAC PACK (12/10/2018 17:01 EDT) Sodium 139 136 - 145 mEq/L 12/10/2018 17:47 [facility] Potassium 4.1 3.5 - 5.0 mEq/L 12/10/2018 17:47 [facility] Chloride 104 96 - 110 mEq/L 12/10/2018 17:47 [facility] CO2 23 22 - 32 mEq/L 12/10/2018 17:47 [facility] BUN 9(L) 10 - 26 mg/dl 12/10/2018 17:47 [facility] Creatinine 0.98 0.52 - 1.04 mg/dl 12/10/2018 17:47 [facility] GFR, Calculated 71 >60 ml/min/1 .73m2 12/10/2018 17:47 [facility] Comment: eGFR calculated using CKD-EPI equation for non Americans. Multiply eGFR by 1.16 for Americans. Magnesium 2.1 1.7 - 2.8 mg/dl 12/10/2018 17:47 [facility] WBC 6.59 4.0 - 12.4 K/cmm 12/10/2018 17:37 [facility] RBC 5.04 3.86 - 5.04 M/cmm 12/10/2018 17:37 [facility] Hemoglobin 13.2 11.6 - 15.2 gm/dl 12/10/2018 17:37 [facility] HCT 39.6 34.9 - 44.4 % 12/10/2018 17:37 [facility] MCV 79(L) 81 - 98 fl 12/10/2018 17:37 [facility] MCH 26.2(L) 26.7 - 33.3 pg 12/10/2018 17:37 [facility] MCHC 33.3 32.1 - 35.9 gm/dl 12/10/2018 17:37 [facility] RDW-CV 14.4 <14.7 % 12/10/2018 17:37 [facility] RDW-SD 40.9 <50.4 fl 12/10/2018 17:37 [facility] PLT 278 141 - 377 K/cmm 12/10/2018 17:37 [facility] MPV 9.8 9.5 - 12.7 fl 12/10/2018 17:37 [facility] % Neutrophils 66.4 % 12/10/2018 17:37 [facility] % Lymphocytes 22.6 % 12/10/2018 17:37 [facility] % Monocytes 7.6 % 12/10/2018 17:37 [facility] % Eosinophils 2.6 % 12/10/2018 17:37 [facility] % Basophils 0.3 % 12/10/2018 17:37 [facility] % Immature Grans 0.5 % 12/10/2018 17:37 [facility] ABS Neutrophils 4.38 2.20 - 8.85 K/cmm 12/10/2018 17:37 [facility] ABS Lymphs 1.49 1.09 - 3.30 K/cmm 12/10/2018 17:37 [facility] SERVICES ABS Monocytes 0.50 0.1 - 0.8 K/cmm 12/10/2018 17:37 [facility] ABS Eosinophils 0.17 0.03 - 0.61 K/cmm 12/10/2018 17:37 [facility] ABS Basophils 0.02 0.01 - 0.11 K/cmm 12/10/2018 17:37 [facility] ABS Immature Grans 0.03 0 - 0.06 K/cmm 12/10/2018 17:37 [facility] Type of Diff: Automated 12/10/2018 17:37 [facility] Troponin I (ng/mL) <0.034 <0.034 ng/ml 12/10/2018 17:53 [facility] Comment: The results of this assay can be falsely lowered due to the consumption of Biotin. Glucose, Screening 92 70 - 100 mg/dl 12/10/2018 17:47 [facility] Hold Blue Top Sample for coagulation will be discarded after 4 hours 12/10/2018 17:43 EDT [facility] Blood specimen (specimen) BLOOD SPECIMEN / Unknown 12/10/2018 17:01 EDT 12/10/2018 17:23 EDT us Michele Diez MD MSc PACKAGES & DNA PROBE KIRSTY HOOKER Final Result [facility] [address] [place] [address] documented in this encounter Visit Diagnoses Diagnosis Chronic pulmonary embolism without acute cor pulmonale, unspecified pulmonary embolism type ([facility])- Primary documented in this encounter Administered Medications Inactive Administered Medications - up to 3 most recent administrations Medication Order MAR Action Action Date Dose Rate Site acetaminophen (TYLENOL) tablet 1,000 mg 1,000 mg, oral, NOW X1, 1 dose, On Liana 12/10/18 at 1945, STAT Given 12/10/2018 19:45 EDT 1,000 mg lactated ringers BOLUS 500 mL 500 mL, intravenous, NOW X1, 1 dose, On Liana 12/10/18 at 1700, STAT New Bag 12/10/2018 17:17 EDT 500 mL documented in this encounter Active and Recently Administered Medications Times are shown in EDT. Scheduled Medication Order 12/08/2018 12/09/2018 12/10/2018 acetaminophen (TYLENOL) tablet 1,000 mg (COMPLETED) 1,000 mg, oral, NOW X1, 1 dose, On Liana 12/10/18 at 1945, STAT 1945 (Given - Provid er: Jaime Anton RN) lactated ringers BOLUS 500 mL (COMPLETED) 500 mL, intravenous, NOW X1, 1 dose, On Liana 12/10/18 at 1700, STAT 1717 (New Bag - Prov ider: Jaime Anton RN)2105 (Completed - Provider: Jenny Beckett RN) documented in this encounter Care Teams Taxicab Driver Relationship Specialty Start Date End Date Shayy Donohue NP [address] [place] [phone] PCP - General 11/20/18 documented as of this encounter
--- OUTSIDE RECORDS SUMMARY | 2024-02-25 15:19 | XMS_ITS | Encounter Summary ---
Author Organization [facility] Address [address] [place] [address] Care Team Providers Care Ship Scaler Name Role Phone Shayy Donohue SODA FLAKER Primary Care Provider [phone] Encounter Details Date Type Department Care Team (Latest Contact Info) Description 12/10/2018 Travel Social History Tobacco Use Types Packs/Day Years [...] on filedocumented in this encounter Care Teams Ship Scaler Relationship Specialty Start Date End Date Shayy Donohue, SARABJIT [address] [place] [phone] PCP - General 11/20/18 documented as of this encounter
--- OUTSIDE RECORDS SUMMARY | 2024-02-25 15:19 | XMS_ITS | Encounter Summary ---
Author Organization [facility] Address [address] [place] [address] Care Team Providers Care Envelope Press Operator Name Role Phone Shayy Donohue NP Primary Care Provider [phone] Reason for Visit * Reason Comments Follow-up Encounter Details Date Type Department Care Team (Late st Contact Info) Description 02/22/2019 11:30 EST Office Visit [facility] Hematology & Oncology - [facility] [address] [place] [address] Anitha Dior MD [address] [facility], [address] [place] [phone] At risk for cardiovascular event (Primary Dx); Class 2 severe obesity due to excess calories with serious comorbidity and body mass index (BMI) of 37.0 to 37.9 in adult ([facility]); Hypercoagulable state ([facility]) Social History Tobacco Use Types Packs/Day Years [...] Sign Reading Time Taken Comments Blood Pressure 137/90 02/22/2019 1136 EST Pulse 72 02/22/2019 1136 EST Temperature 36.7 ??C (98 ??F) 02/22/2019 1136 EST Respiratory Rate 14 02/22/2019 1136 EST Oxygen Saturation 97% 02/22/2019 1136 EST Inhaled Oxygen Concentration - - Weight 98.9 kg (218 lb) 02/22/2019 1136 EST Height - - Body Mass Index 37.42 12/10/2018 1542 EDT documented in this encounter [...] 11/23/2018 12:12 EDT documented in this encounter Patient Instructions * Patient Instructions* Anitha Dior MD, MD - 02/22/2019 11:30 EST -stop Eliquis -Start aspirin 81 mg daily -I will let you know about your cholesterol and sugar Useful Websites about Obesity Treatment Calculate Your BMI: http://www.nhlbisupport.com/bmi/bmicalc.htm Obesity Education Initiative: http://www.nhlbi.nih.gov/about/oei/index.htm Aim for a Healthy Weight: Http://nhlbi.nih.gov/health/public/heart/obesity/lose_wt/index.htm Some of our patient find nutrition phone apps like My Fitness Pal helpful Our Website [email or web address] You can find information about thrombosis and bleeding problems, links to other educational websites and to your doctor's research programs on our website. You can also make a donation to our programthrough the website. For information on national patient initiatives [place] Heart Association: Heart.org/VTE National Blood Clot [place]: StopTheClot.org/ World Thrombosis Day: WorldThrombosisDay.org documented in this encounter Progress Notes * Anitha Dior MD, MD - 02/22/2019 1130 EST Thrombosis & Hemostasis Program (THP) Follow Up Visit Date of Service: 02/21/2019 Problem List: Patient Active Problem List Diagnosis ??? Class 2 obesity in adult ??? Hypercoagulable state ([facility]) 1. Event: Unprovoked isolated PE age 43 associated with OC use for 2 weeks, Nov 20, 2018. Was awaiting insurance approval to replace IUD [...] known if tested for thrombophilia (never saw typewriter tester so perhaps no). -Father with factor V Leiden and no thrombosis but has CAD. -17 yo daughter on OCP. 19 yo daughter with IUD 3. 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 D-dimer <200. APCr normal. -Obesity (BMI 36 in 2019) ??? History of IUFD -IUFD of di-di twin A end of trimester 1, then twin B 1 week before term with autopsy showing no apparent reason ( hypoxia), though placenta small with one peripheral infarct ??? Depression ??? GERD (gastroesophageal reflux disease) ??? Female infertility of tubal origin CC: Chief Complaint Patient presents with ??? Follow-up HPI: Citlalli returns for re-evaluation of thrombosis, with her history as outlined above. We think she might have the prothrombin mutation but she is unsure and we apparently weren't able to get records as best I can tell. She had her anticoagulation interrupted to do a thrombosis panel, which was drawn in [facility]. She has had no s/sx recurrent thrombosis. 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 She is not exercising an has not lost any weight. She had an IUD placed for bleeding and cramping. On ELEVATOR ERECTOR HELPER u/s she has fibroids and a large uterus. There is talk about getting a hysterectomy. Plan would be transvaginal. ROS: I completed a 10 point review of systems which is documented on the follow up visit form scanned into PRISM Pertinent positives: per form. She doesn't know her cholesterol Pertinent negatives: per form Social History: Patient reports that she has never smoked. She has never used smokeless tobacco. She reports that she drinks alcohol. She reports that she has current or past drug history. Social History Social History Narrative -she has 3 children and 1 lives at home. Oldest is a son, 22 and lives in [place]. Others are 19 and 12 (girls). 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 Medications: Current Outpatient Medications: acetaminophen 325 mg capsule apixaban (ELIQUIS) 5 mg tablet pantoprazole (PROTONIX) 40 mg tablet sertraline (ZOLOFT) 50 mg tablet No current facility-administered medications for this visit. Allergies: Patient is allergic to penicillins; robinul [glycopyrrolate]; and sulfa (sulfonamide antibiotics). Physical Exam: Vitals: 02/22/19 1136 BP: 137/90 Pulse: 72 Resp: 14 Temp: 36.7 ??C (98 ??F) TempSrc: Tympanic SpO2: 97% Weight: 98.9 kg (218 lb) Estimated body mass index is 37.42 kg/m?? as calculated from the following: Height as of 12/10/18: 162.6 cm (64). Weight as of this encounter: 98.9 kg (218 lb). Wt Readings from Last 3 Encounters: 02/22/19 98.9 kg (218 lb) 12/25/18 98.7 kg (217 lb 8 oz) 11/23/18 95.9 kg (211 lb 8 oz) BMI Readings from Last 3 Encounters: 09/13/19 37.33 kg/m?? 08/12/19 35.67 kg/m?? 08/01/11 27.60 kg/m?? Gen: Alert and oriented x3. No distress. Ext: Right: No lower extremity edema, hemosiderin deposits, petechiae, varicose veins. Left: No lower extremity edema, hemosiderin deposits, petechiae, varicose veins. Pulses: 2+ and symmetric Labs: Complete Blood Count Lab Results Component Value Date WBC 8.38 12/25/2018 WBC 6.59 12/10/2018 WBC 8.08 11/23/2018 RBC 5.09 (H) 12/25/2018 HGB 13.5 12/25/2018 HGB 13.2 12/10/2018 HGB 12.7 11/23/2018 HCT 40.5 12/25/2018 MCV 80 (L) 12/25/2018 PLT 303 12/25/2018 PLT 278 12/10/2018 PLT 347 11/23/2018 MPV 9.6 12/25/2018 RDWCV 14.5 12/25/2018 Lab Results Component Value Date DIFFTYPE Automated 12/25/2018 NEUTROABS 5.94 12/25/2018 LYMPHSABS 1.61 12/25/2018 MONOSABS 0.60 12/25/2018 EOSABS 0.14 12/25/2018 BASOSABS 0.02 12/25/2018 Chemistries Lab Results Component Value Date NA 139 12/10/2018 K 4.1 12/10/2018 CL 104 12/10/2018 CO2 23 12/10/2018 BUN 9 (L) 12/10/2018 CREATININE 0.98 12/10/2018 CALCGFR 71 12/10/2018 MG 2.1 12/10/2018 ALKPHOS 107 11/23/2018 AST 44 11/23/2018 ALT 50 11/23/2018 CONJBILI 0.0 11/23/2018 UNCONJBILI 0.2 11/23/2018 TBIL <0.5 11/23/2018 TP 7.5 11/23/2018 LABALBU 4.4 11/23/2018 Cardiovascular No results found for: SCRP No results found for: CHOL, LDLBASE, CHOLHDL, HDL, HDLC, LPA, LIPOA, TRIG Lab Results Component Value Date TROPONINI <0.034 12/10/2018 Thrombosis Panel Lab Results Component Value Date PROTIME 13.3 12/10/2018 INR 1.1 12/10/2018 PTT 32 12/10/2018 PATT50 Test cancelled, normal APTT 08/01/2011 CARDIOLIGGC 2.98 08/01/2011 CARDIOLIGMC 5.38 08/01/2011 DRVVT 31.9 08/01/2011 Prothrombin gene mutation and factor V Leiden testing not covered by patient's insurance. [facility] - 02/03/19 DDimer - <200 B2GP IgG - <9.4 IgM - <9.4 IgA - <9.4 APCR - 2.9 AT3 - 116% Factor VIII - 218% (50-150) PT - 11.4 INR - 1.0 PTT - 31 DRVVT - 35.2 SCT - 37.3 Cardiolipin IgG - 2.43 IgM - 5.99 Imaging: Results for orders placed in visit on 11/23/18 ECHOCARDIOGRAM Narrative *Interpreting Group:* *[facility]* [address] [place] [address] Date of study: 12/10/2018 Transthoracic Echocardiography M-mode, complete 2D, 3D, complete spectral Doppler, and color Doppler *STUDY CONCLUSIONS* Summary: 1. Left ventricle: The [...] to 50%), consistent with normal central venous pressure. *PATIENT PRESENTATION* Height: 165.1cm (65in ) S/D Pressure: 106 / 67 Weight: 96.2kg (211.6lb ) BSA: 2.14m^2 Test start time: 02:22 PM. Test stop time: 02:53 PM. ADMITTING Barby, Anitha ATTENDING Barby, Anitha ORDERING Barby, Anitha PERFORMING [facility], Op REFERRING Shayy Donohue DATA POWER CONSULTANT Nancy Patel, [facility] *PROCEDURE DATA* Procedure information: The patient was identified by two identifiers. This study was interpreted by [facility]. Pertinent images and digital data are archived for permanent storage and are available for subsequent review. Study status: Routine. Transthoracic echocardiography. M-mode, complete 2D, 3D, complete spectral Doppler, and color Doppler. A Transthoracic Echocardiogram was performed. Scanning was performed from the parasternal, apical, subcostal, and suprasternal notch acoustic windows. Images were obtained using an Epiq 15 cardiac ultrasound machine. Image quality was adequate. Study completion: The patient tolerated the procedure well. There were no complications. *INDICATIONS AND HISTORY* Indications: Other pulmonary embolism without acute cor pulmonale (I26.99). *CARDIAC ANATOMY* Left ventricle: The cavity size was normal. Wall thickness was normal. Systolic function was normal. The estimated ejection fraction was 60-65%. Wall motion was normal; there were no regional wall motion abnormalities. Diastolic parameters were normal. Aortic valve: Trileaflet; normal thickness leaflets. Mobility was not restricted. Doppler: Transvalvular velocity was within the normal range. There was no stenosis. There was no significant regurgitation. Aorta: Aortic root: The aortic root was normal in size. Mitral valve: Structurally normal valve. Mobility was not restricted. Doppler: Transvalvular velocity was within the normal range. There was no evidence for stenosis. There was no significant regurgitation. Left atrium: The atrium was normal in size. Right ventricle: The cavity size was mildly dilated. Wall thickness was normal. Systolic function was normal. Pulmonic valve: Doppler: Transvalvular velocity was within the normal range. There was no evidence for stenosis. There was trivial regurgitation. Tricuspid valve: Doppler: Transvalvular velocity was within the normal range. There was no evidence for stenosis. There was mild-moderate regurgitation. Pulmonary artery: Pulmonary systolic pressure was within the normal range, in the range of 25mm Hg to 30mm Hg. Right atrium: The atrium was normal in size. Pericardium: There was no pericardial effusion. Systemic veins: Inferior vena cava: The vessel was normal in size. The respirophasic diameter changes were in the normal range (greater than or equal to 50%), consistent with normal central venous pressure. Measurements Left ventricle Value Reference LV ID, ED, PLAX 4.5 cm 3.5 - 6.0 LV ID, ES, PLAX 3.2 cm 2.1 - 4.0 LV PW thickness, ED, PLAX 1.1 cm --------- LV end-diastolic volume, 1-p A2C 76 ml --------- LV ejection fraction, 1-p A2C 63 % --------- LV end-diastolic volume, 1-p A4C 76 ml --------- LV ejection fraction, 1-p A4C 65 % --------- LV IVRT, DP 85 ms 60 - 100 LV e', lateral 0.104 m/sec --------- LV E/e', lateral 7 --------- LV e', medial 0.089 m/sec --------- LV E/e', medial 8 --------- LV e', average 0.097 m/sec --------- LV E/e', average 7 --------- Ventricular septum Value Reference IVS thickness, ED, PLAX 1.0 cm --------- LVOT Value Reference LVOT ID, S 2.1 cm --------- LVOT area 3.5 cm^2 --------- LVOT peak velocity, S 0.89 m/sec --------- LVOT mean velocity, S 0.6 m/sec --------- LVOT VTI, S 20.7 cm --------- LVOT mean gradient, S 2 mm Hg --------- Stroke volume (SV), LVOT DP 72 ml --------- Stroke index (SV/bsa), LVOT DP 34 ml/m^2 --------- Aorta Value Reference Aortic root ID 3.0 cm --------- Ascending aorta ID, A-P 3.1 cm --------- Ascending aorta ID, A-P, S 3.1 cm --------- Left atrium Value Reference LA ID, A-P, ES 2.9 cm --------- LA ID/bsa, A-P 1.4 cm/m^2 <=2.2 LA volume, ES, 2-p 43 ml --------- LA volume/bsa, ES, 2-p 20 ml/m^2 --------- LA/aortic root ratio 0.97 --------- Mitral valve Value Reference Mitral E-wave peak velocity 0.69 m/sec --------- Mitral A-wave peak velocity 0.58 m/sec --------- Mitral deceleration time 183 ms 150 - 230 Mitral E/A ratio, peak 1.2 --------- Legend: (L) and (H) shelbie values outside specified reference range. I have personally reviewed the images and have reviewed and edited the reported findings. Electronically signed by Narayan Cole MD 12/10/2018 16:24 Addendum info after she left: I received the labs mentioned above that were missing. It confirms she was negative for factor V Leiden and positive for heterozygous prothrombin mutation. Assessment: This pt has OCP related PE as outlined above in association with older age (for OC use). She has FHof thrombosis also outlined above and obesity as an additional risk factor. If you consider use of OC at age >40 with FH VTE and obesity then the risk of OC is actually quite apparent relative to the risk in younger people. I'd estimate the annual risk in that setting at about 2%. We now know she also has elevated factor VIII as an additional risk factor, and the prothrombin mutation(though her family members seem to have factor V Leiden it is not clear that they do - they weren't seen here though her sister might come - citlalli has no evidence of this with no APC resistance). Her coagulation disorders would be expected to increase her risk even further. Given that she was on OCP at the time of her thrombosis, the risk in OC related VTE of recurrent VTE is generally low, even though she has a hypercoagulabe state. However, as she ages risk will rise so it is critical that she lose weight. Her near term risk of thrombosis is sufficiently low that fci anticoagulation is not indicated, though an aspirin a day might be helpful from the vascularhealth perspective. Obesity and deconditioned state. She did not have evidence of pulm htn on her workup for PE so I think her current respiroatry sx, which are mild and related to work, are likely due to deconditioned state. She should be able to keep going with this and try to improve her fitness through increasing activity and weight loss with better nutrition. If she doesn't improve, it would be reasonable to see pulmonary. Plan: -stop eliquis -ASA 81 mg daily -she doesn't know her lipid or glucose status and hasn't eaten today so we will check this. If she has high cholesterol she might be a candidate for a statin, which can lower VTE risk. -contingency for pulm referral if her symptoms do not improve. She will let me know. -if she needs hysterectomy it will be important for cardiovascular protection to keep her ovaries in place. We can provide a post op DVT prevention plan for her - would probably give her lovenox 40 mg/d for two weeks. -aggressive weight management with PCP. I also disussed strategies with her extensively, and gave her some web resources, but she would benefit from the support of her PCP. -I gave Citlalli good web educational resources including our website and that of the [place] Heart Association (heart.org/VTE), StopTheClot.org, and WorldThrombosisDay.org. I also suggested that they follow @WorldThrombosisDay and @American_Heart on Twitter or Facebook for reliable information. -return in 6 months with Ace Pickett to reinforce all the education she received today, and to see how she is doing in terms of weight loss. I spent 60 minutes face to face with the patient today, with 35 minutes solely in counseling and education Please contact my office with questions/concerns. Anitha Dior MD, MSc director regulatory compliance Director, Thrombosis and Hemostasis Program CC: Shayy Jon Addendum Her cholesterol is very high and she is probably going to need to take a statin for this, with LDL >190. Statins will also reduce risk of venous thrombosis so would be an excellent choice for her.Her coagulation factor issues - prothrombin mutation and elevated factor VIII, taken together with her obesity and these lab findings, will put her at risk of cardiovascular disease as well so I would just go ahead and treat with moderate intensity statin like atorvastatin 10 mg daily. Her A1c is in the prediabetic range and she is really going to need to step up the lifestyle intervention for this. Plan: We will let her know her numbers and I'm happy to provide rx for a statin or let her talk with Shayy Gamezkeara about this, but will hope that it is addressed prior to her next visit. Ref. Range 02/22/2019 12:57 Cholesterol Latest Ref Range: See Note mg/dL 272 Triglycerides Latest Ref Range: See Note mg/dL 124 HDL Latest Ref Range: See Note mg/dL 57 LDL, Calculated Latest Ref Range: See Note mg/dL 190.2 Chol/HDL Ratio, External Latest Ref Range: See Note 4.8 Non HDL Cholesterol Latest Ref Range: See Note mg/dL 215 Hemoglobin A1C Latest Ref Range: <5.7 % 5.8 (H) Est Avg Glucose Latest Units: mg/dL 120 Anitha Dior MD documented in this encounter Plan of Treatment Not on file documented as of this encounter Results * (ABNORMAL) HEMOGLOBIN A1C (02/22/2019 12:57 EST) [facility] Hemoglobin A1c 5.8(H) <5.7 % 02/22/2019 15:08 [facility] Comment: Glycemic Status References: Normal: ??<5.7% Pre-Diabetes: ??5.7% - 6.4% Diagnostic of Diabetes: ??> or = 6.5% (if confirmed) Goals for glycemic control in diabetics (ADA 2017): <7.0% target for non adults with diabetes. <7.5% target for children and adolescents with Type I Diabetes. More or less stringent targets may be appropriate for individual patients. Est Avg Glucose 120 mg/dL 9 15:08 [facility] Comment: The eAG represents the A1c result expressed as average glucose in mg/dL. Blood VENOUS BLOOD / Unknown Venipuncture / Unknown 02/22/2019 12:57 EST 02/22/2019 13:15 EST Anitha Dior MD CHEMISTRY & BLOOD GAS ORDERABLES Final Result [facility] [address] [place] [address] * LIPID PROFILE (INCLUDES CHOLESTEROL, TRIGLYCERIDES, HDL, LDL) (02/22/2019 12:57 EST) [facility] Signature Cholesterol 272 See Note mg/dL 02/22/2019 13:48 [facility] Comment: Acceptable: ?<200 mg/dL Borderline High: 200-239 mg/dL High: ?> or = 240 mg/dL HDL 57 See Note mg/dL 02/22/2019 13:48 [facility] Comment: Low: ? <40 mg/dL Normal: ??40-60 mg/dL High: ?>60 mg/dL LDL, Calculated 190.2 See Note mg/dL 02/22/2019 13:48 [facility] Comment: Optimal: ? <100 mg/dL Near Optimal: ?100-129 mg/dL Borderline High: 130-159 mg/dL High: ?160-189 mg/dL Very High: ? > or = 190 mg/dL Triglyceride 124 See Note mg/dL 02/22/2019 13:48 [facility] Comment: Normal: ? <150 mg/dL Borderline High: ??150 - 199 mg/dL High: ? 200 - 499 mg/dL Very High: ?> or = 500 mg/dL Chol/HDL Ratio 4.8 See Note 02/22/2019 13:48 [facility] Comment: No reference range has been established for CHOL/HDL ratio. Non HDL Cholesterol 215 See Note mg/dL 02/22/2019 13:48 EST [facility] Comment: Desirable: ?<130 mg/dL Borderline High: ??130-159 mg/dL High: ? 160-189 mg/dL Very High: ?> or = 190 mg/dL Blood VENOUS BLOOD / Unknown Venipuncture / Unknown 02/22/2019 12:57 EST 02/22/2019 13:14 EST us Anitha Dior MD CHEMISTRY & BLOOD GAS ORDERABLES Final Result [facility] [address] [place] [address] documented in this encounter Visit Diagnoses Diagnosis At risk for cardiovascular event- Primary Class 2 severe obesity due to excess calories with serious comorbidity and body mass index (BMI) of 37.0 to 37.9 in adult (HCC-CMS) Hypercoagulable state ([facility]) Primary hypercoagulable state documented in this encounter Discontinued Medications Medication Sig Discontinue Reason Start Date End Da te enoxaparin (LOVENOX) 100 mg/mL syringe Inject 100 mg into the skin every 12 hours. Therapy completed 02/22/2019 documented as of this encounter Care Teams Envelope Press Operator Relationship Specialty Start Date End Date Shayy Donohue NP [address] [place] [phone] PCP - General 11/20/18 documented as of this encounter
--- OUTSIDE RECORDS SUMMARY | 2024-02-25 15:19 | XMS_ITS | Encounter Summary ---
Author Organization [facility] Address [address] [place] [address] Care Team Providers Care Np Name Role Phone Shayy Donohue NP Primary Care Provider [phone] Reason for Visit * Reason Onset Date Comments COVID-19 12/04/2019 Encounter Details Date Type Department Care Team (Late st Contact Info) Description 12/04/2019 Telephone [facility] Pulmonology & Critical Care - [facility] [address] [place], [place] [id number] Felicia Grullon MD [address] [facility], [address] [place] [address] COVID-19 Social History Tobacco Use Types Packs/Day Years [...] encounter Miscellaneous Notes * Telephone Encounter - Arianna Dawn - 12/04/2019 1229 EDT Patient called to advise [facility] did not call back for scheduling test. Will fax orderagain for patient. Informed patient [facility] is only open for testing Mon, Tu, Fri, so if faxwas received after 2pm Fri, the testing was closed. documented in this encounter Plan of Treatment Not on file documented as of this encounter Visit Diagnoses Not on filedocumented in this encounter Care Teams Np Relationship Specialty Start Date End Date Shayy Donohue NP [address] [place] [phone] PCP - General 11/20/18 documented as of this encounter
--- OUTSIDE RECORDS SUMMARY | 2024-02-25 15:19 | XMS_ITS | Encounter Summary ---
Author Organization [facility] Address [address] [place] [address] Care Team Providers Care Commodity Buyer Name Role Phone Shayy Donohue NP Primary Care Provider [phone] Reason for Visit * (Routine) - Receiving Office to Obtain Authorization Specialty Diagnoses / Procedures Referred By Contjeni t Referred To Contact Procedures CT OUTSIDE IMAGES CHEST Unknown, Provider, MD Referral ID Status Reason Start Date Expiration Date Visits Requested Visits Authorized [id number] Receiving Office to Obtain Authorization 12/11/2019 1 1 Encounter Details Date Type Department Care Team (Latest Contact Info) Description 11/11/2019 - 11/11/2019 23:59 EDT Hospital Encounter [facility] Radiology - Main [place] [address] [place] [address] Discharge Disposition: Home or Self Care Social [...] 11/23/2018 12:12 EDT documented in this encounter Medications at Time of Discharge acetaminophen 325 mg capsule Take by mouth as needed. apixaban (ELIQUIS) 5 mg tablet Take 1 Tab by mouth 2 times daily. 60 Tab 3 12/03/2018 atorvastatin (LIPITOR) 10 mg tablet Take 1 Tab by mouth daily. 30 Tab 2 02/23/2019 pantoprazole (PROTONIX) 40 mg tablet Take 40 mg by mouth daily. sertraline (ZOLOFT) 50 mg tabletIndications: Patient is taking 150 mg per day Take 150 mg by mouth daily. traZODone (DESYREL) 50 mg tablet Take 50 mg by mouth daily. documented as of this encounter Discharge Disposition Disposition Code Departure Means Destination Home or Self Care documented in this encounter Plan of Treatment Not on file documented as of this encounter Procedures Procedure Name Priority Date/Time Associated Diagnosis Comments CT OUTSIDE IMAGES CHEST Routine 12/11/2019 8:50 EDT documented in this encounter Results * CT OUTSIDE IMAGES CHEST (12/11/2019 8:50 EDT) Narrative DEXTER - 12/11/2019 8:50 EDT This is a non-reportable exam. us Provider Unknown MD CORTEZ OTHER IMAGING ORDERABLES Final Result DEXTER documented in this encounter Visit Diagnoses Not on filedocumented in this encounter Care Teams Commodity Buyer Relationship Specialty Start Date End Date Shayy Donohue NP [address] [place] [phone] PCP - General 11/20/18 documented as of this encounter
--- OUTSIDE RECORDS SUMMARY | 2024-02-25 15:19 | XMS_ITS | Encounter Summary ---
Author Organization [facility] Address [address] [place] [address] Care Team Providers Care Theater Teacher Name Role Phone Shayy Donohue NP Primary Care Provider [phone] Reason for Visit * Reason Onset Date Comments Appointment Related 06/30/2020 Encounter Details Date Type Department Care Team (Late st Contact Info) Description 06/30/2020 Telephone [facility] Pulmonology & Critical Care - [facility] [address] [place], [place] [id number] Felicia Grullon MD [address] [facility], [address] [place] [address] Appointment Related Social History Tobacco Use Types Packs/Day Years [...] encounter Miscellaneous Notes * Telephone Encounter - Opal Rubalcava MA - 06/30/2020 1435 EDT LMOM for patient to call back if she would like her appointment from 02/22/21. documented in this encounter Plan of Treatment Not on file documented as of this encounter Visit Diagnoses Not on filedocumented in this encounter Care Teams Theater Teacher Relationship Specialty Start Date End Date Shayy Donohue NP [address] [place] [phone] PCP - General 11/20/18 documented as of this encounter
--- OUTSIDE RECORDS SUMMARY | 2024-02-25 15:19 | XMS_ITS | Encounter Summary ---
Author Organization [facility] Address [address] [place] [address] Care Team Providers Care Bread Supervisor Name Role Phone Shayy Donohue NP Primary Care Provider [phone] Reason for Visit * Reason Onset Date Comments COVID-19 12/02/2019 Encounter Details Date Type Department Care Team (Late st Contact Info) Description 12/02/2019 Telephone [facility] [address] [place] [address] Felicia Grullon MD [address] [facility], [facility] [address] [place] [address] COVID-19 Social History Tobacco Use [...] encounter Miscellaneous Notes * Telephone Encounter - Haley Patel - 12/02/2019 9546 EDT Left message for patient to call back and schedule Covid test. documented in this encounter Plan of Treatment Not on file documented as of this encounter Visit Diagnoses Not on filedocumented in this encounter Care Teams Bread Supervisor Relationship Specialty Start Date End Date Shayy Donohue NP [address] [place] [phone] PCP - General 11/20/18 documented as of this encounter
--- OUTSIDE RECORDS SUMMARY | 2024-02-25 15:19 | XMS_ITS | Encounter Summary ---
Author Organization [facility] Address [address] [place] [address] Care Team Providers Care Buffing Machine Operator Name Role Phone Shayy Donohue HOSPITAL ADMISSIONS OFFICER Primary Care Provider [phone] Encounter Details Date Type Department Care Team (Late st Contact Info) Description 12/10/2018 Results Only Imaging [facility]- [facility] [phone] Unknown, Provider, Social History Tobacco Use Types Packs/Day Years [...] documented in this encounter Plan of Treatment Pending Results Name Type Priority Associated Diagnoses Date /Time OUTSIDE IMAGES - CT CHEST Imaging 12/10/2018 19:50 EDT documented as of this encounter Visit Diagnoses Not on filedocumented in this encounter Care Teams Buffing Machine Operator Relationship Specialty Start Date End Date Shayy Donohue NP [address] [place] [phone] PCP - General 11/20/18 documented as of this encounter
--- OUTSIDE RECORDS SUMMARY | 2024-02-25 15:19 | XMS_ITS | Encounter Summary ---
Author Organization [facility] Address [address] [place] [address] Care Team Providers Care Learning Support Assistant Name Role Phone Shayy Donohue NP Primary Care Provider [phone] Encounter Details Date Type Department Care Team (Late st Contact Info) Description 11/23/2018 Phlebotomy Only [facility] [address] [place] [address] Certified Surgical Technologist, Outpatient Pulmonary embolism and infarction (HCC-CMS) (Primary Dx) Social History Tobacco Use [...] Procedure Name Priority Date/Time Associated Diagnosis Comments COMPLETE BLOOD COUNT AND DIFFERENTIAL Routine 11/23/2018 13:39 EDT Pulmonary embolism and infarction (HCC-CMS) HEPATIC FUNCTION PANEL (ALB,ALK PHOS,ALT,AST,DBIL,TOT HENRY,TOT PROT) Routine 11/23/2018 13:39 EDT Pulmonary embolism and infarction (HCC-CMS) documented in this encounter Results * (ABNORMAL) COMPLETE BLOOD COUNT AND DIFFERENTIAL (11/23/2018 13:39 EDT) WBC 8.08 4.0 - 12.4 K/cmm 11/23/2018 14:21 [facility] RBC 4.89 3.86 - 5.04 M/cmm 11/23/2018 14:21 [facility] Hemoglobin 12.7 11.6 - 15.2 gm/dl 11/23/2018 14:21 [facility] HCT 38.9 34.9 - 44.4 % 11/23/2018 14:21 [facility] MCV 80(L) 81 - 98 fl 11/23/2018 14:21 [facility] MCH 26.0(L) 26.7 - 33.3 pg 11/23/2018 14:21 [facility] Hypochromia 1+ 11/23/2018 14:21 [facility] MCHC 32.6 32.1 - 35.9 gm/dl 11/23/2018 14:21 [facility] RDW-CV 14.0 <14.7 % 11/23/2018 14:21 [facility] RDW-SD 40.5 <50.4 fl 11/23/2018 14:21 [facility] PLT 347 141 - 377 K/cmm 11/23/2018 14:21 [facility] MPV 9.7 9.5 - 12.7 fl 11/23/2018 14:21 [facility] % Neutrophils 72.6 % 11/23/2018 14:21 [facility] % Lymphocytes 17.6 % 11/23/2018 14:21 [facility] % Monocytes 7.4 % 11/23/2018 14:21 [facility] % Eosinophils 1.6 % 11/23/2018 14:21 [facility] % Basophils 0.2 % 11/23/2018 14:21 [facility] % Immature Grans 0.6 % 11/23/2018 14:21 [facility] ABS Neutrophils 5.86 2.20 - 8.85 K/cmm 11/23/2018 14:21 [facility] ABS Lymphs 1.42 1.09 - 3.30 K/cmm 11/23/2018 14:21 [facility] ABS Monocytes 0.60 0.1 - 0.8 K/cmm 11/23/2018 14:21 [facility] ABS Eosinophils 0.13 0.03 - 0.61 K/cmm 11/23/2018 14:21 [facility] ABS Basophils 0.02 0.01 - 0.11 K/cmm 11/23/2018 14:21 [facility] ABS Immature Grans 0.05 0 - 0.06 K/cmm 11/23/2018 14:21 [facility] Type of Diff: Automated 11/23/2018 14:21 [facility] Blood specimen (specimen) BLOOD SPECIMEN / Unknown 11/23/2018 13:39 EDT 11/23/2018 14:05 EDT us Anitha Dior MD PACKAGES & DNA PROBE ORDERABLES Final Result [facility] [address] [place] [address] * HEPATIC FUNCTION PANEL (ALB,ALK PHOS,ALT,AST,DBIL,TOT HENRY,TOT PROT) (11/23/2018 13:39 EDT) Albumin 4.4 3.4 - 4.9 g/dl 11/23/2018 14:41 [facility] Total Protein 7.5 6.3 - 8.2 g/dl 11/23/2018 14:41 [facility] Total Alkaline Phosphatase 107 38 - 126 U/L 11/23/2018 14:41 [facility] ALT 50 <53 U/L 11/23/2018 14:41 [facility] AST 44 15 - 46 U/L 11/23/2018 14:41 [facility] Unconjugated Bilirubin 0.2 0.0 - 1.1 mg/dl 11/23/2018 14:41 [facility] Conjugated Bilirubin 0.0 0.0 - 0.3 mg/dl 11/23/2018 14:41 [facility] Bilirubin, Total <0.5 <1.4 mg/dl 11/24/19 19 14:41 [facility] Blood specimen (specimen) BLOOD SPECIMEN / Unknown 11/23/2018 13:39 EDT 11/23/2018 14:05 EDT us Anitha Dior MD CHEMISTRY & BLOOD GAS ORDERABLES Final Result [facility] [address] [place] [address] documented in this encounter Visit Diagnoses Diagnosis Pulmonary embolism and infarction (HCC-CMS)- Primary Other pulmonary embolism and infarction documented in this encounter Care Teams Learning Support Assistant Relationship Specialty Start Date End Date Shayy Donohue NP [address] [place] [phone] PCP - General 11/20/18 documented as of this encounter
--- OUTSIDE RECORDS SUMMARY | 2024-02-25 15:19 | XMS_ITS | Encounter Summary ---
Author Organization [facility] Address [address] [place] [address] Care Team Providers Care Distribution Center Supervisor Name Role Phone Shayy Donohue NP Primary Care Provider [phone] Reason for Visit * Reason Comments Follow-up Encounter Details Date Type Department Care Team (Late st Contact Info) Description 10/29/2019 10:40 EDT Office Visit [facility] Hematology & Oncology - [facility] [address] [place] [address] Ace Pickett, PA-C [address] [facility], [address] [place] [phone] Primary hypercoagulable state (HCC-CMS) (Primary Dx); Other pulmonary embolism without acute cor pulmonale, unspecified chronicity (HCC-CMS); MCKENZIE (dyspnea on exertion) Social History Tobacco Use Types Packs/Day Years [...] Sign Reading Time Taken Comments Blood Pressure 132/81 10/29/2019 1040 EDT Pulse 78 10/29/2019 1040 EDT Temperature 36 ??C (96.8 ??F) 10/29/2019 1040 EDT Respiratory Rate 16 10/29/2019 1040 EDT Oxygen Saturation 98% 10/29/2019 1040 EDT Inhaled Oxygen Concentration - - Weight 106.5 kg (234 lb 14.4 oz) 10/29/2019 1040 EDT Height 162.6 cm (5' 4.02) 10/29/2019 1040 EDT Body Mass Index 40.3 10/29/2019 1040 EDT documented in this encounter Functional Status [...] in this encounter Progress Notes * Ace Pickett PA-C - 10/29/2019 1040 EDT Thrombosis & Hemostasis Program (THP) Follow Up Visit Date of Service: 10/29/2019 Reason for Visit: FU hypercoagulable state Problem List: Patient Active Problem List Diagnosis ??? Class 2 obesity in adult ??? Depression ??? GERD (gastroesophageal reflux disease) ??? Other hyperlipidemia LDL cholesterol 190 in -2018. Advised weight loss and exercise. Would advocate atorvastatin 10 mgdaily. -also has prediabetes by A1C criteria ??? Elevated hemoglobin A1c -5.8 in 2019 ??? Hypercoagulable state ([facility]) 1. Event: Unprovoked isolated PE age [...] known if tested for thrombophilia (never saw multiple cut off saw operator so perhaps no). -Father with factor V Leiden and no thrombosis but has CAD. -17 yo daughter on OCP- switched to IUD. 19 yo daughter with IUD 3. Risk Factors -Prior testing after IUFD pos for prothrombin mutation heterozygosity ([facility]) and neg for FVL. -Thrombophilia testing off apixaban 01-13-19 ([facility]): nondiagnostic except elevated factor VIII (218). D-dimer <200. APCr normal. -Obesity (BMI 37.4 in 2019; rising). 4. 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 History of IUFD -IUFD of di-di twin A end of trimester 1, then twin B 1 week before term with autopsy showing no apparent reason ( hypoxia), though placenta small with one peripheral infarct ??? Female infertility of tubal origin HPI: Kesha Silva presents today for 6 month follow up for hypercoagulable state outlined above. In review, Kesha has a known history of prothrombin gene mutation, who was admitted at [facility] in November, with PE after presenting with [...] clinic on 11/23/18, who transitioned her to [facility]. She also had an echocardiogram performed on 12/10, which showed a mildly dilated RV but with normal systolic function and thickness. She has mild-moderate tricuspid regurgitation. Pt negative for factor V Leiden and antiphospholipid syndrome, bu t pos for prothrombin mutation and 'normal protein C and S,' tested after IUFD. Kesha was then seenin the ED for cough on 12/10/18 to rule out progression. She was hemodynamically stable. She underwent CT PE protocol, which when compared to initial CT performed on 11/19/18, did not show propagation of clot and looked improved, so she was discharged with the plan to continue with Eliquis. She completed 3 months of Eliquis, which she tolerated well. She was seen by Dr. Dior in 02/2019and it was decided that she did not warrant mcfp AC and a daily ASA was started. Since her last visit with Dr. Dior, Kesha has been doing ok. She continues off of anticoagulation without any new symptoms concerning for VTE. She does however continue to have a sensation of an elephant sitting on my chest and tightness across her back. Still is having rather significant dyspnea with exertion, reporting that she still gets very winded with little exertion (walking down the [place] or a few steps). None of this is new for her since her PE but it has not improved at all. It keeps her from do ing certain activities and reports she is unable to really exercise at all because of this. Her mother has CTEPH and she is worried about this in herself. In regards to her menorrhagia, she has an IUD in which she is tolerating well. Since stopping bloodthinners, bleeding has returned to normal and is not much of an issue now. Has discussed hysterectomy with TEMPORARY ADMINISTRATIVE ASSISTANT but for now will defer this. PCP has recently started her on a statin which she is tolerating well. Per patient, her last cholesterol check was markedly improved. Has gained quite a bit of weight but says that she is trying to work on her diet and doing short exercise videos the best she can. ROS: I completed a 10 point review of systems which is documented on the follow up visit form scanned into [facility]. Pertinent positives and negatives are mentioned above. Social History: Patient reports that she has never smoked. She has never used smokeless tobacco. She reports that she drinks alcohol. She reports that she has current or past drug history. Medications: acetaminophen, apixaban, atorvastatin, pantoprazole, and sertraline Allergies: Patient is allergic to penicillins; robinul [glycopyrrolate]; and sulfa (sulfonamide antibiotics). Physical Exam: There were no vitals filed for this visit. Estimated body mass index is 37.42 kg/m?? as calculated from the following: Height as of 12/10/18: 162.6 cm (64). Weight as of 02/22/19: 98.9 kg (218 lb). General: Alert and cooperative and in no acute distress. Lungs: Clear to auscultation bilaterally. Heart: Regular, normal S1 and S2, no murmurs, rubs, or gallops Abdomen: Deferred Extremities: No lower extremity edema, no discoloration. Calves [...] 11/23/2018 MPV 9.6 12/25/2018 RDWCV 14.5 12/25/2018 Coagulation Lab Results Component Value Date PROTIME 13.3 12/10/2018 INR 1.1 12/10/2018 PTT 32 12/10/2018 PATT50 Test cancelled, normal APTT 08/01/2011 CARDIOLIGGC 2.98 08/01/2011 CARDIOLIGMC 5.38 08/01/2011 DRVVT 31.9 08/01/2011 Imaging: Echocardiogram 11/23/18: Summary: 1. Left ventricle: The cavity size [...] pulmonary emboli. Assessment: 43 y.o. female with heterozygous prothrombin mutation and positive family history of VTE, diagnosedwith pulmonary embolism in 11/2018 in the setting of OCP use in older age and obesity. Kesha was treated with 3 months of apixaban (which she tolerated well) and as than transitioned to ASA 81 mg daily. However, symptoms related to her PE have not resolved and never really improved. She continues to experience sensation of chest tightness and dyspnea with even minor exertion which is impacting her daily life. She did have an echo which was overall unremarkable and she had a follow up CT PE protocol several weeks after her initial CT, which showed PEs had largely resolved with no new clot (see above). Her mother has CTEPH and Kesha worries about this in herself. She has gained about 25 lbs since her PE diagnosis and it is hard to tell is some of these symptoms are secondary to deconditioning, particularly since there as not evidence of . However, since these symptoms have been right along since her PE diagnosis and are seemingly debilitating for her, we discussed having her see pulmonary for a more thorough evaluation and she would like to do this. She was started on a statin by her PCP for HLD, which is great and she is tolerating this well. Numbers have improved. She has gained some weight and knows that she needs to work on this. Finds it difficult with her breathing though. Plan: 1. Anticoagulation: no mcfp anticoagulation needed at this time. Daily ASA recommended, as well as thromboprophylaxis in high risk future settings. 2. Dyspnea: Low suspicion for something like CTEPH but will refer to pulmonary for evaluation. 3. Education: Reviewed signs/symptoms of VTE. Weight loss and increasing daily exercise as tolerated is recommended. Continue statin for HLD. 4. Follow-up: in 1 year to check in on how she is doing or sooner if she has any issues. Please contact my office with questions/concerns. *I spent a total of 25 minutes in face to face time with this patient today and >15 minutes was spent in direct patient education and counseling. Ace Pickett PA-C 10/29/2019 8:01 Thrombosis and Hemostasis Program CC: Shayy Donohue documented in this encounter Plan of Treatment Not on file documented as of this encounter Visit Diagnoses Diagnosis Primary hypercoagulable state ([facility])- Primary Primary hypercoagulable state Other pulmonary embolism without acute cor pulmonale, unspecified chronicity ([facility]) MCKENZIE (dyspnea on exertion) Other dyspnea and respiratory abnormality documented in this encounter Historical Medications * This list may reflect changes made after this encounter. traZODone (DESYREL) 50 mg tablet Take 50 mg by mouth daily. added in this encounter Care Teams Distribution Center Supervisor Relationship Specialty Start Date End Date Shayy Donohue, SARABJIT [address] [place] [phone] PCP - General 11/20/18 documented as of this encounter
--- OUTSIDE RECORDS SUMMARY | 2024-02-25 15:19 | XMS_ITS | Encounter Summary ---
Author Organization [facility] Address [address] [place] [address] Care Team Providers Care Precision Farming Specialist Name Role Phone Shayy Donohue NP Primary Care Provider [phone] Encounter Details Date Type Department Care Team (Late st Contact Info) Description 12/11/2018 Orders Only [facility] Hematology & Oncology - Main [place] [address] [place] [address] Lexy Reich, RN [address] [place] [address] Pulmonary embolism and infarction (HCC-CMS) (Primary Dx) [...] as of this encounter Visit Diagnoses Diagnosis Pulmonary embolism and infarction ([facility])- Primary Other pulmonary embolism and infarction documented in this encounter Care Teams Precision Farming Specialist Relationship Specialty Start Date End Date Shayy Donohue NP [address] [place] [phone] PCP - General 11/20/18 documented as of this encounter
--- OUTSIDE RECORDS SUMMARY | 2024-02-25 15:19 | XMS_ITS | Encounter Summary ---
Author Organization [facility] Address [address] [place] [address] Care Team Providers Care Wood Heel Fitter Machine Name Role Phone Jayde Shayy Jain FREEZER ASSISTANT Primary Care Provider [phone] Encounter Details Date Type Department Care Team (Late st Contact Info) Description 11/09/2019 Orders Only [facility] Pulmonology & Critical Care - [facility] [address] [place], [place] [phone] Felicia Grullon MD [address] [facility], [address] [place] [address] MCKENZIE (dyspnea on exertion) (Primary Dx) Social History Tobacco Use Types [...] documented in this encounter Progress Notes * Shimon Ramirez RT - 11/09/2019 1312 EDT S: Covid test for 12/10/19 armando to be done at [facility] Placed [facility] desired location on order. Let patient know via mychart. documented in this encounter Plan of Treatment Not on file documented as of this encounter Visit Diagnoses Diagnosis MCKENZIE (dyspnea on exertion)- Primary Other dyspnea and respiratory abnormality documented in this encounter Care Teams Wood Heel Fitter Machine Relationship Specialty Start Date End Date Shayy Donohue NP [address] [place] [phone] PCP - General 11/20/18 documented as of this encounter
--- OUTSIDE RECORDS SUMMARY | 2024-02-25 15:19 | XMS_ITS | Encounter Summary ---
Author Organization [facility] Address [address] [place] [address] Care Team Providers Care Dialysis Clinical Manager Name Role Phone Shayy Donohue NP Primary Care Provider [phone] Encounter Details Date Type Department Care Team (Late st Contact Info) Description 02/04/2019 Documentation Visit [facility] Hematology & Oncology - [facility] [address], [place] [address] Lexy Reich, JUAN R [address] [place] [address] Social History Tobacco Use Types Packs/Day Years [...] documented in this encounter Progress Notes * Lexy Reich, RN - 02/04/2019 0848 EDT External lab entry documented in this encounter Plan of Treatment Not on file documented as of this encounter Procedures Procedure Name Priority Date/Time Associated Diagnosis Comments COMPLETE BLOOD COUNT Routine 02/03/2019 documented in this encounter Results * (ABNORMAL) COMPLETE BLOOD COUNT (02/03/2019) HCT, External 39.6 [facility] MCH, External 25.9(A) 27 - 33 [facility] MCV, External 79 [facility] MCHC, External 32.8 [facility] Hemoglobin, External 13.0 [facility] WBC, External 9.59 [facility] RBC, External 5.01 [facility] PLT, External 332 [facility] RDW-CV, External 15.1(A) 11.7 - 14.6 [facility] Blood specimen (specimen) 02/03/2019 us Historical Provider HEMATOLOGY & PF4 ORDERABL ES Final Result [facility] documented in this encounter Visit Diagnoses Not on filedocumented in this encounter Care Teams Dialysis Clinical Manager Relationship Specialty Start Date End Date Shayy Donohue NP [address] [place] [phone] PCP - General 11/20/18 documented as of this encounter
--- OUTSIDE RECORDS SUMMARY | 2024-02-25 15:19 | XMS_ITS | Encounter Summary ---
Author Organization [facility] Address [address] [place] [address] Care Team Providers Care A/C Technician Name Role Phone Shayy Donohue NP Primary Care Provider [phone] Reason for Visit * Reason Onset Date Comments COVID-19 12/04/2019 Encounter Details Date Type Department Care Team (Late st Contact Info) Description 12/04/2019 Telephone [facility] - [facility] [address] [place] [address] Felicia Grullon MD 111 [facility], [facility] [address] [place] [address] COVID-19 Social History Tobacco Use [...] encounter Miscellaneous Notes * Telephone Encounter - Graciela Nguyễn - 12/04/2019 1209 EDT Called patient to schedule covid testing. No answer, left message to call back. documented in this encounter Plan of Treatment Not on file documented as of this encounter Visit Diagnoses Not on filedocumented in this encounter Care Teams A/C Technician Relationship Specialty Start Date End Date Shayy Donohue NP [address] [place] [phone] PCP - General 11/20/18 documented as of this encounter
--- OUTSIDE RECORDS SUMMARY | 2024-02-25 15:19 | XMS_ITS | Encounter Summary ---
Author Organization [facility] Address [address] [place] [address] Care Team Providers Care Director Of Regional Sales Name Role Phone Shayy Donohue NP Primary Care Provider [phone] Encounter Details Date Type Department Care Team (Late st Contact Info) Description 12/03/2018 Orders Only [facility] Cancer Center Hematology & Oncology - [facility] [place] [address] [place] [address] Silvia Olivarez, RN [address] [place] [address] Social History Tobacco Use Types Packs/Day Years [...] Refills Last Filled Start Date End Date apixaban (ELIQUIS) 5 mg tablet Take 1 Tab by mouth 2 times daily. 60 Tab 3 12/03/2018 apixaban (ELIQUIS) 5 mg tablet Take 1 Tab by mouth 2 times daily for 30 days. 60 Tab 3 12/03/2018 12/03/2018 documented in this encounter Miscellaneous Notes * Addendum Note - Silvia Olivarez RN - 12/03/2018 1047 EDTAddended by: SILVIA OLIVAREZ on: 12/03/2018 11:09 Modules accepted: Orders documented in this encounter Plan of Treatment Not on file documented as of this encounter Visit Diagnoses Not on filedocumented in this encounter Discontinued Medications Medication Sig Discontinue Reason Start Date End Da te apixaban (ELIQUIS) 5 mg tablet Take 1 Tab by mouth 2 times daily for 30 days. Reorder 12/03/2018 12/03/2018 documented as of this encounter Care Teams Director Of Regional Sales Relationship Specialty Start Date End Date Shayy Donohue NP [address] [place] [phone] PCP - General 11/20/18 documented as of this encounter
--- OUTSIDE RECORDS SUMMARY | 2024-02-25 15:19 | XMS_ITS | Encounter Summary ---
Author Organization [facility] Address [address] [place] [address] Care Team Providers Care Registered Dietitian Name Role Phone Shayy Donohue NP Primary Care Provider [phone] Reason for Referral * (Routine) - Authorization Not Required Specialty Diagnoses / Procedures Referred By Contac t Referred To Contact Diagnoses Acute pulmonary embolism without acute cor pulmonale, unspecified pulmonary embolism type (HCC-CMS) Procedures PULMONARY FUNCTION TESTING Felicia Grullon MD Phone: tel: fax: Referral ID Status Reason Start Date Expiration Date Visits Requested Visits Authorized [id number] Authorization Not Required 11/01/2019 2 2 Encounter Details Date Type Department Care Team (Late st Contact Info) Description 11/01/2019 Orders Only [facility] Pulmonology & Critical Care - [facility] [address] [place], [place] [phone] Felicia Grullon MD 111 [facility], [address] [place] [phone] Acute pulmonary embolism without acute cor pulmonale, unspecified pulmonary embolism type (HCC-CMS) (Primary Dx) Social History Tobacco Use [...] Type Priority Associated Diagnoses Orde r Schedule PULMONARY FUNCTION TESTING PFT Routine Acute pulmonary embolism without acute cor pulmonale, unspecified pulmonary embolism type (HCC-CMS) 1 Occurrences starting 11/01/2019 until 12/01/2020 documented as of this encounter Visit Diagnoses Diagnosis Acute pulmonary embolism without acute cor pulmonale, unspecified pulmonary embolism type (HCC-CMS)- Primary documented in this encounter Care Teams Registered Dietitian Relationship Specialty Start Date End Date Shayy Donohue NP [address] [place] [phone] PCP - General 11/20/18 documented as of this encounter
--- OUTSIDE RECORDS SUMMARY | 2024-02-25 15:19 | XMS_ITS | Encounter Summary ---
Author Organization [facility] Address [address] [place] [address] Care Team Providers Care Real Estate Processor Name Role Phone Shayy Donohue NP Primary Care Provider [phone] Encounter Details Date Type Department Care Team (Late st Contact Info) Description 01/29/2021 Lab Requisition [facility] Pathology & Laboratory Medicine - [facility] [address] [place] [address] Smith Jon MD [address] [place] [address] Excessive and frequent menstruation with irregular cycle; Dysmenorrhea, unspecified; Leiomyoma of uterus, unspecified; Stress incontinence (female) (male) Social History Tobacco Use Types Packs/Day Years [...] Date/Time Associated Diagnosis Comments SURGICAL PATHOLOGY Today 01/26/2021 12 :00 EDT Excessive and frequent menstruation with irregular cycle documented in this encounter Results * SURGICAL PATHOLOGY (01/26/2021 12:00 EDT) Note to Patient The following pathology results have been interpreted by your pathologist and may be available to you before your health provider has had the opportunity to review them. Please allow time for your provider to receive these results and explore management options, if applicable. 02/01/2021 17:33 [facility] Final Diagnosis A. UTERUS, CERVIX, AND FALLOPIAN TUBES, HYSTERECTOMY AND BILATERAL SALPINGECTOMY: - Endometrium: - Intrauterine device (IUD) present. - Inactive endometrium with pseudodecidualized stroma consistent with IUD effect. - Myometrium: - No specific pathologic features. - Cervix: - No specific pathologic features. - Serosa: - No specific pathologic features. - Fallopian tubes: - Status post bilateral ligation. 02/01/2021 17:33 [facility] Attestation By the signature below, the attending physician certifies that they have 1) personally conducted a gross and/or microscopic examination of the described specimen(s), and/or personally interpreted the results of laboratory testing of the described specimen(s), and 2) personally rendered or confirmed the above diagnosis. 02/01/2021 17:33 [facility] at 1733 Clinical History Menorrhagia with irregular cycles, dysmenorrhea, fibroid uterus; clinical diagnosis code: N92.1, N94.6, D25.9, N39.3 02/01/2021 17:33 [facility] Gross Description A. Received in formalin labelled with proper patient identification (initials M, A) and cervix, uterus, bilateral fallopian tubes is an intact, unopened uterus (160 g, 12.0 cm fundus to cervix by 4.0 cm cornu to cornu by 5.4 cm anterior to posterior), a proximal right fallopian tube segment (2.5 cm in length by 0.4 cm in diameter), proximal left fallopian tube segment (2.5 cm in length by 0.6 cm in diameter) and detached unoriented fimbriated fallopian tube ends (2.2 cm in length by 0.4 cm in diameter and 2.6 cm in length by 0.4 cm in diameter). The serosa is smooth and correa-bender. The cervix (3.4 cm in diameter) is covered by correa bender ectocervical mucosa and has a slit-like os (1.2 cm in diameter). The endocervical canal (4.0 cm in length) is lined by correa herringbone mucosa. The endometrial cavity (2.2 cm cornu to cornu by 4.5 cm in length) is lined by soft pink-correa endometrium (0.3 cm in maximum thickness). A white plastic T-shaped device (3.2 x 3.2 x 0.3 cm) is present within the cavity. The correa coarsely trabeculated myometrium has a maximum thickness of 2.0 cm. No intramural, submucosal, or subserosal nodules are identified. The proximal portions of fallopian tube have smooth correa-bender serosal surfaces. The distal ends of each tube are blunted, grossly consistent with previous ligation. Sectioning reveals patent lumens. The portions of fimbriated tube have smooth correa serosal surfaces. Sectioning reveals patent lumens. Silk Screen Frame Assembler sections are submitted as follows: BLOCK GO A1-A2- anterior cervix to lower uterine segment, bisected A3-A4- posterior cervix to lower uterine segment, bisected A5-A7- anterior endomyometrium A8-A10- posterior endomyometrium A11- right fallopian tube segment A12- left fallopian tube segment A13- bisected fimbria from shorter tube segment A14- bisected fimbria from longer tube segment SOLANGE GREENE(ASCP) 01/30/2021 12:04 02/01/2021 17:33 EDT [facility] Performing Lab [facility] 02/01/2021 17:33 EDT [facility] Scanned Images 02/01/2021 17:33 EDT [facility] Tissue SPECIMEN FROM UTERUS / Unknown 01/26/2021 12:00 EDT 01/29/2021 21:21 EDT us Smith Jon MD PATHOLOGY ORDERABLES Final Res ult [facility] [address] [place] [address] documented in this encounter Visit Diagnoses Diagnosis Excessive and frequent menstruation with irregular cycle Excessive or frequent menstruation Dysmenorrhea, unspecified Leiomyoma of uterus, unspecified Stress incontinence (female) (male) documented in this encounter Care Teams Real Estate Processor Relationship Specialty Start Date End Date Shayy Donohue NP [address] [place] [phone] PCP - General 11/20/18 documented as of this encounter
--- OUTSIDE RECORDS SUMMARY | 2024-02-25 15:19 | XMS_ITS | Encounter Summary ---
Author Organization [facility] Address [address] [place] [address] Care Team Providers Care Administrative Services Specialist Name Role Phone Shayy Donohue NP Primary Care Provider [phone] Encounter Details Date Type Department Care Team (Late st Contact Info) Description 12/10/2018 13:20 EDT - 12/10/2018 15:32 EDT Hospital Encounter [facility] [address] [place] [address] Anitha Dior MD 111 [facility], [address] [place] [phone] Discharge Disposition: Home or Self Care Social [...] documented in this encounter Discharge Diagnoses Diagnosis I26.99 Other pulmonary embolism without acute cor pulmonale-I26.99[ICD-10-CM] documented in this encounter Medications at Time [...] Code Departure Means Destination Home or Self Long Term documented in this encounter Plan of Treatment Not on file documented as of this encounter Visit Diagnoses Not on filedocumented in this encounter Care Teams Administrative Services Specialist Relationship Specialty Start Date End Date Shayy Donohue NP [address] [place] [phone] PCP - General 11/20/18 documented as of this encounter
--- OUTSIDE RECORDS SUMMARY | 2024-02-25 15:19 | XMS_ITS | Encounter Summary ---
Author Organization [facility] Address [address] [place] [address] Care Team Providers Care Production Broaching Machine Operator Name Role Phone Shayy Donohue NP Primary Care Provider [phone] Encounter Details Date Type Department Care Team (Late st Contact Info) Description 11/23/2018 13:26 EDT - 11/23/2018 23:59 EDT Hospital Encounter [facility] [address] [place] [address] Anitha Dior MD 111 [facility], [address] [place] [phone] Discharge Disposition: Auto Discharge Social History Tobacco [...] mg capsule Take by mouth as needed. pantoprazole (PROTONIX) 40 mg tablet Take 40 [...] on filedocumented in this encounter Care Teams Production Broaching Machine Operator Relationship Specialty Start Date End Date Shayy Donohue NP [address] [place] [phone] PCP - General 11/20/18 documented as of this encounter
--- OUTSIDE RECORDS SUMMARY | 2024-02-25 15:19 | XMS_ITS | Encounter Summary ---
Author Organization [facility] Address [address] [place] [address] Care Team Providers Care Teacher Preschool Name Role Phone Shayy Donohue NP Primary Care Provider [phone] Reason for Referral * Prior Authorization (Routine/Next Available) - Authorization Not Required Specialty Diagnoses / Procedures Referred By Paula t Referred To Contact Diagnoses Pulmonary embolism and infarction ([facility] Anitha Dior MD Phone: tel: fax: Referral ID Status Reason Start Date Expiration Date Visits Requested Visits Authorized [id number] Authorization Not Required Other 12/02/2018 1 1 Question Answer Medication to be Prior Authorized: [facility] Precertification Request for Medications 12/02/2018 URGENT: No Medication Administration: PO Patient Name: Kesha Silva Patient : [id number] Ordering MD: Barby Nurse: jossue Phone: [phone] Is this a dosage change, renewal or a new medication? New Med Medication Start Date & Number of Cycles: n/a PT BSA: There is no height or weight on file to calculate BSA. What is the reason for taking this medication? hypercoaguable states Is this an on label usage of this medication? Yes What is the patient's current drug regimen? Lovenox BID Similar drugs patient has been on and failed? Bleeding with Lovenox Please Prior Auth Medications Listed below: Eliqudori 5mg BID How many days will patient be on the above regimen in a month? 30 Qty per 30 days: 60 tabs Number of Refills: 4 Local Pharmacy: [facility] Reason for Visit * Reason Onset Date Comments Medication Questions 12/02/2018 Lovenox Vaginal Bleeding 12/02/2018 Encounter Details Date Type Department Care Team (Late st Contact Info) Description 12/02/2018 Telephone [email or web address] Cancer Center Hematology & Oncology - [address] [address] Anitha Dior MD 111 [facility], [facility] [address] [place] [address] Medication Questions (Lovenox); Vaginal Bleeding Social History Tobacco Use Types Packs/Day Years Used Date Smoking Tobacco: Never Smokeless Tobacco: Never Alcohol Use Standard Drinks/Week Comments Yes 0 (1 standard drink = 0.6 oz pure alcohol) 1-2 drinks a few times a months AUDIT-C Answer Date Recorded Frequency of Alcohol Consumption 2-4 times a fri th 11/23/2018 Average Number of Drinks Not on [...] encounter Miscellaneous Notes * Telephone Encounter - Jossue Olivarez RN - 12/03/2018 1053 EDT Script for Apixiban 5mg BID sent to [facility] with request for copay assist. Pt aware to start dose tonight 12 hours post last Lovenox injection. Asked that she call us to update whether bleeding gets better or remains heavy. * Telephone Encounter - Jossue Olivarez RN - 12/02/2018 1607 EDT Pt reports increased vaginal bleeding starting 11/21, 1 day after starting therapeutic Lovenox. She reports she is changing tampon 3 times in a 24 hour period. She also awoke this morning with a bloody nose and reports minor bleeding with flossing. She reports that her manager career provider has told her that she has an angry uterus and she had her IUD replaced on 11/10. * Telephone Encounter - Leny Oshea - 12/02/2018 1226 EDT Per pt, been experiencing vaginal bleeding since 8.10. Per pt, does have an angry uterus and IUD but, is wondering if this is normal. Pt requesting a call back today. documented in this encounter Plan of Treatment Scheduled Referrals Name Type Priority Associated Diagnoses Order Schedule AMB MEDICATION PRIOR AUTHORIZATION Outpatient Referral Routine Pulmonary embolism and infarction (CMS-HCC) Ordered: 12/02/2018 documented as of this encounter Visit Diagnoses Diagnosis Pulmonary embolism and infarction (HCC-CMS)- Primary Other pulmonary embolism and infarction documented in this encounter Care Teams Teacher Preschool Relationship Specialty Start Date End Date Shayy Donohue NP [address] [place] [phone] PCP - General 11/20/18 documented as of this encounter
--- OUTSIDE RECORDS SUMMARY | 2024-02-25 15:19 | XMS_ITS | Encounter Summary ---
Author Organization [facility] Address [address] [place] [address] Care Team Providers Care Management Accountant Name Role Phone Shayy Donohue NP Primary Care Provider [phone] Encounter Details Date Type Department Care Team (Late st Contact Info) Description 02/22/2019 13:00 EST Phlebotomy Only [facility] 2 Phlebotomy [address] [place], [place] [address] Hand Model, Acc Phlebotomy At risk for cardiovascular event (Primary Dx) Social History Tobacco Use Types [...] Procedure Name Priority Date/Time Associated Diagnosis Comments HEMOGLOBIN A1C Routine 02/22/2019 12:57 EST At risk for cardiovascular event LIPID PROFILE (INCLUDES CHOLESTEROL, TRIGLYCERIDES, HDL, LDL) Routine 02/22/2019 12:57 EST At risk for cardiovascular event documented in this encounter Results * (ABNORMAL) HEMOGLOBIN A1C (02/22/2019 12:57 EST) Hemoglobin A1c 5.8(H) <5.7 % 02/22/2019 15:08 EST [facility] Comment: Glycemic Status References: Normal: [...] Est Avg Glucose 120 mg/dL 9 15:08 EST [facility] Comment: The eAG represents the A1c result expressed as average glucose in mg/dL. Blood VENOUS BLOOD / Unknown Venipuncture / Unknown 02/22/2019 12:57 EST 02/22/2019 13:15 EST us Anitha Dior MD CHEMISTRY & BLOOD GAS ORDERABLES Final Result [facility] [address] [place] [address] * LIPID PROFILE (INCLUDES CHOLESTEROL, TRIGLYCERIDES, HDL, LDL) (02/22/2019 12:57 EST) Cholesterol 272 See Note mg/dL 02/22/2019 13:48 [facility] Comment: Acceptable: ?<200 mg/dL Borderline High: 200-239 mg/dL High: ?> or = 240 mg/dL HDL 57 See Note mg/dL 02/22/2019 13:48 [facility] Comment: Low: ? <40 mg/dL Normal: ??40-60 mg/dL High: ?>60 mg/dL LDL, Calculated 190.2 See Note mg/dL 02/22/2019 13:48 [facility] Comment: Optimal: ? <100 mg/dL Near Optimal: ?100-129 mg/dL Borderline High: 130-159 mg/dL High: ?160-189 mg/dL Very High: ? > or = 190 mg/dL Triglyceride 124 See Note mg/dL 02/22/2019 13:48 [facility] Comment: Normal: ? <150 mg/dL Borderline High: ??150 - 199 mg/dL High: ? 200 - 499 mg/dL Very High: ?> or = 500 mg/dL Chol/HDL Ratio 4.8 See Note 02/22/2019 13:48 [facility] Comment: No reference range has been established for CHOL/HDL ratio. Non HDL Cholesterol 215 See Note mg/dL 02/22/2019 13:48 [facility] Comment: Desirable: ?<130 mg/dL Borderline High: ??130-159 mg/dL High: ? 160-189 mg/dL Very High: ?> or = 190 mg/dL Blood VENOUS BLOOD / Unknown Venipuncture / Unknown 02/22/2019 12:57 EST 02/22/2019 13:14 EST us Anitha Dior MD CHEMISTRY & BLOOD GAS ORDERABLES Final Result [facility] [address] [place] [address] documented in this encounter Visit Diagnoses Diagnosis At risk for cardiovascular event- Primary documented in this encounter Care Teams Management Accountant Relationship Specialty Start Date End Date Shayy Donohue NP [address] [place] [phone] PCP - General 11/20/18 documented as of this encounter
--- OUTSIDE RECORDS SUMMARY | 2024-02-25 15:19 | XMS_ITS | Encounter Summary ---
Author Organization [facility] Address [address] [place] [address] Care Team Providers Care Automobile Mechanic Name Role Phone Shayy Donohue NP Primary Care Provider [phone] Reason for Visit * Reason Onset Date Comments Arm Pain 12/23/2018 Left Arm issue Encounter Details Date Type Department Care Team (Late st Contact Info) Description 12/23/2018 Telephone [facility] Hematology & Oncology - [facility] [address] [place], [place] [phone] Anitha Dior MD 111 [facility], [address] [place] [phone] Arm Pain (Left Arm issue) Social History Tobacco Use Types Packs/Day Years [...] Telephone Encounter - Lexy Reich RN - 12/25/2018 1645 EDT Unable to reach patient, if calls back recommend ED visit as she is in [facility] * Telephone Encounter - Jing Joy - 12/23/2018 1245 EDT Patient is calling as her left arm is really hurting her so much that it keeps her up at night, herfingers are tingling and, also going up her neck, please reach out to discuss documented in this encounter Plan of Treatment Not on file documented as of this encounter Visit Diagnoses Not on filedocumented in this encounter Care Teams Automobile Mechanic Relationship Specialty Start Date End Date Shayy Donohue NP [address] [place] [phone] PCP - General 11/20/18 documented as of this encounter
--- OUTSIDE RECORDS SUMMARY | 2024-02-25 15:19 | XMS_ITS | Clinical Summary ---
Author Organization [facility] Address [address] [place] [address] Care Team Providers Care Bone Glue Maker Name Role Phone Shayy Donohue PAPER AND PULP MILL WORKER Primary Care Provider Allergies Active Allergy Reactions Criticality Noted Date [...] cor pulmonale (HCC-CMS) 10/29/2019 Prothrombin gene mutation ([facility]) 10/29/2019 Overview (10/29/2019): heterozygous Other hyperlipidemia 02/22/2019 Overview (02/22/2019): LDL cholesterol 190 in . Advised weight loss and exercise. Would advocate atorvastatin 10 mg daily. -also has prediabetes by A1C criteria Elevated hemoglobin A1c 02/22/2019 Overview (02/22/2019): -5.8 in 2019 Class 2 obesity in adult 02/21/2019 Hypercoagulable state ([facility]) 11/23/2018 Overview (01/02/2020): 1. Event: Unprovoked isolated [...] known if tested for thrombophilia (never saw licensing manager so perhaps no). -Father with factor V Leiden and no thrombosis but has CAD. -17 yo daughter on OCP- switched to IUD. 19 yo daughter with IUD 3. Risk Factors -Prior testing after IUFD pos for prothrombin mutation heterozygosity ([facility]) and neg for FVL. 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 D-dimer <200. APCr normal. -Obesity (BMI 37.4 in 2019; rising). 4. Plan -ASA 81 mg daily for termite control servicer and perhaps a statin History of IUFD [...] Date Resolved Date Female infertility 01/10/2009 9 Surgical History Surgery Date Site/Laterality Comments CHOLECYSTECTOMY 2009 Medical History Medical History Date Comments Infertility Depression 11/23/2018 GERD (gastroesophageal reflux disease) 11/23/2018 History of IUFD 11/23/2018 -IUFD of di-di t win A end of trimester 1, then twin B 1 week before term with autopsy showing no apparent reason ( hypoxia), though placenta small with one peripheral infarct Basal cell carcinoma of nose 07/2018 [facility] spring 2018 Class 2 obesity in adult 02/21/2019 Other hyperlipidemia 02/22/2019 LDL cholest jose 190 in . Advised weight loss and exercise. Would advocate atorvastatin 10 mg daily. -also has prediabetes by A1C criteria Elevated hemoglobin A1c 02/22/2019 -5.8 in 2018 Family History Medical History Relation Comments No Known Brother Clotting Disorder Father factor V Leide n with no history of thrombosis Heart Attack Father minor - plavix r esistance led to large [place]. on eliquis now. [facility] High Blood Pressure Father High Cholesterol Father Stroke Maternal Grandmother Cancer Mother breast cancer s/ p lumpectomy and radiation Clotting Disorder Mother PE with early breast cancer and CTEPH with yrs of sx dx - s/p thromboendarterectomy -[address] [facility]. On lifelong anticoagulation. hasn't seen licensing manager High Blood Pressure Mother High Cholesterol Mother Clotting Disorder Sister 1 DVT and possib le PE at age 17 while on OCP and factor V Leiden dx [facility]. s/p stent placement for apparent May-Thurner on termite control servicer warfarin No Known Sister 2 Relation Status Comments Brother Alive half brother, di fferent father Father Alive Maternal Grandmother Mother Alive Sister 1 Alive Sister 2 Alive half sis, differ ent father Social History Tobacco Use Types Packs/Day Years [...] 12:49 EST Sexual Orientation Not on file Obstetrics History Last Filed Vital Signs Vital Sign Reading Time Taken Comments Blood Pressure 127/94 12/10/2019921 EDT Pulse 80 12/10/2019921 EDT Temperature 36.2 ??C (97.1 ??F) 12/10/2019921 EDT Respiratory Rate 18 12/10/201922 EDT Oxygen Saturation 97% 12/10/2019921 EDT Inhaled Oxygen Concentration - - Weight 106.5 kg (234 lb 12.6 oz) 12/10/2019921 EDT Height 163.2 cm (5' 4.25) 12/10/2019921 EDT Body Mass Index 39.99 12/10/2019921 EDT Plan of Treatment Health Maintenance Due Date Last Done Comments Hepatitis B Vaccine (1 of 3 - 19+ 3-dose series) 11/24 COVID-19 Vaccine ( season) 2023 Hepatitis C Screen Completed 07/02/2011 Procedures Procedure Name Priority Date/Time Associated Diagnosis Comments PROFILE IVF NON DONOR Routine 07/02/2011 16:30 EDT Female infertility of unspecified origin from Last 3 Months or Most Recently Relevant to Health Maintenance Results * PROFILE IVF NON DONOR (07/02/2011 16:30 EDT) Hepatitis B Surface Ag Negative [facility] Comment:Reference Range: Neg ative Syphilis Serology Interpretation: Nonreactive [facility] Comment:Reference Range: Non reactive Hep B Core Ab Negative [facility] Comment: Reference Range: ??Negative Interpretation depends on clinical setting. Hepatitis C Ab Negative [facility] Comment:Reference Range: Neg ative HIV 1/2 Antibody Negative [facility] Comment: Reference Range: ??Negative Assayed utilizing Ph[employer]ios chemiluminescent technology. Blood specimen (specimen) 07/02/2011 16:30 EDT 07/02/2011 17:19 EDT us Renee Blackman MD PACKAGES & DNA PROBE OR DERABLES Final Result [facility] [address] [place] [address] from Last 3 Months or Most Recently Relevant to Health Maintenance Insurance [facility] Care Teams Bone Glue Maker Relationship Specialty Start Date End Date Shayy Donohue NP [address] [place] [phone] PCP - General 11/20/18
--- OUTSIDE RECORDS SUMMARY | 2024-02-25 15:19 | XMS_ITS | Encounter Summary ---
Author Organization [facility] Address [address] [place] [address] Care Team Providers Care Timber Faller Name Role Phone Shayy Donohue NP Primary Care Provider [phone] Encounter Details Date Type Department Care Team (Late st Contact Info) Description 12/25/[address] [facility] [address] [place] [address] Radiologist, Outpatient Hypercoagulable state ([facility]); Menorrhagia with irregular cycle Social History Tobacco [...] Procedure Name Priority Date/Time Associated Diagnosis Comments IBC Routine 12/25/2018 14:18 EDT Hypercoagulable state (HCC-CMS) Menorrhagia with irregular cycle COMPLETE BLOOD COUNT AND DIFFERENTIAL STAT 12/25/2018 14:18 EDT Hypercoagulable state (HCC-CMS) Menorrhagia with irregular cycle IRON Routine 12/25/2018 14:18 EDT Hypercoagulable state (HCC-CMS) Menorrhagia with irregular cycle FERRITIN Routine 12/25/2018 14:18 EDT Hypercoagulable state (HCC-CMS) Menorrhagia with irregular cycle documented in this encounter Results * (ABNORMAL) COMPLETE BLOOD COUNT AND DIFFERENTIAL (12/25/2018 14:18 EDT) WBC 8.38 4.0 - 12.4 K/cmm 12/25/2018 14:39 [facility] RBC 5.09(H) 3.86 - 5.04 M/cmm 12/25/2018 14:39 [facility] Hemoglobin 13.5 11.6 - 15.2 gm/dl 12/25/2018 14:39 [facility] HCT 40.5 34.9 - 44.4 % 12/25/2018 14:39 [facility] MCV 80(L) 81 - 98 fl 12/25/2018 14:39 [facility] MCH 26.5(L) 26.7 - 33.3 pg 12/25/2018 14:39 [facility] MCHC 33.3 32.1 - 35.9 gm/dl 12/25/2018 14:39 [facility] RDW-CV 14.5 <14.7 % 12/25/2018 14:39 [facility] RDW-SD 41.7 <50.4 fl 12/25/2018 14:39 [facility] PLT 303 141 - 377 K/cmm 12/25/2018 14:39 [facility] MPV 9.6 9.5 - 12.7 fl 12/25/2018 14:39 [facility] % Neutrophils 70.9 % 12/25/2018 14:39 [facility] % Lymphocytes 19.2 % 12/25/2018 14:39 [facility] % Monocytes 7.2 % 12/25/2018 14:39 [facility] % Eosinophils 1.7 % 12/25/2018 14:39 [facility] % Basophils 0.2 % 12/25/2018 14:39 [facility] % Immature Grans 0.8 % 12/25/2018 14:39 [facility] ABS Neutrophils 5.94 2.20 - 8.85 K/cmm 12/25/2018 14:39 [facility] ABS Lymphs 1.61 1.09 - 3.30 K/cmm 12/25/2018 14:39 [facility] ABS Monocytes 0.60 0.1 - 0.8 K/cmm 12/25/2018 14:39 [facility] ABS Eosinophils 0.14 0.03 - 0.61 K/cmm 12/25/2018 14:39 [facility] ABS Basophils 0.02 0.01 - 0.11 K/cmm 12/25/2018 14:39 [facility] ABS Immature Grans 0.07(H) 0 - 0.06 K/cmm 12/25/2018 14:39 [facility] Type of Diff: Automated 12/25/2018 14:39 [facility] Blood specimen (specimen) BLOOD SPECIMEN / Unknown 12/25/2018 14:18 EDT 12/25/2018 14:31 EDT us Ace F Tolstoi PA-C PACKAGES & DNA PROBE ORDER SHARAN Final Result [facility] [address] [place] [address] * IRON (12/25/2018 14:18 EDT) Iron 57 37 - 170 ug/dl 12/25/2018 15:04 EDT [facility] Blood specimen (specimen) BLOOD SPECIMEN / Unknown 12/25/2018 14:18 EDT 12/25/2018 14:31 EDT us Ace Cruz Tolstoi PA-C CHEMISTRY & BLOOD GAS ORDE RABLES Final Result Performing Organization Address City/[facility]/ZIP Co de Phone Number [facility] [address] [place] [address] * FERRITIN (12/25/2018 14:18 EDT) Ferritin 50 10 - 291 ng/ml 12/28/2018 15:54 EDT [facility] Blood specimen (specimen) BLOOD SPECIMEN / Unknown 12/25/2018 14:18 EDT 12/25/2018 14:31 EDT us Ace Shirleystoi PA-C CHEMISTRY & BLOOD GAS ORDE RABLES Final Result Performing Organization Address City/[facility]/ZIP Co de Phone Number [facility] [address] [place] [address] * IBC (12/25/2018 14:18 EDT) TIBC 366 265 - 497 ug/dl 12/25/2018 15:14 EDT [facility] Blood specimen (specimen) BLOOD SPECIMEN / Unknown 12/25/2018 14:18 EDT 12/25/2018 14:31 EDT us Ace Cruz Tolstoi PA-C CHEMISTRY & BLOOD GAS ORDE RABLES Final Result [facility] [address] [place] [id number] documented in this encounter Visit Diagnoses Diagnosis Hypercoagulable state ([facility]) Primary hypercoagulable state Menorrhagia with irregular cycle Excessive or frequent menstruation documented in this encounter Care Teams Timber Faller Relationship Specialty Start Date End Date Shayy Donohue NP [address] [place] [address] PCP - General 11/20/18 documented as of this encounter
--- OUTSIDE RECORDS SUMMARY | 2024-02-25 15:19 | XMS_ITS | Encounter Summary ---
Author Organization [facility] Address [address] [place] [address] Care Team Providers Care Floors Buffer Name Role Phone Shayy Donohue NP Primary Care Provider [phone] Encounter Details Date Type Department Care Team (Late st Contact Info) Description 02/23/2019 Orders Only [facility] Cancer Center Hematology & Oncology - [facility] [address] [place], [place] [address] Lexy Reich, JUAN R [address] [place] [address] Social History Tobacco Use Types Packs/Day Years [...] Refills Last Filled Start Date End Date atorvastatin (LIPITOR) 10 mg tablet Take 1 Tab by mouth daily. 30 Tab 2 02/23/2019 documented in this encounter Plan of Treatment Not on file documented as of this encounter Visit Diagnoses Not on filedocumented in this encounter Care Teams Floors Buffer Relationship Specialty Start Date End Date Shayy Donohue NP [address] [place] [id number] PCP - General 11/20/18 documented as of this encounter
--- OUTSIDE RECORDS SUMMARY | 2024-02-25 15:19 | XMS_ITS | Encounter Summary ---
Author Organization [facility] Address [address] [place] [address] Care Team Providers Care Licensed Club Manager Name Role Phone Shayy Donohue NP Primary Care Provider [phone] Reason for Referral * (Routine) - Authorization Not Required Specialty Diagnoses / Procedures Referred By Contac t Referred To Contact Diagnoses Acute pulmonary embolism without acute cor pulmonale, unspecified pulmonary embolism type (HCC-CMS) Procedures PULMONARY FUNCTION TESTING Felicia Grullon MD Phone: tel: fax: Referral ID Status Reason Start Date Expiration Date Visits Requested Visits Authorized [id number] Authorization Not Required 11/01/2019 2 2 Encounter Details Date Type Department Care Team (Latest Contact Info) Description 12/10/2019 8:24 EDT - 12/10/2019 23:59 EDT Hospital Encounter [facility] [address] [place], [place] [address] Acute pulmonary embolism without acute cor pulmonale, unspecified pulmonary embolism type (HCC-CMS) Discharge Disposition: Home or Self Care Social History Tobacco Use Types Packs/Day Years Used Date Smoking Tobacco: Never Smokeless Tobacco: Never Alcohol Use Standard Drinks/Week Comments Yes 0 (1 standard drink = 0.6 oz pure alcohol) 1-2 drinks a few times a months AUDIT-C Answer Date Recorded Frequency of Alcohol Consumption 2-4 times a mon th 11/23/2018 Average Number of Drinks Not [...] by mouth daily. 30 Tab 2 02/23/2019 fluticasone propionate (FLOVENT HFA) 44 mcg/actuation inhaler Inhale 2 Puffs as directed 2 times daily. 1 Inhaler 3 12/10/2019 pantoprazole (PROTONIX) 40 mg tablet Take 40 mg by mouth daily. sertraline (ZOLOFT) 50 mg tabletIndications :Patient is taking 150 mg per day Take 150 mg by mouth daily. traZODone (DESYREL) 50 mg tablet Take 50 mg by mouth daily. documented as of this encounter Discharge Disposition Disposition Code Departure Means Destination Home or Self Care documented in this encounter Progress Notes * Felicia Grullon MD - 12/10/2019 0845 EDT Testing was performed and recorded in [employer]. See complete report in scanned documents. Name: Kesha Silva Date of : 1975 Date: 12/10/2019 Pulmonary Function Lab 6 Minute Walk for Distance Indication/Diagnosis: Pulmonary Embolism Pre/Resting BP: 137 / 99 Pre/Resting HR: 92 Pre/Resting O2 sat: 97 % Pre/Resting ENRIQUETA: 2 Oxygen Liter/min: RA Pulse dose Oxygen: no Max Exercise BP: 159 / 92 Max Exercise HR: 122 Max Exercise O2 sat: 97 Max Exercise ENRIQUETA: 3 Oxygen Liter/min: RA Pulse dose Oxygen: no Post/Recovery BP: 127 / 94 Post/Recovery HR: 87 Post/Recovery O2 sat: 96 % Post/Recovery ENRIQUETA: 2 Oxygen Liter/min: RA Pulse dose Oxygen: no Walked with assistance: No Distance walked: 1470 feet Number of rests stops: 0 Total time restin minutes 0 seconds Patient transported Oxygen device: N/A Provider Interpretation: Low risk walk distance 1470 feet Authenticating provider: Mitchel Date: 12/10/19 Time: 10:44 Pager/Contact No.: [phone] documented in this encounter Plan of Treatment Scheduled Orders Name Type Priority Associated Diagnoses Orde r Schedule PULMONARY FUNCTION TESTING PFT Routine Acute pulmonary embolism without acute cor pulmonale, unspecified pulmonary embolism type ([facility] 1 Occurrences starting 12/10/2019 until 12/10/2019 documented as of this encounter Procedures Procedure Name Priority Date/Time Associated Diagnosis Comments PULMONARY FUNCTION REPORT - SCANNED 12/10/2019 13:43 EDT PULMONARY FUNCTION REPORT - SCANNED 12/10/2019 9:00 EDT documented in this encounter Results * PULMONARY FUNCTION REPORT - SCANNED (12/10/2019 13:43 EDT) 12/10/2019 13:4 3 EDT us Scan 2 Senior Automation Engineer PROCEDURE/MINOR SURGICAL OR DERABLES Final Result * PULMONARY FUNCTION REPORT - SCANNED (12/10/2019 9:00 EDT) 12/10/2019 9:00 EDT us Scan 2 Senior Automation Engineer PROCEDURE/MINOR SURGICAL OR DERABLES Final Result documented in this encounter Visit Diagnoses Diagnosis Acute pulmonary embolism without acute cor pulmonale, unspecified pulmonary embolism type ([facility]) documented in this encounter Care Teams Licensed Club Manager Relationship Specialty Start Date End Date Shayy Donohue NP [address] [place] [address] PCP - General 11/20/18 documented as of this encounter
--- OUTSIDE RECORDS SUMMARY | 2024-02-25 15:20 | XMS_ITS | Encounter Summary ---
Author Organization [facility] Address [address] [place] [address] Care Team Providers Care Linux Vmware Administrator Name Role Phone Shayy Donohue NP Primary Care Provider Reason for Visit * Reason Onset Date Comments Appointment Related 11/20/2018 Encounter Details Date Type Department Care Team (Late st Contact Info) Description 11/20/2018 Telephone [facility] Cancer Center Hematology & Oncology - [facility] [address] [place] [address] Anitha Dior MD [address] [facility] [place] [address] Appointment Related Social History Tobacco Use Types Packs/Day Years Used Date Smoking Tobacco: Never Assessed Comments No Sex and Gender Information Value Date Recorded Sex Assigned at Not on file Legal Sex Female 18:13 EST Gender Identity Female 02/22/2019 12:49 EST Sexual Orientation Not on file documented as of this encounter Miscellaneous Notes * Telephone Encounter - Roberta Parkinson - 11/20/2018 9335 EDT 11/20 @ 3:36 scheduled with on 11/23 @ 12:00 Agreed to plan No letter out Patient will be here to fill out paperwork. documented in this encounter Plan of Treatment Not on file documented as of this encounter Visit Diagnoses Not on filedocumented in this encounter Care Teams Linux Vmware Administrator Relationship Specialty Start Date End Date Shayy Donohue, SARABJIT [address] [place] [address] PCP - General 11/20/18 documented as of this encounter
--- OUTSIDE RECORDS SUMMARY | 2024-02-25 15:20 | XMS_ITS | Encounter Summary ---
Author Organization [facility] Address [address] [place] [address] Care Team Providers Care Shaker Operator Name Role Phone Naomy Valles MD Primary Care Provider [phone] Encounter Details Date Type Department Care Team (Late st Contact Info) Description 09/26/2011 Orders Only [facility] Reproductive Medicine & Infertility Center - [facility] [address] [place], [place] [address] Kandy Murdock RN Absence of menstruation (Primary Dx) Social History Tobacco Use Types Packs/Day Years Used Date Smoking Tobacco: Never Assessed Comments No Sex and Gender Information Value Date Recorded Sex Assigned at Not on file Legal Sex Female 18:13 EST Gender Identity Female 02/22/2019 12:49 EST Sexual Orientation Not on file documented as of this encounter Plan of Treatment Not on file documented as of this encounter Visit Diagnoses Diagnosis Absence of menstruation- Primary documented in this encounter Care Teams Shaker Operator Relationship Specialty Start Date End Date Naomy Valles MD [address] [place] [address] PCP - General 12/26/08 11/19/18 documented as of this encounter
--- OUTSIDE RECORDS SUMMARY | 2024-02-25 15:20 | XMS_ITS | Encounter Summary ---
Author Organization [facility] Address [address] [place] [address] Care Team Providers Care Polisher Numeral Name Role Phone Naomy Valles MD Primary Care Provider [phone] Reason for Visit * Reason Onset Date Comments Infertility 10/28/2011 wanting to have records released Encounter Details Date Type Department Care Team (Late st Contact Info) Description 10/28/[address] [facility] Center Reproductive Medicine & Infertility Center - [facility] [address] [place] [address] Sirisha Hathaway RN [address] [place] [address] Infertility (wanting to have records released) Social History Tobacco Use Types Packs/Day Years Used Date Smoking Tobacco: Never Assessed Comments No Sex and Gender Information Value Date Recorded Sex Assigned at Not on file Legal Sex Female 18:13 EST Gender Identity Female 02/22/2019 12:49 EST Sexual Orientation Not on file documented as of this encounter Miscellaneous Notes * Telephone Encounter - Sirisha Hathaway E - 10/28/2011 4446 EDT Zachary calling to state that he and Kesha sent in a records release form and the new place has not received the records yet. Zachary is very angry and abusive on the telephone stating that because he isnot throwing money at us we won't return thier phone calls. He then states that his talked to someone about the records on Friday. I tried to explain to Zachary that we have a separate dept. Thatsends out medical records, he states that the records had better be sent out today or else. At this point I stated that I did not appreciate that he was speaking to me in a somewhat threatening way. He statesthat if the records are not sent today, I am going to start making some phone calls At this point I told Zachary I would do everything I could to get his records out today. He hung up on me. I called his Kesha 1/2 hour after I spoke with Zachary and gave her the name of Laya in [facility] and explained that we had asked Laya to get the records out NAE. Kesha thanked me for the information. documented in this encounter Plan of Treatment Not on file documented as of this encounter Visit Diagnoses Not on filedocumented in this encounter Care Teams Polisher Numeral Relationship Specialty Start Date End Date Naomy Valles MD [address] [place] [address] PCP - General 12/26/08 11/19/18 documented as of this encounter
--- OUTSIDE RECORDS SUMMARY | 2024-02-25 15:20 | XMS_ITS | Encounter Summary ---
Author Organization [facility] Address [address] [place] [address] Care Team Providers Care Bulk Mail Clerk Name Role Phone Naomy Valles MD Primary Care Provider [phone] Reason for Visit * Reason Comments Advice Only Encounter Details Date Type Department Care Team (Latest Contact Info) Description 08/01/2011 15:00 EDT Initial consult [facility] Obstetrics & Midwifery - [facility] [address] [place] [address] Deja Clark MD Stillbirth with normal delivery (Primary Dx) Social History Tobacco Use Types Packs/Day Years Used Date Smoking Tobacco: Never Assessed Comments No Sex and Gender Information Value Date Recorded Sex Assigned at Not on file Legal Sex Female 18:13 EST Gender Identity Female 02/22/2019 12:49 EST Sexual Orientation Not on file documented as of this encounter Last Filed Vital Signs Vital Sign Reading Time Taken Comments Blood Pressure 110/80 08/01/2011 1501 EDT Pulse - - Temperature - - Respiratory Rate - - Oxygen Saturation - - Inhaled Oxygen Concentration - - Weight 72.9 kg (160 lb 12.8 oz) 08/01/2011 1501 EDT Height 162.6 cm (5' 4) 08/01/2011 1501 EDT Body Mass Index 27.6 08/01/2011 1501 EDT documented in this encounter Progress Notes * Hamlet Mercado MD - 08/01/[address] Jon: We had the opportunity to see the patient, Kesha Crawford, in prepregnancy consultation here at [facility] maternal- medicine service. As you will recall, she is a very pleasant 33-ayou-thrH4, P4-0-1-3 who has a history of twin gestation with demise of both twins. Her history is as follows: This patient has had 3 prior full-term vaginal deliveries in 1996, 1999 and 2000. All pregnancies were reported to be normal spontaneous pregnancies with no complications during any of the pregnancies or during delivery processes. They were all spontaneous vaginal deliveries. After her last in 2000, she had a tubal ligation in the period. She also has a history of a spontaneous miscarriage somewhere around the year of 1997. Subsequently, in 2006, she underwent in-vitro fertilization here at [facility] and ended up with a dichorionic-diamniotic twin . The father of that was different than the father of her prior 3 children. That went initially well with 2 viable embryos early in gestation; however, in the late first or early second trimester there were no noted heart tracings for one of the twins. No reason for demise of thattwin was noted; again, it was noted to be a di-di twin . However, the second twin subsequently proceeded through the remainder of the with no complications. When I discussed this with the patient, she states that the remaining fetus was always appropriately grown with no complications. She did not have any health issues, herself, such as gestational diabetes or preeclampsia. The patient states that approximately 1 week prior to her due date she attended a routine visit with no complications as well as with documented heart tracing on the handheld Doppler. The following day she began having symptoms of labor, presented to the hospital and was diagnosed with a demise. She subsequently delivered the fetus atraumatically, and the autopsy report is available. Findings were consistent with hypoxia, no noted chromosomal abnormalities with normalfetal karyotype. The only thing of concern was that the placenta was smaller than expected for full-term bach fetus. The patient states she subsequently underwent some form of workup and was told there were some positive results but did not recall what these were. These were initially not available at our consultation; however, we called the office and obtained records from you. Of note, her factor V Leiden was normal as were her protein C and protein S levels. 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 The patient and her are now considering another attempt at a , and she presents today for prepregnancy consultation regarding her unfortunate history. Obstetrical History is as defined per HPI. GUARD MANAGER History: Menarche at age 12 with regular menstrual periods lasting 4 or 5 days with a very regular 28-day cycle. She has had a history of abnormal Pap smears in the past but states that all Pap smears have been normal as of recently. Past Medical History: None. Past surgical history is significant for a tubal ligation back in 2000 as well as a laparoscopic cholecystectomy in 2009. She also states that she had a problem with ovarian cysts as a teenager and had an exploratory laparoscopy many years ago. Medications: She currently is on oral contraceptive pills as she is in process of the in-vitro fertilization. Allergies to BACTRIM which caused a rash. Family history is significant for hypertension in her father as well as coronary artery disease in the paternal grandfather. She has a maternal aunt with a history of breast cancer and a cousin who was at a young age from breast cancer. She denies any other GUARD MANAGER or colon malignancies. She denies any congenital or chromosomal abnormalities and denies any bleeding disorders; however, she states that her sister had a blood clot in her teens and was found to be a carrier for factor V Leiden. The patient was tested at that point in time and was found to be negative. This was reaffirmed on her thrombophilia panel after the demise. Social History: She denies any alcohol, tobacco or illicit drug use and is in a stable relationship. Summary: Kesha Crawford is a 35-year-old G5, P4-0-1-3 with a history of a full- term demise of a second twin after an early trimester loss of the first twin. Discussion: 1. I had a discussion with the patient regarding her history. In review of her records, and of her history, it does appear that the demise of both twins are likely unrelated. In the absence of any complications with the surviving twin until time of delivery, and the fact that the fetus was appropriately grown and had a documented heartbeat the day prior to delivery, this was likely some sort of cord or placental accident. Of note, there was no significant evidence of placental abruption. The patient, herself, had no immediate complications and was discharged home the day following delivery ofthe demised . 2. I discussed potential reasons for the demise and, as stated previously, it appears this was likely just an unfortunate event. Reviewing the laboratory values from 2006, I did discuss that she did test positive for homozygous for the MTHFR mutation. However, I discussed that, at this point, we realize this does not increase her risk of adverse outcomes nor is it a predictor of a thrombophilia in ; therefore, we did recommend that she begin vitamins and supplemental folic acid, as people with this mutation tend to have a problem with folic metabolism. However, this would not be a reason for anticoagulation or treatment at any point in time during or in the period. 3. I then addressed the only other positive laboratory value the came from her postdelivery testing, and that is the fact that she is a heterozygous carrier for the prothrombin gene mutation. I discussed that while there is no relationship between the prothrombin gene mutation and adverse outcome, this could be considered a thrombophilia; however, in reviewing guidelines for treatment, prothrombin gene heterozygosity is noted to be a low risk mutation. I explained to her the risk would befor her developing a blood clot during due to the normal physiological changes that occurin the maternal circulatory status during . However, with no personal history of a thromboembolic event, her risk of having a thrombophilic embolic event during , being a carrier for this prothrombin gene mutation, is less than 0.5%. Therefore, recommendations would likely be for no prophylaxis during the antepartum period and, per ACOG guidelines, prophylaxis in the period can be entertained versus close observation. We would, however, recommend post- prophylaxis for 6 -8 weeks depending on the mode of delivery. We would be happy to see her again, once she becomes , to make final recommendations on prophylaxis should that be necessary. Again, in reviewing the records, the only item that it is not apparent is whether or not the patient was worked up for antiphospholipid antibody syndrome. This is the one missing piece that potentially could change our recommendations. Therefore, we have taken the liberty to order the patient's antiphospholipid panel with lupus anticoagulant, anticardiolipin antibody and beta-2 glycoprotein. These laboratory values have been ordered today here at [facility]; however, due to time constraints, the patient may not be able to have them drawn today. If this is the case, she will contact you, and they could be arranged to be drawn in [place], [place]. If these findings are positive for antiphospholipid antibody syndrome, then they would need to be repeated in approximately 12 weeks;however, should she become at that point in time we would still repeat them within 12 weeks but would hold off for any potential anticoagulation until at least 10 weeks gestation at which point in time the second set of the antiphospholipid antibody panel should be received. In the absence of any significant findings, and assuming that the antiphospholipid panel comes backnegative, I stated that I do not see any reason why she should not be able to have a normal full-term uncomplicated , although with a history of a prior stillbirth the risk of that happeningagain is slightly increased over the general population. It still would be relatively low and should not be a reason not to entertain a future . Once she does become , we would recommend monthly growth scans, after the congenital anomaly screen at 20 weeks, to monitor for adequate growth as well as weekly testing beginning at approximately 32 weeks in the form of twice-weekly NST and a weekly SWAPNIL. We would also recommend delivery by induction of labor at 39 weeks if spontaneous labor has not occurred by that point in time. Delivery prior to 39 weeks could be considered, but lung maturity should be documented by amniocentesis. We do appreciate the opportunity to participate in the care of this patient, and should you have any questions or concerns, please do not hesitate to contact our office at your earliest convenience. We would be pleased to see this patient back at any point in time, whether in prepregnancy consultation or in early , should any indications arise; and, certainly, if the antiphospholipid antibody panel should come back abnormal, we would request to see her again to discuss treatment. The patient was seen and discussed with Dr Deja Clark. Sincerely yours, Hamlet Mercado MD cc: Jose Smith MD [facility] Attending I saw the pt with Dr. Mercado . I agree with the findings and plan of management. The pt had no further questions concerning her care plan. Total visit time was 25 Minutes in face to face counseling concerning management DEJA CLARK MD documented in this encounter Consult Notes * DRAFTER DETAIL, SCAN 2 - 08/02/2011 1434 EDT documented in this encounter Plan of Treatment Not on file documented as of this encounter Results * CARDIOLIPIN ANTIBODY (08/01/2011 16:30 EDT) Cardiolipin IgG 2.98 GPL [facility] Comment: IgG Negative <15 GPL Indeterminate 15 - <20 GPL Low to Medium Positive 20 - 80 GPL Strongly Positive >80 GPL The following results were obtained with the INOVA QUANTA Lite KIERA IgG and IgM III Inessa kits. Cardiolipin IgG & IgM values obtained with different crop farm workers's assay methods may not be used interchangeably. The magnitude of the reported IgG & IgM levels cannot be correlated to an endpoint titer. Cardiolipin IgM 5.38 MPL [facility] Comment: IgM Negative <12.5 MPL Indeterminate 12.5 - <20 MPL Low to Medium Positive 20 - 80 MPL Strongly Positive >80 MPL The following results were obtained with the INOVA QUANTA Lite KIERA IgG and IgM III Inessa kits. Cardiolipin IgG & IgM values obtained with different crop farm workers's assay methods may not be used interchangeably. The magnitude of the reported IgG & IgM levels cannot be correlated to an endpoint titer. Blood specimen (specimen) 08/01/2011 16:30 EDT 08/01/2011 16:56 EDT us Hamlet Mercado MD IMMUNOLOGY AND SEROLOGY ORDER SHARAN Final Result [facility] [address] [place] [address] * B2 GP1 IGG,IGM,IGA (08/01/2011 16:30 EDT) Beta 2 GP1 Ab IgG <4.0 <10.0 (Negative) U/mL [facility] Beta 2 GP1 Ab IgM <4.0 <10.0 (Negative) U/mL [facility] Beta 2 GP1 Ab IgA <4.0 <10.0 (Negative) U/mL [facility] Comment: Performed or Referred by: [facility] Dpt of Lab Med and Path, [address] [place] [address], Lab Dir: Landry Leblanc III, MD Blood specimen (specimen) 08/01/2011 16:30 EDT 08/01/2011 16:56 EDT us Hamlet Mercado MD IMMUNOLOGY AND SEROLOGY ORDER SHARAN Final Result Performing Organization Address [facility] de Phone Number [facility] [address] [place] [address] * LUPUS WORK-UP (08/01/2011 16:30 EDT) PTT 27 26 - 37 secs [facility] Comment: Therapeutic Heparin range: ??65-100 seconds Note new reference range and Therapeutic Heparin Range in use effective 06/26/2011 Patient PTT50 Test cancelled, normal APTT 26 - 37 secs [facility] CTRL 50/50 PTT Test cancelled, normal APTT secs [facility] Mix 50/50 PTT Test cancelled, normal APTT secs [facility] Dilute Viper Venom 31.9 29.2 - 41.2 secs [facility] Comment: Results must be interpreted with caution if the patient is on oral anticoagulant, direct thrombin inhibitors or heparin. Blood specimen (specimen) 08/01/2011 16:30 EDT 08/01/2011 16:56 EDT us Hamlet Mercado MD PACKAGES & DNA PROBE ORDERABL ES Final Result Performing Organization Address [facility] Co de Phone Number [facility] [address] [place] [address] documented in this encounter Visit Diagnoses Diagnosis Stillbirth with normal delivery- Primary Unspecified condition originating in the period documented in this encounter Care Teams Bulk Mail Clerk Relationship Specialty Start Date End Date Naomy Valles MD [address] [place] [address] PCP - General 12/26/08 11/19/18 documented as of this encounter
--- OUTSIDE RECORDS SUMMARY | 2024-02-25 15:20 | XMS_ITS | Encounter Summary ---
Author Organization [facility] Address [address] [place] [address] Care Team Providers Care Prosthetics Lab Technician Name Role Phone Naomy Valles MD Primary Care Provider [phone] Reason for Visit * Reason Onset Date Comments Results 10/09/2011 Encounter Details Date Type Department Care Team (Late st Contact Info) Description 10/09/[address] [facility] Reproductive Medicine & Infertility Center - [facility] [address] [place] [address] Gemma Jerry MD [place] [address] [facility] [facility] [place] [address] Results Social History Tobacco Use Types Packs/Day Years Used Date Smoking Tobacco: Never Assessed Comments No Sex and Gender Information Value Date Recorded Sex Assigned at Not on file Legal Sex Female 18:13 EST Gender Identity Female 02/22/2019 12:49 EST Sexual Orientation Not on file documented as of this encounter Miscellaneous Notes * Telephone Encounter - Gemma Jerry MD - 10/09/2011 1214 EDT Called pt to report negative BHCG following transfer of 2 day 2 embryos (4A,4A) Pt reporting symptoms of nausea and breast tenderness and was surprised with the negative result. We discussed symptoms that can be related to progesterone therapy. Pt may wish to repeat BHCG tomorrow or Friday to verify negative result; I told her this would be okay. She would like Sirisha to call her tomorrow to schedule a follow-up visit, after she has had the chance to speak with her . GEMMA JERRY MD documented in this encounter Plan of Treatment Not on file documented as of this encounter Visit Diagnoses Not on filedocumented in this encounter Care Teams Prosthetics Lab Technician Relationship Specialty Start Date End Date Naomy Valles MD [address] [place] [address] PCP - General 12/26/08 11/19/18 documented as of this encounter
--- OUTSIDE RECORDS SUMMARY | 2024-02-25 15:20 | XMS_ITS | Encounter Summary ---
Author Organization [facility] Address [address] [place] [address] Care Team Providers Care Temperer Name Role Phone Naomy Valles MD Primary Care Provider [phone] Encounter Details Date Type Department Care Team (Late st Contact Info) Description 12/12/2010 12:15 EDT - 12/12/2010 23:59 EDT Hospital Encounter [facility] [phone] Damaris Gusman MD [address] [place], [place] [phone] Discharge Disposition: Home or Self Care Social History Tobacco Use Types Packs/Day Years Used Date Smoking Tobacco: Never Assessed Comments Unknown Sex and Gender Information Value Date Recorded Sex Assigned at Not on file Legal Sex Female 18:13 EST Gender Identity Female 02/22/2019 12:49 EST Sexual Orientation Not on file documented as of this encounter Discharge Disposition Disposition Code Departure Means Destination Home or Self Skilled Nursing documented in this encounter Plan of Treatment Not on file documented as of this encounter Visit Diagnoses Not on filedocumented in this encounter Care Teams Temperer Relationship Specialty Start Date End Date Naomy Valles MD [address] [place], [place] [id number] PCP - General 9/14/09 8/8/19 documented as of this encounter
--- OUTSIDE RECORDS SUMMARY | 2024-02-25 15:20 | XMS_ITS | Encounter Summary ---
Author Organization [facility] Address [address] [place] [address] Care Team Providers Care Sales Ledger Clerk Name Role Phone Naomy Valles MD Primary Care Provider Encounter Details Date Type Department Care Team (Late st Contact Info) Description 07/02/2011 Orders Only [facility] Reproductive Medicine & Infertility Center - [facility] [address] [place], [place] [address] Kandy Murdock RN Female infertility of unspecified origin (Primary Dx) Social History Tobacco Use Types [...] documented as of this encounter Results * TSH (07/02/2011 16:30 EDT) TSH 1.48 0.35 - 5.00 uIU/ml [facility] Blood specimen (specimen) 07/02/2011 16:30 EDT 07/02/2011 17:19 EDT us Renee Blackman MD CHEMISTRY & BLOOD GAS O RDERABLES Final Result [facility] [address] [place] [address] * ESTRADIOL, ADULTS (07/02/2011 16:30 EDT) Pathologist [facility] Estradiol 47 pg/ml [facility] Comment: By day in cycle relative to LH peak: Follicular Phase (-12 to -4 days): ??20-144 Midcycle (-3 to +2 days): ? 64-357 Luteal Phase (+4 to +12 days): ??56-214 Postmenopausal: ??0 - 32 Blood specimen (specimen) 07/02/2011 16:30 EDT 07/02/2011 17:19 EDT Renee Blackman MD CHEMISTRY & BLOOD GAS O RDERABLES Final Result Performing Organization Address [facility] de Phone Number [facility] [address] [place] [address] * FSH (07/02/2011 16:30 EDT) Pathologist [facility] FSH 5.8 mIU/ml [facility] Comment: Follicular: 2-11 Mid-Cycle Peak: 3.4-35 Luteal: 1-9 Postmenopausal: 25-120 Blood specimen (specimen) 07/02/2011 16:30 EDT 07/02/2011 17:19 EDT Renee Blackman MD CHEMISTRY & BLOOD GAS O RDERABLES Final Result Performing Organization Address [facility] de Phone Number [facility] [address] [place] [address] * PROFILE IVF NON DONOR (07/02/2011 16:30 EDT) Pathologist [facility] Hepatitis B Surface Ag Negative [facility] Comment:Reference Range: Neg ative Syphilis Serology Interpretation: Nonreactive [facility] Comment:Reference Range: Non reactive Hep B Core Ab Negative [facility] Comment: Reference Range: ??Negative Interpretation depends on clinical setting. Hepatitis C Ab Negative [facility] Comment:Reference Range: Neg ative HIV 1/2 Antibody Negative [facility] Comment: Reference Range: ??Negative Assayed utilizing [employer] chemiluminescent technology. Blood specimen (specimen) 07/02/2011 16:30 EDT 07/02/2011 17:19 EDT us Renee Blackman MD PACKAGES & DNA PROBE OR DERABLES Final Result Performing Organization Address City/State/[facility] Co de Phone Number [facility] [address] [place] [address] documented in this encounter Visit Diagnoses Diagnosis Female infertility of unspecified origin- Primary documented in this encounter Care Teams Sales Ledger Clerk Relationship Specialty Start Date End Date Naomy Valles MD [address] [place] [address] PCP - General 12/26/08 11/19/18 documented as of this encounter
--- OUTSIDE RECORDS SUMMARY | 2024-02-25 15:20 | XMS_ITS | Encounter Summary ---
Author Organization [facility] Address [address] [place] [address] Care Team Providers Care Heat Reader Name Role Phone Naomy Valles MD Primary Care Provider [phone] Reason for Visit * Reason Onset Date Comments Follow-up 10/15/2011 Encounter Details Date Type Department Care Team (Late st Contact Info) Description 10/15/[address] [facility] Reproductive Medicine & Infertility Center - [facility] [address] [place] [address] Jose Smith MD [address] [place], [place] [id number] Follow-up Social History Tobacco Use Types Packs/Day Years Used Date Smoking Tobacco: Never Assessed Comments No Sex and Gender Information Value Date Recorded Sex Assigned at Not on file Legal Sex Female 18:13 EST Gender Identity Female 02/22/2019 12:49 EST Sexual Orientation Not on file documented as of this encounter Miscellaneous Notes * Telephone Encounter - Jose Smith MD - 10/15/2011 0935 EDT Tried to call. Left general message. Will try again. documented in this encounter Plan of Treatment Not on file documented as of this encounter Visit Diagnoses Not on filedocumented in this encounter Care Teams Heat Reader Relationship Specialty Start Date End Date Naomy Valles MD [address] [place] [address] PCP - General 12/26/08 11/19/18 documented as of this encounter
--- OUTSIDE RECORDS SUMMARY | 2024-02-25 15:20 | XMS_ITS | Encounter Summary ---
Author Organization [facility] Address [address] [place] [address] Care Team Providers Care Blocker Metal Base Name Role Phone Naomy Valles MD Primary Care Provider [phone] Reason for Visit * Reason Comments Infertility Encounter Details Date Type Department Care Team (Latest Contact Info) Description 09/20/2011 8:15 EDT Office Visit [facility] Reproductive Medicine & Infertility Center - [facility] [address] [place] [address] Jose Smith MD [address] [place] [address],[address] [place] [address] Female infertility of other specified origin (Primary Dx) Social History Tobacco Use Types Packs/Day Years Used Date Smoking Tobacco: Never Assessed Comments No Sex and Gender Information Value Date Recorded Sex Assigned at Not on file Legal Sex Female 18:13 EST Gender Identity Female 02/22/2019 12:49 EST Sexual Orientation Not on file documented as of this encounter Progress Notes * Gemma Jerry MD - 09/20/2011 0835 EDT Day 8 See USE/Flow GEMMA JERRY MD Attestation statement: I discussed the patient with the resident/fellow at the time of the visit. Iagree with the findings and the plan of care documented in the resident's/fellow's note. documented in this encounter Plan of Treatment Not on file documented as of this encounter Procedures Procedure Name Priority Date/Time Associated Diagnosis Comments PROGESTERONE STAT 09/20/2011 7:56 EDT Female infertility of other specified origin ESTRADIOL, ADULTS STAT 09/20/2011 7:56 EDT Female infertility of other specified origin documented in this encounter Results * PROGESTERONE (09/20/2011 7:56 EDT) Progesterone 0.3 ng/ml [facility] Comment: NON- FEMALES: follicular phase: 0.2-1.4 ng/ml luteal phase: 3.3-25.6 ng/ml mid luteal phase: 4.4-28.0 ng/ml postmenopausal: <0.1-0.7 ng/ml FEMALES: first trimester: 11.2-90.0 ng/ml second trimester: 25.6-89.4 ng/ml third trimester: 48.4-422.5 ng/ml ECTOPIC PREGNANCIES: consult pathologist Blood specimen (specimen) 09/20/2011 7:56 EDT 09/20/2011 8:19 EDT us Damaris Gusman MD CHEMISTRY & BLOOD G ORDERABLES Final Result [facility] [address] [place] [address] * ESTRADIOL, ADULTS (09/20/2011 7:56 EDT) Estradiol 696 pg/ml [facility] Comment: By day in cycle relative to LH peak: Follicular Phase (-12 to -4 days): ??20-144 Midcycle (-3 to +2 days): ? 64-357 Luteal Phase (+4 to +12 days): ??56-214 Postmenopausal: ??0 - 32 Blood specimen (specimen) 09/20/2011 7:56 EDT 09/20/2011 8:19 EDT us Damaris Gusman MD CHEMISTRY & BLOOD G ORDERABLES Final Result [facility] [address] [place] [address] documented in this encounter Visit Diagnoses Diagnosis Female infertility of other specified origin- Primary documented in this encounter Care Teams Blocker Metal Base Relationship Specialty Start Date End Date Naomy Valles MD [address] [place], [place] [address] PCP - General 12/26/08 11/19/18 documented as of this encounter
--- OUTSIDE RECORDS SUMMARY | 2024-02-25 15:20 | XMS_ITS | Encounter Summary ---
Author Organization [facility] Address [address] [place] [address] Care Team Providers Care Horizontal Boring Mill Operator Name Role Phone Naomy Valles MD Primary Care Provider [phone] Encounter Details Date Type Department Care Team (Late st Contact Info) Description 09/11/2011 Results Only Imaging [facility] Reproductive Medicine & Infertility Center - [facility] [address] [place], [place] [address] Damaris Gusman MD [address] [place], [place] [phone] Social History Tobacco Use Types Packs/Day Years [...] Procedure Name Priority Date/Time Associated Diagnosis Comments CLERK MANAGER US EXAM 09/18/2011 8:59 EDT documented in this encounter Results * CLERK MANAGER US EXAM (09/18/2011 8:59 EDT) Anatomical Region Laterality Modality Other 09/18/2011 8:59 EDT 09/18/2011 9:52 EDT Narrative 09/18/2011 9:52 EDT Indication: Infertility: Undergoing gonadotropin stimulation for IVF. Gynecological Ultrasonography: Uterus: normal,anteverted, anteverted. Myometrium: normal. Endometrium: endometrium clearly visualized. Trilaminar. Endometrium thickness total: 5.8 mm. Follicle Screening: Follicles Right Ovary: Follicle 1: Mean Value: 13.3 mm D1: 14.3 mm D2: 10.8 mm D3: 14.9 mm Follicle 2: Mean Value: 8.3 mm D1: 8.0 mm D2: 8.9 mm D3: 8.0 mm Follicle 3: Mean Value: 10.1 mm D1: 10.2 mm D2: 11.0 mm D3: 9.1 mm Follicle 4: Mean Value: 13.4 mm D1: 11.4 mm D2: 15.1 mm D3: 13.8 mm Follicle 5: Mean Value: 8.2 mm D1: 7.8 mm D2: 8.9 mm D3: 7.8 mm Follicles Left Ovary: Follicle 1: Mean Value: 10.4 mm D1: 10.9 mm D2: 9.5 mm D3: 10.7 mm Follicle 2: Mean Value: 10.0 mm D1: 8.8 mm D2: 11.4 mm D3: 9.9 mm Summary of ultrasound findings: Await E2 results and follow up with IVF team. Procedure Note 09/18/2011 Indication: Infertility: Undergoing gonadotropin stimulation for IVF. Gynecological Ultrasonography: Uterus: normal,anteverted, anteverted. Myometrium: normal. Endometrium: endometrium clearly visualized. Trilaminar. Endometrium thickness total: 5.8 mm. Follicle Screening: Follicles Right Ovary: Follicle 1: Mean Value: 13.3 mm D1: 14.3 mm D2: 10.8 mm D3: 14.9 mm Follicle 2: Mean Value: 8.3 mm D1: 8.0 mm D2: 8.9 mm D3: 8.0 mm Follicle 3: Mean Value: 10.1 mm D1: 10.2 mm D2: 11.0 mm D3: 9.1 mm Follicle 4: Mean Value: 13.4 mm D1: 11.4 mm D2: 15.1 mm D3: 13.8 mm Follicle 5: Mean Value: 8.2 mm D1: 7.8 mm D2: 8.9 mm D3: 7.8 mm Follicles Left Ovary: Follicle 1: Mean Value: 10.4 mm D1: 10.9 mm D2: 9.5 mm D3: 10.7 mm Follicle 2: Mean Value: 10.0 mm D1: 8.8 mm D2: 11.4 mm D3: 9.9 mm Summary of ultrasound findings: Await E2 results and follow up with IVF team. us Damaris Gusman MD IMG US CLERK MANAGER ORDERABL ES Final Result documented in this encounter Visit Diagnoses Not on filedocumented in this encounter Care Teams Horizontal Boring Mill Operator Relationship Specialty Start Date End Date Naomy Valles MD [address] [place] [address] PCP - General 12/26/08 11/19/18 documented as of this encounter
--- OUTSIDE RECORDS SUMMARY | 2024-02-25 15:20 | XMS_ITS | Encounter Summary ---
Author Organization [facility] Address [address] [place] [address] Care Team Providers Care Package Clerk Name Role Phone Naomy Valles MD Primary Care Provider [phone] Encounter Details Date Type Department Care Team (Late st Contact Info) Description 02/24/2016 10:11 EST - 02/24/2016 23:59 EST Hospital Encounter [facility] [phone] Kylah Chiang MD [address] [facility], [address] [place] [address] Discharge Disposition: Auto Discharge Social History Tobacco Use Types Packs/Day Years Used Date Smoking Tobacco: Never Assessed Comments No Sex and Gender Information Value Date Recorded Sex Assigned at Not on file Legal Sex Female 18:13 EST Gender Identity Female 02/22/2019 12:49 EST Sexual Orientation Not on file documented as of this encounter Discharge Diagnoses Diagnosis N97.9 Female infertility, unspecified-N97.9[ICD-10-CM] documented in this encounter Medications at Time of Discharge norgestimate-eth inyl estradiol (ORTHO-CYCLEN) 0.25-35 mg-mcg per tablet TAKE ONE MEDICATED PILL EVERYDAY. OMIT PLACEBO PILLS. 2 Each 4 07/29/2011 9 documented as of this encounter Discharge Disposition Disposition Code Departure Means Destination Auto Discharge Home documented in this encounter Plan of Treatment Not on file documented as of this encounter Visit Diagnoses Not on filedocumented in this encounter Care Teams Package Clerk Relationship Specialty Start Date End Date Naomy Valles MD [address] [place] [address] PCP - General 12/26/08 11/19/18 documented as of this encounter
--- OUTSIDE RECORDS SUMMARY | 2024-02-25 15:20 | XMS_ITS | Encounter Summary ---
Author Organization [facility] Address [address] [place] [address] Care Team Providers Care Fence Erector Supervisor Name Role Phone Naomy Valles MD Primary Care Provider [phone] Encounter Details Date Type Department Care Team (Late st Contact Info) Description 09/26/2011 8:47 EDT - 09/26/2011 23:59 EDT Hospital Encounter [facility] Reproductive Medicine & Infertility Center - [facility] [address] [place] [address] Unknown, Provider, Jose Bellamy MD [address] [facility],[address] [place], [place] [address] Renee Blackman MD [address] [place] [address] [place] [phone] Absence of menstruation Discharge Disposition: Home or Self Care Social History Tobacco Use Types Packs/Day Years Used Date Smoking Tobacco: Never Assessed Comments No Sex and Gender Information Value Date Recorded Sex Assigned at Not on file Legal Sex Female 18:13 EST Gender Identity Female 02/22/2019 12:49 EST Sexual Orientation Not on file documented as of this encounter Discharge Instructions * Discharge Instructions* Kandy Murdock RN - 09/26/2011 10:18 EDT Reviewed post transfer instructions, Continue PVS TID, Requisition for Bhcg done documented in this encounter Medications at Time of Discharge norgestimate-eth inyl estradiol (ORTHO-CYCLEN) 0.25-35 mg-mcg per tablet TAKE ONE MEDICATED PILL EVERYDAY. OMIT PLACEBO PILLS. 2 Each 4 07/29/2011 9 documented as of this encounter Discharge Disposition Disposition Code Departure Means Destination Home or Self Assisted documented in this encounter Procedure Notes * Renee Blackman MD - 09/26/2011 1020 EDTProcedure(s): TRANSFER EMBRYO INTRAUTERINE Pre-Procedure Diagnose(s): Infertility management Post-Procedure Diagnose(s): Infertility management Embryo transfer note: 2 embryos, quality 4A, 4A placed at 6.0cm under transabdominal ultrasound guidance. good visualization, 1 catheter passes required. no mucus, no blood, negative uterine cramping. Embryos back to the lab x 0. 0 retained embryos. Transfer performed by: WALDO, Assisted by CEB. GEMMA JERRY MD Attending attestation: I was present during the thakkar and critical portions of the procedure and agree with the resident's/fellow's note. Renee Blackman MD 09/26/2011 11:28 documented in this encounter Plan of Treatment Not on file documented as of this encounter Visit Diagnoses Diagnosis Absence of menstruation documented in this encounter Care Teams Fence Erector Supervisor Relationship Specialty Start Date End Date Naomy Valles MD [address] [place] [address] PCP - General 12/26/08 11/19/18 documented as of this encounter
--- OUTSIDE RECORDS SUMMARY | 2024-02-25 15:20 | XMS_ITS | Encounter Summary ---
Author Organization [facility] Address [address] [place] [address] Care Team Providers Care Senior Sales Operations Analyst Name Role Phone Naomy Valles MD Primary Care Provider [phone] Encounter Details Date Type Department Care Team (Late st Contact Info) Description 08/05/2011 Results Only Imaging [facility] Reproductive Medicine & Infertility Center - [facility] [address] [place], [place] [address] Jose Smith MD [address] [facility],[address] [place], [place] [address] Social History Tobacco Use Types Packs/Day Years [...] Procedure Name Priority Date/Time Associated Diagnosis Comments APPRAISER ART US BASELINE INVITRO 09/11/2011 9:41 EDT documented in this encounter Results * APPRAISER ART US BASELINE INVITRO (09/11/2011 9:41 EDT) Anatomical Region Laterality Modality Other 09/11/2011 9:41 EDT 09/11/2011 9:54 EDT Narrative 09/11/2011 9:54 EDT Indication: Infertility: Baseline ultrasound for IVF. Gynecological Ultrasonography: Uterus: normal,anteverted, anteverted. Myometrium: normal. Endometrium thickness total: 1.7 mm. Follicle Screening: Comment: Clear. Comment: Clear. Summary of ultrasound findings: Clear baseline scan. Await E2 results. Procedure Note 09/11/2011 Indication: Infertility: Baseline ultrasound for IVF. Gynecological Ultrasonography: Uterus: normal,anteverted, anteverted. Myometrium: normal. Endometrium thickness total: 1.7 mm. Follicle Screening: Comment: Clear. Comment: Clear. Summary of ultrasound findings: Clear baseline scan. Await E2 results. us Jose Smith MD IMG US APPRAISER ART ORDERABLES Final Re sult documented in this encounter Visit Diagnoses Not on filedocumented in this encounter Care Teams Senior Sales Operations Analyst Relationship Specialty Start Date End Date Naomy Valles MD [address] [place] [address] PCP - General 12/26/08 11/19/18 documented as of this encounter
--- OUTSIDE RECORDS SUMMARY | 2024-02-25 15:20 | XMS_ITS | Encounter Summary ---
Author Organization [facility] Address [address] [place] [address] Care Team Providers Care Property Valuer Name Role Phone Naomy Valles MD Primary Care Provider [phone] Encounter Details Date Type Department Care Team (Late st Contact Info) Description 09/21/2011 Results Only Imaging [facility] Reproductive Medicine & Infertility Center - [facility] [address] [place], [place] [address] Damaris Gusman MD [address] [place], [place] [phone] Social History Tobacco Use Types Packs/Day Years [...] Procedure Name Priority Date/Time Associated Diagnosis Comments PANTOGRAPH ENGRAVER US EXAM 09/22/2011 9:29 EDT documented in this encounter Results * PANTOGRAPH ENGRAVER US EXAM (09/22/2011 9:29 EDT) Anatomical Region Laterality Modality Other 09/22/2011 9:29 EDT 09/25/2011 9:28 EDT Narrative 09/25/2011 9:28 EDT Indication: Infertility: Undergoing gonadotropin stimulation for IVF. Gynecological Ultrasonography: Uterus: normal,anteverted, anteverted. Myometrium: normal. Endometrium: endometrium clearly visualized. Endometrium thickness total: 10.9 mm. Follicle Screening: Follicles Right Ovary: Follicle 1: Mean Value: 21.9 mm D1: 23.7 mm D2: 17.8 mm D3: 24.1 mm Follicle 2: Mean Value: 17.5 mm D1: 8.8 mm D2: 19.8 mm D3: 23.8 mm Follicle 3: Mean Value: 19.2 mm D1: 18.9 mm D2: 19.6 mm D3: 19.0 mm Follicle 4: Mean Value: 15.1 mm D1: 14.9 mm D2: 15.1 mm D3: 15.2 mm Follicle 5: Mean Value: 15.3 mm D1: 12.5 mm D2: 19.0 mm D3: 14.4 mm Follicle 6: Mean Value: 11.5 mm D1: 11.1 mm D2: 11.7 mm D3: 11.7 mm Follicle 7: Mean Value: 9.4 mm D1: 10.1 mm D2: 9.9 mm D3: 8.2 mm Follicles Left Ovary: Follicle 1: Mean Value: 18.0 mm D1: 17.7 mm D2: 20.4 mm D3: 16.0 mm Follicle 2: Mean Value: 16.4 mm D1: 15.9 mm D2: 15.1 mm D3: 18.1 mm Summary of ultrasound findings: hCG today. Retrieval Friday. Procedure Note 09/25/2011 Indication: Infertility: Undergoing gonadotropin stimulation for IVF. Gynecological Ultrasonography: Uterus: normal,anteverted, anteverted. Myometrium: normal. Endometrium: endometrium clearly visualized. Endometrium thickness total: 10.9 mm. Follicle Screening: Follicles Right Ovary: Follicle 1: Mean Value: 21.9 mm D1: 23.7 mm D2: 17.8 mm D3: 24.1 mm Follicle 2: Mean Value: 17.5 mm D1: 8.8 mm D2: 19.8 mm D3: 23.8 mm Follicle 3: Mean Value: 19.2 mm D1: 18.9 mm D2: 19.6 mm D3: 19.0 mm Follicle 4: Mean Value: 15.1 mm D1: 14.9 mm D2: 15.1 mm D3: 15.2 mm Follicle 5: Mean Value: 15.3 mm D1: 12.5 mm D2: 19.0 mm D3: 14.4 mm Follicle 6: Mean Value: 11.5 mm D1: 11.1 mm D2: 11.7 mm D3: 11.7 mm Follicle 7: Mean Value: 9.4 mm D1: 10.1 mm D2: 9.9 mm D3: 8.2 mm Follicles Left Ovary: Follicle 1: Mean Value: 18.0 mm D1: 17.7 mm D2: 20.4 mm D3: 16.0 mm Follicle 2: Mean Value: 16.4 mm D1: 15.9 mm D2: 15.1 mm D3: 18.1 mm Summary of ultrasound findings: hCG today. Retrieval Friday. us Damaris Gusman MD IMG US PANTOGRAPH ENGRAVER ORDERABL ES Final Result documented in this encounter Visit Diagnoses Not on filedocumented in this encounter Care Teams Property Valuer Relationship Specialty Start Date End Date Naomy Valles MD [address] [place] [address] PCP - General 12/26/08 11/19/18 documented as of this encounter
--- OUTSIDE RECORDS SUMMARY | 2024-02-25 15:20 | XMS_ITS | Encounter Summary ---
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 OMIT PLACEBO PILLS. 2 Each 4 07/29/2011 9 documented in this encounter Plan of Treatment Not on file documented as of this encounter Visit Diagnoses Diagnosis Female infertility of tubal origin- Primary documented in this encounter Care Teams Jewel Inserter Relationship Specialty Start Date End Date Naomy Valles MD [address] [place] [address] PCP - General 12/26/08 11/19/18 documented as of this encounter
--- OUTSIDE RECORDS SUMMARY | 2024-02-25 15:20 | XMS_ITS | Encounter Summary ---
Author Organization [facility] Address [address] [place] [address] Care Team Providers Care Customs Guard Name Role Phone Naomy Valles MD Primary Care Provider [phone] Encounter Details Date Type Department Care Team (Late st Contact Info) Description 08/02/2011 Results Only [facility] Laboratory Services - [facility] [address] [place], [place] [phone] Smith Salmeron MD [address] [place] [address] Social History Tobacco Use Types Packs/Day Years [...] Procedure Name Priority Date/Time Associated Diagnosis Comments PAP TEST- RESULT ONLY Routine 08/02/2011 0:00 EDT documented in this encounter Results * PAP TEST- RESULT ONLY (08/02/2011 0:00 EDT) Pathology Report: CYTOPATHOLOGY REPORT Reports generated via electronic interface contain original data; however they are lacking the format of the original report. Caution should be taken when reading/interpreti ng unformatted reports. Name: ? BALAJI SAM ? Accession #: ? [id number] ? : ? 1975 (Age: 35) ??F ?Collect Date: ? 08/02/2011 ? Location: ? [facility] ? Receive Date: ? 08/06/2011 ? Provider: SMITH SALMERON MD Copy to: ? Final Report SPECIMEN ADEQUACY ? Satisfactory for Evaluation - transformation zone component present GENERAL CATEGORIZATION ? Negative for Intraepithelial Lesion or Malignancy ?? Specimen/Source: ??Pap Test, Cervix/Endocervix, ThinPrep Imaging System with manual evaluation Document reviewed and electronically signed by: ? JESICA Dolan(ASCP) ? Report ??Date: 08/09/2011 10:04 HPV with Pap Test ? Date Ordered: ? 08/09/2011 ? Status: ?? Signed Out ?Date Complete: ? 08/13/2011 ? By: ??System Interface ? Date Reported: ? 08/13/2011 ? Interpretation RESULT: Negative for HPV. No E6 or E7 mRNA is detected from HPV types 16,18,31,33,35, 39,45,51,52,56,58, 59,66, and 68 by latin professor mediated amplification. Comments Document reviewed and electronically signed by: ? System Interface ? Report date: 08/13/2011 By the signature above, the attending physician certifies that he/she has personally conducted a gross and/or microscopic examination of the described specimens and rendered or confirmed the above diagnosis. End of Report [facility] 08/02/2011 08/06/2011 us Smith Salmeron MD PATHOLOGY ORDERABLES Final Res ult Performing Organization Address City/State/[facility] Co de Phone Number [facility] [address] [place] [address] documented in this encounter Visit Diagnoses Not on filedocumented in this encounter Care Teams Customs Guard Relationship Specialty Start Date End Date Naomy Valles MD [address] [place] [address] PCP - General 12/26/08 11/19/18 documented as of this encounter
--- OUTSIDE RECORDS SUMMARY | 2024-02-25 15:20 | XMS_ITS | Encounter Summary ---
Author Organization [facility] Address [address] [place] [address] Care Team Providers Care Project Developer Name Role Phone Naomy Valles MD Primary Care Provider Encounter Details Date Type Department Care Team (Late st Contact Info) Description 07/29/2011 Results Only Imaging [facility] Reproductive Medicine & Infertility Center - [facility] [address] [place], [place] [address] Renee Blackman MD [address] [place] [address] [place] [phone] Social History Tobacco Use Types Packs/Day Years [...] on filedocumented in this encounter Care Teams Project Developer Relationship Specialty Start Date End Date Naomy Valles MD [address] [place], [place] [address] PCP - General 12/26/08 11/19/18 documented as of this encounter
--- OUTSIDE RECORDS SUMMARY | 2024-02-25 15:20 | XMS_ITS | Encounter Summary ---
Author Organization [facility] Address [address] [place] [address] Care Team Providers Care University Extension Specialist Name Role Phone Naomy Valles MD Primary Care Provider [phone] Encounter Details Date Type Department Care Team (Latest Contact Info) Description 09/25/2011 16:17 EDT - 09/25/2011 23:59 EDT Hospital Encounter [facility] [phone] Jose Smith MD [address] [facility] [place], [place] [address] Discharge Disposition: Home or Self Care Social History Tobacco Use Types Packs/Day Years Used Date Smoking Tobacco: Never Assessed Comments No Sex and Gender Information Value Date Recorded Sex Assigned at Not on file Legal Sex Female 18:13 EST Gender Identity Female 02/22/2019 12:49 EST Sexual Orientation Not on file documented as of this encounter Medications at Time of Discharge [...] on filedocumented in this encounter Care Teams University Extension Specialist Relationship Specialty Start Date End Date Naomy Valles MD [address] [place] [address] PCP - General 12/26/08 11/19/18 documented as of this encounter
--- OUTSIDE RECORDS SUMMARY | 2024-02-25 15:20 | XMS_ITS | Encounter Summary ---
Author Organization [facility] Address [address] [place] [address] Care Team Providers Care Supercharge Repair Supervisor Name Role Phone Naomy Valles MD Primary Care Provider [phone] Encounter Details Date Type Department Care Team (Latest Contact Info) Description 01/11/2012 13:27 EDT - 01/11/2012 23:59 EDT Hospital Encounter [facility] [phone] Jose Smith MD [address] [facility],[address] [place], [place] [address] Discharge Disposition: Home or Self Care Social [...] Code Departure Means Destination Home or Self Jail documented in this encounter Plan of Treatment Not on file documented as of this encounter Visit Diagnoses Not on filedocumented in this encounter Care Teams Supercharge Repair Supervisor Relationship Specialty Start Date End Date Naomy Valles MD [address] [place] [address] PCP - General 12/26/08 11/19/18 documented as of this encounter
--- OUTSIDE RECORDS SUMMARY | 2024-02-25 15:20 | XMS_ITS | Encounter Summary ---
Author Organization [facility] Address [address] [place] [address] Care Team Providers Care Data Mining Analyst Name Role Phone Naomy Valles MD Primary Care Provider [phone] Reason for Referral * Consult (Routine/Next Available) - Closed Specialty Diagnoses / Procedures Referred By Contjeni t Referred To Contact Obstetrics & Gynecology Diagnoses Infertility of tubal origin IUFD (intrauterine ) Sparkle Jerry MD [facility] Phone: tel: fax: [facility] [address] [place] [address] Phone: tel: Referral ID Status Reason Start Date Expiration Date V isits Requested Visits Authorized [id number] Closed Specialty Services Required 07/02/2011 1 1 Question Answer Reason for Request: history of term demise, undergoing IVF Reason for Visit * Reason Comments Infertility s/p tubal ligation Encounter Details Date Type Department Care Team (Late st Contact Info) Description 07/02/2011 15:00 EDT Office Visit [facility] [place] [address] [place], [place] [id number] Unknown, Provider, Jose Bellamy MD [address] [facility] [place] [address] Sparkle Jerry MD [place] [address] [place] [address] Infertility of tubal origin; IUFD (intrauterine ) Discharge Disposition: Auto Discharge Social History Tobacco [...] Sign Reading Time Taken Comments Blood Pressure - - Pulse - - Temperature - - Respiratory Rate - - Oxygen Saturation - - Inhaled Oxygen Concentration - - Weight 73.9 kg (163 lb) 07/02/2011 1504 EDT Height 162.6 cm (5' 4) 07/02/2011 1504 EDT Body Mass Index 27.98 07/02/2011 1504 EDT documented in this encounter Discharge Disposition Disposition Code Departure Means Destination Auto Discharge documented in this encounter Progress Notes * Sparkle Jerry MD - 07/02/2011 1512 EDT 07/02/2011 Kesha Romerogabo 1975 35 y.o. 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 Sulfa(Sulfonamide Antibiotics) Rash : G 1-3: Term deliveries x 3 no problems G 4: SAB x 1 G5: New partner, IVF, twin , loss of first twin 3-4 mos, term IUFD 2nd twin with subsequent vaginal delivery and per pt, large clot noted on placenta. History of Infertility Diagnosis: tubal factor s/p BTL 2000, previously delivered 3 term VD withoutcomplications or coagulation difficulty. 2006 IVF see below [facility] [place] Testing :needs Uterine Cavity Assessment: needs Previous IVF-ET/COH/IUI (year cycle parameters, outcome): 2006 resulted in di-di twin , 1st twin lost between final scan here and approx 3.5 mos, 2nd twin IUFD at term. Post-delivery blood work done by Dr Jon in [place], per pt she had 2 markers that showed elevated risk for blood clot. @HISTORY - PAST MEDICAL HISTORY@ No medical problems with pregnancies. No h/o hypercoag. No fam hx of hypercoag. @HISTORY - PAST SURGICAL HISTORY@ LS x 2 Unknown reason; PPTL; Dari 2009 No current outpatient prescriptions on file. @HISTORY - TOBACCO USE@ no History Social History ??? Marital Status: Spouse Name: N/A Number of Children: N/A ??? Years of Education: N/A Occupational History ??? Not on file. Social History Main Topics ??? Smoking status: Not on file ??? Smokeless tobacco: Not on file ??? Alcohol Use: Not on file ??? Drug Use: Not on file ??? Sexually Active: Not on file Other Topics Concern ??? Not on file Social History Narrative ??? No narrative on file YARD CONDUCTOR ROS Complete: negative FEMALE EXAM: Ht 162.6 cm (64) Wt 73.936 kg (163 lb) BMI 27.98 kg/m2 LMP 06/29/2011 MALE PARTNER Age: 36 Past (s): twin preg as above History of Infertility Diagnosis/treatment: IVF, no obvious male factor Semen Analysis/Wash-ups: Component Latest Ref Rng 05/16/2004 Specimen Volume >1.9 ml 2.0 PMN's/HPF <1 /hpf 2.0 (H) Sperm Count >19.9 MIL/ml 68.0 Total Sperm Count >39.9 million 136.0 Normal Forms >3.9 % 12 Abnormal forms % 88 Motility Forward progression (2+,3+,4+) should form 50% or more of total motility . . . 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 Tubal factor infertility following BTL 2. History of term demise, with reported abnormal coag work-up, although no problem with prior 3 term deliveries. PLAN: Informed Consent, discussed: OHSS, Risk of cycle cancellation, Surgical risks of retrieval, Risks of multiple and Cryopreservation. Reviewed success rates in pt age group at max 50%, twin rate 30%. Reviewed day 3 and day 5 embryo transfer. Discussed unknown implication of previous IUFD on subsequent . With no history of hypercoagulation with previous , and without labs (requested) available to me today, the etiology of IUFD and the big picture for Radha remains unclear to me. Will obtain records and also plan MFM consult. Per pt, Dr Jon is planning on Lovenox during , per his discussion with docs (?MFM) at [facility], although pt has not had a formal consult at [facility] or other M. TENTATIVE IVF PLAN: ICSI: declined Assisted Hatching declined Number of embryos to transfer: 1 or 2 Stimulation: Full dose Lupron 4 amps Gonadatropins pending testing: AFC, FSH Notes: Sirisha to call to schedule 1. MFM consult 2. LOPEZ 3. Pre-cert Veronica 4. FSH + labs- today is day 4, will do today. 5. Sono/ AFC 6. RN teaching visit 7. Obtain records from Dr Jon- gricel w/u 8. Pull IVF chart from archives. SPARKLE JERRY MD Attestation statement: I discussed the patient with the resident/fellow at the time of the visit. Iagree with the findings and the plan of care documented in the resident's/fellow's note. * Sirisha Hathaway E - 07/02/2011 4791 EDT Kesha is here to discuss another IVF cycle. She has a tubal ligation. She did have one previous IVFcycle with us in 2005. She became with twins. With one twin with a demise at 4 months and the second twin was a stillbirth at term. She has 2 embryos inf storage from 2005. She is interested in a fresh cycle. 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
--- OUTSIDE RECORDS SUMMARY | 2024-02-25 15:20 | XMS_ITS | Encounter Summary ---
Author Organization [facility] Address [address] [place] [address] Care Team Providers Care Air Defence Officer Name Role Phone Shayy Donohue NP Primary Care Provider [phone] Reason for Referral * Cardiology (Routine/Next Available) - Closed Specialty Diagnoses / Procedures Referred By Contac t Referred To Contact Diagnoses Pulmonary embolism and infarction ([facility]) Procedures ECHOCARDIOGRAM Anitha Dior MD Phone: tel: fax: Referral ID Status Reason Start Date Expiration Date Visits Re quested Visits Authorized [id number] Closed 11/23/2018 1 1 Reason for Visit * Reason Comments New Patient Visit * Consult (Routine) - Closed Specialty Diagnoses / Procedures Referred By Contac t Referred To Contact Hematology and Oncology Diagnoses Pulmonary embolism on right ([facility]) Kirk Seay MD Phone: tel: fax: [facility] Hematology & Oncology - [address] [place] [address] [place] [address] Phone: tel: fax: Referral ID Status Reason Start Date Expiration Date Visits Re quested Visits Authorized [id number] Closed 1 1 Encounter Details Date Type Department Care Team (Late st Contact Info) Description 11/23/2018 12:00 EDT Office Visit [facility] Hematology & Oncology - [address] [phone] Anitha Dior MD [address] [facility], [facility], [address] [place] [phone] Pulmonary embolism and infarction (HCC-CMS) (Primary Dx) [...] Sign Reading Time Taken Comments Blood Pressure 121/84 11/23/2018 1209 EDT Pulse 81 11/23/2018 1209 EDT Temperature 36 ??C (96.8 ??F) 11/23/2018 1209 EDT Respiratory Rate 18 11/23/2018 1209 EDT Oxygen Saturation 96% 11/23/2018 1209 EDT Inhaled Oxygen Concentration - - Weight 95.9 kg (211 lb 8 oz) 11/23/2018 1209 EDT Height 164 cm (5' 4.57) 11/23/2018 1209 EDT Body Mass Index 35.67 11/23/2018 1209 EDT documented in this encounter Functional Status [...] Patient Instructions* Anitha Dior MD, MD - 11/23/2018 12:00 EDT Welcome to the [facility] Thrombosis and Hemostasis Program Clinic! ? We are dedicated to providing the highest quality care ? We are committed to being a partner with you in your health care decisions ? We will do our best to teach you about your condition so that you can help us take the best care of you ? You can find more information about our programs and research, and links to educational materialson our website: [email or web address] If you have concerns or questions please write us at the clinic or email us (link is on the website). Our phone number is [phone] When you get our apixaban (Eliquis): Stop lovenox Start apixaban 12 hours later Our Website [email or web address] You can find information about thrombosis and bleeding problems, links to other educational websites and to your doctor's research programs on our website. You can also make a donation to our programthrough the website. For information on national patient initiatives [place] Heart Association: Heart.org/VTE National Blood Clot Weare: StopTheClot.org/ World Thrombosis Day: WorldThrombosisDay.org I encourage you to use Facebook or [employer] for educational information and news from: @WorldThrombosisDay @American_Heart documented in this encounter Progress Notes * Anitha Dior MD, MD - 11/23/2018 1200 EDT Images from the original note were not included. Thrombosis & Hemostasis Program (THP) Consult H&P Date of Service: 11/23/2018 PCP: Shayy Hopper MD: Kirk Seay No chief complaint on file. HPI: This pt is a 43 yo woman who was admitted to [facility] in November with PE after presenteing with right-sided pleuritic chest pain radiating to the neck and back. She was sitting in a class and felt weird, then while on the way home developed the pain and arm soreness. She had had pizza so thought it was i ndigestion. A few hours later she called her mom who advised her to go to the ED. She drove herself. She was extremely SOB. She denies any leg sx at all. CTA was done of chest to rule out aortic dissection and it showed RLL segmental PE and atelecatsis. She had taken oral contraceptive within a fewweeks, and had recently had an IUD placed. She was kept overnight and treated with enoxaparin in hospital and discharged on it as they knew she was coming here today. She had Mohs surgery of the nose also prior to this. Denies trauma, long travel. She had an IUD forsudden onset heavy menstrual bleeding and cramps. Had tried different OCPs. She had the IUD for 4 years but bleeding recurred with sudden onset heavy menstrual bleeding and cramps, so pill was started on top of this for a few weeks while insurance company was asked about replacing the IUD and when they approved replacement of the IUD. She thinks the OCP would not have been given if it had been easier to get the IUD approved. She doesn't remember which pill it was. The menses lasted 14 days and stopped around November 05.Usually with the Mirena she gets small periods. Since starting lovenox she has had a small amount of vaginal bleeding. She didn't have a uterine biopsy. She has had low appetite since the hospital stay. She wonders if she might be getting hot flashes occasionally with night sweats too. This has been going on since the spring. She didn't have hormone lab tests. Her 17 yo is on OCP and she wants to know if this should be stopped. Her 19 yo has an IUD to control dysmenorrhea She is taking lovenox 7:15 am and 7:15 pm. She did not have an echocardiogram ROS: (Intake form with complete ROS reviewed and scanned into PRISM) 10 point review of symptoms was otherwise negative with details below. Pertinent positives: per form Pertinent negatives: per form Past Medical History: Patient has a past medical history of Basal cell carcinoma of nose (07/2018), Depression (11/23/2018), GERD (gastroesophageal reflux disease) (11/23/2018), History of IUFD (11/23/2018), and Infertility.She also has no past medical history of Diabetes mellitus ([facility]), growth restriction, Placenta previa, Placental abruption, or Varicosities. Past Surgical History: Patient has a past surgical history that includes Cholecystectomy (2010). Family History: Patient's Family History Problem Relation Age of Onset ??? High Blood Pressure Mother ??? Clotting Disorder Mother PE with early breast cancer and CTEPH with yrs of sx dx - s/p thromboendarterectomy -2016 at [facility]. On lifelong anticoagulation. hasn't seen lead worker of housekeeping and laundry ??? Cancer Mother breast cancer s/p lumpectomy and radiation ??? High Cholesterol Mother ??? High Blood Pressure Father ??? High Cholesterol Father ??? Heart Attack Father 64 minor - plavix resistance led to large [place]. on eliquis now. [facility] ??? Clotting Disorder Father factor V Leiden with no history of thrombosis ??? Clotting Disorder Sister DVT and possible PE at age 17 while on OCP and factor V Leiden dx [facility]. s/p stent placement for apparent May-Thurner on shelter warfarin ??? No Known Brother ??? Stroke Maternal Grandmother 45 ??? No Known Sister Social History: Patient Social History Social History Narrative -she has 3 children and 1 lives at home. Oldest is a son, 22 and lives in [place]. Others are 19 and 12 (girls). 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 Medications: Current Outpatient Medications: acetaminophen 325 mg capsule enoxaparin (LOVENOX) 100 mg/mL syringe pantoprazole (PROTONIX) 40 mg tablet sertraline (ZOLOFT) 50 mg tablet No current facility-administered medications for this visit. Allergies: Patient is allergic to robinul [glycopyrrolate] and sulfa (sulfonamide antibiotics). Physical Exam: Vitals: 11/23/18 1209 BP: 121/84 Pulse: 81 Resp: 18 Temp: 36 ??C (96.8 ??F) TempSrc: Tympanic SpO2: 96% Weight: 95.9 kg (211 lb 8 oz) Height: 164 cm (64.57) Estimated body mass index is 27.6 kg/m?? as calculated from the following: Height as of 08/01/11: 162.6 cm (64). Weight as of 08/01/11: 72.9 kg (160 lb 12.8 oz). Gen: Well developed, well nourished woman; No acute distress, alert and oriented times three; conversing appropriately Head/Eyes/Neck/Throat: Atraumatic; Extra ocular movements intact, Pupils equally round and reactiveto light, no scleral icterus; Oropharynx benign; Neck supple with full range of motion, trachea midline, no thyromegaly Lymph: No lymphadenopathy of cervical, clavicular, axillary region Pulm: Clear to auscultation, No wheeze, good air movement throughout CV: Regular rate and rhythm, no murmurs, no carotid bruits Abd: Soft, non-tender, non-distended, no organomegaly, positive active bowel sounds, No rebound/guarding : Deferred MSK: Equal strength throughout, patient witnessed ambulating well in hallway Neuro: No focal deficits, Moving all extremities Skin: No rashes Legs: Right: No edema, cords, hemosiderin deposits, varicose veins, erythema or tenderness. Good distal pulses. Left: No edema, cords, hemosiderin deposits, varicose veins, erythema or tenderness. Good distal pulses. Labs: Complete Blood Count From 11/19/18 - WBC 9.7, hgb 12.8, plt 307K, BUN 13, creat 0.98 Chemistries No results found for: NA, K, CL, CO2, BUN, CREATININE, CALCGFR, CAION, CALCIUM, CALCCA, MG, PHOS, FLUOR, LDH, ALKPHOS, AST, ALT, GGT, CONJBILI, UNCONJBILI, DELTABILI, BILIRUBIN, BILITOT, TBIL, TP, ALB, LABALBU, AGRATIO, GLOB, LIPASE, AMYLASE Cardiovascular No results found for: SCRP No results found for: CHOL, LDLBASE, CHOLHDL, HDL, HDLC, LPA, LIPOA, TRIG No results found for: BNP, CRPS, HOMOCYS, HOMOCYSTEINE, TROPONINI, POCTROP Thrombosis Panel Lab Results Component Value Date PTT 27 08/01/2011 PATT50 Test cancelled, normal APTT 08/01/2011 CARDIOLIGGC 2.98 08/01/2011 CARDIOLIGMC 5.38 08/01/2011 DRVVT 31.9 08/01/2011 autopsy 2006 Imaging: CTA chest as above. 11-20-18: bilateral leg u/s negative for DVT. Calf veins not examined. Assessment: This 43 yo woman with a known apparent inherited thrombophilia and a FH of thrombosis affecting hermother and father, who has had PE after brief exposure to oral contraceptive. She has no other riskfactors for thrombosis and we have to conclude that the OC played a role in this. The highest risk time for OCP is in the first year of treatment and changes in coagulation factors occur very quicklywithin days of starting the pill. I don't know which type of pill she was on, but some pills, like those containing 3rd or 4th generation progestin, have higher risk of VTE than other pills. The riskof OC rises with age as well. The prothrombin mutation, if she really has this, is present in a fewpercent of hte healthy population and doubles VTE risk, as does the FH of VTE. So at the least, herrisk of OC would have been about 7-10-fold above normal while taking OC. It is possible that she has a second coagulation disorder given that her father is an asymptomatic factor V Leiden heterozygote and her mother had thrombosis and was never tested for thrombophilia. This could explain the rapidresponse to OC and resulting VTE in Kesha. At this time, the most important issue is to provide good anticoagulation and to be sure she doesn't experience undue vaginal bleeding with anticoagulation,as she already has heavy menses and her IUD was just recently placed so may not be working yet. Once we stabilize her on an oral anticoagulant, if in fact she has trouble with bleeding, the OCP (a second generation) would be given if it was really needed. She is improved from the point of view of her PE symptoms, but it is important to determine if she has right heart strain. Her mother had CTEPH and it is though some element of that could be genetic (ie from fibrinogen variants that scar). I do wonder if she is perimenopausal based on some of her symptoms and it would be nice if her central sterile technician could comment on this. It is possible that her thrombophilia contributed to her IUFD but I did review those records carefully and there was not a clear vascular cause, although this can be difficult for me to attribute. The pt was under the impression that placental thrombosis caused the IUFD of twin B below, but the pathology report was not overly convincing on this and our team here did not mention it. Patient Active Problem List Diagnosis Date Noted ??? Hypercoagulable state ([facility]) 11/23/2018 -Unprovoked isolated PE age 43 associated with [...] known if tested for thrombophilia (never saw lead worker of housekeeping and laundry so perhaps no). -Father with factor V Leiden and no thrombosis but has CAD. -17 yo daughter on OCP. 19 yo daughter with IUD -Pt negative for factor V Leiden and antiphospholipid syndrome, but pos for prothrombin mutation and 'normal protein C and S,' tested after IUFD. ??? History of IUFD 11/23/2018 -IUFD of di-di twin A end of trimester 1, then twin B 1 week before term with autopsy showing no apparent reason ( hypoxia), though placenta small with one peripheral infarct ??? Depression 11/23/2018 ??? GERD (gastroesophageal reflux disease) 11/23/2018 ??? 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 She will start this 12 hours after her last lovenox injection. She can finish her lovenox out that she has if she wants to. -request records to document that she actually has the prothrombin mutation and that she had testing for protein C, S etc. These [facility] be at [facility] from 2006. We will need to determine how long post this was to assure the results weren't affected by that. Ultimately we may need to repeat some testing later when it is safe to interrupt her anticoagulation. -echocardiogram to rule out right heart strain. -CBC, LFTs -I gave the patient good web educational resources including our website and that of the [place] Heart Association (heart.org/VTE), StopTheClot.org, and WorldThrombosisDay.org. I also suggested thatthey follow @WorldThrombosisDay and @American_Heart on Twitter or Facebook for reliable information. -return in about a month with Juliann or Ace for close evaluation. Should probably check CBC at that time. We will also need to talk about her daughter, who is on OCP, and what her risk profile is for VTE. If she has obesity, she should perhaps get tested for prothrombin mutation if we confirm Kesha has this. Otherwise, at the least we should be sure she is on a 2nd generation pill not 3rd generation. Consideration of IUD for her might be appropriate too. Important to remember that for a 17 yo, even if there is inherited thrombophilia, OCP is not necessarily condraindicated (but IUD is a better contraceptive). Thank you for this interesting consultation. Please contact my office with questions at . Anitha Dior MD, MSc sheet metal duct installer helper Director, Thrombosis and Hemostasis Program cc: Shayy Jon [facility] Labs: She is microcytic suggesting she might be a little iron deficient. Not surprising with heavy mensesThis should be watched over time and she should be given iron if she develops anemia or this worsens. Ref. Range 11/23/2018 13:39 Bilirubin, Total Latest Ref Range: <1.4 mg/dl <0.5 Conjugated Bilirubin Latest Ref Range: 0.0 - 0.3 mg/dl 0.0 Unconjugated Bilirubin Latest Ref Range: 0.0 - 1.1 mg/dl 0.2 ALT Latest Ref Range: <53 U/L 50 AST Latest Ref Range: 15 - 46 U/L 44 Total Alkaline Phosphatase Latest Ref Range: 38 - 126 U/L 107 WBC Latest Ref Range: 4.0 - 12.4 K/cmm 8.08 RBC Latest Ref Range: 3.86 - 5.04 M/cmm 4.89 Hemoglobin Latest Ref Range: 11.6 - 15.2 gm/dl 12.7 HCT Latest Ref Range: 34.9 - 44.4 % 38.9 MCV Latest Ref Range: 81 - 98 fl 80 (L) MCH Latest Ref Range: 26.7 - 33.3 pg 26.0 (L) Hypochromia Unknown 1+ MCHC Latest Ref Range: 32.1 - 35.9 gm/dl 32.6 RDW-CV Latest Ref Range: <14.7 % 14.0 RDW-SD Latest Ref Range: <50.4 fl 40.5 PLT Latest Ref Range: 141 - 377 K/cmm 347 MPV Latest Ref Range: 9.5 - 12.7 fl 9.7 Neutrophils Latest Units: % 72.6 Lymphocytes Latest Units: % 17.6 Monocytes Latest Units: % 7.4 Eosinophils Latest Units: % 1.6 Basophils Latest Units: % 0.2 Immature Grans Latest Units: % 0.6 ABS Neutrophils Latest Ref Range: 2.20 - 8.85 K/cmm 5.86 ABS Lymphs Latest Ref Range: 1.09 - 3.30 K/cmm 1.42 ABS Monocytes Latest Ref Range: 0.1 - 0.8 K/cmm 0.60 ABS Eosinophils Latest Ref Range: 0.03 - 0.61 K/cmm 0.13 ABS Basophils Latest Ref Range: 0.01 - 0.11 K/cmm 0.02 ABS Immature Grans Latest Ref Range: 0 - 0.06 K/cmm 0.05 documented in this encounter Plan of Treatment Not on file documented as of this encounter Procedures Procedure Name Priority Date/Time Associated Diagnosis Comments ECHOCARDIOGRAM Routine 12/10/2018 14:59 EDT Pulmonary embolism and infarction (HCC-CMS) documented in this encounter Results * ECHOCARDIOGRAM (12/10/2018 14:59 EDT) Anatomical Region Laterality Modality Other 12/10/2018 14:5 9 EDT Narrative 12/10/2018 16:24 EDT *Interpreting Group:* *[facility]* [address] [place] [address] Date of study: 12/10/2018 Transthoracic Echocardiography M-mode, complete 2D, 3D, complete spectral Doppler, and color Doppler *STUDY CONCLUSIONS* Summary: 1. Left ventricle: The cavity size was normal. Wall thickness was ?? normal. Systolic function was normal. The estimated ejection fraction ?? was 60-65%. Wall motion was normal; there were no regional wall ?? motion abnormalities. Diastolic parameters were normal. 2. Right ventricle: The cavity size was mildly dilated. Wall thickness ?? was normal. Systolic function was normal. 3. Tricuspid valve: There was mild-moderate regurgitation. 4. Inferior vena cava: The vessel was normal in size. The respirophasic ?? diameter changes were in the normal range (greater than or equal to ?? 50%), consistent with normal central venous pressure. *PATIENT PRESENTATION* Height: ? 165.1cm (65in ) S/D Pressure: 106 / 67 Weight: ? 96.2kg (211.6lb ) BSA: ?2.14m^2 Test start time: ??02:22 PM. Test stop time: ??02:53 PM. ADMITTING ?Anitha Dior ATTENDING ?Anitha Dior ORDERING ? Anitha Dior PERFORMING ?? Uvc, Op REFERRING ?Shayy Donohue DIRECTOR TELEMETRY ??Nancy Patel RDCS *PROCEDURE DATA* Procedure information: ??The patient was identified by two identifiers. This study was interpreted by [facility]. Pertinent images and digital data are archived for permanent storage and are available for subsequent review. ??Study status: Routine. Transthoracic echocardiography. ??M-mode, complete 2D, 3D, complete spectral Doppler, and color Doppler. A Transthoracic Echocardiogram was performed. Scanning was performed from the parasternal, apical, subcostal, and suprasternal notch acoustic windows. Images were obtained using an [employer] 15 cardiac ultrasound machine. Image quality was adequate. ??Study completion: ??The patient tolerated the procedure well. There were no complications. *INDICATIONS AND HISTORY* Indications: ?? Other pulmonary embolism without acute cor pulmonale (I26.99). *CARDIAC ANATOMY* Left ventricle: ??The cavity size was normal. Wall thickness was normal. Systolic function was normal. The estimated ejection fraction was 60-65%. Wall motion was normal; there were no regional wall motion abnormalities. Diastolic parameters were normal. Aortic valve: ?? Trileaflet; normal thickness leaflets. Mobility was not restricted. ??Doppler: ??Transvalvular velocity was within the normal range. There was no stenosis. There was no significant regurgitation. Aorta: ??Aortic root: The aortic root was normal in size. Mitral valve: ?? Structurally normal valve. ?? Mobility was not restricted. ??Doppler: ??Transvalvular velocity was within the normal range. There was no evidence for stenosis. There was no significant regurgitation. Left atrium: ??The atrium was normal in size. Right ventricle: ??The cavity size was mildly dilated. Wall thickness was normal. Systolic function was normal. Pulmonic valve: ?Doppler: ??Transvalvular velocity was within the normal range. There was no evidence for stenosis. There was trivial regurgitation. Tricuspid valve: ?? Doppler: ??Transvalvular velocity was within the normal range. There was no evidence for stenosis. There was mild-moderate regurgitation. Pulmonary artery: ?? Pulmonary systolic pressure was within the normal range, in the range of 25mm Hg to 30mm Hg. Right atrium: ??The atrium was normal in size. Pericardium: ??There was no pericardial effusion. Systemic veins: Inferior vena cava: The vessel was normal in size. The respirophasic diameter changes were in the normal range (greater than or equal to 50%), consistent with normal central venous pressure. Measurements Left ventricle ? Value ?Reference LV ID, ED, PLAX ?4.5 ?? cm ? 3.5 - 6.0 LV ID, ES, PLAX ?3.2 ?? cm ? 2.1 - 4.0 LV PW thickness, ED, PLAX ?1.1 ?? cm ? --------- LV end-diastolic volume, 1-p A2C ? 76 ?ml ? --------- LV ejection fraction, 1-p A2C ?63 ?% ?--------- LV end-diastolic volume, 1-p A4C ? 76 ?ml ? --------- LV ejection fraction, 1-p A4C ?65 ?% ?--------- LV IVRT, DP ?85 ?ms ? 60 - 100 LV e', lateral ? 0.104 m/sec ??--------- LV E/e', lateral ? 7 ?--------- LV e', medial ?0.089 m/sec ??--------- LV E/e', medial ?8 ?--------- LV e', average ? 0.097 m/sec ??--------- LV E/e', average ? 7 ?--------- Ventricular septum ? Value ?Reference IVS thickness, ED, PLAX ?1.0 ?? cm ? --------- LVOT ? Value ?Reference LVOT ID, S ? 2.1 ?? cm ? --------- LVOT area ?3.5 ?? cm^2 ?? --------- LVOT peak velocity, S ?0.89 ??m/sec ??--------- LVOT mean velocity, S ?0.6 ?? m/sec ??--------- LVOT VTI, S ?20.7 ??cm ? --------- LVOT mean gradient, S ?2 ? mm Hg ??--------- Stroke volume (SV), LVOT DP ?72 ?ml ? --------- Stroke index (SV/bsa), LVOT DP ? 34 ?ml/m^2 --------- Aorta ?Value ?Reference Aortic root ID ? 3.0 ?? cm ? --------- Ascending aorta ID, A-P ?3.1 ?? cm ? --------- Ascending aorta ID, A-P, S ? 3.1 ?? cm ? --------- Left atrium ?Value ?Reference LA ID, A-P, ES ? 2.9 ?? cm ? --------- LA ID/bsa, A-P ? 1.4 ?? cm/m^2 <=2.2 LA volume, ES, 2-p ? 43 ?ml ? --------- LA volume/bsa, ES, 2-p ? 20 ?ml/m^2 --------- LA/aortic root ratio ? 0.97 ? --------- Mitral valve ? Value ?Reference Mitral E-wave peak velocity ?0.69 ??m/sec ??--------- Mitral A-wave peak velocity ?0.58 ??m/sec ??--------- Mitral deceleration time ? 183 ?? ms ? 150 - 230 Mitral E/A ratio, peak ? 1.2 ?--------- Legend: (L) ??and ??(H) ??shelbie values outside specified reference range. I have personally reviewed the images and have reviewed and edited the reported findings. Electronically signed by Narayan Cole MD 12/10/2018 16:24 Procedure Note Narayan Cole MD, MD - 12/10/2018 *Interpreting Group:* *[facility]* [address] [place] [address] Date of study: 12/10/2018 Transthoracic Echocardiography M-mode, [...] Anitha PERFORMING [facility], Op REFERRING Shayy Donohue DIRECTOR TELEMETRY Nancy Patel, [facility] *PROCEDURE DATA* Procedure information: The patient was identified by two identifiers. This study was interpreted by [facility]. Pertinent images and [...] signed by Narayan Cole MD 12/10/2018 16:24 us Anitha Dior MD CARDIAC ECHO ORDERABLES Final Re sult * HEPATIC FUNCTION PANEL (ALB,ALK PHOS,ALT,AST,DBIL,TOT HENRY,TOT PROT) (11/23/2018 13:39 EDT) Albumin 4.4 3.4 - 4.9 g/dl 11/23/2018 14:41 [facility] Total Protein 7.5 6.3 - 8.2 g/dl 11/23/2018 14:41 [facility] Total Alkaline Phosphatase 107 38 - 126 U/L 11/23/2018 14:41 [facility] ALT 50 <53 U/L 11/23/2018 14:41 [facility] AST 44 15 - 46 U/L 11/23/2018 14:41 [facility] [facility] Unconjugated Bilirubin 0.2 0.0 - 1.1 mg/dl 11/23/2018 14:41 [facility] Conjugated Bilirubin 0.0 0.0 - 0.3 mg/dl 11/23/2018 14:41 [facility] Bilirubin, Total <0.5 <1.4 mg/dl 11/24/19 19 14:41 [facility] Blood specimen (specimen) BLOOD SPECIMEN / Unknown 11/23/2018 13:39 EDT 11/23/2018 14:05 EDT Anitha Dior MD CHEMISTRY & BLOOD GAS ORDERABLES Final Result [facility] [address] [place] [address] * (ABNORMAL) COMPLETE BLOOD COUNT AND DIFFERENTIAL (11/23/2018 13:39 EDT) WBC 8.08 4.0 - 12.4 K/cmm 11/23/2018 14:21 [facility] RBC 4.89 3.86 - 5.04 M/cmm 11/23/2018 14:21 [facility] Hemoglobin 12.7 11.6 - 15.2 gm/dl 11/23/2018 14:21 [facility] HCT 38.9 34.9 - 44.4 % 11/23/2018 14:21 [facility] MCV 80(L) 81 - 98 fl 11/23/2018 14:21 [facility] MCH 26.0(L) 26.7 - 33.3 pg 11/23/2018 14:21 [facility] Hypochromia 1+ 11/23/2018 14:21 [facility] MCHC 32.6 32.1 - 35.9 gm/dl 11/23/2018 14:21 [facility] RDW-CV 14.0 <14.7 % 11/23/2018 14:21 [facility] RDW-SD 40.5 <50.4 fl 11/23/2018 14:21 [facility] PLT 347 141 - 377 K/cmm 11/23/2018 14:21 [facility] MPV 9.7 9.5 - 12.7 fl 11/23/2018 14:21 [facility] % Neutrophils 72.6 % 11/23/2018 14:21 [facility] % Lymphocytes 17.6 % 11/23/2018 14:21 [facility] % Monocytes 7.4 % 11/23/2018 14:21 [facility] % Eosinophils 1.6 % 11/23/2018 14:21 [facility] % Basophils 0.2 % 11/23/2018 14:21 [facility] % Immature Grans 0.6 % 11/23/2018 14:21 [facility] ABS Neutrophils 5.86 2.20 - 8.85 K/cmm 11/23/2018 14:21 [facility] ABS Lymphs 1.42 1.09 - 3.30 K/cmm 11/23/2018 14:21 [facility] ABS Monocytes 0.60 0.1 - 0.8 K/cmm 11/23/2018 14:21 [facility] ABS Eosinophils 0.13 0.03 - 0.61 K/cmm 11/23/2018 14:21 [facility] ABS Basophils 0.02 0.01 - 0.11 K/cmm 11/23/2018 14:21 [facility] ABS Immature Grans 0.05 0 - 0.06 K/cmm 11/23/2018 14:21 [facility] Type of Diff: Automated 11/23/2018 14:21 [facility] Blood specimen (specimen) BLOOD SPECIMEN / Unknown 11/23/2018 13:39 EDT 11/23/2018 14:05 EDT us Anitha Dior MD PACKAGES & DNA PROBE ORDERABLES Final Result [facility] [address] [place] [address] documented in this encounter Visit Diagnoses Diagnosis Pulmonary embolism and infarction (HCC-CMS)- Primary Other pulmonary embolism and infarction documented in this encounter Discontinued Medications Medication Sig Discontinue Reason Start Date End Da te norgestimate-ethinyl estradiol (ORTHO-CYCLEN) 0.25-35 mg-mcg per tablet TAKE ONE MEDICATED PILL EVERYDAY. OMIT PLACEBO PILLS. Therapy completed 07/29/2011 11/23/2018 documented as of this encounter Historical Medications * This list may reflect changes made after this encounter. pantoprazole (PROTONIX) 40 mg tablet Take 40 mg by mouth daily. sertraline (ZOLOFT) 50 mg tabletIndications :Patient is taking 150 mg per day Take 150 mg by mouth daily. acetaminophen 325 mg capsule Take by mouth as needed. enoxaparin (LOVENOX) 100 mg/mL syringe Inject 100 mg into the skin every 12 hours. 02/22/2019 added in this encounter Care Teams Air Defence Officer Relationship Specialty Start Date End Date Shayy Donohue NP [address] [place] [id number] PCP - General 11/20/18 documented as of this encounter
--- OUTSIDE RECORDS SUMMARY | 2024-02-25 15:20 | XMS_ITS | Encounter Summary ---
Author Organization [facility] Address [address] [place] [address] Care Team Providers Care Accounting Technician Name Role Phone Naomy Valles MD Primary Care Provider [phone] Encounter Details Date Type Department Care Team (Latest Contact Info) Description 09/24/2011 9:50 EDT - 09/24/2011 23:59 EDT Hospital Encounter [facility] - [facility] [address] [place], [place] [address] Jose Smith MD [address] [facility] [place], [place] [address] Discharge Disposition: Auto Discharge Social History Tobacco [...] Sign Reading Time Taken Comments Blood Pressure 95/54 09/24/2011 1245 EDT Pulse - - Temperature 36 ??C (96.8 ??F) 09/24/2011 1245 EDT Respiratory Rate - - Oxygen Saturation 100% 09/24/2011 1245 EDT Inhaled Oxygen Concentration - - Weight - - Height - - Body Mass Index - - documented in this encounter Discharge Instructions * Discharge Instructions* Kandy Murdock RN - 09/24/2011 13:10 EDT Reviewed post op instructions and copy given to pt. Reviewed pain med instructions. Discharged ambulatory to home accompanied by adult Activity: Gradually increase activity after today Pelvic rest for 2 wk, no alcohol or driving today Weight today and daily, notify office if greater than 4-5 lbs overnight Pain: Instructed on Rx pain med use, Instructed to avoid All Nsaids Call if increasing or intermittent pelvic pain Diet:As tolerated, Force fluids next several days Other:Call if vaginal bleeding starts, expect spotting today only Call for temp over 100 deg after today Call with Sx frequency or burning with micturation Call with persistent nausea and vomiting Call if unable to empty bladder completely Start progesterone vaginal supp today and TID Call [phone] after hours for on-call physician documented in this encounter Medications at Time of Discharge norgestimate-eth inyl estradiol (ORTHO-CYCLEN) 0.25-35 mg-mcg per tablet TAKE ONE MEDICATED PILL EVERYDAY. OMIT PLACEBO PILLS. 2 Each 4 07/29/2011 9 documented as of this encounter Discharge Disposition Disposition Code Departure Means Destination Auto Discharge Home documented in this encounter Procedure Notes * Gemma Jerry MD - 09/24/2011 1028 EDTProcedure(s): FOLLICLE PUNCTURE, RETRIEVAL OF OOCYTE Pre-Procedure Diagnose(s): Infertility management Post-Procedure Diagnose(s): Infertility management IVF OOCYTE RETRIEVAL Preop Dx: Infertility and S/P controlled ovarian hyperstimulation for IVF Postop Dx: Infertility and S/P controlled ovarian hyperstimulation for IVF Procedure: US guided Oocyte retrieval with Single Lumen catheter Anesthesia: Conscious Sedation Attending: Jose Smith Assist: WALDO Findings: Oocytes retrieved: 2 on Right, 1 on Left Endometrium: trilaminar Free Fluid: none Ultrasound Visualization Transvaginal: good EBL: < 50 cc UOP: Approximately < 50cc clear yellow urine at beginning of procedure Condition: stable Dispo: IVF Recovery Room Complications: None GEMMA JERRY MD documented in this encounter OR Notes * Anesthesia Procedure Notes - CAR WASH SUPERVISOR, SCAN 2 - 09/24/2011 1214 EDT * Anesthesia Preprocedure Evaluation - CAR WASH SUPERVISOR, SCAN 2 - 09/24/2011 1148 EDT documented in this encounter Miscellaneous Notes * Scanned Note-Null - CAR WASH SUPERVISOR, SCAN 2 - 11/04/2011 1125 EDT * Anesthesia Post-Eval - Johan Orr - 09/24/2011 1210 EDT Post Anesthesia Evaluation Note Date of Service: 09/24/2011 Kesha Crafword, a 35 y.o. year old female has received MAC today. She has been evaluated, assessed and discharged from anesthesia care with stable cardiorespiratory function and alert mental status. The last set of recorded vital signs and pain rating were reviewed: , Kesha Crawford participated in this evaluation unless otherwise noted. Her pain, nausea and vomiting have been managed and her body temperature and fluid balance have been restored. Additional monitoring and assessment needs have been addressed. If present, any postoperative events are documented below. JOHAN ORR MD 09/24/2011 12:11 documented in this encounter Plan of Treatment Not on file documented as of this encounter Visit Diagnoses Not on filedocumented in this encounter Administered Medications Inactive Administered Medications - up to 3 most recent administrations Medication Order MAR Action Action Date Dose Rate Site ceFAZolin (ANCEF) injection 2,000 mg 2,000 mg, intravenous, PRE-OP ONCE, 1 dose, On 09/24/11 at 1030, Routine, Pre Op Day of Surgery Given 09/24/2011 10:50 EDT 2,000 mg Left Ar m documented in this encounter Orders Medications Ordered That Jean ht Not Have Been Administered Count Last Ordered Date First Ordered Date lactated ringers (LR) infusion 1 09/24/2011 documented in this encounter Care Teams Accounting Technician Relationship Specialty Start Date End Date Naomy Valles MD [address] [place] [address] PCP - General 12/26/08 11/19/18 documented as of this encounter
--- OUTSIDE RECORDS SUMMARY | 2024-02-25 15:20 | XMS_ITS | Encounter Summary ---
Author Organization [facility] Address [address] [place] [address] Care Team Providers Care Airport Attendant Name Role Phone Naomy Valles MD Primary Care Provider [phone] Reason for Visit * Reason Comments Infertility Encounter Details Date Type Department Care Team (Late st Contact Info) Description 09/18/2011 8:15 EDT Office Visit [facility] Reproductive Medicine & Infertility Center - [facility] [address] [place] [address] Damaris Gusman MD [address] [place] [phone] Female infertility of other specified origin (Primary [...] Progress Notes * Gemma Jerry MD - 09/18/2011 0933 EDT Day 6- See USE/Flow GEMMA JERRY MD Attestation statement: Supervising Physician documented in this encounter Plan of Treatment Not on file documented as of this encounter Procedures Procedure Name Priority Date/Time Associated Diagnosis Comments ESTRADIOL, ADULTS STAT 09/18/2011 7:49 EDT Female infertility of other specified origin documented in this encounter Results * ESTRADIOL, ADULTS (09/18/2011 7:49 EDT) Estradiol 257 pg/ml [facility] Comment: By day in cycle relative to LH peak: Follicular Phase (-12 to -4 days): ??20-144 Midcycle (-3 to +2 days): ? 64-357 Luteal Phase (+4 to +12 days): ??56-214 Postmenopausal: ??0 - 32 Blood specimen (specimen) 09/18/2011 7:49 EDT 09/18/2011 8:17 EDT Damaris Gusman MD CHEMISTRY & BLOOD G ORDERABLES Final Result Performing Organization Address City/State/[facility] Co de Phone Number [facility] [address] [place] [address] documented in this encounter Visit Diagnoses Diagnosis Female infertility of other specified origin- Primary documented in this encounter Care Teams Airport Attendant Relationship Specialty Start Date End Date Naomy Valles MD [address] [place] [address] PCP - General 12/26/08 11/19/18 documented as of this encounter
--- OUTSIDE RECORDS SUMMARY | 2024-02-25 15:20 | XMS_ITS | Encounter Summary ---
Author Organization [facility] Address [address] [place] [address] Care Team Providers Care Front Services Agent Name Role Phone Naomy Valles MD Primary Care Provider [phone] Encounter Details Date Type Department Care Team (Late st Contact Info) Description 08/01/2011 Phlebotomy Only [facility] [place] [address] [place] [address] Domestic Cleaner, Outpatient Stillbirth with normal delivery Social History Tobacco Use Types Packs/Day Years [...] Procedure Name Priority Date/Time Associated Diagnosis Comments BETA 2 GLYCOPROTEIN ANTIBODY PANEL Routine 08/01/2011 16:30 EDT Stillbirth with normal delivery LUPUS ANTICOAGULANT WORKUP Routine 08/01/2011 16:30 EDT Stillbirth with normal delivery PHOSPHOLIPID ANTIBODY Routine 08/01/2011 16:30 EDT Stillbirth with normal delivery documented in this encounter Results * CARDIOLIPIN ANTIBODY (08/01/2011 16:30 EDT) Cardiolipin IgG 2.98 GPL [facility] Comment: IgG Negative <15 GPL Indeterminate 15 - <20 GPL Low to Medium Positive 20 - 80 GPL Strongly Positive >80 GPL The following results were obtained with the INOVA QUANTA Lite KIERA IgG and IgM III Inessa kits. Cardiolipin IgG & IgM values obtained with different personal lines sales rep's assay methods may not be used interchangeably. [...] IgG & IgM values obtained with different personal lines sales rep's assay methods may not be used interchangeably. The magnitude of the reported IgG & IgM levels cannot be correlated to an endpoint titer. Blood specimen (specimen) 08/01/2011 16:30 EDT 08/01/2011 16:56 EDT Hamlet Mercado MD IMMUNOLOGY AND SEROLOGY ORDER SHARAN Final Result [facility] [address] [place] [address] * B2 GP1 IGG,IGM,IGA (08/01/2011 16:30 EDT) Pathologist [facility] Beta 2 GP1 Ab IgG <4.0 <10.0 (Negative) U/mL [facility] Beta 2 GP1 Ab IgM <4.0 <10.0 (Negative) U/mL [facility] Beta 2 GP1 Ab IgA <4.0 <10.0 (Negative) U/mL [facility] Comment: Performed or Referred by: [facility] Dpt of Lab Med and Path, [address] [place] [id number], Lab Dir: Landry Leblanc III, MD Blood specimen (specimen) 08/01/2011 16:30 EDT 08/01/2011 16:56 EDT us Hamlet Mercado MD IMMUNOLOGY AND SEROLOGY ORDER SHARAN Final Result Performing Organization Address City/[facility] Co de Phone Number [facility] [address] [place] [address] * LUPUS WORK-UP (08/01/2011 16:30 EDT) PTT [...] ORDERABL ES Final Result Performing Organization Address [facility] Co de Phone Number [facility] [address] [place] [address] documented in this encounter Visit Diagnoses Diagnosis Stillbirth with normal delivery Unspecified condition originating in the period documented in this encounter Care Teams Front Services Agent Relationship Specialty Start Date End Date Naomy Valles MD [address] [place] [address] PCP - General 12/26/08 11/19/18 documented as of this encounter
--- OUTSIDE RECORDS SUMMARY | 2024-02-25 15:20 | XMS_ITS | Encounter Summary ---
Author Organization [facility] Address [address] [place] [address] Care Team Providers Care Sock And Stocking Ironer Name Role Phone Naomy Valles MD Primary Care Provider [phone] Encounter Details Date Type Department Care Team (Late st Contact Info) Description 09/18/2011 Results Only Imaging [facility] Reproductive Medicine & Inf[facility] - [facility] [address] [place], [place] [id number] Jose Smith MD [address] [facility] [place], [place] [address] Social History Tobacco Use Types Packs/Day Years [...] Procedure Name Priority Date/Time Associated Diagnosis Comments COMMUNICATIONS CONSULTANT US EXAM 09/20/2011 8:21 EDT documented in this encounter Results * COMMUNICATIONS CONSULTANT US EXAM (09/20/2011 8:21 EDT) Anatomical Region Laterality Modality Other 09/20/2011 8:21 EDT 09/20/2011 9:11 EDT Narrative 09/20/2011 9:11 EDT Indication: Infertility: Undergoing gonadotropin stimulation for IVF. cycle 2, 6/full, ?? Gynecological Ultrasonography: Uterus: normal,anteverted, anteverted. Midline echo: intact. Cervix: normal. Myometrium: normal. Endometrium: endometrium clearly visualized. Trilaminar. Endometrial cavity: shows normal appearences. Endometrium thickness total: 10.4 mm. Follicle Screening: Follicles Right Ovary: Follicle 1: Mean Value: 16.6 mm D1: 16.1 mm D2: 14.5 mm D3: 19.3 mm Follicle 2: Mean Value: 17.7 mm D1: 16.6 mm D2: 15.6 mm D3: 20.9 mm Follicle 3: Mean Value: 14.8 mm D1: 16.3 mm D2: 13.6 mm D3: 14.4 mm Follicle 4: Mean Value: 11.4 mm D1: 10.9 mm D2: 13.1 mm D3: 10.3 mm Follicle 5: Mean Value: 8.4 mm D1: 10.2 mm D2: 7.8 mm D3: 7.1 mm Follicles Left Ovary: Follicle 1: Mean Value: 13.7 mm D1: 12.9 mm D2: 14.3 mm D3: 14.0 mm Follicle 2: Mean Value: 14.8 mm D1: 15.0 mm D2: 15.1 mm D3: 14.3 mm Summary of ultrasound findings: IVF ImpressionsMaturing Folliculogenesis Impression: Await E2, plan per IVF team. Procedure Note 09/20/2011 Indication: Infertility: Undergoing gonadotropin stimulation for IVF. cycle 2, 6/full, Gynecological Ultrasonography: Uterus: normal,anteverted, anteverted. Midline echo: intact. Cervix: normal. Myometrium: normal. Endometrium: endometrium clearly visualized. Trilaminar. Endometrial cavity: shows normal appearences. Endometrium thickness total: 10.4 mm. Follicle Screening: Follicles Right Ovary: Follicle 1: Mean Value: 16.6 mm D1: 16.1 mm D2: 14.5 mm D3: 19.3 mm Follicle 2: Mean Value: 17.7 mm D1: 16.6 mm D2: 15.6 mm D3: 20.9 mm Follicle 3: Mean Value: 14.8 mm D1: 16.3 mm D2: 13.6 mm D3: 14.4 mm Follicle 4: Mean Value: 11.4 mm D1: 10.9 mm D2: 13.1 mm D3: 10.3 mm Follicle 5: Mean Value: 8.4 mm D1: 10.2 mm D2: 7.8 mm D3: 7.1 mm Follicles Left Ovary: Follicle 1: Mean Value: 13.7 mm D1: 12.9 mm D2: 14.3 mm D3: 14.0 mm Follicle 2: Mean Value: 14.8 mm D1: 15.0 mm D2: 15.1 mm D3: 14.3 mm Summary of ultrasound findings: IVF ImpressionsMaturing Folliculogenesis Impression: Await E2, plan per IVF team. us Jose Smith MD IMG US COMMUNICATIONS CONSULTANT ORDERABLES Final Re sult documented in this encounter Visit Diagnoses Not on filedocumented in this encounter Care Teams Sock And Stocking Ironer Relationship Specialty Start Date End Date Naomy Valles MD [address] [place] [address] PCP - General 12/26/08 11/19/18 documented as of this encounter
--- OUTSIDE RECORDS SUMMARY | 2024-02-25 15:20 | XMS_ITS | Encounter Summary ---
Author Organization [facility] Address [address] [place] [address] Care Team Providers Care Reimbursement Director Name Role Phone Naomy Valles MD Primary Care Provider [phone] Reason for Visit * Reason Comments Infertility Encounter Details Date Type Department Care Team (Late st Contact Info) Description 09/22/2011 9:15 EDT Nurse Only [facility] Reproductive Medicine & Infertility Center - [facility] [address] [place] [address] Unknown, Provider, MD Orozco, Cristela Jani BERGER Female infertility of other specified origin (Primary Dx) Discharge Disposition: Auto Discharge Social History Tobacco [...] documented in this encounter Progress Notes * Gemma Jerry MD - 09/22/2011 0849 EDT 10 See USE/Flow GEMMA JERRY MD documented in this encounter Plan of Treatment Not on file documented as of this encounter Procedures Procedure Name Priority Date/Time Associated Diagnosis Comments PROGESTERONE STAT 09/22/2011 7:53 EDT Female infertility of other specified origin ESTRADIOL, ADULTS STAT 09/22/2011 7:53 EDT Female infertility of other specified origin documented in this encounter Results * PROGESTERONE (09/22/2011 7:53 EDT) Progesterone 0.8 ng/ml [facility] Comment: NON- FEMALES: follicular phase: 0.2-1.4 ng/ml luteal phase: 3.3-25.6 ng/ml mid luteal phase: 4.4-28.0 ng/ml postmenopausal: <0.1-0.7 ng/ml FEMALES: first trimester: 11.2-90.0 ng/ml second trimester: 25.6-89.4 ng/ml third trimester: 48.4-422.5 ng/ml ECTOPIC PREGNANCIES: consult pathologist Blood specimen (specimen) 09/22/2011 7:53 EDT 09/22/2011 9:02 EDT Damaris Gusman MD CHEMISTRY & BLOOD G ORDERABLES Final Result Performing Organization Address [facility] de Phone Number [facility] [address] [place] [address] * ESTRADIOL, ADULTS (09/22/2011 7:53 EDT) Estradiol 1464 pg/ml [facility] Comment: By day in cycle relative to LH peak: Follicular Phase (-12 to -4 days): ??20-144 Midcycle (-3 to +2 days): ? 64-357 Luteal Phase (+4 to +12 days): ??56-214 Postmenopausal: ??0 - 32 Blood specimen (specimen) 09/22/2011 7:53 EDT 09/22/2011 9:02 EDT Damaris Gusman MD CHEMISTRY & BLOOD G ORDERABLES Final Result Performing Organization Address [facility] Co de Phone Number [facility] [address] [place] [address] documented in this encounter Visit Diagnoses Diagnosis Female infertility of other specified origin- Primary documented in this encounter Care Teams Reimbursement Director Relationship Specialty Start Date End Date Naomy Valles MD [address] [place] [address] PCP - General 12/26/08 11/19/18 documented as of this encounter
--- OUTSIDE RECORDS SUMMARY | 2024-02-25 15:20 | XMS_ITS | Encounter Summary ---
Author Organization [facility] Address [address] [place] [address] Care Team Providers Care Fisheries Management Biologist Name Role Phone Naomy Valles MD Primary Care Provider [phone] Encounter Details Date Type Department Care Team (Late st Contact Info) Description 02/28/2015 17:32 EST - 02/28/2015 23:59 EST Hospital Encounter [facility] [phone] Kylah Chiang MD [address] [facility] [place] [address] Discharge Disposition: Home or Self Care Social [...] Code Departure Means Destination Home or Self Group Home documented in this encounter Plan of Treatment Not on file documented as of this encounter Visit Diagnoses Not on filedocumented in this encounter Care Teams Fisheries Management Biologist Relationship Specialty Start Date End Date Naomy Valles MD [address] [place] [address] PCP - General 12/26/08 11/19/18 documented as of this encounter
--- OUTSIDE RECORDS SUMMARY | 2024-02-25 15:20 | XMS_ITS | Encounter Summary ---
Author Organization [facility] Address [address] [place] [address] Care Team Providers Care Sample Worker Name Role Phone Naomy Valles MD Primary Care Provider [phone] Encounter Details Date Type Department Care Team (Late st Contact Info) Description 01/06/2014 12:05 EDT - 01/06/2014 23:59 EDT Hospital Encounter [facility] [phone] Klyah Chiang MD [address] [facility] [place] [address] Discharge Disposition: Home or Self Care Social History Tobacco Use Types Packs/Day Years Used Date Smoking Tobacco: Never Assessed Comments No Sex and Gender Information Value Date Recorded Sex Assigned at Not on file Legal Sex Female 18:13 EST Gender Identity Female 02/22/2019 12:49 EST Sexual Orientation Not on file documented as of this encounter Discharge Diagnoses Diagnosis 628.9 FEMALE INFERTILITY NOS[ICD-9-CM] documented in this encounter Medications at Time of Discharge norgestimate-eth inyl estradiol (ORTHO-CYCLEN) 0.25-35 mg-mcg per tablet TAKE ONE MEDICATED PILL EVERYDAY. OMIT PLACEBO PILLS. 2 Each 4 07/29/2011 9 documented as of this encounter Discharge Disposition Disposition Code Departure Means Destination Home or Self Senior Care documented in this encounter Plan of Treatment Not on file documented as of this encounter Visit Diagnoses Not on filedocumented in this encounter Care Teams Sample Worker Relationship Specialty Start Date End Date Naomy Valles MD [address] [place] [address] PCP - General 12/26/08 11/19/18 documented as of this encounter
--- OUTSIDE RECORDS SUMMARY | 2024-02-25 15:20 | XMS_ITS | Encounter Summary ---
Author Organization [facility] Address [address] [place] [address] Care Team Providers Care Child Protection Specialist Name Role Phone Naomy Valles MD Primary Care Provider [phone] Reason for Visit * Reason Onset Date Comments Infertility 10/11/2011 failed IVF cycle Encounter Details Date Type Department Care Team (Late st Contact Info) Description 10/11/2011 Telephone [facility] Center Reproductive Medicine & Infertility Center - [facility] [address] [place] [address] Sirisha Hathaway, RN [address] [place] [address] Infertility (failed IVF cycle) Social History Tobacco Use Types Packs/Day Years Used Date Smoking Tobacco: Never Assessed Comments No Sex and Gender Information Value Date Recorded Sex Assigned at Not on file Legal Sex Female 18:13 EST Gender Identity Female 02/22/2019 12:49 EST Sexual Orientation Not on file documented as of this encounter Miscellaneous Notes * Telephone Encounter - Sirisha Hathaway - 10/11/2011 1026 EDT Kesha's Atul would like to speak with Dr. Smith about the last IVF cycle. He can be reached at [phone] documented in this encounter Plan of Treatment Not on file documented as of this encounter Visit Diagnoses Not on filedocumented in this encounter Care Teams Child Protection Specialist Relationship Specialty Start Date End Date Naomy Valles MD [address] [place] [address] PCP - General 12/26/08 11/19/18 documented as of this encounter
--- OUTSIDE RECORDS SUMMARY | 2024-02-25 15:20 | XMS_ITS | Encounter Summary ---
Author Organization [facility] Address [address] [place] [address] Care Team Providers Care Youth Worker Name Role Phone Naomy Valles MD Primary Care Provider [phone] Encounter Details Date Type Department Care Team (Late st Contact Info) Description 07/02/2011 Phlebotomy Only [facility] [address] [place] [address] Apiarist, Outpatient Female infertility of unspecified origin Social History Tobacco Use Types Packs/Day Years [...] 16:30 EDT Female infertility of unspecified origin ESTRADIOL, ADULTS Routine 07/02/2011 16: 30 EDT Female infertility of unspecified origin TSH Routine 07/02/2011 16:30 EDT Female infertility of unspecified origin FSH Routine 07/02/2011 16:30 EDT Female infertility of unspecified origin documented in this encounter Results * TSH (07/02/2011 16:30 EDT) TSH 1.48 0.35 - 5.00 uIU/ml [facility] Blood specimen (specimen) 07/02/2011 16:30 EDT 07/02/2011 17:19 EDT Renee Blackman MD CHEMISTRY & BLOOD GAS O RDERABLES Final Result Performing Organization Address [facility] de Phone Number [facility] [address] [place] [address] * ESTRADIOL, ADULTS (07/02/2011 16:30 EDT) Pathologist [facility] Estradiol 47 pg/ml [facility] Comment: [...] O RDERABLES Final Result Performing Organization Address [facility] de Phone Number [facility] [address] [place] [address] * FSH (07/02/2011 16:30 EDT) FSH 5.8 mIU/ml [facility] Comment: Follicular: 2-11 Mid-Cycle Peak: 3.4-35 Luteal: 1-9 Postmenopausal: 25-120 Blood specimen (specimen) 07/02/2011 16:30 EDT 07/02/2011 17:19 EDT us Renee Blackman MD CHEMISTRY & BLOOD GAS O RDERABLES Final Result Performing Organization Address [facility]/State/ZIP Co de Phone Number [facility] [address] [place] [address] * PROFILE IVF NON DONOR (07/02/2011 16:30 EDT) Hepatitis B Surface Ag Negative [facility] Comment:Reference Range: Neg ative Syphilis Serology Interpretation: Nonreactive [facility] Comment:Reference Range: Non reactive Hep B Core Ab Negative [facility] Comment: Reference Range: ??Negative Interpretation depends on clinical setting. Hepatitis C Ab Negative [facility] Comment:Reference Range: Neg ative HIV 1/2 Antibody Negative [facility] Comment: Reference Range: ??Negative Assayed utilizing [facility] chemiluminescent technology. Blood specimen (specimen) 07/02/2011 16:30 EDT 07/02/2011 17:19 EDT us Renee Blakcman MD PACKAGES & DNA PROBE OR DERABLES Final Result [facility] [address] [place] [address] documented in this encounter Visit Diagnoses Diagnosis Female infertility of unspecified origin documented in this encounter Care Teams Youth Worker Relationship Specialty Start Date End Date Naomy Valles MD [address] [place], [place] [address] PCP - General 12/26/08 11/19/18 documented as of this encounter
--- OUTSIDE RECORDS SUMMARY | 2024-02-25 15:20 | XMS_ITS | Encounter Summary ---
Author Organization [facility] Address [address] [place] [address] Care Team Providers Care Manager Mac Name Role Phone Naomy Valles MD Primary Care Provider [phone] Shayy Donohue NP Primary Care Provider Encounter Details Date Type Department Care Team (Late st Contact Info) Description 09/23/2011 Documentation Visit [facility] Reproductive Medicine & Infertility Center - [facility] [address] [place] [address] Naomy Chopra [address] [place] [address] Social History Tobacco Use Types Packs/Day Years [...] on filedocumented in this encounter Care Teams Manager Mac Relationship Specialty Start Date End Date Naomy Valles MD [address] [place] [address] PCP - General 12/26/08 11/19/18 Shayy Donohue NP [address] [place] [address] PCP - General 11/20/18 documented as of this encounter
--- OUTSIDE RECORDS SUMMARY | 2024-02-25 15:20 | XMS_ITS | Encounter Summary ---
Author Organization [facility] Address [address] [place] [address] Care Team Providers Care General Duty Nurse Name Role Phone Naomy Valles MD Primary Care Provider [phone] Reason for Visit * Reason Onset Date Comments Results 09/25/2011 Encounter Details Date Type Department Care Team (Late st Contact Info) Description 09/25/2011 Telephone [facility] Reproductive Medicine & Infertility Center - [facility] [address] [place] [address] Gemma Jerry MD [place] [address] [facility] [place] [address] Results Social History Tobacco Use Types Packs/Day Years Used Date Smoking Tobacco: Never Assessed Comments No Sex and Gender Information Value Date Recorded Sex Assigned at Not on file Legal Sex Female 18:13 EST Gender Identity Female 02/22/2019 12:49 EST Sexual Orientation Not on file documented as of this encounter Miscellaneous Notes * Telephone Encounter - Gemma Jerry MD - 09/25/2011 0943 EDT Fert report: 3 oocytes retrieved, 3 mature, 2 fert with standard IVF. Plan day 2 transfer at 0930 of 2 embryos. GEMMA JERRY MD documented in this encounter Plan of Treatment Not on file documented as of this encounter Visit Diagnoses Not on filedocumented in this encounter Care Teams General Duty Nurse Relationship Specialty Start Date End Date Naomy Valles MD [address] [place] [address] PCP - General 12/26/08 11/19/18 documented as of this encounter
--- OUTSIDE RECORDS SUMMARY | 2024-02-25 15:20 | XMS_ITS | Encounter Summary ---
Author Organization [facility] Address [address] [place] [address] Care Team Providers Care Veneer Marker Name Role Phone Naomy Valles MD Primary Care Provider [phone] Encounter Details Date Type Department Care Team (Latest Contact Info) Description 01/04/2013 13:46 EDT - 01/04/2013 23:59 EDT Hospital Encounter [facility] [phone] Jose Smith MD [address] [facility] [place], [place] [address] Discharge Disposition: Home or Self Care Social [...] Code Departure Means Destination Home or Self [facility] documented in this encounter Plan of Treatment Not on file documented as of this encounter Visit Diagnoses Not on filedocumented in this encounter Care Teams Veneer Marker Relationship Specialty Start Date End Date Naomy Valles MD [address] [place] [address] PCP - General 12/26/08 11/19/18 documented as of this encounter
--- OUTSIDE RECORDS SUMMARY | 2024-02-25 15:20 | XMS_ITS | Encounter Summary ---
Author Organization [facility] Address [address] [place] [address] Care Team Providers Care Commercial Hvac Service Technician Name Role Phone Naomy Valles MD Primary Care Provider [phone] Reason for Visit * Reason Onset Date Comments Infertility 04/29/2014 pt interested in using frozen embryos Encounter Details Date Type Department Care Team (Late st Contact Info) Description 04/29/2014 Telephone [facility] Center Reproductive Medicine & Infertility Center - [facility] [address] [place], [place] [id number] Georgie Candelario, JUAN R Infertility (pt interested in using frozen embryos) Social History Tobacco Use Types Packs/Day Years Used Date Smoking Tobacco: Never Assessed Comments No Sex and Gender Information Value Date Recorded Sex Assigned at Not on file Legal Sex Female 18:13 EST Gender Identity Female 02/22/2019 12:49 EST Sexual Orientation Not on file documented as of this encounter Miscellaneous Notes * Telephone Encounter - Karely Vivar RN - 05/02/2014 1539 EST Called to reschedule pt's appointment to 05/10 at 1300. * Telephone Encounter - Georgie Candelario RN - 04/29/2014 1602 EST Pt called to schedule appt to discuss using frozen embryos. Appt made for 1230 on 05/[address] Kendall. documented in this encounter Plan of Treatment Not on file documented as of this encounter Visit Diagnoses Not on filedocumented in this encounter Care Teams Commercial Hvac Service Technician Relationship Specialty Start Date End Date Naomy Valles MD [address] [place] [address] PCP - General 12/26/08 11/19/18 documented as of this encounter
--- OUTSIDE RECORDS SUMMARY | 2024-02-25 15:20 | XMS_ITS | Encounter Summary ---
Author Organization [facility] Address [address] [place] [address] Care Team Providers Care Inventory Technician Name Role Phone Naomy Valles MD Primary Care Provider [phone] Reason for Visit * Reason Comments Infertility Encounter Details Date Type Department Care Team (Late st Contact Info) Description 09/11/2011 9:00 EDT Office Visit [facility] Center Reproductive Medicine & Infertility Center - [facility] [address] [place] [address] Damaris Gusman MD [address] [place], [place] [phone] Female infertility of other specified origin (Primary [...] Progress Notes * Gemma Jerry MD - 09/11/2011 1007 EDT Baseline- clear. See USE/Flow. Trial pass easy- see sheet. Brief review of Hx: Pt is 35 year old with history of 3 normal , uncomplicated pregnancies, followed by BTL in 2000. IVF in 2005 resulted in twin , 1st twin lost after 8 week US prior to new OB visit, 2nd twin IUFD, thought to be cord accident. 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 MFM consult- plan: no anticoag during . Increase folic acid supplementation, consider PP thromboprophylaxis. Will review again with IVF team prior to stim start. Plan at minimum 4 mg folic acid supplementation. GEMMA JERRY MD Attestation statement: Supervising Physician documented in this encounter Miscellaneous Notes * Scanned Note-Null - IN SHOP SERVICE TECHNICIAN, SCAN 2 - 11/04/2011 1104 EDT * Scanned Note-Null - IN SHOP SERVICE TECHNICIAN, SCAN 2 - 11/04/2011 1102 EDT documented in this encounter Plan of Treatment Not on file documented as of this encounter Procedures Procedure Name Priority Date/Time Associated Diagnosis Comments ESTRADIOL, ADULTS STAT 09/11/2011 7:58 EDT Female infertility of other specified origin documented in this encounter Results * ESTRADIOL, ADULTS (09/22/2011 7:53 EDT) Estradiol 1464 pg/ml [facility] Comment: By day in cycle relative to LH peak: Follicular Phase (-12 to -4 days): ??20-144 Midcycle (-3 to +2 days): ? 64-357 Luteal Phase (+4 to +12 days): ??56-214 Postmenopausal: ??0 - 32 Blood specimen (specimen) 09/22/2011 7:53 EDT 09/22/2011 9:02 EDT us Damaris Gusman MD CHEMISTRY & BLOOD G ORDERABLES Final Result [facility] [address] [place] [address] * ESTRADIOL, ADULTS (09/20/2011 7:56 EDT) Estradiol 696 pg/ml [facility] Comment: By day in cycle relative to LH peak: Follicular Phase (-12 to -4 days): ??20-144 Midcycle (-3 to +2 days): ? 64-357 Luteal Phase (+4 to +12 days): ??56-214 Postmenopausal: ??0 - 32 Blood specimen (specimen) 09/20/2011 7:56 EDT 09/20/2011 8:19 EDT us Damaris Gusman MD CHEMISTRY & BLOOD G ORDERABLES Final Result Performing Organization Address [facility] de Phone Number [facility] [address] [place] [address] * ESTRADIOL, ADULTS (09/18/2011 7:49 EDT) Estradiol 257 pg/ml [facility] Comment: By day in cycle relative to LH peak: Follicular Phase (-12 to -4 days): ??20-144 Midcycle (-3 to +2 days): ? 64-357 Luteal Phase (+4 to +12 days): ??56-214 Postmenopausal: ??0 - 32 Blood specimen (specimen) 09/18/2011 7:49 EDT 09/18/2011 8:17 EDT us Damaris Gusman MD CHEMISTRY & BLOOD G ORDERABLES Final Result Performing Organization Address [facility] de Phone Number [facility] [address] [place] [address] * ESTRADIOL, ADULTS (09/11/2011 7:58 EDT) Estradiol 16 pg/ml [facility] Comment: By day in cycle relative to LH peak: Follicular Phase (-12 to -4 days): ??20-144 Midcycle (-3 to +2 days): ? 64-357 Luteal Phase (+4 to +12 days): ??56-214 Postmenopausal: ??0 - 32 Blood specimen (specimen) 09/11/2011 7:58 EDT 09/11/2011 9:03 EDT us Damaris Gusman MD CHEMISTRY & BLOOD G ORDERABLES Final Result Performing Organization Address City/State/[facility] Co de Phone Number [facility] [address] [place] [address] documented in this encounter Visit Diagnoses Diagnosis Female infertility of other specified origin- Primary documented in this encounter Care Teams Inventory Technician Relationship Specialty Start Date End Date Naomy Valles MD [address] [place] [address] PCP - General 12/26/08 11/19/18 documented as of this encounter
--- OUTSIDE RECORDS SUMMARY | 2024-02-25 15:20 | XMS_ITS | Encounter Summary ---
Author Organization [facility] Address [address] [place] [address] Care Team Providers Care Document Reviewer Name Role Phone Shayy Donohue DRY KILN LOADER Primary Care Provider Encounter Details Date Type Department Care Team (Late st Contact Info) Description 11/20/2018 Results Only Imaging [facility] [phone] Unknown, Provider, Social History Tobacco Use Types Packs/Day Years Used Date Smoking Tobacco: Never Assessed Comments No Sex and Gender Information Value Date Recorded Sex Assigned at Not on file Legal Sex Female 18:13 EST Gender Identity Female 02/22/2019 12:49 EST Sexual Orientation Not on file documented as of this encounter Plan of Treatment Pending Results Name Type Priority Associated Diagnoses Date /Time OUTSIDE IMAGES - US BODY Imaging 11/20/2018 16:34 EDT documented as of this encounter Visit Diagnoses Not on filedocumented in this encounter Care Teams Document Reviewer Relationship Specialty Start Date End Date Shayy Donohue NP [address] [place] [phone] PCP - General 11/20/18 documented as of this encounter
--- OUTSIDE RECORDS SUMMARY | 2024-02-25 15:21 | XMS_ITS | Encounter Summary ---
Author Organization [facility] Address [address] [place] [address] Care Team Providers Care Freight Brakeman Name Role Phone Naomy Valles MD Primary Care Provider Encounter Details Date Type Department Care Team (Late st Contact Info) Description 02/01/2009 Abstract [facility] Obstetrics & Midwifery - [facility] [address] [place], [place] [address] Shar Gray MD Female Infertility of Tubal Origin Social History Tobacco Use Types Packs/Day Years [...] Visit Diagnoses Diagnosis Female infertility of tubal origin documented in this encounter Care Teams Freight Brakeman Relationship Specialty Start Date End Date Naomy Valles MD [address] [place], [place] [id number] PCP - General 12/26/08 11/19/18 documented as of this encounter
--- OUTSIDE RECORDS SUMMARY | 2024-02-25 15:21 | XMS_ITS | Encounter Summary ---
Author Organization [facility] Address [address] [place] [address] Care Team Providers Care Environmental Protection Specialist Name Role Phone Naomy Valles MD Primary Care Provider Encounter Details Date Type Department Care Team (Late st Contact Info) Description 02/07/[address] [facility] Reproductive Medicine & Infertility Center - [facility] [address] [place], [place] [address] Naomy Valles MD [address] [place], [place] [address] Female Infertility of Unspecified Origin Social History Tobacco Use Types Packs/Day [...] origin documented in this encounter Care Teams Environmental Protection Specialist Relationship Specialty Start Date End Date Naomy Valles MD [address] [place], [place] [address] PCP - General 12/26/08 11/19/18 documented as of this encounter
--- OUTSIDE RECORDS SUMMARY | 2024-02-25 15:21 | XMS_ITS | Encounter Summary ---
Author Organization [facility] Address [facility] [place] [address] Care Team Providers Care Personal Computer Specialist Name Role Phone Shayy Donohue DICTATING MACHINE TYPIST Primary Care Provider [phone] Reason for Visit * Reason Comments Basal Cell Carcinoma Encounter Details Date Type Department Care Team (Latest Contact Info) Description 09/02/2018 8:00 AM EDT Procedure visit Dermatology at [facility] [address] [place] [address] Michele Levi MD [facility] DR [address] [place] [address] Basal cell carcinoma of left nasal tip; Prophylactic antibiotic Social History Tobacco Use Types Packs/Day Years Used Date Smoking Tobacco: Never Smokeless Tobacco: Never Alcohol Use Standard Drinks/Week Comments No 0 (1 standard drink = 0.6 oz pur e alcohol) Sex and Gender Information Value Date Recorded Sex Assigned at Not on file Gender Identity Not on file Sexual Orientation Not on file documented as of this encounter Last Filed Vital Signs Vital Sign Reading Time Taken Comments Blood Pressure 132/95 09/02/2018 7:54 AM EDT Pulse 74 09/02/2018 7:54 AM EDT Temperature - - Respiratory Rate - - Oxygen Saturation - - Inhaled Oxygen Concentration - - Weight - - Height - - Body Mass Index - - documented in this encounter Patient Instructions * Patient Instructions* Dora Cooper I, [facility] - 09/02/2018 8:00 AM EDT Your staff surgeon today was Michele Levi MD PhD. Instructions for the post- operative period areas below. Please keep as a reference: After Surgery 1. Avoid tobacco, smoking/vapors, cigars, and cannabis (marijuana) for at least 3 weeks after your surgery. These prevent proper healing and lead to worse scarring. Cutting back on tobacco is helpfulif you cannot abstain completely. 2. Do not drink alcohol for roughly 3 days as this can slow healing or cause bleeding. 3. Do not participate in athletic activities for 1 week, unless you were told a different timeline during your visit. Athletic activity is a relative term, but this is considered to be anything that could potentially raise your heartrate or blood pressure. Elevating your heart rate and blood pressure increases the risk of swelling, bleeding, wound opening, and it could lead to worse scarring. Walk ing at a leisurely pace is fine for most people, but not if you are walking for the purpose of exercise. When in doubt, take it easy or call us. 4. Do not lift anything heavier than 10 pounds for the first week unless told differently. 5. Some electronic video games servicer may need to be delayed or delegated such as vacuuming, mowing the lawn, snow shoveling, or caring for young children that need to be carried/lifted. Working any major muscle groups increases your heart rate and can increasing bleeding. 6. Avoid swimming, hot tubs, and direct water pressure for 3 weeks after surgery. You may shower, however, once your initial bandage comes off in 48 hours. 7. Avoid antibiotic ointments such as triple antibiotic creams. 8. Whenever possible, it is helpful to take photographs with your camera or cell phone of any problems or concerns you see with your wound. We often ask for photos when you call with questions. 9. Starting 2 months following surgery, you can begin firm massage to any areas of firm scar along your incision to soften the scar and reduce bumpiness. Do this 3 times per day, 3 minutes each time.Do not start massage before 2 months. 10. Your wound will appear almost completely healed soon after sutures are removed (about 1 week), but incisions can remain bright red for several weeks. Then the scarring and healing process continues under the skin for 6 months until to 2 years. The scar may become less red, less firm, and more subtle during this time; please note that the rate of improvement varies depending on the person. Most redness, discoloration, bumpiness resolves by 6 months, and most patients will look presentable within a few weeks after surgery. 11. Keep your follow-up appointments and make sure to continue to have your skin checked, as often as is recommended by your manufacturing project manager, for new skin cancers. This is once per year for most patients. 12. Your can expect your scar to be red for several weeks with gradual fading of the redness. Your scar will also be raised and lumpy until the dissolvable sutures under the skin get absorbed by yourbody which can take 3-4 months. The scar will flatten eventually. a. If you have a skin condition called rosacea, the redness can last long-term, or you can get an increased appearance of red vessels to the skin. The appearance of vessels slightly improves, but tends to respond well to laser treatments. 13. Occasionally, about 10-20% of the time on the face, the stitches under the skin can spit out of the incision to the surface. It can start out looking like a pimple or blemish directly on your incision. Sometimes you can feel something poking through the incision. it can look also minic a small area of infection, so please let us know before you go to another provider for antibiotics. Thismeans that the suture may need to be trimmed or removed when you return for your wound check. This typically occurs a few weeks after surgery if it does occur. 14. To optimize your scar, and best cosmetic result, please avoid direct sunlight to your incision for the first 6 months following surgery. UV ray exposure to your incision may cause the redness to last longer, or to cause permanent darkening of your scar. You can avoid sun by covering your incision with a bandage when outdoors, wearing broad-rimmed hats, and wearing SPF 30 to 50 sunscreen (broad spectrum). 15. Your incision may still be healing up to 2 weeks after surgery. Because of this, avoid make-up and sunscreen until approximately 2 weeks after surgery. You can begin sooner if your skin edges look completely sealed. 16. Any time you have skin surgery or any type of surgery, you can experience mild sensation loss (numbness) in the area of surgery. Massage starting at 8 weeks after surgery can help. 17. Swelling and bruising is common, and expected, especially if your surgery site was on the forehead, cheeks, temples, nose, or eyelids. . Sometimes it can be quite profound, where the eyelids swell shut, or getting black eyes. This is especially true if you are on blood thinners such as aspirin. Swelling and bruising will peak at about 48 hours after surgery. Bruising and swelling will gradually resolve. You can use ice packs or a bag of frozen peas for 15-20 minutes, 20 minutes off, up to3-4 times daily to areas of swelling on the face. Use caution not to put the icy item directly ontoyour incision, or directly in contact with your skin as this can damage skin. Avoid prolonged use more than 20 minutes. The best way to use ice packs is over the bandage, or using a light cloth/papertowel barrier between the ice pack and your skin. You can ice for as many days as needed until swelling has resolved. Eyelid and lip swelling is typically the last type of swelling to resolve. Wound Care ??? Gently remove your initial bandage (after 48 hours from surgery). It is normal to have swellingand bruising. ??? Begin wound care as below. ??? If your initial bandage only stayed on for 24 hours (for example, falls off sooner), this is okay. Resume your wound care and bandaging instructions as below. ??? Change your bandage once a day (and whenever it becomes wet or soaks through) until your sutures are removed. If you have absorbable sutures, you do wound care for 1 week and then stop. ??? For bandage changes: o Wash hands with soap and water, or use gloves that you can purchase at a local pharmacy or drug store. o Clean the surgical area with cotton-tipped swabs or soft gauze dipped in soapy water (recommend liquid soap in clean room temperature water). Roll the cotton swab over the incision with soapy water, then with plain water, and then gently pat dry. Do not scrub the area with a washcloth. Do not putdirect shower water pressure onto your wound. Do not pick off any scabs. It is okay to allow soapy w ater to run over your wound in the shower, however. o If you cannot remove any bloody or crusted areas, you may soak the area with wet gauze first for 15 to 20 minutes to help soften it o Pat the area dry with clean gauze or cotton swabs. Do not rub. o Use a cotton swab to apply a generous layer of petrolatum over the incision lines and any open-wound areas. o Make sure your tube or jar of petrolatum is new or unused to prevent prior contamination from entering your wound. Avoid double dipping. o After applying petrolatum, use a clean nonstick gauze or other nonstick dressing, such as Telfa. This may be purchased over the counter at a drug store. Do not use regular gauze as it will stick toyour wound and can peel off healing skin with bandage changes. o Secure the bandage with paper tape or a bandage. Band-aids are okay, but typically have more adhesive that can irritate the skin compared to paper tape. This can be purchased at a drug store. o Continue this wound care daily until stitches are removed. This is typically for 5-7 days. If youhad absorbable stitches used, you will do wound care for 1 week then stop. Keep in mind that if you do not want to use a bandage at all due to difficulty, allergies, irritation of skin, cost, time, or inconvenience --- you can certainly avoid bandages altogether. However, it is imperative that you continue with topical petrolatum ointment or Aquaphor (plain, fragrance-free). This may need to be applied several times daily if it gets wiped off, washed off, or dries out. Things to purchase for wound care: -Nonstick gauze -A tube or tub of woo pascal (fragrance-free, no dye, not lotion) -paper tape -cotton swabs -gloves (optional) -Dial or other antibacterial liquid soap If you have specific questions or instructions, it can be written/typed by your nurse or doctor here: Antibiotics: If you were given antibiotic prescription, it is important to start them the evening of your surgery date. However, most patients do not need antibiotics after surgery. For pain: Most patients of different ages do not require pain medications. If you do feel soreness, throbbingor sharp pains, start by taking over the counter extra strength acetaminophen (up to 3000 mg in a 24 hour period). Generally, we like you to avoid NSAIDS (non-steroid anti-inflammatory drugs such as ibuprofen) for the first 48 hours after surgery as this can increase risk of bleeding. However, if acetaminophen is not helping with pain, you can alternate acetaminophen with ibuprofen or other NSAID. Ice packs over your bandage without getting your bandage wet can also help with pain and swelling.Frozen peas work well as ice packs. THIS IS AN EXAMPLE OF A PAIN TREATMENT SCHEDULE: 1) You can take 500 mg acetaminophen one tablet by mouth at 6:00pm. This is over the counter. 2) You can take 400 mg of ibuprofen two hours later, at 8:00 pm, or other NSAID such as naproxen, as long as it does not interact with your other medications and your other doctors have not told you to avoid this. This is over the counter. Check to see how many milligrams (mg) each of your ibuprofen tablets are. Most of the time, ibuprofen comes in 200 mg tablets, so 400 mg would mean taking two of these tablets or capsules. 3) You can take 500 mg of acetaminophen at 10:00 pm. Keep track of your total acetaminophen in a 24hour period as your maximum should be 3000 mg total in a 24 hour period of this medication. 4) At midnight, you can take another 400 mg of ibuprofen. 5) you can continue on this schedule over the next 2 days, making sure to keep tabs of your total acetaminophen. If you are still in pain after trying the above, please call us. When to call your surgeon: ??? Fever of 100.4 degrees Fahrenheit or higher ??? Bleeding not controlled with direct firm pressure to your wound. Bleeding is most common in thefirst 48 hours. ??? Pain that is worsening and not relieved by over the counter medications such as acetaminophen (up to 3000 mg in a 24 hour period) ??? Wound reopening after stitching ??? Pus or bad odor from your wound ??? Worsening redness and warmth around your wound ??? If you think your surgery site is infected, please call us before seeking care or antibiotics from other providers ??? Please call us before seeking care in an emergency room or primary care. ??? If you do call, please leave your full name, phone number, date of , date of surgery, and medical record number if you have it. If after hours, please call the cell support operator or [phone] and ask for the manufacturing project manager on-call. If you have any non-urgent questions or concerns, please feel free to call my office or contact me through our patient portal, [facility], at [email or web address] How to contact us during business hours Dermatology at [facility] [address]: Mohs scheduling or Mohs follow-up appointments: [phone] documented in this encounter Progress Notes * Michele Levi MD - 09/02/2018 8:00 AM EDT Images from the original note were not included. Summary of Procedure(s): Site: left tip of nose Tumor Type: Basal Cell Carcinoma Stages to clear tumor: 3 Repair: advancement flap Images: Cephalexin 500mg BID x 7 days as antibiotic prophylaxis Suture removal 7 days The patient was asked to call with any issues and is aware that I am available 04/11 should questions arise. Mohs consultation and preoperative note (H&P) Patient Name: Kesha Silva Age: 42 y.o. Date of : 1975 Today's Date: 09/02/2018 REFERRING PROVIDER: Francois Dang CC: Mohs micrographic surgery for treatment of a cutaneous tumor HPI: Kesha Silva is a 42 y.o. female presenting for biopsy-proven basal cell carcinoma location on the left tip of nose. The dermatologic preoperative information sheet was reviewed with pertinent positive and negative as below. DERMATOLOGIC PRE-OPERATIVE EVALUATION AND REVIEW OF SYSTEMS History of Mohs surgery? no Pacemaker/Defibrillator? no Joint replacement or other implantable devices (e.g. Cochlear implant)? If yes then when? no Do you take a blood thinner? No History of organ transplant? no History of artificial valve or stroke? no History of liver disease or bleeding disorder? no Do you have any medical problems that may affect your upcoming surgery? no Do you have any concerns regarding your upcoming surgery? no We ask patients to discontinue Fish oil/Multivitamin/Vit E/?? supplements and natural medicines not prescribed by a physician 1 week prior to surgery. SOCIAL HISTORY: Makes Own Decisions Yes Hearing aid or other devices: No Relevant travel history or future plans: none Tobacco use (amount per day, type of tobacco): no Do you have any physical limitations that may affect your surgery?: no ALLERGIES: Allergies reviewed MEDICATIONS: Medications reviewed VITAL SIGNS: BP (!) 132/95 (BP Location (NBP): Left arm, Patient Position: Sitting, BP Cuff Sizes: Adult (25-34 cm)) Pulse 74 PHYSICAL EXAMINATION: General: patient is awake, alert, oriented and in no acute distress. Skin: Focused examination of surgical site(s) performed which shows an erythematous scar corresponding with recent biopsy site with surrounding poorly defined pearly plaque. PHYSICIAN REVIEW OF REPORTS, RECORDS, IMAGES: 1) The accompanying pathology report(s) associated with aforementioned biopsy slide(s) were/was also reviewed. Assessment: Kesha Silva is a 42 y.o. female presenting for: 1. Biopsy-proven basal cell carcinoma located on the left tip of nose. Plan: 1. Findings from the biopsy report, my independent review of the histopathology from the biopsy slides, today's clinical exam, and other pertinent details were reviewed with patient today. All questions were answered. 2. Discussed treatment options based on the above findings. We recommended Mohs micrographic surgery for treatment of this tumor. Mohs micrographic surgery was indicated due to patient, site and/or tumor characteristics (see operative report for specific indication). 3. We discussed risks, benefits, and alternative treatment options to the Mohs micrographic surgeryprocedure and pertinent information including but not limited to the following: ?? Risks include bleeding, infection, scar, recurrence, incomplete tumor removal or inability to cure with surgery alone if the tumor features are more aggressive than the initial pathology indicates. Occasionally, additional adjuvant treatments may be recommended. Additional risks include large wound, prolonged wound and healing, pain, swelling, bruising, increased appearance of vessels or worsening erythema of baseline skin; more rarely risks include damage to underlying structures such as nerves, cartilage, or muscle which could lead to temporary or permanent loss of sensation or motor function. ?? Benefit is precise tumor removal ?? If reconstruction is performed, it is specific to the patient and defect. ?? Discussed that the shape, size, depth of the wound is often not known until the tumor is clearedand thus the reconstruction options are sometimes not known until after tumor clearance. Occasionally, referrals to other providers may be recommended for reconstruction based on patient preference and need. ?? Reviewed the pros and cons of common reconstructions used for this tumor type, size, and location, and that reconstruction may lead to change in appearance. ?? Natural history of scar was discussed, including that the scar will continue to mature for 1-2 years. Recommended avoidance of special ointments or scar creams, and avoidance of direct sun exposure to the scar for optimal recovery. ?? Reviewed that there are some aspects of cosmesis that are dependent on patient's characteristicssuch as age, skin laxity/texture factors, inflammatory skin diseases such as rosacea, prior surgery/radiation, degree of actinic damage, smoking status, strength of the patient's immune system, diligent wound care, medications, and genetics. ?? Having Mohs surgery may lead to physical limitations for optimal healing, such as restricted physical activity and heavy lifting. 4. The nature of sun-induced photo-aging and skin cancers was discussed. Recommended sun avoidance when possible, especially peak hours of sun 10 am to 2pm, protective clothing such as wide-brimmed hats and long-sleeved clothing, and the use of SPF broad-spectrum sunscreen SPF 50 or higher. 5. Signs and symptoms of skin cancer reviewed. Patient to report any new, changing, or symptomatic lesions and follow up with his or her manufacturing project manager or other skin provider. 6. Discussed avoiding direct sun exposure to scars for best cosmetic result. Michele Levi MD PhD Mohs Micrographic Surgery and Dermatologic Oncology Section of Dermatology, Department of Surgery * Michele Levi MD - 09/02/2018 8:00 AM EDT Mohs micrographic Surgery Operative Report Patient name: Kesha Silva : 1975 Date: 09/02/2018 Staff Surgeon: Michele Levi MD PhD Nursing/Equipment Mechanic Specialist(s):Assistants: Joyce Best RN; Taina Crockett LPN; MARY Chu, Amy Oviedo LPN Business Performance Specialist (s): Lexy Robert, hSelia Hong, Palak Rudd Pre-operative diagnosis: basal cell carcinoma Post-operative diagnosis: basal cell carcinoma, nodular / infiltrative Location/Site: left tip of nose Procedure: Mohs micrographic surgery Indication(s) for Mohs micrographic surgery: Anatomic location for tissue conservation Stages: 3 Preoperative size of tumor: 0.5 x 0.5 cm Final defect size: 1.1 x 0.9 cm Stage I The nature and purpose of the procedure, associated risks, possible consequences and complications,and alternative forms of treatment were explained in detail. We reviewed the possible repairs basedon the clinical appearance of tumor but discussed that often the repair options may not be known until the tumor has gladis extirpated. Informed consent and permission to take photographs were obtained. The site was confirmed with the patient/authorized branch sales and service representative/referring physician and/or a photograph form time of biopsy. A pre-operative time-out (procedural pause) was conducted with no unresolved discrepancies noted. Local anesthesia was obtained with 1% lidocaine with 1:100,000 epinephrine. The surgical site was prepped and draped in the usual sterile manner. With all visible gross tumor completely excised, the borders of the tumor and 2- 3 mm margins were excised as a complete layer. Hemostasis was achieved by electrocoagulation. The excised tissue was oriented and divided into 2 sections, chromacoded, and submitted for frozen sections. The patient tolerated the procedure well and without complications. On microscopic evaluation of the frozen sections, residual tumor was identified as basal cell carcinoma, nodular / infiltrative on section A1,A2. Stage II The surgical site was re-anesthetized with 1% lidocaine with 1:100,000 epinephrine, re-prepped and redraped in a sterile manner. The residual tumor was re-excised as a complete layer 2-3mm in thickness using the Mohs map to delineate area of residual tumor. Hemostasis was achieved with electrocoagul ation. The tissue was oriented and divided into 1 sections, chromacoded, and submitted for frozen sections. The patient tolerated the procedure well and without complications. On microscopic evaluation of the frozen sections, residual tumor was identified as basal cell carcinoma, infiltrative on section(s) B1. Stage III The surgical site was re-anesthetized with 1% lidocaine with 1:100,000 epinephrine, re-prepped and redraped in a sterile manner. The residual tumor was re-excised as a complete layer 2-3mm in thickness. Hemostasis was achieved with electrocoagulation. The tissue was oriented and divided into 1 sections, chromacoded, and submitted for frozen sections. The patient tolerated the procedure well and without complications. On microscopic evaluation of the frozen sections, no residual tumor was identified on the deep or outer border of the sections. The final size of the defect after complete tumor removal was 1.1 x 0.9 cm, extending to perichondrium. Repair Report (Flap) Patient name: Kesha Azeem Silva Staff Surgeon: Michele Levi MD PhD Concrete Panel Installer(s): same as above Date: 09/02/2018 Clinical Diagnosis: skin and soft tissue defect status post Mohs micrographic surgery Location/Site: Left tip of nose Indication: repair of wound with latter-day of anatomy/function Defect size to be repaired: 1.1 x 0.9 cm Procedure: advancement flap repair Final flap size: 3 x 2 cm 2 Procedure Details: Due to the size and location of the defect resulting from the complete removal of the tumor, the postoperative risk of hemorrhage, infection, and the possibility of serious deformity from scarring, and in order to restore proper function and prevent loss of function, the defect was closed with an advancement flap. The nature and purpose of the procedure, associated risks, possible consequences, complications andalternative methods of treatment were explained to the patient in detail. An informed consent was obtained. Local anesthesia was obtained with a solution of 1-% lidocaine with 1:100,000 epinephrine. The surgical site was prepped and draped in the usual sterile manner. Any beveled edges of the defect were repaired with a scalpel blade. The flap was created by making incisions along nasal dorsum and columella. The flap and the wound edges were undermined, and hemostasis was obtained with electrocoagulation. The flap was advanced onto the defect. The skin edges were closed using 4.0 Monocryl dermal/subcutaneous sutures and 6-0 Prolene skin sutures. Final flap size: 3x2 cm2. Estimated blood loss: Minimal. Complications: None. Wound care: Routine. Follow up for suture removal in 7 days. The patient was discharged in good condition. Total local anesthesia with 1% lidocaine with 1:100,000 epinephrine used: 3.5 cc Total local with 0.25% bupivacaine with 1:100,000 epinephrine used: 6 cc Preoperative Medications: None Post-operative medications: Keflex 500 mg by mouth twice daily x 5 days Michele Levi MD PhD [facility] and Dermatologic Oncology Section of Dermatology, Department of Surgery documented in this encounter Plan of Treatment Not on file documented as of this encounter Visit Diagnoses Diagnosis Basal cell carcinoma of left nasal tip Basal cell carcinoma of skin of other and unspecified parts of face Prophylactic antibiotic Encounter for long-term (current) use of antibiotics documented in this encounter Administered Medications Inactive Administered Medications - up to 3 most recent administrations Medication Order MAR Action Action Date Dose Rate Site acetaminophen (TYLENOL) tablet 650 mg 650 mg, Oral, ONCE, 1 dose, On Fri09/02/18 at 1145, Maximum dose of acetaminophen is 4000 mg from all sources in 24 hours., Routine Given 09/02/2018 11:22 AM EDT 650 mg documented in this encounter Care Teams Personal Computer Specialist Relationship Specialty Start Date End Date Shayy Donohue, LEANEDR [address] [place] [address] PCP - General Family Medicine 07/17/18 01/04/22 documented as of this encounter
--- OUTSIDE RECORDS SUMMARY | 2024-02-25 15:21 | XMS_ITS | Encounter Summary ---
Author Organization [facility] Address [facility] [address] [place] [address] Care Team Providers Care Card Painter Name Role Phone FrancoShayy sarah LEANDER Primary Care Provider [phone] Encounter Details Date Type Department Care Team (Late st Contact Info) Description 03/02/2021 Telephone Dermatology at [facility] [address] [place] [id number] Mushtaq Proctor MD [facility] DR JOSE ANTONIO [place] [address] Social History Tobacco Use Types Packs/Day Years [...] encounter Miscellaneous Notes * Telephone Encounter - Kristine Joshi - 03/02/2021 3:20 PM EST Left msg to schedule FSE documented in this encounter Plan of Treatment Not on file documented as of this encounter Visit Diagnoses Not on filedocumented in this encounter Care Teams Card Painter Relationship Specialty Start Date End Date Shayy Donohue APRN [address] [place] [address] [address] [place] [address] PCP - General Family Medicine 07/17/18 01/04/22 documented as of this encounter
--- OUTSIDE RECORDS SUMMARY | 2024-02-25 15:21 | XMS_ITS | Encounter Summary ---
Author Organization [facility] Address [address] [place] [address] Care Team Providers Care Global Professional Name Role Phone Naomy Valles MD Primary Care Provider [phone] Encounter Details Date Type Department Care Team (Late st Contact Info) Description 11/14/2009 10:23 EDT - 11/14/2009 23:59 EDT Hospital Encounter [facility] [address] [place] [address] Damaris Gusman MD [address] [place], [place] [phone] Discharge Disposition: Home or Self Care Social [...] Code Departure Means Destination Home or Self Half-Way documented in this encounter Plan of Treatment Not on file documented as of this encounter Visit Diagnoses Not on filedocumented in this encounter Care Teams Global Professional Relationship Specialty Start Date End Date Naomy Valles MD [address] [place], [place] [id number] PCP - General 12/26/08 11/19/18 documented as of this encounter
--- OUTSIDE RECORDS SUMMARY | 2024-02-25 15:21 | XMS_ITS | Encounter Summary ---
Author Organization [facility] Address [address] [place] [address] Care Team Providers Care Chief Innovation Officer Name Role Phone Naomy Valles MD Primary Care Provider [phone] Encounter Details Date Type Department Care Team (Late st Contact Info) Description 06/11/2005 Results Only [facility] conversion [address] [place] [address] Delmy Jarrett MD [address] [place] [address] [place] [address] Social History Tobacco Use Types Packs/Day Years [...] Procedure Name Priority Date/Time Associated Diagnosis Comments HPV DETECTION, HIGH RISK TYPES Routine 06/11/2005 15:30 EST HPV DETECTION, HIGH RISK TYPES Routine 06/11/2005 9:12 EST CYTOPATHOLOGY Routine 06/11/2005 0:00 EST documented in this encounter Results * HUMAN PAPILLOMA VIRUS DNA TEST (06/11/2005 15:30 EST) Specimen Description Cervix, ThinPrep vial [facility] Result Duplicate Test Request Credit Issued [facility] Report Status Final [id number] [facility] 06/11/2005 15:3 0 EST 06/21/2005 9:17 EST Delmy Jarrett MD MICROBIOLOGY - GENERAL ORDERABL ES Final Result Performing Organization Address [facility] de Phone Number [facility] [address] [place] [address] * HUMAN PAPILLOMA VIRUS DNA TEST (06/11/2005 9:12 EST) Specimen Description Cervix, ThinPrep vial [facility] Result Positive for one or more of HPV types 16,18,31,33,35 ,39,45,51,52,5 6,58,59, or 68. These high/intermedi ate risk HPV types are associated with dysplasia and some cervical cancers. [facility] Report Status Final [id number] [facility] 06/11/2005 9:12 EST 06/21/2005 9:12 EST Delmy Jarrett MD MICROBIOLOGY - GENERAL ORDERABL ES Final Result Performing Organization Address [facility] Phone Number [facility] [address] [place] [address] * CYTOPATHOLOGY (06/11/2005 0:00 EST) Pathology Report: CYTOPATHOLOGY REPORT Reports generated via electronic interface contain original data; however they are lacking the format of the original report. Caution should be taken when reading/interpreti ng unformatted reports. Name: ? BALAJI SAM ? Accession #: ? [id number] : ? 1975 (Age: 29) ??F ?Collect Date: ? 06/11/2005 Location: ? [facility] ? Receive Date: ? 06/13/2005 Provider: ?DELMY JARRETT MD Copy to: ? Specimen/Source: ?ThinPrep Pap Test, Cervix/Endocervix, processed on [employer] ThinPrep Imaging System, with manual evaluation Last Menstrual Period: ? /08/17 Hormonal/Contracep tive Status: ? Tubal ligation Previous Gynecologic Pathology: ? LSIL: 01/14, ??09/15 AND 03/17 JOEY I: 05/19 ASC-US: 11/13/04 Treatment History: ? Miscellaneous treatment: Endocervical Curettage 02/14 and 03/18 Cervical biopsy: 05/19 ? SPECIMEN ADEQUACY ? Satisfactory for Evaluation - transformation zone component present GENERAL CATEGORIZATION ? Epithelial Cell Abnormality INTERPRETATION ? Squamous Cell Abnormality - Atypical squamous cells, undetermined significance. EDUCATIONAL NOTES/RECOMMENDATI ONS ? [facility] recommends following the 2001 Consensus Guidelines for the Management of Women with Cervical Cytological Abnormalities (DENIS,2002;287:212 0-9). Management algorithms have been distributed by [facility] and are available online at www.ASCCP.org. ? Document reviewed and electronically signed by: ? Kandy Ray MD ? Report Date: ??06/19/2005 17:09 End of Report [facility] 06/11/2005 06/13/2005 us Delmy Jarrett MD PATHOLOGY ORDERABLES Final Resu lt Performing Organization Address City/State/[facility] Co de Phone Number [facility] [address] [place] [address] documented in this encounter Visit Diagnoses Not on filedocumented in this encounter Care Teams Chief Innovation Officer Relationship Specialty Start Date End Date Naomy Valles MD [address] [place] [address] PCP - General 12/26/08 11/19/18 documented as of this encounter
--- OUTSIDE RECORDS SUMMARY | 2024-02-25 15:21 | XMS_ITS | Encounter Summary ---
Author Organization [facility] Address [address] [place] [address] Care Team Providers Care Personal Support Worker Name Role Phone Naomy Valles MD Primary Care Provider [phone] Encounter Details Date Type Department Care Team (Late st Contact Info) Description 06/22/2010 Results Only [facility] [phone] Juliann De Leon, HARDWARE SUPPLIES SALES REPRESENTATIVE [address] [facility] [address] Social History Tobacco Use Types Packs/Day Years [...] Procedure Name Priority Date/Time Associated Diagnosis Comments CYTOPATHOLOGY Routine 06/22/2010 0:00 EST documented in this encounter Results * CYTOPATHOLOGY (06/22/2010 0:00 EST) Pathology Report: CYTOPATHOLOGY REPORT ? Reports generated via electronic interface contain original data; ? however they are lacking the format of the original report. ? Caution should be taken when reading/interpreti ng unformatted reports. ? Name: ? BALAJI SAM ? Accession #: ? [id number] ? : ? 1975 (Age: 34) ??F ?Collect Date: ? 06/22/2010 ? Location: ? [facility] ? Receive Date: ? 06/26/2010 ? Provider: ?JULIANN J SILVIA HARDWARE SUPPLIES SALES REPRESENTATIVE ? Copy to: ? Specimen/Source: ?Pap Test, Cervix/Endocervix, ThinPrep Imaging System ? with manual evaluation ? Last Menstrual Period: ? SPECIMEN ADEQUACY ? Satisfactory for Evaluation ? - transformation zone component present ? GENERAL CATEGORIZATION ? Negative for Intraepithelial Lesion or Malignancy ? Document reviewed and electronically signed by: ? Kandy Fior, CT(ASCP) ? Report Date: ??06/28/2010 08:20 ? End of Report ? [facility] 06/22/2010 06/26/2010 us Juliann De Leon APRN PATHOLOGY ORDERABLES Final Re sult [facility] [address] [place] [address] documented in this encounter Visit Diagnoses Not on filedocumented in this encounter Care Teams Personal Support Worker Relationship Specialty Start Date End Date Naomy Valles MD [address] [place] [address] PCP - General 12/26/08 11/19/18 documented as of this encounter
--- OUTSIDE RECORDS SUMMARY | 2024-02-25 15:21 | XMS_ITS | Encounter Summary ---
Author Organization [facility] Address [facility] [place] [address] Care Team Providers Care Measurer Name Role Phone Shayy Donohue LEANDER Primary Care Provider Reason for Visit * Reason Comments Skin Lesion Encounter Details Date Type Department Care Team (Late st Contact Info) Description 08/24/2018 2:00 PM EDT Office Visit Dermatology at [facility] [address] [place] [address] Call, Francois Dennis MD [facility] DR JOSE ANTONIO [place] [address] Neoplasm of uncertain behavior Social History Tobacco Use Types Packs/Day Years Used Date Smoking Tobacco: Never Smokeless Tobacco: Never Alcohol Use Standard Drinks/Week Comments No 0 (1 standard drink = 0.6 oz pur e alcohol) Sex and Gender Information Value Date Recorded Sex Assigned at Not on file Gender Identity Not on file Sexual Orientation Not on file documented as of this encounter Progress Notes * CallFrancois - 08/24/2018 2:00 PM EDT Images from the original note were not included. DERMATOLOGY - ESTABLISHED PATIENT FOLLOW-UP Date of service: 08/24/2018 Kesha Silva : 1975, 42 y.o. Chief Complaint: Chief Complaint Patient presents with ??? Skin Lesion HPI: Kesha Silva is a 42 y.o. female last seen by myself on 08/03/2018. Ms. Silva returns today for a re biopsy of the tip of her nose. Here with her mother, states that previous biopsy healed well Relevant Skin History: - Okay to leave detailed message with results? Yes - Skin cancer (including type): No ?? Family History: Melanoma: Maternal Aunt Maternal Grandmother- BCC Relevant Social History: - [employer]- [employer] in [place], [place] Lives in [place], [place] Medications: Current Outpatient Medications Medication Sig Dispense Refill ??? multivitamin Tablet, Chewable Take by mouth. No current facility-administered medications for this visit. Allergies: Allergies Allergen Reactions ??? Amoxicillin Rash ??? Bactrim [Sulfamethoxazole-Trimethoprim] Rash Review of Systems: - General: Feels well. - Skin: No other skin concerns. Examination: - Constitutional: Patient was alert, well-appearing and in no noticeable distress. - Skin: Skin examination of the face. - A female nurse was present and on standby during my examination. Diagnosis/Skin findings/Assessment/Plan: 1. Rule out BCC - 3mm ill-defined papule with central erosion, repeat biopsy today after previous biopsy too shallow to call Procedure: Skin biopsy by shave technique Location: Left tip of nose Discussed indications for procedure and expectations including risks and benefits. Verbal consent obtained. Skin prep with alcohol. Local anesthesia with 1% xylocaine, 1/100,000 epinephrine. A sampleof the lesion was removed by shave technique to the level of the dermis and submitted to Pathology.Hemostasis obtained (AlCl and/or electrocautery). There were no complications; the pt. tolerated the procedure well. The wound was dressed. Post-procedure expectations, wound care and activity restrictions were reviewed. Follow-up based on pathology results. RTC: Pending pathology. The following photo was obtained with patient consent: Note initiated by GHASSAN WINN LPN. I, Jett Rivas, have performed the documentation for this encounter in the presence of and acting as a scribe for Francois Dang MD. I performed the services which were documented by the scribe, and I agree with the accuracy of the documentation in this encounter. Francois Dang MD Reviewed and signed by: Francois Dang MD Resident in Dermatology [facility] Patient seen and evaluated with staff recycling assistant: Breanna Mendez MD Section of Dermatology [facility] * Breanna Mendez MD - 08/24/2018 2:00 PM EDT I directly supervised Dr. Dang during this office visit. Dr. Dang presented the history and physical exam to me. I then saw and examined this patient with Dr. Dang. We reviewed the history and pertinent details and I confirmed the physical findings. I agree with the details of the history and physical exam as documented in Dr. Dang's note. BREANNA MENDEZ MD Staff Physician documented in this encounter Plan of Treatment Not on file documented as of this encounter Procedures Procedure Name Priority Date/Time Associated Diagnosis Comments SURGICAL PATHOLOGY REPORT Routine 08/24/2018 3:10 PM EDT SPECIMEN TO PATHOLOGY Routine 08/24/2018 3:10 PM EDT Neoplasm of uncertain behavior documented in this encounter Results * Surgical Pathology Report (08/24/2018 3:10 PM EDT) Final Diagnosis [id number] ? Location: [facility] The signing pathologist has (i) examined the relevant preparation(s) for the specimen(s) and (ii) rendered or confirmed the diagnosis(es). . ?Surgical Pathology DIAGNOSIS Skin, left tip of nose, shave biopsy: - ??Basal cell carcinoma, present at the peripheral and deep specimen edges - ??Reparative changes consistent with prior procedure site Electronically signed by: ??Víctor Garber MD Verified: ??08/26/2018 ?Dermatopathol ogist Performed at: ??-[facility] Dept. of Pathology, [place], [place] ADDITIONAL STUDIES The prior pathology report ([id number] ) has been examined. CLINICAL INFORMATION Specimen Submitted: A - Skin, left tip of nose, shave biopsy (1) Clinical History and Diagnosis: 42-year-old female with 3 mm pink papule on the left tip of nose, previously biopsied, see [id number]. Repeat biopsy today DDX rule out BCC SPECIMEN PROCESSING A - Labeled/Fixativ e: Patient demographics, formalin. Quantity/Size: ??Single, 0.6 x 0.5 cm. Tissue Description: Clinton-white crusted skin shave. Sections/Proces sing: Inked, bisected and entirely submitted in 1 cassette labeled A1. ??jmb 08/26/2018 12:38 PM EDT [facility] SPECIMEN FROM SKIN / Unknown 08/24/2018 3:10 PM EDT 08/24/2018 3:10 PM EDT Francois Dang MD PATHOLOGY/CYTOLOGY [place] [facility] [place] [address] * Specimen to Pathology (08/24/2018 3:10 PM EDT) AP Specimen 08/24/2018 3:10 PM EDT 08/24/2018 7:18 PM EDT Narrative [facility] - 08/24/2018 7:18 PM EDT Specimen requisition ordered. 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
--- OUTSIDE RECORDS SUMMARY | 2024-02-25 15:21 | XMS_ITS | Encounter Summary ---
Author Organization [facility] Address [address] [place] [address] Care Team Providers Care Home Care Liaison Name Role Phone Naomy Valles MD Primary Care Provider [phone] Encounter Details Date Type Department Care Team (Late st Contact Info) Description 08/22/1999 Results Only [facility] conversion [address] [place] [address] Nadia Boyd [facility] [address] [place], [place] [address] Social History Tobacco Use Types Packs/Day Years [...] Priority Date/Time Associated Diagnosis Comments CYTOPATHOLOGY Routine 08/22/1999 14:26 EDT documented in this encounter Results * CYTOPATHOLOGY (08/22/1999 14:26 EDT) Pathology Report: CYTOPATHOLOGY REPORT Reports generated via electronic interface contain original data; however they are lacking the format of the original report. Caution should be taken when reading/interpreti ng unformatted reports. Name: ? KELYFILIBERTOBALAJI WATSON Azeem ? Accession #: ? [id number] : ? 1975 (Age: 23) ??F ?Collect Date: ? 08/22/1999 Location: ?Receive Date: ? 08/22/1999 Provider: ?NADIA BOYD CNM Copy to: ?NADIA BOYD CNM ? Specimen/Source: ?Pap Smear (One Slide) Last Menstrual Period: ? GYNECOLOGIC ??CYTOPATHOLOGY ??REPORT Name: BALAJI ESTEVES ?[facility] : 1975 ?? 23Y F ?Client ID: [id number] SS#: [id number] ? Clinician: NADIA BOYD CNM ?? Location: [facility] ??Copy to: ?? Specimen: ?Pap Smear (One Slide) ? Source: Cervix/Endocervix ?Collected: 08/20/99 ? Received: 08/22/1999 ?LMP: ?Hormone Therapy: No ? : No ? Radiation Therapy: No ?? Post : Yes ? Chemotherapy: No ?IUD: No ? Prev Abnormal Pap: No ?? Clinical Hx: ?(Blank garcia indicate information not provided on requisition) SPECIMEN ADEQUACY: ? Satisfactory For Evaluation ?? GENERAL CATEGORIZATION: ? WITHIN NORMAL LIMITS ? Reviewed And Electronically Signed By: ? Armando Stafford CT(ASCP) ? Report Date: ?? 08/27/1999 [facility] Archived Tests - Final Diagnosis Text Field: Clinical History : ? Document reviewed and electronically signed by: ? Conversion ? Report Date: ??08/27/1999 00:00 End of Report [facility] 08/22/1999 14:2 6 EDT 08/22/1999 14:27 EDT us Nadia Sondraminoo CNM PATHOLOGY ORDERABLES Final Resul t Performing Organization Address City/State/[facility] Co de Phone Number [facility] [address] [place] [address] documented in this encounter Visit Diagnoses Not on filedocumented in this encounter Care Teams Home Care Liaison Relationship Specialty Start Date End Date Naomy Valles MD [address] [place], [place] [id number] PCP - General 12/26/08 11/19/18 documented as of this encounter
--- OUTSIDE RECORDS SUMMARY | 2024-02-25 15:21 | XMS_ITS | Encounter Summary ---
Author Organization [facility] Address [address] [place] [address] Care Team Providers Care Blend Technician Name Role Phone Naomy Valles MD Primary Care Provider [phone] Encounter Details Date Type Department Care Team (Late st Contact Info) Description 07/24/2007 Results Only [facility] [place] conversion [address] [place] [address] Smith Salmeron MD [address] [place] [address] Social History Tobacco Use Types Packs/Day Years [...] Priority Date/Time Associated Diagnosis Comments CYTOPATHOLOGY Routine 07/24/2007 0:00 EDT documented in this encounter Results * CYTOPATHOLOGY (07/24/2007 0:00 EDT) Pathology Report: CYTOPATHOLOGY REPORT Reports generated via electronic interface contain original data; however they are lacking the format of the original report. Caution should be taken when reading/interpreti ng unformatted reports. Name: ? BALAJI SAM ? Accession #: ? [id number] : ? 1975 (Age: 31) ??F ?Collect Date: ? 07/24/2007 Location: ? [facility] ? Receive Date: ? 07/28/2007 Provider: ?SMITH SALMERON MD Copy to: ? Specimen/Source: ?ThinPrep Pap Test, Cervix/Endocervix, processed on [employer] ThinPrep Imaging System, with manual evaluation Last Menstrual Period: ? 06/29/07 Other: ? HPVA - HPV testing requested if ASC-US on the current ThinPrep Pap test. ? SPECIMEN ADEQUACY ? Satisfactory for Evaluation - transformation zone component present GENERAL CATEGORIZATION ? Negative for Intraepithelial Lesion or Malignancy INTERPRETATION ? Reactive cellular changes associated with inflammation present (includes repair). ? Document reviewed and electronically signed by: ? Shimon Arguelles MD ? Report Date: ??08/03/2007 10:05 End of Report [facility] 07/24/2007 07/28/2007 us Smith Salmeron MD PATHOLOGY ORDERABLES Final Res ult [facility] [address] [place] [address] documented in this encounter Visit Diagnoses Not on filedocumented in this encounter Care Teams Blend Technician Relationship Specialty Start Date End Date Naomy Valles MD [address] [place] [address] PCP - General 12/26/08 11/19/18 documented as of this encounter
--- OUTSIDE RECORDS SUMMARY | 2024-02-25 15:21 | XMS_ITS | Encounter Summary ---
Author Organization [facility] Address [facility] [place] [address] Care Team Providers Care Manager Infusion Name Role Phone Shayy Donohue LEANDER Primary Care Provider [phone] Reason for Visit * Reason Comments Skin Lesion Encounter Details Date Type Department Care Team (Late st Contact Info) Description 02/12/2021 10:00 AM EDT Office Visit Dermatology at [facility] [address] [place] [address] Mushtaq Proctor MD [facility] [address] JO[address] ANTON[address] [place] [address] History of basal cell carcinoma (BCC); Telangiectasia Social History Tobacco Use Types Packs/Day Years Used Date Smoking Tobacco: Never Smokeless Tobacco: Never Alcohol Use Standard Drinks/Week Comments No 0 (1 standard drink = 0.6 oz pur e alcohol) Sex and Gender Information Value Date Recorded Sex Assigned at Not on file Gender Identity Not on file Sexual Orientation Not on file documented as of this encounter Progress Notes * Mushtaq Proctor MD - 02/12/2021 10:00 AM EDT Images from the original note were not included. DEPARTMENT OF DERMATOLOGY Medical Dermatology Clinic Provider: Mushtaq Proctor MD Detailed phone message OK? 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 Patient returns to clinic today for a focused exam with the following concerns: - Lesion on the left side of her nose. - It has been present for approximately 3-4 months. - She reports that it sometimes bleeds spontaneously. - She has not had any prior treatment for this spot. - She has no additional concerns today. Last visit at [facility] Derm: 08/24/2018 Last visit with this provider: Visit date not found Medications: Reviewed in eD-H Allergies: Reviewed in eD-H Skin Examination: Focused skin examination of the nose was normal with the exception of the findings below. Assessment/Plan #. Telangiectasias - On the left nare, there is an approximately 2mm telangiectatic macule - Patient was reassured that there is no evidence of skin cancer at this time. - Advised the patient to take a photo and contact the clinic for further evaluation if the spot spontaneously bleeds again or changes. #. History of BCC - Well-healed scar on nose. - No clinical evidence of recurrence. - Patient was reassured. Other: ??? N/A RTC: PRN []Note routed to secretary book keeper []Recall placed in scheduling system []Appointment scheduled at checkout Reviewed and signed by: Mushtaq Proctor MD [facility] Patient seen and evaluated with staff straight knife machine cutter: Sunny Shane MD Derm[facility] * Sunny Shane MD - 02/12/2021 10:00 AM EDT I directly supervised Dr. Proctor during this office visit. Dr. Proctor presented the history and physical exam to me. I, then, saw and examined this patient with Dr. Proctor. We reviewed the history and pertinent details and I confirmed the physical findings. I agree with the details of the history and physical exam as documented in Dr. Proctor's note. SUNNY SHANE MD Staff Physician documented in this encounter Plan of Treatment Not on file documented as of this encounter Visit Diagnoses Diagnosis History of basal cell carcinoma (BCC) Telangiectasia Other and unspecified capillary diseases documented in this encounter Care Teams Manager Infusion Relationship Specialty Start Date End Date Shayy Donohue APRN [address] [place] [address] PCP - General Family Medicine 07/17/18 01/04/22 documented as of this encounter
--- OUTSIDE RECORDS SUMMARY | 2024-02-25 15:21 | XMS_ITS | Clinical Summary ---
Author Organization [facility] Address [facility] [place] [address] Care Team Providers Care Fiberglass Boat Builder Name Role Phone Unknown Primary Care Provider Unavailabl e Allergies Active Allergy Reactions Criticality Noted Date Comments Amoxicillin 08/03/2018 Rash Sulfamethoxazole-Trimethoprim Rash 2011 Medications Medication Sig Dispensed Refills Start Date End Date Status sertraline (ZOLOFT) 100 mg Tablet Take 100 mg by mouth daily. Active apixaban (ELIQUIS) 5 mg Tablet Take 5 mg by mouth 2 times daily. Active pantoprazole (PROTONIX) 40 mg Tablet, Delayed Release (E.C.) Take 40 mg by mouth daily. Active acetaminophen (TYLENOL) 325 mg Tablet Take 650 mg by mouth every 4 hours as needed for Pain. 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 Prior with demise 11/29/2011 Family History Medical History Relation Comments Hypertension Father Breast Cancer Maternal Aunt Breast Cancer Other cousin, young ag e Coronary Artery Disease Paternal Grandfather Thrombosis Sister VTE in teens, (+ )FVL Cancer Neg Hx colon Ovarian Cancer Neg Hx Relation Status Comments Father Maternal Aunt Other Paternal Grandfather Sister Social History Tobacco Use Types Packs/Day Years Used Date Smoking Tobacco: Never Smokeless Tobacco: Never Alcohol Use Standard Drinks/Week Comments No 0 (1 standard drink = 0.6 oz pur e alcohol) Sex and Gender Information Value Date Recorded Sex Assigned at Not on file Gender Identity Not on file Sexual Orientation Not on file Last Filed Vital Signs Vital Sign Reading Time Taken Comments Blood Pressure 132/95 09/02/2018 7:54 AM EDT Pulse 74 09/02/2018 7:54 AM EDT Temperature 36.8 ??C (98.2 ??F) 05/08/2012 8:22 AM ES T Respiratory Rate 16 05/08/2012 8:22 AM EST Oxygen Saturation - - Inhaled Oxygen Concentration - - Weight 65.1 kg (143 lb 9.6 oz) 05/08/2012 8:22 A M EST Height 161.9 cm (5' 3.75) 05/08/2012 8:22 AM ES T Body Mass Index 24.84 05/08/2012 8:22 AM EST Plan of Treatment Health Maintenance Due Date Last Done Comments CT Colonography 1975 Colonoscopy 1975 Colorectal Cancer Screening 1975 FIT DNA 1975 FIT 1975 Sigmoidoscopy (10 year) with FIT yearly 1975 Sigmoidoscopy 1975 HIV screen 1994 Hepatitis C Screening 1994 Hepatitis B vaccine (0-59 yrs) (1) 11/25/1995 Tetanus/Diphtheria/Pertussis Vaccines (1 - Tdap) 11/24 HPV test 2006 PAP Smear 2006 Breast Cancer Share Decision Needed 2016 Breast Cancer screening 2016 Covid-19 Vaccine (1 - 2023-25 season) 2023 Influenza (Flu) vaccine (1 o f 1 - Influenza standard series) 12/14/2023 Care Teams Fiberglass Boat Builder Relationship Specialty Start Date End Date Unknown None PCP - General 01/05/22
--- OUTSIDE RECORDS SUMMARY | 2024-02-25 15:21 | XMS_ITS | Encounter Summary ---
Author Organization [facility] Address [address] [place] [address] Care Team Providers Care Spray Booth Operator Name Role Phone Unavailable Primary Care Provider Unavailabl e Encounter Details Date Type Department Care Team (Late st Contact Info) Description 08/08/2005 9:50 EDT - 08/08/2005 11:59 EDT Hospital Encounter [facility] [address] [place] [address] Damaris Gusman MD [address] [place], [place] [phone] Discharge Disposition: Auto Discharge Social History Tobacco [...] Destination Auto Discharge documented in this encounter Plan of Treatment Not on file documented as of this encounter Visit Diagnoses Not on filedocumented in this encounter
--- OUTSIDE RECORDS SUMMARY | 2024-02-25 15:21 | XMS_ITS | Encounter Summary ---
Author Organization [facility] Address [facility] [place] [address] Care Team Providers Care Research Test Engine Operator Name Role Phone Shayy Donohue LEANDER Primary Care Provider Reason for Visit * Reason Comments Wound Check Encounter Details Date Type Department Care Team (Latest Contact Info) Description 12/08/2018 12:45 PM EDT Clinical Support Dermatology at [facility] [address] [place] [address] Michele Levi MD [facility] DR JOSE [place]TON[place] [address] Visit for wound check Social History Tobacco Use Types Packs/Day Years Used Date Smoking Tobacco: Never Smokeless Tobacco: Never Alcohol Use Standard Drinks/Week Comments No 0 (1 standard drink = 0.6 oz pur e alcohol) Sex and Gender Information Value Date Recorded Sex Assigned at Not on file Gender Identity Not on file Sexual Orientation Not on file documented as of this encounter Progress Notes * Brit Martinez LPN - 12/08/2018 12:45 PM EDT Images from the original note were not included. Dermatologic Surgery Post-Operative Wound Check Patient: Kesha Silva Today's Date: 12/08/2018 Date of : 1975 Chief complaint: Suture removal History of Present Illness: Kesha Silva is a 43 y.o. female presents today for status post Mohs micrographic surgery for basal cell carcinoma, nodular/infiltrative, with surgery date 09/02/2018, repaired by advancement flap, located on the left tip of nose. Today, the patient reports contentment with the scar. Patient denies post- operative course. Examination: Focused examination performed of the surgical site. This reveals a well healed flap. Assessment: 1. Well healed flap with mild erythema. Plan: 1. Discussed importance of sun protection, sun avoidance strategies, and sunscreen. 2. Follow up with general dermatology as planned. Michele Levi MD PhD Mohs Micrographic Surgery and Dermatologic Oncology Section of Dermatology, Department of Surgery * Michele Levi MD - 12/08/2018 12:45 PM EDT Images from the original note were not included. Patient returned today for follow up now 3 months post op with excellent result. Patient very pleased, scar barely perceptible at talking distance. Michele Levi MD PhD Mohs Micrographic Surgery and Dermatologic Oncology Section of Dermatology, Department of Surgery documented in this encounter Plan of Treatment Not on file documented as of this encounter Visit Diagnoses Diagnosis Visit for wound check Encounter for other specified aftercare documented in this encounter Care Teams Research Test Engine Operator Relationship Specialty Start Date End Date Shayy Donohue APRN [address] [place] [address] PCP - General Family Medicine 07/17/18 01/04/22 documented as of this encounter
--- OUTSIDE RECORDS SUMMARY | 2024-02-25 15:21 | XMS_ITS | Encounter Summary ---
Author Organization [facility] Address [address] [place] [address] Care Team Providers Care Insulation Batting Machine Operator Name Role Phone Naomy Valles MD Primary Care Provider [phone] Encounter Details Date Type Department Care Team (Late st Contact Info) Description 11/13/2004 Results Only [facility] [address] [place] [address] Delmy Jarrett MD [address] [place] [address] [place] [address] Social History Tobacco Use Types Packs/Day Years [...] Priority Date/Time Associated Diagnosis Comments CYTOPATHOLOGY Routine 11/13/2004 0:00 EDT documented in this encounter Results * CYTOPATHOLOGY (11/13/2004 0:00 EDT) Pathology Report: CYTOPATHOLOGY REPORT Reports generated via electronic interface contain original data; however they are lacking the format of the original report. Caution should be taken when reading/interpreti ng unformatted reports. Name: ? BALAJI SAM ? Accession #: ? [id number] : ? 1975 (Age: 28) ??F ?Collect Date: ? 11/13/2004 Location: ? [facility] ? Receive Date: ? 11/14/2004 Provider: ?DELMY JARRETT MD Copy to: ? Specimen/Source: ?ThinPrep Pap Test, Cervix/Endocervix, processed on [employer] ThinPrep Imaging System, with manual evaluation Last Menstrual Period: ? 10/31/04 Hormonal/Contracep tive Status: ? Tubal ligation Previous Gynecologic Pathology: ? LSIL: 01/14, 09/15 ,03/17 JOEY I: 05/19 Yes: 02/14, 05/19 Endocervical curettage Treatment History: ? Cervical biopsy: 05/19 ? SPECIMEN ADEQUACY ? Satisfactory for Evaluation - transformation zone component present GENERAL CATEGORIZATION ? Epithelial Cell Abnormality INTERPRETATION ? Squamous Cell Abnormality - Atypical squamous cells, undetermined significance. EDUCATIONAL NOTES/RECOMMENDATI ONS ? [facility] recommends following the 2001 Consensus Guidelines for the Management of Women with Cervical Cytological Abnormalities (DENIS,2002;287:212 0-9). Management algorithms have been distributed by [facility] and are available online at www.ASCCP.org. ? Document reviewed and electronically signed by: ? MINI MEJIA [facility] ? Report Date: ??11/23/2004 18:02 End of Report [facility] 11/13/2004 11/14/2004 us Delmy Jarrett MD PATHOLOGY ORDERABLES Final Resu lt [facility] [address] [place] [address] documented in this encounter Visit Diagnoses Not on filedocumented in this encounter Care Teams Insulation Batting Machine Operator Relationship Specialty Start Date End Date Naomy Valles MD [address] [place] [address] PCP - General 12/26/08 11/19/18 documented as of this encounter
--- OUTSIDE RECORDS SUMMARY | 2024-02-25 15:21 | XMS_ITS | Encounter Summary ---
Author Organization [facility] Address [address] [place] [address] Care Team Providers Care Substation Engineer Name Role Phone Unavailable Primary Care Provider Unavailabl e Encounter Details Date Type Department Care Team (Late st Contact Info) Description 09/05/2006 10:29 EDT Hospital Encounter [facility] [address] [place] [address] Suzan Ferrera, PhD [address] [place] [address] Social History Tobacco Use Types Packs/Day Years [...]
--- OUTSIDE RECORDS SUMMARY | 2024-02-25 15:21 | XMS_ITS | Encounter Summary ---
Author Organization [facility] Address [address] [place] [address] Care Team Providers Care Mower Operator Name Role Phone Naomy Valles MD Primary Care Provider [phone] Encounter Details Date Type Department Care Team (Late st Contact Info) Description 02/09/2001 Results Only [facility] [place] [facility] [address] [place] [address] Narayan Jeffries MD [address] [place], [place] [id number] Social History Tobacco Use Types Packs/Day Years [...] Priority Date/Time Associated Diagnosis Comments SURGICAL PATHOLOGY Routine 02/09/2001 0:00 EST documented in this encounter Results * SURGICAL PATHOLOGY (02/09/2001 0:00 EST) Pathology Report: SURGICAL PATHOLOGY REPORT Reports generated via electronic interface contain original data; however they are lacking the format of the original report. Caution should be taken when reading/interpreti ng unformatted reports. Name: ? BALAJI SAM ? Accession #: ? [id number] ? : ? 1975 (Age: 25) ??F ? Collect Date: ? 02/09/2001 ? Location: ? [facility] ? Receive Date: ? 02/09/2001 ? Provider: NARAYAN JEFFRIES MD Copy to: ANALILIA BOYD CNM ? Final Pathologic Diagnosis: A. ?Fallopian tube, right, partial tubal ligation: 1. ?No pathologic features, full cross sections obtained. B. ?Fallopian tube, left, partial tubal ligation: 1. ?No pathologic features, full cross sections obtained. Document reviewed and electronically signed by: Clive Mcdonald MD Report ??Date: 02/11/2001 17:03 By the signature above, the attending physician certifies that he/she has personally conducted a gross and/or microscopic examination of the described specimens and rendered or confirmed the above diagnosis. Specimen(s) Received: A. ?Segment right fallopian tube #1 B. ?Segment left fallopian tube #2 Clinical History: ? Delivery on 02/07/01 Gross Description: ? Received in formalin labelled Danielito and #1 segment Rt. Fallopian tube is a 0.7 cm long by 0.5 cm in diameter, correa brown segment of fallopian tube. Serial sectioning reveals a pinpoint lumen and two customer service representative teller sections are submitted as (A). ?? Received in formalin labelled Danielito and #2 segment Lt. Fallopian tube is a correa brown portion of fallopian tube which measures 1.8 cm in length, and 0.3 cm in diameter. ??Serial sectioning reveals a pinpoint lumen. ??Two customer service representative teller sections are submitted as (B). ??(E. Ni)/mhd End of Report [facility] 02/09/2001 02/09/2001 16: 05 EST us Narayan Jeffries MD PATHOLOGY ORDERABLES Final Resul t [facility] [address] [place] [address] documented in this encounter Visit Diagnoses Not on filedocumented in this encounter Care Teams Mower Operator Relationship Specialty Start Date End Date Naomy Valles MD [address] [place], [place] [address] PCP - General 12/26/08 11/19/18 documented as of this encounter
--- OUTSIDE RECORDS SUMMARY | 2024-02-25 15:21 | XMS_ITS | Encounter Summary ---
Author Organization [facility] Address [address] [place] [address] Care Team Providers Care Civil Cadd Technician Name Role Phone Naomy Valles MD Primary Care Provider [phone] Encounter Details Date Type Department Care Team (Late st Contact Info) Description 02/23/2003 Results Only [facility] [address] [place] [address] Delmy Jarrett MD [address] [place] [address] [place] [address] Social History Tobacco Use Types Packs/Day Years [...] Date/Time Associated Diagnosis Comments SURGICAL PATHOLOGY Routine 02/23/2003 0:00 EST documented in this encounter Results * SURGICAL PATHOLOGY (02/23/2003 0:00 EST) Pathology Report: SURGICAL PATHOLOGY REPORT Reports generated via electronic interface contain original data; however they are lacking the format of the original report. Caution should be taken when reading/interpreti ng unformatted reports. Name: ? BALAJI SAM ? Accession #: ? [id number] ? : ? 1975 (Age: 27) ??F ? Collect Date: ? 02/23/2003 ? Location: ? [facility] ? Receive Date: ? 02/25/2003 ? Provider: DELMY JARRETT MD Copy to: BLAYNE ZIMMERMAN TRIMMER OPERATOR THREE KNIFE ? Final Pathologic Diagnosis: ? Endocervix, curettage: - Scant fragments of benign endocervical glandular epithelium. ??See comment. Comment: ? The amount of the specimen is extremely limited, and may not be vaccine customer representative. ??(Dr. Wills)/Xinrong Document reviewed and electronically signed by: Hever Wills MD Report ??Date: 03/01/2003 07:10 By the signature above, the attending physician certifies that he/she has personally conducted a gross and/or microscopic examination of the described specimens and rendered or confirmed the above diagnosis. Specimen(s) Received: ? ECC Clinical History: ? LGSIL; [id number] Gross Description: ? Received in formalin labelled Danielito and endocervix are 0.5 cc' s of correa-bender mucinous material. ??The specimen is entirely submitted in one cassette. (Jorge Ji/Xinrong End of Report [facility] 02/23/2003 02/25/2003 9:2 3 EST us Delmy Jarrett MD PATHOLOGY ORDERABLES Final Resu lt [facility] [address] [place] [address] documented in this encounter Visit Diagnoses Not on filedocumented in this encounter Care Teams Civil Cadd Technician Relationship Specialty Start Date End Date Naomy Valles MD [address] [place] [address] PCP - General 12/26/08 11/19/18 documented as of this encounter
--- OUTSIDE RECORDS SUMMARY | 2024-02-25 15:21 | XMS_ITS | Encounter Summary ---
Author Organization [facility] Address [address] [place] [address] Care Team Providers Care Loader Machine Name Role Phone Unavailable Primary Care Provider Unavailabl e Encounter Details Date Type Department Care Team (Late st Contact Info) Description 08/21/2006 15:32 EDT Hospital Encounter [facility] [place] [address] [place] [address] Jose Smith MD [address] [facility] [place] [address] Social History Tobacco Use Types Packs/Day Years [...]
--- OUTSIDE RECORDS SUMMARY | 2024-02-25 15:21 | XMS_ITS | Encounter Summary ---
Author Organization [facility] Address [address] [place] [address] Care Team Providers Care Offset Lithographic Press Setter Name Role Phone Naomy Valles MD Primary Care Provider [phone] Encounter Details Date Type Department Care Team (Latest Contact Info) Description 01/10/2009 16:33 EDT - 01/10/2009 23:59 EDT Hospital Encounter [facility] [address] [place] [address] Jose Smith MD [address] [facility] [place] [address] Discharge Disposition: Home or Self Care Social [...] Code Departure Means Destination Home or Self Shelter documented in this encounter Plan of Treatment Not on file documented as of this encounter Visit Diagnoses Not on filedocumented in this encounter Care Teams Offset Lithographic Press Setter Relationship Specialty Start Date End Date Naomy Valles MD [address] [place], [place] [address] PCP - General 12/26/08 11/19/18 documented as of this encounter
--- OUTSIDE RECORDS SUMMARY | 2024-02-25 15:21 | XMS_ITS | Encounter Summary ---
Author Organization [facility] Address [address] [place] [address] Care Team Providers Care Semiconductor Wafers Etcher Stripper Name Role Phone Naomy Valles MD Primary Care Provider [phone] Encounter Details Date Type Department Care Team (Late st Contact Info) Description 04/04/2004 Results Only [facility] [address] [place] [address] Delmy Jarrett MD [address] [place] [address] [place] [address] Social History Tobacco Use Types Packs/Day Years [...] Priority Date/Time Associated Diagnosis Comments CYTOPATHOLOGY Routine 04/04/2004 0:00 EST documented in this encounter Results * CYTOPATHOLOGY (04/04/2004 0:00 EST) Pathology Report: CYTOPATHOLOGY REPORT Reports generated via electronic interface contain original data; however they are lacking the format of the original report. Caution should be taken when reading/interpreti ng unformatted reports. Name: ? BALAJI SAM ? Accession #: ? [id number] : ? 1975 (Age: 28) ??F ?Collect Date: ? 04/04/2004 Location: ? [facility] ? Receive Date: ? 04/09/2004 Provider: ?DELMY JARRETT MD Copy to: ? Specimen/Source: ?ThinPrep Pap Test, Cervix/Endocervix Last Menstrual Period: ? 03/25/04 Previous Gynecologic Pathology: ? LSIL: 01/14,09/15 Treatment History: ? Cervical biopsy: ECC 02/14 ? SPECIMEN ADEQUACY ? Satisfactory for Evaluation - transformation zone component present GENERAL CATEGORIZATION ? Epithelial Cell Abnormality INTERPRETATION ? Squamous Cell Abnormality - Low grade squamous intraepithelial lesion (LSIL). EDUCATIONAL NOTES/RECOMMENDATI ONS ? [facility] recommends following the 2001 Consensus Guidelines for the Management of Women with Cervical Cytological Abnormalities (DENIS,2002;287:212 0-9). Management algorithms have been distributed by [facility] and are available online at www.ASCCP.org. ? Document reviewed and electronically signed by: ? FERNANDO BETH MD ? Report Date: ??04/20/2004 13:53 End of Report [facility] 04/04/2004 04/09/2004 us Delmy Jarrett MD PATHOLOGY ORDERABLES Edited [facility] [address] [place] [address] documented in this encounter Visit Diagnoses Not on filedocumented in this encounter Care Teams Semiconductor Wafers Etcher Stripper Relationship Specialty Start Date End Date Naomy Valles MD [address] [place] [address] PCP - General 12/26/08 11/19/18 documented as of this encounter
--- OUTSIDE RECORDS SUMMARY | 2024-02-25 15:21 | XMS_ITS | Encounter Summary ---
Author Organization [facility] Address [address] [place] [address] Care Team Providers Care Litigation Secretary Name Role Phone Naomy Valles MD Primary Care Provider Encounter Details Date Type Department Care Team (Late st Contact Info) Description 08/08/2005 Before PRISM Converted Visit (Maple) [facility] - [facility] conversion [address], [place] [address] [phone] Kristine Soto, PhD [address] [place] [phone] Social History Tobacco Use Types Packs/Day Years [...] on filedocumented in this encounter Care Teams Litigation Secretary Relationship Specialty Start Date End Date Naomy Valles MD [address] [place] [address] PCP - General 12/26/08 11/19/18 documented as of this encounter
--- OUTSIDE RECORDS SUMMARY | 2024-02-25 15:21 | XMS_ITS | Encounter Summary ---
Author Organization [facility] Address [facility] [place] [address] Care Team Providers Care Shipping Weigher Name Role Phone FrancoShayy sarah Susy TABOR Primary Care Provider Encounter Details Date Type Department Care Team (Late st Contact Info) Description 08/28/2018 Telephone Dermatology at [facility] [address] [place] [phone] Call, Francois Dennis MD [facility] DR [address] [place]TON[place] [address] Social History Tobacco Use Types Packs/Day Years [...] encounter Miscellaneous Notes * Telephone Encounter - CallFrancois - 08/28/2018 5:40 PM EDT Called patient to discuss the following biopsy results: 08/24/2018 18:17 Surgical Pathology DIAGNOSIS Skin, left tip of nose, shave biopsy: - Basal cell carcinoma, present at the peripheral and deep specimen edges - Reparative changes consistent with prior procedure site We reviewed the etiology of the diagnosis. After reviewing various treatment options, joint decision to treat with Mohs. Instructed patient that she will be contacted by membership secretary for further scheduling. Otherwise, patient states that the biopsy site is healing well. Instructed to continue with follow up in 3 moths for FBSE and to call with any questions or concerns. documented in this encounter Plan of Treatment Not on file documented as of this encounter Visit Diagnoses Not on filedocumented in this encounter Care Teams Shipping Weigher Relationship Specialty Start Date End Date Shayy Donohue APRN [address] [place] [address] [address] [place] [address] PCP - General Family Medicine 07/17/18 01/04/22 documented as of this encounter
--- OUTSIDE RECORDS SUMMARY | 2024-02-25 15:21 | XMS_ITS | Encounter Summary ---
Author Organization [facility] Address [address] [place] [address] Care Team Providers Care Motor Grader Rough Grade Name Role Phone Naomy Valles MD Primary Care Provider [phone] Encounter Details Date Type Department Care Team (Late st Contact Info) Description 09/05/2006 Before PRISM Converted Visit (Maple) [facility] - Maple conversion [address] [place] [address] Suzan Ferrera, PhD [address] [place] [phone] Social History Tobacco Use Types Packs/Day Years Used Date Smoking Tobacco: Never Assessed Comments Unknown Sex and Gender Information Value Date Recorded Sex Assigned at Not on file Legal Sex Female 18:13 EST Gender Identity Female 02/22/2019 12:49 EST Sexual Orientation Not on file documented as of this encounter Progress Notes * Velasquez, Conv [employer] Bonder - 02/19/2009 0048 EST DIVISION OF REPRODUCTIVE ENDOCRINOLOGY AND INFERTILITY September 09, 2006 Smith Jon MD [address] [place] [address] Jon: I just wanted to keep you up to date on our mutual patient. Kesha Crawford and her , Atul, came to see us today to discuss future plans for fertility. As you know, Kesha is a 30-year-old 5 para 4. Her last was conceived through an IVF cycle with us. This ended up being a twin . Unfortunately, the first twin had a demise around four months, per the Sjolanders. The second twin was delivered stillborn at term. Kesha has mentioned that she has been following up with you for evaluation after this unfortunate delivery and that some blood work has been done recently. This is Kesha and Tray . Kesha has had four other pregnancies, three of which culmina fabiola in term vaginal deliveries. A fourth was a miscarriage in the past. These other four pregnancies were with a previous partner. Alexsandra came to see us a few years ago for the evaluation of fertility after a tubal ligation. As stated previously, she had undergone one IVF cycle with initial success as her diagnosis for infertility was tubal factor. Otherwise, Veronica past medical history is negative. She has had a tubal ligation . She notes two laparoscopies that were done in the past. One was done by Dr. Jarrett and was done for ???pain.?? Another one was done by Dr. Herrera, and this was performed for ???cysts.?? Kesha does not have any further information about what was specifically performed during these laparoscopies, and we do not have the operative notes in our hands here. Veronica obstetric history is as noted above. As far as gynecologic history, she notes a history of acouple of Pap smears that have been abnormal. It appears that she might have had a colposcopy following. She does not know of her latest Pap smear result. She denies any history of pelvic inflammatory disease or any james diagnosis of endometriosis. Kesha does not smoke, and she does not drink alcohol or take any herbs or drugs. She takes a multivitamin. 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 She has had chickenpox. Veronica is Atul with date of [birth year] 1975. The only he has fathered was the twin with Kesha. During his evaluation with us a few years ago, his semen analysis revealed excellent sperm count, motility, and appearance. His past medical history is negative, and he only lists ortho surgery as his past surgical history. Atul does not take any medications or smoke. Isabelrinks rarely. He has no drug allergies. 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 On examination, Kesha is approximately 5 feet 4 inches tall with a weight of 170 pounds. She knows that her last annual exam was done with Dr. Jarrett in [facility]. We do not have records of this and thus cannot verify the exact date. Kesha did make it clear that she has transferred her care to you and that she would want to follow up with you for any further OB-TALENT DEVELOPMENT COORDINATOR care. We discussed with Kesha and Atul the possibilities of fertility following atubal ligation. Specifically, in their case they have the options of a tubal reversal, a fresh IVF cycle, or a frozen IVF cycle utilizing their two embryos. We discussed all three options with respect to procedure, cost, andsuccess rates. Regarding her tubal ligation, we discussed with Kesha that this was a tubal ligation during which a fair amount of fallopian tube was destroyed. Thus, we would not be able to give her as high success rates as if it had been an interval tubal.Another fresh IVF cycle remains a possibility as well. Also, it is possible to undergo a frozen embryo transfer cycle, though we caution this couple that we can never guarantee that both or even one embryo will survive a thaw and that there is a possibility that we would not have any embryos to transfer in the worst case scenario. Clearly, finances are a big concern for the Sjolanders. They note that they have undergone significant expense with their infertility treatment and subsequent care. Thus, they will be thinking through what makes the best sense for them from a success rate as well as from a cost rate. It appears that Atul has recently changed insurance, and there is a possibility that there may be some coverage for IVF or a tubal reversal. We also discussed the fact that we would like for them to follow up with Maternal Medicine ifthere were a desire for future . This would be to give us further information on etiology of the twin demise as well as any new suggestions for a future . We look forward to helping this couple achieve their desire for . If you should have any further questions or concerns for us, please do not hesitate to contact us at [phone]. Otherwise, we will be waiting to hear back from the Sjolanders regarding their next plans. Best regards, discussed the plan with Dr. Ferrera and I am in agreement. Thanks for allowing us to participate in her care. Jose Smith Signed by Jose Smith MD 09/23/2006 09:22 Julio Harris, Hakan Smith MD Dictated by: Suzan Ferrera MD Fellow in Reproductive Endocrinology and Infertility Department of Obstetrics and Gynecology [facility] This patient was discussed with Dr. Jose Smith. Jose Smith MD - León Ferrera MD A - lw Job ID: [id number] Document ID: [id number] cc: MD SMITH Holt MD documented in this encounter Plan of Treatment Not on file documented as of this encounter Visit Diagnoses Not on filedocumented in this encounter Care Teams Motor Grader Rough Grade Relationship Specialty Start Date End Date Naomy Valles MD [address] [place] [address] PCP - General 12/26/08 11/19/18 documented as of this encounter
--- OUTSIDE RECORDS SUMMARY | 2024-02-25 15:21 | XMS_ITS | Encounter Summary ---
Author Organization [facility] Address [address] [place] [address] Care Team Providers Care Bucket Turner Name Role Phone Unavailable Primary Care Provider Unavailabl e Encounter Details Date Type Department Care Team (Latest Contact Info) Description 09/11/2005 16:24 EDT Hospital Encounter [facility] [place] [address] [place] [address] Jose Smith MD [address] [facility] [place] [address] Discharge Disposition: Auto Discharge Social History Tobacco [...]
--- OUTSIDE RECORDS SUMMARY | 2024-02-25 15:21 | XMS_ITS | Encounter Summary ---
Author Organization [facility] Address [address] [place] [address] Care Team Providers Care Jacker Name Role Phone Unavailable Primary Care Provider Unavailabl e Encounter Details Date Type Department Care Team (Latest Contact Info) Description 09/08/2005 8:14 EDT - 09/08/2005 11:59 EDT Hospital Encounter [facility] [address] [place] [address] Valente Hong MD [address] [place], [place] [phone] Discharge Disposition: Auto Discharge Social History Tobacco [...]
--- OUTSIDE RECORDS SUMMARY | 2024-02-25 15:21 | XMS_ITS | Encounter Summary ---
Author Organization [facility] Address [address] [place] [address] Care Team Providers Care Edge Beader Name Role Phone Unavailable Primary Care Provider Unavailabl e Encounter Details Date Type Department Care Team (Latest Contact Info) Description 09/06/2005 8:39 EDT - 09/06/2005 11:59 EDT Hospital Encounter [facility] [address] [place] [address] Valente Hong MD [address] [place], [place] [phone] Discharge Disposition: Auto Discharge Social History Tobacco [...] Priority Date/Time Associated Diagnosis Comments ESTRADIOL, ADULTS Routine 09/06/2005 8:00 EDT documented in this encounter Results * ESTRADIOL (09/06/2005 8:00 EDT) Estradiol 460 pg/ml [facility] Comment: By day in cycle relative to LH peak: Follicular Phase: -12 days: 11-69 ?-4 days: 63-165 Midcycle ?-1 day: 146-526 Luteal Phase ?+2 days: 33-150 ?+6 days: 68-196 ? +12 days: 36-133 Postmenopausal: ??0-37 09/06/2005 8:00 EDT 09/06/2005 10:18 EDT us Jose Smith MD CHEMISTRY & BLOOD GAS ORDERABL ES Final Result [facility] [address] [place] [address] documented in this encounter Visit Diagnoses Not on filedocumented in this encounter
--- OUTSIDE RECORDS SUMMARY | 2024-02-25 15:21 | XMS_ITS | Encounter Summary ---
Author Organization [facility] Address [address] [place] [address] Care Team Providers Care Manager Metal Name Role Phone Naomy Valles MD Primary Care Provider [phone] Encounter Details Date Type Department Care Team (Late st Contact Info) Description 10/06/2003 Results Only [facility] - [place] conversion [address] [place] [address] Delmy Jarrett MD [address] [place] [address] [place] [phone] Social History Tobacco Use Types Packs/Day Years [...] Priority Date/Time Associated Diagnosis Comments CYTOPATHOLOGY Routine 10/06/2003 0:00 EDT documented in this encounter Results * CYTOPATHOLOGY (10/06/2003 0:00 EDT) Pathology Report: CYTOPATHOLOGY REPORT Reports generated via electronic interface contain original data; however they are lacking the format of the original report. Caution should be taken when reading/interpreti ng unformatted reports. Name: ? BALAJI SAM ? Accession #: ? [id number] : ? 1975 (Age: 27) ??F ?Collect Date: ? 10/06/2003 Location: ? [facility] ? Receive Date: ? 10/10/2003 Provider: ?DELMY JARRETT MD Copy to: ? Specimen/Source: ?ThinPrep Pap Test, Cervix/Endocervix Last Menstrual Period: ? 09/10/2003 Previous Gynecologic Pathology: ? LSIL: 02/02/2003 Other: ? HPVA - HPV testing requested if ASC-US on the current ThinPrep Pap test. ? SPECIMEN ADEQUACY ? Satisfactory for Evaluation - transformation zone component present GENERAL CATEGORIZATION ? Epithelial Cell Abnormality INTERPRETATION ? Squamous Cell Abnormality - Low grade squamous intraepithelial lesion (LSIL). Shift in [place] present suggestive of bacterial vaginosis. EDUCATIONAL NOTES/RECOMMENDATI ONS ? [facility] recommends following the 2001 Consensus Guidelines for the Management of Women with Cervical Cytological Abnormalities (DENIS,2002;287:212 0-9). Management algorithms have been distributed by [facility] and are available online at [email or web address]. ? Document reviewed and electronically signed by: ? JOSE ANGEL HILLS MD ? Report Date: ??10/14/2003 13:32 End of Report [facility] 10/06/2003 10/10/2003 us Delmy Jarrett MD PATHOLOGY ORDERABLES Final Resu lt [facility] [address] [place] [address] documented in this encounter Visit Diagnoses Not on filedocumented in this encounter Care Teams Manager Metal Relationship Specialty Start Date End Date Naomy Valles MD [address] [place], [place] [phone] PCP - General 12/26/08 11/19/18 documented as of this encounter
--- OUTSIDE RECORDS SUMMARY | 2024-02-25 15:21 | XMS_ITS | Encounter Summary ---
Author Organization [facility] Address [address] [place] [address] Care Team Providers Care Sales Strategy Manager Name Role Phone Naomy Valles MD Primary Care Provider [phone] Encounter Details Date Type Department Care Team (Late st Contact Info) Description 02/02/2003 Results Only [facility] [place] conversion [address] [place] [address] Erika Nevarez, SARABJIT Social History Tobacco Use Types Packs/Day Years [...] Priority Date/Time Associated Diagnosis Comments CYTOPATHOLOGY Routine 02/02/2003 0:00 EDT documented in this encounter Results * CYTOPATHOLOGY (02/02/2003 0:00 EDT) Pathology Report: CYTOPATHOLOGY REPORT Reports generated via electronic interface contain original data; however they are lacking the format of the original report. Caution should be taken when reading/interpreti ng unformatted reports. Name: ? BALAJI SAM ? Accession #: ? [id number] : ? 1975 (Age: 27) ??F ?Collect Date: ? 02/02/2003 Location: ? [facility] ? Receive Date: ? 02/03/2003 Provider: ?ERIKA NEVAREZ LINING FELLER Copy to: ? Specimen/Source: ?ThinPrep Pap Test, Cervix/Endocervix Last Menstrual Period: ? 01/10/03 ? SPECIMEN ADEQUACY ? Satisfactory for Evaluation - transformation zone component present GENERAL CATEGORIZATION ? Epithelial Cell Abnormality INTERPRETATION ? Squamous Cell Abnormality - Low grade squamous intraepithelial lesion (LSIL). EDUCATIONAL NOTES/RECOMMENDATI ONS ? [facility] recommends following the 2001 Consensus Guidelines for the Management of Women with Cervical Cytological Abnormalities (DENIS,2002;287:212 0-9). Management algorithms have been distributed by [facility] and are available online at [email or web address]. ? Document reviewed and electronically signed by: ? Kandy Ray MD ? Report Date: ??02/09/2003 17:33 End of Report [facility] 02/02/2003 02/03/2003 us Erika Nevarez NP PATHOLOGY ORDERABLES Final Re sult [facility] [address] [place] [address] documented in this encounter Visit Diagnoses Not on filedocumented in this encounter Care Teams Sales Strategy Manager Relationship Specialty Start Date End Date Naomy Valles MD [address] [place] [address] PCP - General 12/26/08 11/19/18 documented as of this encounter
--- OUTSIDE RECORDS SUMMARY | 2024-02-25 15:21 | XMS_ITS | Encounter Summary ---
Author Organization [facility] Address [address] [place] [address] Care Team Providers Care Life Claims Examiner Name Role Phone Real Valles MD Primary Care Provider [phone] Encounter Details Date Type Department Care Team (Late st Contact Info) Description 06/27/2000 Results Only [facility] [place] conversion [address] [place] [address] Real Joseph [facility] [place], [place] [phone] Social History Tobacco Use Types Packs/Day Years [...] Priority Date/Time Associated Diagnosis Comments CYTOPATHOLOGY Routine 06/27/2000 0:00 EST documented in this encounter Results * CYTOPATHOLOGY (06/27/2000 0:00 EST) Pathology Report: CYTOPATHOLOGY REPORT Reports generated via electronic interface contain original data; however they are lacking the format of the original report. Caution should be taken when reading/interpreti ng unformatted reports. Name: ? SJOLANDER, BALAJI Azeem ? Accession #: ? [id number] : ? 1975 (Age: 24) ??F ?Collect Date: ? 06/27/2000 Location: ? [facility] ? Receive Date: ? 07/01/2000 Provider: ?REAL JOSEPH CNM Copy to: ? Specimen/Source: ?ThinPrep Pap Test, Cervix/Endocervix Last Menstrual Period: ? 04/30/00 Menstrual/Pregnanc y Status: ? Post ? SPECIMEN ADEQUACY ? Satisfactory for evaluation but limited by scant squamous epithelial component secondary to excessive blood. GENERAL CATEGORIZATION ? Within Normal Limits ? Document reviewed and electronically signed by: ? JESICA Olson(ASCP) ? Report Date: ??07/02/2000 07:57 End of Report [facility] 06/27/2000 07/01/2000 Real Joseph CNM PATHOLOGY ORDERABLES Final Res ult [facility] [address] [place] [address] documented in this encounter Visit Diagnoses Not on filedocumented in this encounter Care Teams Life Claims Examiner Relationship Specialty Start Date End Date Real Valles MD [address] [place], [place] [phone] PCP - General 12/26/08 11/19/18 documented as of this encounter
--- OUTSIDE RECORDS SUMMARY | 2024-02-25 15:21 | XMS_ITS | Encounter Summary ---
Author Organization [facility] Address [address] [place] [address] Care Team Providers Care Reexaminer Name Role Phone Naomy Valles MD Primary Care Provider [phone] Encounter Details Date Type Department Care Team (Late st Contact Info) Description 11/01/2009 Results Only [facility] [address] [place], [place] [phone] Demetrius Rouse, [address] [facility] [address] [place], [place] [phone] Social History Tobacco Use Types Packs/Day Years [...] Date/Time Associated Diagnosis Comments SURGICAL PATHOLOGY Routine 11/01/2009 0:00 EDT documented in this encounter Results * SURGICAL PATHOLOGY (11/01/2009 0:00 EDT) Pathology Report: SURGICAL PATHOLOGY REPORT ? Reports generated via electronic interface contain original data; ? however they are lacking the format of the original report. ? Caution should be taken when reading/interpreting unformatted reports. ? Name: ? SJOLANDER, BALAJI L ? Accession #: ? [id number] ? : ? 1975 (Age: 33) ??F ? Collect Date: ? 11/01/2009 ? Location: ? [facility] ? Receive Date: ? 11/01/2009 ? Provider: DEMETRIUS ROUSE DO ? Copy to: ELSY ENG MD ? Final Pathologic Diagnosis: ? Gallbladder, cholecystectomy: ? 1. ?Chronic cholecystitis. ? 2. ? Cholelithiasis. ? 3. ? 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 ? Document reviewed and electronically signed by: ? SILVIA Jain BUTNOR MD ? Report ??Date: 11/03/2009 15:15 ? By the signature above, the attending physician certifies that he/she has ? personally conducted a gross and/or microscopic examination of the described ? specimens and rendered or confirmed the above diagnosis. ? Specimen(s) Received: ? Gallbladder ? Clinical History: ? Epigastric pain + N/V. ??biliary colic ? Gross Description: ? Received in formalin labelled Leeer, Balaji and gallbladder is an ?? 11.0 cm in length by 3.0 cm in diameter closed gallbladder which includes a 1.0 cm in length by 0.4 cm in diameter cystic duct (margin inked). ??There is a 0.5 ?? cm in greatest dimension, correa-brown, firm cystic duct lymph node. ??The ? gallbladder contains fourteen mixed-type choleliths which measure 1.5 cm in ? greatest dimension on average. ??The gallbladder mucosa is correa-dark green and ? velvety to focally smooth. ??The gallbladder wall measures 0.1 cm in thickness ?? and is covered by smooth, blue-bender serosa. ??The cystic duct proximal margin (en face), the intact cystic duct lymph node, along with sections of gallbladder are submitted in one cassette. (Michael Renee/[facility] ? End of Report ? [facility] 11/01/2009 11/01/2009 8:4 7 EDT us Demetrius Rouse DO PATHOLOGY ORDERABLES Fi nal Result [facility] [address] [place] [address] documented in this encounter Visit Diagnoses Not on filedocumented in this encounter Care Teams Reexaminer Relationship Specialty Start Date End Date Naomy Valles MD [address] [place] [id number] PCP - General 12/26/08 11/19/18 documented as of this encounter
--- OUTSIDE RECORDS SUMMARY | 2024-02-25 15:21 | XMS_ITS | Encounter Summary ---
Author Organization [facility] Address [address] [place] [address] Care Team Providers Care Double Bass Player Name Role Phone Naomy Valles MD Primary Care Provider [phone] Encounter Details Date Type Department Care Team (Late st Contact Info) Description 09/08/2005 Results Only [facility] [address] [place], [place] [id number] Damaris Gusman MD [address] [place], [place] [phone] Social History Tobacco Use Types Packs/Day Years [...] Name Priority Date/Time Associated Diagnosis Comments PROGESTERONE Routine 09/08/2005 9:41 EDT ESTRADIOL, ADULTS Routine 09/08/2005 9:41 EDT documented in this encounter Results * PROGESTERONE (09/08/2005 9:41 EDT) Progesterone 0.8 ng/ml [facility] Comment: NON- FEMALES: follicular phase: 0.2-1.4 ng/ml luteal phase: 3.3-25.6 ng/ml mid luteal phase: 4.4-28.0 ng/ml postmenopausal: <0.1-0.7 ng/ml FEMALES: first trimester: 11.2-90.0 ng/ml second trimester: 25.6-89.4 ng/ml third trimester: 48.4-422.5 ng/ml ECTOPIC PREGNANCIES: consult pathologist 09/08/2005 9:41 EDT 09/08/2005 9:48 EDT Damaris Gusman MD CHEMISTRY & BLOOD G ORDERABLES Final Result Performing Organization Address [facility] de Phone Number [facility] [address] [place] [address] * ESTRADIOL (09/08/2005 9:41 EDT) Pathologist [facility] Estradiol 907 pg/ml [facility] Comment: By day in cycle relative to LH peak: Follicular Phase: -12 days: 11-69 ?-4 days: 63-165 Midcycle ?-1 day: 146-526 Luteal Phase ?+2 days: 33-150 ?+6 days: 68-196 ? +12 days: 36-133 Postmenopausal: ??0-37 09/08/2005 9:41 EDT 09/08/2005 9:48 EDT us Damaris Gusman MD CHEMISTRY & BLOOD G ORDERABLES Final Result Performing Organization Address [facility] de Phone Number [facility] [address] [place] [address] documented in this encounter Visit Diagnoses Not on filedocumented in this encounter Care Teams Double Bass Player Relationship Specialty Start Date End Date Naomy Valles MD [address] [place] [address] PCP - General 12/26/08 11/19/18 documented as of this encounter
--- OUTSIDE RECORDS SUMMARY | 2024-02-25 15:21 | XMS_ITS | Encounter Summary ---
Author Organization [facility] Address [facility] [place] [address] Care Team Providers Care Assurance Sourcing Manager Name Role Phone Francokeara Shayy Susy TABOR Primary Care Provider [phone] Encounter Details Date Type Department Care Team (Late st Contact Info) Description 08/10/2018 Telephone Dermatology at [facility] [address] [place] [phone] Call, Francois Dennis MD [facility] DR JOSE ANTONIO [place] [address] Social History Tobacco Use Types Packs/Day Years [...] Notes * Telephone Encounter - CallFrancois - 08/10/2018 9:47 AM EDT Called patient to discuss the following biopsy results: Surgical Pathology DIAGNOSIS A. Skin, left tip of nose, shave biopsy: - Basaloid proliferation, suspicious for top of basal cell carcinoma, transected at the base DISCUSSION The specimen is composed of epidermal surface and minute portion of underlying dermis. There is a basaloid proliferation with scattered dyskeratotic cells, highlighted by BEREP4 stain, suspicious for top of basal cell carcinoma. The lesion is transected at the base. We reviewed the etiology of the diagnosis, unfortunately due to the cosmetically sensitive area, the specimen was too shallow for definitive diagnosis. We discussed re-biopsy vs. Mohs at which time they would diagnose and treat. Joint decision to return for a second biopsy to confirm BCC at which time surgery can be considered. Otherwise, patient states that the biopsy site is healing well. Instructed to continue with follow up in 1-2 weeks for repeat biopsy and to call with any questions or concerns. documented in this encounter Plan of Treatment Not on file documented as of this encounter Visit Diagnoses Not on filedocumented in this encounter Care Teams Assurance Sourcing Manager Relationship Specialty Start Date End Date Shayy Donohue APRN [address] [place] [address] PCP - General Family Medicine 07/17/18 01/04/22 documented as of this encounter
--- OUTSIDE RECORDS SUMMARY | 2024-02-25 15:21 | XMS_ITS | Encounter Summary ---
Author Organization [facility] Address [facility] [place] [address] Care Team Providers Care Machine Biller Name Role Phone FrancoShayy sarah Susy TABOR Primary Care Provider [phone] Encounter Details Date Type Department Care Team (Late st Contact Info) Description 02/15/2021 Telephone Dermatology at [facility] [address] [place] [phone] Mushtaq Proctor MD [facility] DR JO[address] [place] [address] Social History Tobacco Use Types Packs/Day Years [...] encounter Miscellaneous Notes * Telephone Encounter - Palak Hahn - 02/15/2021 12:22 PM EDT I called and left patient a voicemail to call me back at [phone] to schedule an appointment. documented in this encounter Plan of Treatment Not on file documented as of this encounter Visit Diagnoses Not on filedocumented in this encounter Care Teams Machine Biller Relationship Specialty Start Date End Date Shayy Donohue APRN [address] [place] [address] PCP - General Family Medicine 07/17/18 01/04/22 documented as of this encounter
--- OUTSIDE RECORDS SUMMARY | 2024-02-25 15:21 | XMS_ITS | Encounter Summary ---
Author Organization [facility] Address [address] [place] [address] Care Team Providers Care Reinforcing Steel Worker Name Role Phone Unavailable Primary Care Provider Unavailabl e Encounter Details Date Type Department Care Team (Late st Contact Info) Description 07/10/2005 10:10 EST Hospital Encounter [facility] [address] [place] [address] Valente Hong MD [address] [phone] Social History Tobacco Use Types Packs/Day Years [...]
--- OUTSIDE RECORDS SUMMARY | 2024-02-25 15:21 | XMS_ITS | Encounter Summary ---
Author Organization [facility] [place] [address] Care Team Providers Care Construction Pit Worker Name Role Phone FrancoShayy sarah Susy TABOR Primary Care Provider Reason for Visit * Reason Onset Date Comments Questions 08/28/2018 Encounter Details Date Type Department Care Team (Late st Contact Info) Description 08/28/2018 Telephone Dermatology at [facility] [address] [place] [phone] Kirti Abbott LPN Questions Social History Tobacco Use Types Packs/Day Years [...] encounter Miscellaneous Notes * Telephone Encounter - Kirti Abbott LPN - 08/28/2018 10:32 AM EDT Patient calls today with concern that her biopsy results were released before Dr. Dang had touched base with the patient. Discussed the basics of a BCC and Mohs surgery. Pt understands and looks forward to Dr. Dang's phone call with further information. documented in this encounter Plan of Treatment Not on file documented as of this encounter Visit Diagnoses Not on filedocumented in this encounter Care Teams Construction Pit Worker Relationship Specialty Start Date End Date Shayy Donohue APRN [address] [place] [address] PCP - General Family Medicine 07/17/18 01/04/22 documented as of this encounter
--- OUTSIDE RECORDS SUMMARY | 2024-02-25 15:21 | XMS_ITS | Encounter Summary ---
Author Organization [facility] Address [address] [place] [address] Care Team Providers Care Fire Sprinkler Apparatus Inspector Name Role Phone Unavailable Primary Care Provider Unavailabl e Encounter Details Date Type Department Care Team (Latest Contact Info) Description 09/10/2005 7:10 EDT - 09/10/2005 11:59 EDT Hospital Encounter [facility] [address] [place] [address] Valente Hong MD [address] [place], [place] [phone] Discharge Disposition: Auto Discharge Social History Tobacco [...]
--- OUTSIDE RECORDS SUMMARY | 2024-02-25 15:21 | XMS_ITS | Encounter Summary ---
Author Organization [facility] Address [facility] [place] [address] Care Team Providers Care Light Rail Vehicle Operator Name Role Phone Shayy Donohue LEANDER Primary Care Provider [phone] Reason for Visit * Reason Comments Follow-up Encounter Details Date Type Department Care Team (Latest Contact Info) Description 09/09/2018 11:00 AM EDT Clinical Support Dermatology at [facility] [address] [place] [address] Michele Levi MD [facility] DR JOSE ANTONIO PRETTY-DERMATOLOGY [place], [place] [phone] Visit for suture removal Social History Tobacco Use Types Packs/Day Years Used Date Smoking Tobacco: Never Smokeless Tobacco: Never Alcohol Use Standard Drinks/Week Comments No 0 (1 standard drink = 0.6 oz pur e alcohol) Sex and Gender Information Value Date Recorded Sex Assigned at Not on file Gender Identity Not on file Sexual Orientation Not on file documented as of this encounter Progress Notes * Michele Levi MD - 09/09/2018 11:00 AM EDT Images from the original note were not included. Dermatologic Surgery Post-Operative Wound Check Patient: Kesha Silva Today's Date: 09/09/2018 Date of : 1975 Chief complaint: Suture removal History of Present Illness: Kesha Silva is a 42 y.o. female presents today for status post Mohs micrographic surgery for basal cell carcinoma, nodular / infiltrative, with surgery date 09/02/2018, repaired by advancement flap, located on the left tip of nose. Today, the patient reports contentment with the scar. Patient denies post- operative course. Examination: Focused examination performed of the surgical site. This reveals a well healing surgical site. Assessment: 1. Normal healing post-surgical site without any signs/symptoms of infection. Plan: 1. May discontinue wound care at this point. 2. If any areas still healing, recommend continuing thin layer of Vaseline until skin has completely sealed over. 2. Bandage is optional from hereon (if going to be exposed to dirt outdoors). 3. Around 8 weeks post-operative, patient may begin firm massage to any parts of the scar that may feel firm to touch. This will feel firm for 3-4 months until sutures dissolve under the skin. 4. Sutures were removed today. 5. Follow up: 3 months for wound check Michele Levi MD PhD Mohs Micrographic Surgery and Dermatologic Oncology Section of Dermatology, Department of Surgery documented in this encounter Plan of Treatment Not on file documented as of this encounter Visit Diagnoses Diagnosis Visit for suture removal Encounter for removal of sutures documented in this encounter Care Teams Light Rail Vehicle Operator Relationship Specialty Start Date End Date Shayy Donohue APRN [address] [place] [address] PCP - General Family Medicine 07/17/18 01/04/22 documented as of this encounter
--- OUTSIDE RECORDS SUMMARY | 2024-02-25 15:21 | XMS_ITS | Encounter Summary ---
Author Organization [facility] Address [address] [place] [address] Care Team Providers Care Prototype Technician Name Role Phone Unavailable Primary Care Provider Unavailabl e Encounter Details Date Type Department Care Team (Latest Contact Info) Description 09/13/2005 9:09 EDT - 09/13/2005 11:59 EDT Hospital Encounter [facility] [address] [place] [address] Valente Hong MD [address] [place], [place] [phone] Discharge Disposition: Auto Discharge Social History Tobacco [...] Procedure Name Priority Date/Time Associated Diagnosis Comments TE[employer]ER [employer] US OB FIRST TRIMESTER TRANSVAGINAL 10/21/2005 16:05 EDT TE[employer]ER [employer] US OB FIRST TRIMESTER TRANSVAGINAL 10/08/2005 10:14 EDT documented in this encounter Results * TE[employer]ER [employer] US OB FIRST TRIMESTER TRANSVAGINAL (10/21/2005 16:05 EDT) Anatomical Region Laterality Modality Other 10/21/2005 16:0 5 EDT Narrative 10/29/2008 11:39 EDT , S/P IVF EARLY MONITORING ULTRASOUND DATE: ??10/21/2005 INDICATION: ?? viability. FINDINGS: ??The uterus contained 2 gestational sacs, each containing a fetus. ??The pregnancies appeared to be diamniotic-dichorionic. ??The crown-rump length of A was 1.24 with a heart rate of approximately 160 beats per minute visually. ??The second sac contained a fetus with a crown-rump length of 1.39 and an estimated heart rate of 166 visual. ??The estimated gestational age of fetus A was 7 weeks and 2 days, and the fetus B 7 weeks and 5 days. The remainder of the ultrasound was within normal limits, as previously described, with multiple corpora lutea in each ovary. There were no abnormalities of the implantation site or myometrium. INTERPRETATION: ??Twin intrauterine gestation, diamniotic-dichorionic, with good heart activity and normal growth of each fetus. Procedure Note Romario Sharp MD - 10/29/2008 , S/P IVF EARLY MONITORING ULTRASOUND DATE: 10/21/2005 INDICATION: viability. FINDINGS: The uterus contained 2 gestational sacs, each containing a fetus. The pregnancies appeared to be diamniotic-dichorionic. The crown-rump length of A was 1.24 with a heart rate of approximately 160 beats per minute visually. The second sac contained a fetus with a crown-rump length of 1.39 and an estimated heart rate of 166 visual. The estimated gestational age of fetus A was 7 weeks and 2 days, and the fetus B 7 weeks and 5 days. The remainder of the ultrasound was within normal limits, as previously described, with multiple corpora lutea in each ovary. There were no abnormalities of the implantation site or myometrium. INTERPRETATION: Twin intrauterine gestation, diamniotic-dichorionic, with good heart activity and normal growth of each fetus. Jose Smith MD IMG US TE[employer]ER [employer] ORDERABLES Final Re sult * TE[employer]ER [employer] HE[employer] US OB FIRST TRIMESTER TRANSVAGINAL (10/08/2005 10:14 EDT) Anatomical Region Laterality Modality Other 10/08/2005 10:1 4 EDT Narrative 10/29/2008 13:41 EDT S/P IVF OBSTETRICAL ULTRASOUND DATE: ??10/08/2005 INDICATION: ?? with a history of infertility. ??The patient is status post in vitro fertilization at 6+0 weeks by IVF dating. FINDINGS: ??On transvaginal ultrasound, she has a twin intrauterine , diamniotic-dichorionic. ??The first sac measures 0.93 x 0.59 x 1.25 cm. ??The yolk sac measures 0.3 cm. ??The crown-rump length is 0.24, with an estimated gestational age of 5+5 weeks. ?? heart activity is not seen on the scan. ??The second gestational sac measures 0.84 x 0.84 x 0.95 cm. ??The yolk sac measures 0.24. ??The crown-rump length measures 0.27 cm, with an estimated gestational age of 5+6 days. ?? heat activity is again not noted on this ultrasound. ??There are no abnormalities with the implantation site. There are no uterine or myometrial abnormalities. ??The right adnexa has multiple corpus luteum cysts and measures 5.7 x 1.7 x 6.6 cm. The left adnexa also has multiple corpus luteum cysts and measures 5.5 x 4.5 x 4.8 cm. ??There is minimal free fluid in the cul-de-sac. INTERPRETATION: ??Twin intrauterine , diamniotic-dichorionic. No heart activity is observed at this ultrasound. ??We will repeat an ultrasound in 7-10 days to evaluate for cardiac activity. Dr. Francois Patino reviewed these images while the patient was being scanned. Procedure Note Francois Patino MD - 10/29/2008 S/P IVF OBSTETRICAL ULTRASOUND DATE: 10/08/2005 INDICATION: with a history of infertility. The patient is status post in vitro fertilization at 6+0 weeks by IVF dating. FINDINGS: On transvaginal ultrasound, she has a twin intrauterine , diamniotic-dichorionic. The first sac measures 0.93 x 0.59 x 1.25 cm. The yolk sac measures 0.3 cm. The crown-rump length is 0.24, with an estimated gestational age of 5+5 weeks. heart activity is not seen on the scan. The second gestational sac measures 0.84 x 0.84 x 0.95 cm. The yolk sac measures 0.24. The crown-rump length measures 0.27 cm, with an estimated gestational age of 5+6 days. heat activity is again not noted on this ultrasound. There are no abnormalities with the implantation site. There are no uterine or myometrial abnormalities. The right adnexa has multiple corpus luteum cysts and measures 5.7 x 1.7 x 6.6 cm. The left adnexa also has multiple corpus luteum cysts and measures 5.5 x 4.5 x 4.8 cm. There is minimal free fluid in the cul-de-sac. INTERPRETATION: Twin intrauterine , diamniotic-dichorionic. No heart activity is observed at this ultrasound. We will repeat an ultrasound in 7-10 days to evaluate for cardiac activity. Dr. Francois Patino reviewed these images while the patient was being scanned. Francois Patino MD IMG US TEACHER [employer]ALTH ORDERABLES Final R esult documented in this encounter Visit Diagnoses Not on filedocumented in this encounter
--- OUTSIDE RECORDS SUMMARY | 2024-02-25 15:21 | XMS_ITS | Encounter Summary ---
Author Organization [facility] Address [address] [place] [address] Care Team Providers Care Larry Operator Name Role Phone Naomy Valles MD Primary Care Provider [phone] Encounter Details Date Type Department Care Team (Late st Contact Info) Description 03/24/[address] [facility] [address] [place] [address] Nadia Boyd [facility] [address] [facility] [place], [place] [phone] Social History Tobacco Use Types Packs/Day Years [...] Priority Date/Time Associated Diagnosis Comments CYTOPATHOLOGY Routine 03/24/2001 0:00 EST documented in this encounter Results * CYTOPATHOLOGY (03/24/2001 0:00 EST) Pathology Report: CYTOPATHOLOGY REPORT Reports generated via electronic interface contain original data; however they are lacking the format of the original report. Caution should be taken when reading/interpreti ng unformatted reports. Name: ? BALAJI SAM ? Accession #: ? [id number] : ? 1975 (Age: 25) ??F ?Collect Date: ? 03/24/2001 Location: ? [facility] ? Receive Date: ? 03/26/2001 Provider: ?NADIA BOYD CNM Copy to: ? Specimen/Source: ?ThinPrep Pap Test, Cervix/Endocervix Last Menstrual Period: ? 04/30/00 Menstrual/Pregnanc y Status: ? Post ? SPECIMEN ADEQUACY ? Satisfactory for evaluation. GENERAL CATEGORIZATION ? Within Normal Limits ? Document reviewed and electronically signed by: ? JESICA Dolan(ASCP) ? Report Date: ??03/31/2001 10:02 End of Report [facility] 03/24/2001 03/26/2001 us Nadia Boyd CNM PATHOLOGY ORDERABLES Final Resul t [facility] [address] [place] [address] documented in this encounter Visit Diagnoses Not on filedocumented in this encounter Care Teams Larry Operator Relationship Specialty Start Date End Date Naomy Valles MD [address] [place] [address] PCP - General 9/14/09 8/8/19 documented as of this encounter
--- OUTSIDE RECORDS SUMMARY | 2024-02-25 15:21 | XMS_ITS | Encounter Summary ---
Author Organization [facility] Address [address] [place] [address] Care Team Providers Care Chip Machine Operator Name Role Phone Unavailable Primary Care Provider Unavailabl e Encounter Details Date Type Department Care Team (Latest Contact Info) Description 08/29/2005 8:44 EDT - 08/29/2005 11:59 EDT Hospital Encounter [facility] [address] [place] [address] Valente Hong MD [address] [place], [place] [phone] Discharge Disposition: Auto Discharge Social History Tobacco [...] Procedure Name Priority Date/Time Associated Diagnosis Comments N. GONORRHOEAE AMPLIFIED PROBE Routine 08/29/2005 16:36 EDT ZZCHLAMYDIA TRACHOMATIS AMPLIFIED PROBE Routine 08/29/2005 16:36 EDT TESTS ADDED BY PHONE Routine 08/29/2005 7:31 EDT ESTRADIOL, ADULTS Routine 08/29/2005 7:3 1 EDT TSH Routine 08/29/2005 7:31 EDT documented in this encounter Results * N. GONORRHOEAE AMPLIFIED PROBE (08/29/2005 16:36 EDT) Result No Neisseria gonorrhoeae DNA detected by lock fitter mediated amplification. [facility] Report Status Final [id number] [facility] Specimen Description Cervix [facility] 08/29/2005 16:3 6 EDT 08/29/2005 22:19 EDT us Jose mSith MD MICROBIOLOGY - GENERAL ORDERAB LES Final Result Performing Organization Address [facility] de Phone Number [facility] [address] [place] [address] * CHLAMYDIA TRACHOMATIS AMPLIFIED PROBE (08/29/2005 16:36 EDT) Specimen Description Cervix [facility] Result No Chlamydia trachomatis DNA detected by lock fitter mediated amplification. [facility] Report Status Final [id number] [facility] 08/29/2005 16:3 6 EDT 08/29/2005 22:19 EDT us Jose Smith MD MICROBIOLOGY - GENERAL ORDERAB LES Final Result Performing Organization Address [facility] Co de Phone Number [facility] [address] [place] [address] * TSH (08/29/2005 7:31 EDT) TSH 2.08 0.35 - 5.00 uIU/mL [facility] 08/29/2005 7:31 EDT 08/29/2005 9:07 EDT us Jose Smith MD CHEMISTRY & BLOOD GAS ORDERABL ES Final Result Performing Organization Address [facility] Co de Phone Number [facility] [address] [place] [address] * ESTRADIOL (08/29/2005 7:31 EDT) Estradiol 32 pg/ml [facility] Comment: By day in cycle relative to LH peak: Follicular Phase: -12 days: 11-69 ?-4 days: 63-165 Midcycle ?-1 day: 146-526 Luteal Phase ?+2 days: 33-150 ?+6 days: 68-196 ? +12 days: 36-133 Postmenopausal: ??0-37 08/29/2005 7:31 EDT 08/29/2005 9:07 EDT us Jose Smith MD CHEMISTRY & BLOOD GAS ORDERABL ES Final Result Performing Organization Address City/[facility]/ZIP Co de Phone Number [facility] [address] [place] [address] * TESTS ADDED BY PHONE (08/29/2005 7:31 EDT) Tests to be added TSH Call Results PAGER [phone] [facility] Diagnosis Code SAME [facility] 08/29/2005 7:31 EDT 08/29/2005 9:07 EDT us Jose Smith MD CHEMISTRY & BLOOD GAS ORDERABL ES Final Result Performing Organization Address [facility] Co de Phone Number [facility] [address] [place] [address] documented in this encounter Visit Diagnoses Not on filedocumented in this encounter
--- OUTSIDE RECORDS SUMMARY | 2024-02-25 15:21 | XMS_ITS | Encounter Summary ---
Author Organization [facility] Address [address] [place] [address] Care Team Providers Care Producer Assistant Name Role Phone Naomy Valles MD Primary Care Provider [phone] Encounter Details Date Type Department Care Team (Late st Contact Info) Description 06/01/2004 Results Only [facility] [place] conversion [address] [place] [address] Delmy Jarrett MD [address] [place] [address] [place] [address] Social History Tobacco Use Types Packs/Day Years [...] Date/Time Associated Diagnosis Comments SURGICAL PATHOLOGY Routine 06/01/2004 0:00 EST documented in this encounter Results * SURGICAL PATHOLOGY (06/01/2004 0:00 EST) Pathology Report: SURGICAL PATHOLOGY REPORT Reports generated via electronic interface contain original data; however they are lacking the format of the original report. Caution should be taken when reading/interpreti ng unformatted reports. Name: ? BALAJI SAM ? Accession #: ? [id number] ? : ? 1975 (Age: 28) ??F ? Collect Date: ? 06/01/2004 ? Location: ? [facility] ? Receive Date: ? 06/01/2004 ? Provider: DELMY JARRETT MD Copy to: BREANNA CALDERON MD ? Final Pathologic Diagnosis: A. ?Endocervix, curettage: 1. ?Scant fragments of endocervical glandular epithelium with squamous metaplasia and mild acute inflammation. 2. ?No evidence of dysplasia. B. ?Cervix, 1 o' clock, biopsy: ? 1. 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 Document reviewed and electronically signed by: Hever Wills MD Report ??Date: 06/05/2004 15:39 By the signature above, the attending physician certifies that he/she has personally conducted a gross and/or microscopic examination of the described specimens and rendered or confirmed the above diagnosis. Specimen(s) Received: A. ?Endocervical curettage B. ?Cx bx @ 1:00 Clinical History: ? 04/04/04 PAP: ??LSIL; LMP: 05/17/04 Gross Description: ? Received in formalin labelled Sjolander and endocervical curettage are multiple fragments of correa, mucoid material which measure in aggregate of 2.0 x 1.0 x 0.1 cm. ??The specimen is entirely submitted as (A). Received in formalin labelled Sjolander and cx bx 1:00 is a piece of correa-white soft tissue which measures 0.4 x 0.3 x 0.2 cm. ??The specimen is entirely submitted as (B). ??(Dr. Davey)/[facility] End of Report EDSON JETER 06/01/2004 06/01/2004 15: 25 EST us Delmy Jarrett MD PATHOLOGY ORDERABLES Final Resu lt EDSON JETER [address] [place] [address] documented in this encounter Visit Diagnoses Not on filedocumented in this encounter Care Teams Producer Assistant Relationship Specialty Start Date End Date Naomy Valles MD [address] [place] [address] PCP - General 12/26/08 11/19/18 documented as of this encounter
--- OUTSIDE RECORDS SUMMARY | 2024-02-25 15:21 | XMS_ITS | Encounter Summary ---
Author Organization [facility] Address [facility] [place] [address] Care Team Providers Care Staff Editor Name Role Phone Shayy Donohue APRN Primary Care Provider Reason for Visit * Reason Comments Skin Lesion * Consultation (Routine) - Closed Specialty Diagnoses / Procedures Referred By Paula perrin Referred To Contact Dermatology Diagnoses NEOPLASM OF SKIN OF NASAL TIP Julian Zapata MD [address] [place] [address] [facility] Dermatology [address] [place] [address] Referral ID Status Reason Start Date Expiration Date V isits Requested Visits Authorized [id number] Closed Consult, Test & Treat [facility] 07/17/2018 07/17/2019 1 1 Encounter Details Date Type Department Care Team ([facility] st Contact Info) Description 08/03/2018 4:00 PM EDT Office Visit Dermatology at [facility] [address] [place] [address] Francois Dang MD [facility] DR [address]SE [place] [address] Neoplasm of uncertain behavior of skin (Primary Dx) Social History Tobacco Use Types [...] as of this encounter Progress Notes * Francois Dang - 08/03/2018 4:00 PM EDT Images from the original note were not included. DERMATOLOGY - NEW PATIENT NOTE Date of service: 08/03/2018 Kesha Silva : 1975, 42 y.o. Chief Complaint: Chief Complaint Patient presents with ??? Skin Lesion HPI: Kesha Silva is a 42 y.o. female referred by Julian Zapata with the following concerns: A small red spot on nasal tip that comes and goes. She first noticed this red area about 2 years ago. Some tenderness, no bleeding. Relevant Skin History: - Okay to leave detailed message with results? 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 multivitamin Tablet, Chewable Take by mouth. No current facility-administered medications for this visit. Allergies: Allergies Allergen Reactions ??? Amoxicillin Rash ??? Bactrim [Sulfamethoxazole-Trimethoprim] Rash Review of Systems: - General: Feels well. - Skin: No other skin concerns. Examination: - Constitutional: Patient was alert, well-appearing and in no noticeable distress. - Skin:A focused examination of the nasal tip was performed. - A female nurse was present and on standby during my examination. Diagnosis/Skin findings/Assessment/Plan: 1. AK rule out BCC- 2mm ill-defined papule with central erosion Procedure: Skin biopsy by shave technique Time of procedure: Skin shave biopsy Location: Left tip of nose Discussed indications [...] pathology results. RTC: Pending pathology. The following photos were obtained with patient consent: Note initiated by Soledad Treviño LPN. I, Soledad Treviño LPN, have performed the documentation for this encounter in the presence of and acting as a scribe for Francois Dang MD. I performed the services which were documented by the scribe, and I agree with the accuracy of the documentation in this encounter. Francois Dang MD Reviewed and signed by Francois Dang MD Resident in Dermatology [facility] Patient seen in conjunction with staff reflexologist: Breanna Mendez MD Section of Dermatology [facility] * Breanna Mendez MD - 08/03/2018 4:00 PM EDT I directly supervised Dr. Dang [...] Associated Diagnosis Comments SURGICAL PATHOLOGY REPORT Routine 08/03/2018 3:43 PM EDT SPECIMEN TO PATHOLOGY Routine 08/03/2018 3:43 PM EDT Neoplasm of uncertain behavior of skin documented in this encounter Results * Surgical Pathology Report (08/03/2018 3:43 PM EDT) Final Diagnosis [id number] ? Location: [facility] The signing pathologist has (i) examined the relevant preparation(s) for the specimen(s) and (ii) rendered or confirmed the diagnosis(es). . ?Surgical Pathology DIAGNOSIS A. Skin, left tip of nose, shave biopsy: - Basaloid proliferation, suspicious for top ?of basal cell carcinoma, transected at the base (see discussion) Electronically signed by: ??Valentina Velasquez MD Verified: ??08/05/2018 ?Dermatopathologist Performed at: ??-[facility] [place] Dept. of Pathology, [place], [place] DISCUSSION The specimen is composed of epidermal surface and minute portion of underlying dermis. There is a basaloid proliferation with scattered dyskeratotic cells, highlighted by BEREP4 ?? stain, suspicious for top of basal cell carcinoma. The lesion is transected at the base. ADDITIONAL STUDIES Multiple step-leveled sections were reviewed. ?This case was also reviewed by an additional intradepartmental dermatopathologist for consensus diagnosis. Immunohistochemistry Studies: Formalin-fixed, paraffin-embedded tissue sections are studied using the polymer technique with appropriate positive and negative controls. ?These IHC studies provide the pathologist with adjunctive diagnostic information. Antibody specificity has been verified by testing antibodies on a series of in-house tissues with known immunohistochemical performance characteristics. The clinical interpretation of any antibody positive staining or its absence is evaluated within the context of clinical presentation, morphology, histopathological criteria and other diagnostic tests. CLINICAL INFORMATION Specimen Submitted: A - Skin, left tip of nose, shave biopsy (1) Clinical History and Diagnosis: Rule out BCC-2 mm ill-defined papule with central erosion SPECIMEN PROCESSING A - Labeled/Fixative: Patient demographics, formalin. Quantity/Size: ??Single, 0.3 x 0.3 cm. Tissue Description: Hobson-white skin shave. Sections/Processing: Entirely submitted in 1 cassette labeled A1. ??jmb 08/05/2018 10:30 PM EDT [facility] SPECIMEN FROM SKIN / Unknown 08/03/2018 3:43 PM EDT 08/03/2018 3:43 PM EDT Francois Dang MD PATHOLOGY/CYTOLOGY O RDERABLES [facility] [place] [address] * Specimen to Pathology (08/03/2018 3:43 PM EDT) AP Specimen 08/03/2018 3:43 PM EDT 08/03/2018 6:26 PM EDT Narrative [facility] - 08/03/2018 6:26 PM EDT Specimen requisition ordered. ??Separate Pathology report to follow Resulting Agency Comment Spec In Lab Breanna Mendez MD PATHOLOGY/CYTOL OGY ORDERABLES Performing Organization Address City/[facility]/ZIP Co de Phone Number [facility] [place] [address] documented in this encounter Visit Diagnoses Diagnosis Neoplasm of uncertain behavior of skin- Primary documented in this encounter Care Teams Staff Editor Relationship Specialty Start Date End Date Shayy Donohue, RAIMANN MACHINE OPERATOR [address] [place] [address] PCP - General Family Medicine 07/17/18 01/04/22 documented as of this encounter
--- OUTSIDE RECORDS SUMMARY | 2024-02-25 15:22 | XMS_ITS | Encounter Summary ---
Author Organization [facility] [place] [address] Care Team Providers Care Procurement Professional Logistics Name Role Phone Florentino Kent MD Primary Care Provider [phone] Encounter Details Date Type Department Care Team (Latest Contact Info) Description 05/09/2012 8:15 AM EST - 05/09/2012 11:59 PM [facility] Hospital [place] [address] Unspecified procreative management Social History Tobacco Use Types Packs/Day Years [...] this encounter Medications at Time of Discharge Medication Sig Dispensed Refills Start Date End Date VIT/IRON FUMARATE/FA ( ORAL) Take 1 tablet by mouth daily. Gluten free 08/03/2018 documented as of this encounter Plan of Treatment Pending Results Name Type Priority Associated Diagnoses Date /Time US ovulation induction Imaging Routine Unspecified procreative management 05/09/2012 8:51 AM EST Scheduled Orders Name Type Priority Associated Diagnoses Orde r Schedule US ovulation induction Imaging Routine Unspecified procreative management Once PRN (for Radiant use) for 1 Occurrences starting 05/11/2012 until 05/11/2012 documented as of this encounter Procedures Procedure Name Priority Date/Time Associated Diagnosis Comments US OVULATION INDUCTION Routine 05/09/2012 8:51 AM EST Unspecified procreative management documented in this encounter Results * US ovulation induction (05/09/2012 8:51 AM EST) Anatomical Region Laterality Modality Abdomen, Pelvis Ultrasound 05/09/2012 8:51 AM EST Narrative 05/11/2012 2:15 PM EST ? Follicles Report ? (Signed Final 05/11/2012 02:14 pm) Patient Info ID: ? [id number] ? : ??[birth year] (36 yrs) Name: ? BALAJI FLACO ? Visit Date: 05/09/2012 08:23 am Performed By Performed By: ?Rose Torrez Attending: ? Anshul Cho MD, Darian Referred By: ? DARIANMiesha CHO MD Service(s) Provided UOI - Ovulation Induction - [id number] ? [id number] Indications Follicular monitoring OM 8 ------- History ------- Determined by: ?? First Stimulation ?? First Stimul.Day: ??05/02/12 ?Day Of Cycle: ?8 Right Ovary Follicles (Prior) Date ? D.O.C. ?? # ?L(mm) ?W(mm) ? H(mm) ?A(mm) 05/08/12 ?? 7 ?1 ?26.6 ? 24.8 ?15.7 ? 22.4 05/08/12 ?? 7 ?2 ?25.1 ? 19.5 ?15.8 ? 20.1 05/08/12 ?? 7 ?3 ?16.1 ? 14.7 ?9.3 ?13.4 05/08/12 ?? 7 ?4 ?15.9 ? 14.6 ?8.8 ?13.1 05/08/12 ?? 7 ?5 ?13.6 ? 10.5 ?7.4 ?10.5 05/08/12 ?? 7 ?6 ?7.4 ?6.9 ? 5.3 ?6.5 05/08/12 ?? 7 ?7 ?8.7 ?7.7 ? 4 ?6.8 Date ? # ?Volume(cc) ? Comments 05/08/12 ?? 1 ?5.4 05/08/12 ?? 2 ?4 Date ? # ?Volume(cc) ? Comments 05/08/12 ?? 3 ?1.2 05/08/12 ?? 4 ?1.1 05/08/12 ?? 5 ?0.6 05/08/12 ?? 6 ?0.1 05/08/12 ?? 7 ?0.1 Right Ovary Follicles Follicle # ?? Length(mm) ? Width(mm) ?Height(mm) ? Avg(mm) 1 ?29.5 ? 24.3 ? 22.3 ? 25.4 2 ?31.1 ? 22.9 ? 17 ? 23.7 3 ?21.9 ? 17.6 ? 10.3 ? 16.6 4 ?17.9 ? 13.5 ? 11.8 ? 14.4 5 ?17.3 ? 12.8 ? 9.6 ?13.2 6 ?7.8 ?7.3 ?5.8 ?7 7 ?11.5 ? 9.3 ?3.3 ?8 8 ?5.6 ?4.9 ?1.7 ?4.1 Follicle # ?? Volume(cc) ? Comments 1 ?8.4 2 ?6.3 3 ?2.1 4 ?1.5 5 ?1.1 6 ?0.2 7 ?0.2 8 ?0 Left Ovary Follicles (Prior) Date ? D.O.C. ?? # ?L(mm) ?W(mm) ? H(mm) ?A(mm) 05/08/12 ?? 7 ?1 ?8 ?6.2 ? 4.1 ?6.1 05/08/12 ?? 7 ?2 ?6.2 ?4.1 ? 2.9 ?4.4 05/08/12 ?? 7 ?3 ?4.6 ?4.2 ? 3.1 ?4 05/08/12 ?? 7 ?4 ?5.3 ?4.3 ? 2.4 ?4 05/08/12 ?? 7 ?5 ?5 ?3.7 ? 2.2 ?3.6 05/08/12 ?? 7 ?6 ?4.3 ?3 ? 1.4 ?2.9 05/08/12 ?? 7 ?7 ?5.8 ?2.2 ? 1.3 ?3.1 05/08/12 ?? 7 ?8 ?2.9 ?1.9 ? 1.8 ?2.2 05/08/12 ?? 7 ?9 ?1.5 ?1.4 ? 1.4 ?1.4 Date ? # ?Volume(cc) ? Comments 05/08/12 ?? 1 ?0.1 05/08/12 ?? 2 ?0 05/08/12 ?? 3 ?0 05/08/12 ?? 4 ?0 05/08/12 ?? 5 ?0 05/08/12 ?? 6 ?0 05/08/12 ?? 7 ?0 05/08/12 ?? 8 ?0 05/08/12 ?? 9 ?0 Left Ovary Follicles Follicle # ?? Length(mm) ? Width(mm) ?Height(mm) ? Avg(mm) 1 ?8.8 ?7 ?6.3 ?7.4 2 ?8.5 ?5.3 ?3 ?5.6 3 ?8.1 ?4.3 ?3.3 ?5.2 4 ?7 ?5 ?3.5 ?5.2 5 ?6.9 ?4.4 ?3.6 ?5 6 ?7 ?3.7 ?3 ?4.6 7 ?5.3 ?3.9 ?2.7 ?4 8 ?3.5 ?2.9 ?2.2 ?2.9 9 ?2.4 ?2.3 ?1.9 ?2.2 10 ? 1.8 ?1.8 ?1.5 ?1.7 Follicle # ?? Volume(cc) ? Comments 1 ?0.2 2 ?0.1 3 ?0.1 4 ?0.1 5 ?0.1 6 ?0 7 ?0 8 ?0 9 ?0 10 ? 0 Endometrium Endometrium: ? Normal appearance Thickness (mm): ?11.1 ------ Uterus ------ Uterus: ? Visualized Position: ?? Anteverted Description: ?? No fluid in cul-de-sac Impression Ultrasound - Follicular Monitoring - Summary This transvaginal study was performed for follicular monitoring. The endometrial stripe measures 11.1 mm. The individual ovarian follicles are measured in the images obtained and are recorded above. No fluid in cul-de-sac. I ??viewed the images and agree with the above interpretation. Thank you for allowing us to participate in the care of BALAJI SAM. Please do not hesitate to call if you have any questions. ?Darian Cho MD Electronically Signed Final Report ?? 05/11/2012 02:14 pm Procedure Note Darian Davila MD - 05/11/2012 Follicles Report (Signed Final 05/11/2012 02:14 pm) Patient Info ID: [id number] : [birth year] (36 yrs) Name: BALAJI SAM Visit Date: 05/09/2012 08:23 am Performed By Performed By: Rose Torrez [facility] Attending: Darian Davila MD Referred By: DARIAN CHO MD Service(s) Provided UOI - Ovulation Induction - [id number] [id number] Indications Follicular monitoring OM 8 ------- History ------- Determined by: First Stimulation First Stimul.Day: 05/02/12 Day Of Cycle: 8 Right Ovary Follicles (Prior) Date D.O.C. # L(mm) W(mm) H(mm) A(mm) 05/08/12 7 1 26.6 24.8 15.7 22.4 05/08/12 7 2 25.1 19.5 15.8 20.1 05/08/12 7 3 16.1 14.7 9.3 13.4 05/08/12 7 4 15.9 14.6 8.8 13.1 05/08/12 7 5 13.6 10.5 7.4 10.5 05/08/12 7 6 7.4 6.9 5.3 6.5 05/08/12 7 7 8.7 7.7 4 6.8 Date # Volume(cc) Comments 05/08/12 1 5.4 05/08/12 2 4 Date # Volume(cc) Comments 05/08/12 3 1.2 05/08/12 4 1.1 05/08/12 5 0.6 05/08/12 6 0.1 05/08/12 7 0.1 Right Ovary Follicles Follicle # Length(mm) Width(mm) Height(mm) Avg(mm) 1 29.5 24.3 22.3 25.4 2 31.1 22.9 17 23.7 3 21.9 17.6 10.3 16.6 4 17.9 13.5 11.8 14.4 5 17.3 12.8 9.6 13.2 6 7.8 7.3 5.8 7 7 11.5 9.3 3.3 8 8 5.6 4.9 1.7 4.1 Follicle # Volume(cc) Comments 1 8.4 2 6.3 3 2.1 4 1.5 5 1.1 6 0.2 7 0.2 8 0 Left Ovary Follicles (Prior) Date D.O.C. # L(mm) W(mm) H(mm) A(mm) 05/08/12 7 1 8 6.2 4.1 6.1 05/08/12 7 2 6.2 4.1 2.9 4.4 05/08/12 7 3 4.6 4.2 3.1 4 05/08/12 7 4 5.3 4.3 2.4 4 05/08/12 7 5 5 3.7 2.2 3.6 05/08/12 7 6 4.3 3 1.4 2.9 05/08/12 7 7 5.8 2.2 1.3 3.1 05/08/12 7 8 2.9 1.9 1.8 2.2 05/08/12 7 9 1.5 1.4 1.4 1.4 Date # Volume(cc) Comments 05/08/12 1 0.1 05/08/12 2 0 05/08/12 3 0 05/08/12 4 0 05/08/12 5 0 05/08/12 6 0 05/08/12 7 0 05/08/12 8 0 05/08/12 9 0 Left Ovary Follicles Follicle # Length(mm) Width(mm) Height(mm) Avg(mm) 1 8.8 7 6.3 7.4 2 8.5 5.3 3 5.6 3 8.1 4.3 3.3 5.2 4 7 5 3.5 5.2 5 6.9 4.4 3.6 5 6 7 3.7 3 4.6 7 5.3 3.9 2.7 4 8 3.5 2.9 2.2 2.9 9 2.4 2.3 1.9 2.2 10 1.8 1.8 1.5 1.7 Follicle # Volume(cc) Comments 1 0.2 2 0.1 3 0.1 4 0.1 5 0.1 6 0 7 0 8 0 9 0 10 0 Endometrium Endometrium: Normal appearance Thickness (mm): 11.1 ------ Uterus ------ Uterus: Visualized Position: Anteverted Description: No fluid in cul-de-sac Impression Ultrasound - Follicular Monitoring - Summary This transvaginal study was performed for follicular monitoring. The endometrial stripe measures 11.1 mm. The individual ovarian follicles are measured in the images obtained and are recorded above. No fluid in cul-de-sac. I viewed the images and agree with the above interpretation. Thank you for allowing us to participate in the care of BALAJI SAM. Please do not hesitate to call if you have any questions. Darian Cho MD Electronically Signed Final Report 05/11/2012 02:14 pm Darian Cho MD IMG US PELV IC ORDERABLES documented in this encounter Visit Diagnoses Diagnosis Unspecified procreative management documented in this encounter Care Teams Procurement Professional Logistics Relationship Specialty Start Date End Date Florentino Kent MD [address] [place] [address] PCP - General 12/23/11 07/16/18 documented as of this encounter
--- OUTSIDE RECORDS SUMMARY | 2024-02-25 15:22 | XMS_ITS | Encounter Summary ---
Author Organization [facility] Address [facility] [place] [address] Care Team Providers Care Rug Receiving Clerk Name Role Phone Florentino Kent MD Primary Care Provider [phone] Encounter Details Date Type Department Care Team (Late st Contact Info) Description 05/01/2012 Orders Only Obstetrics [place] [address] Sita Davila MD [facility] OBSTETRICS & [place] [address] Social History Tobacco Use Types Packs/Day Years [...] on filedocumented in this encounter Care Teams Rug Receiving Clerk Relationship Specialty Start Date End Date Florentino Kent MD [address] [place] [address] PCP - General 12/23/11 07/16/18 documented as of this encounter
--- OUTSIDE RECORDS SUMMARY | 2024-02-25 15:22 | XMS_ITS | Encounter Summary ---
Author Organization [facility] Address [facility] [place] [address] Care Team Providers Care Sheet Rock Hanger Name Role Phone Delmy Liu APRN Primary Care Provider [phone] Encounter Details Date Type Department Care Team (Latest Contact Info) Description 12/20/2011 11:46 AM EDT - 12/20/2011 11:59 PM EDT [place] [address] Sita Davila MD [facility] OBSTETRICS [place] [address] Unspecified procreative management Discharge Disposition: Home Social History Tobacco Use Types Packs/Day Years Used Date Smoking Tobacco: Never Alcohol Use Standard Drinks/Week Comments [...] Procedure Name Priority Date/Time Associated Diagnosis Comments DIFFERENTIAL, AUTOMATED Routine 12/20/2011 11:58 AM EDT RUBELLA ANTIBODY, IGG Routine 12/20/2011 11:58 AM EDT Unspecified procreative management CBC (WITH DIFF) Routine 12/20/2011 11:58 AM EDT Unspecified procreative management documented in this encounter Results * DIFFERENTIAL, AUTOMATED (12/20/2011 11:58 AM EDT) Neutrophil % 69.3 34.0 - 71.0 % CERNER MILLENNIUM Neutrophil Absolute 4.21 1.50 - 6.30 x10(3)/mcL CERNER MILLENNIUM Lymph % 19.4 19.0 - 53.0 % CERNER MILLENNIUM Lymphocytes Abs 1.2 1.0 - 3.6 x10(3)/mcL CERNER MILLENNIUM Monocyte % 9.6 4.0 - 13.0 % CERNER MILLENNIUM Monocyte Abs 0.6 0.2 - 1.0 x10(3)/mcL CERNER MILLENNIUM Eos % 1.2 0.0 - 7.0 % CERNER MILLENNIUM Eosinophils Abs 0.1 0.0 - 0.5 x10(3)/mcL CERNER MILLENNIUM Basophil % 0.3 0.0 - 2.0 % CERNER MILLENNIUM Baso Absolute 0.0 0.0 - 0.2 x10(3)/mcL CERNER MILLENNIUM Immature Gran % 0.20 0.00 - 0.66 % CERNER MILLENNIUM Comment: Immature granulocytes(IG's)percentage and absolute count will include metamyelocytes, myelocytes, and promyelocytes. Blood smears from CBCs yielding IG's will be scanned manually for concordance. If this scan disagrees with the automated IG or if promyelocytes are noted, a manual differential will be performed. Immature Gran Absolute 0.01 0.00 - 0.05 x10(3)/mcL CERNER MILLENNIUM Blood specimen (specimen) 12/20/2011 11:58 AM EDT 12/20/2011 12:01 PM EDT Sita Cho MD HEMATOLOGY ORDERABLES [facility] * CBC (with Diff) (12/20/2011 11:58 AM EDT) White Blood Cell 6.1 4.0 - 10.0 x10(3)/mcL CERNER MILLENNIUM Red Blood Cell 4.83 3.93 - 5.22 x10(6)/mcL CERNER MILLENNIUM Hemoglobin 12.9 11.2 - 15.7 gm/dL CERNER MILLENNIUM Hematocrit 39.2 34.0 - 45.0 % CERNER MILLENNIUM Mean Cell Volume 81.2 79.0 - 94.0 fL CERNER MILLENNIUM Mean Cell Hemoglobin 26.7 26.6 - 32.2 pg CERNER MILLENNIUM Mean Cell Hemoglobin Concentration 32.9 32.0 - 36.5 gm/dL CERNER MILLENNIUM Platelet 222 145 - 370 x10(3)/mcL CERNER MILLENNIUM RDW Standard Deviation 39.4 35.0 - 46.0 fL CERNER MILLENNIUM RDW coefficient of variation 13.2 10.9 - 14.4 % CERNER MILLENNIUM Mean Platelet Volume 9.7 9.0 - 12.0 fL CERNER MILLENNIUM Blood specimen (specimen) 12/20/2011 11:58 AM EDT 12/20/2011 12:01 PM EDT Narrative Resulting Agency Comment Spec In Lab Sita Cho MD HEMATOLOGY ORDERABLES [facility] * Rubella Antibody, IgG (12/20/2011 11:58 AM EDT) Rubella Antibody IgG Positive Positive CERNER MILLENNIUM Comment: Please note: ??A positive result for this assay indicates that antibody levels are >or= 10.0 IU/mL and is considered to be an indicator of positive immune status. Blood specimen (specimen) 12/20/2011 11:58 AM EDT 12/20/2011 12:01 PM EDT Narrative Resulting Agency Comment Spec In Lab Sita Cho MD CHEMISTRY O RDERABLES [facility] documented in this encounter Visit Diagnoses Diagnosis Unspecified procreative management documented in this encounter Care Teams Sheet Rock Hanger Relationship Specialty Start Date End Date Delmy Liu APRN [address] [place] [address] PCP - General 12/19/11 12/22/11 documented as of this encounter
--- OUTSIDE RECORDS SUMMARY | 2024-02-25 15:22 | XMS_ITS | Encounter Summary ---
Author Organization [facility] Address [facility] [place] [address] Care Team Providers Care Fisher Sponge Hooking Name Role Phone Florentino Kent MD Primary Care Provider [phone] Encounter Details Date Type Department Care Team (Late st Contact Info) Description 03/25/2012 Orders Only Obstetrics [place] [id number] Darian Davila MD [facility] OBSTETRICS & [place] [address] Unspecified procreative management (Primary Dx) Social History Tobacco Use Types [...] documented as of this encounter Results * US ovulation induction (05/09/2012 8:51 AM EST) Anatomical Region Laterality Modality Abdomen, Pelvis Ultrasound 05/09/2012 8:51 AM EST Narrative 05/11/2012 2:15 PM EST ? Follicles Report ? (Signed Final 05/11/2012 02:14 pm) Patient Info ID: ? [id number] ? : ??[birth year] (36 yrs) Name: ? BALAJI FLACO ? Visit Date: 05/09/2012 08:23 am Performed By Performed By: ?Rose Torrez [facility] Attending: ? Armando Cho MD, Darian Referred By: ? DARIAN ARMANDO CHO MD Service(s) Provided UOI - Ovulation Induction - [id number] ? [id number] Indications Follicular monitoring OM 8 ------- History [...] 7 ?1 ?8 ?6.2 ? 4.1 ?6.1 / ?? 7 ?2 ?6.2 ?4.1 ? 2.9 ?4.4 05/08/12 ?? 7 ?3 ?4.6 ?4.2 ? 3.1 ?4 05/08/12 ?? 7 ?4 ?5.3 ?4.3 ? 2.4 ?4 05/08/12 ?? 7 ?5 ?5 ?3.7 ? 2.2 ?3.6 05/08/12 ?? 7 ?6 ?4.3 ?3 ? 1.4 ?2.9 / ?? 7 ?7 ?5.8 ?2.2 ? 1.3 ?3.1 / ?? 7 ?8 ?2.9 ?1.9 ? 1.8 ?2.2 / ?? 7 ?9 ?1.5 ?1.4 ? 1.4 [...] Final 05/11/2012 02:14 pm) Patient Info ID: [id number] : [birth year] (36 yrs) Name: BALAJI SAM Visit Date: 05/09/2012 08:23 am Performed By Performed By: Rose Torrez RDTN Attending: Darian Davila MD Referred By: DARIAN CHO MD Service(s) Provided UOI - Ovulation Induction - [id number] Indications Follicular monitoring OM 8 ------- History [...] Cho MD IMG US PELV IC ORDERABLES * US ovulation induction (05/08/2012 8:15 AM EST) Anatomical Region Laterality Modality Abdomen, Pelvis Ultrasound 05/08/2012 8:15 AM EST Narrative 05/11/2012 2:15 PM EST ? Follicles Report ? (Signed Final 05/11/2012 02:14 pm) Patient Info ID: ? [id number] ? : ??[birth year] (36 yrs) Name: ? BALAJI SAM ? Visit Date: 05/08/2012 08:14 am Performed By Performed By: ?Minal Wang RDMS Attending: ? Armando Cho MD, Darian Referred By: ? DARIAN CHO MD Service(s) Provided UOI - Ovulation Induction - [id number] ? [id number] Indications Follicular monitoring, Day 7 ------- History ------- Determined by: ?? First Stimulation ?? First Stimul.Day: ??05/02/12 ?Day Of Cycle: ?7 Right Ovary Follicles Follicle # ?? Length(mm) ? Width(mm) ?Height(mm) ? Avg(mm) 1 ?26.6 ? 24.8 ? 15.7 ? 22.4 2 ?25.1 ? 19.5 ? 15.8 ? 20.1 3 ?16.1 ? 14.7 ? 9.3 ?13.4 4 ?15.9 ? 14.6 ? 8.8 ?13.1 5 ?13.6 ? 10.5 ? 7.4 ?10.5 6 ?7.4 ?6.9 ?5.3 ?6.5 7 ?8.7 ?7.7 ?4 ?6.8 Follicle # ?? Volume(cc) ? Comments 1 ?5.4 2 ?4 3 ?1.2 Follicle # ?? Volume(cc) ? Comments 4 ?1.1 5 ?0.6 6 ?0.1 7 ?0.1 Left Ovary Follicles Follicle # ?? Length(mm) ? Width(mm) ?Height(mm) ? Avg(mm) 1 ?8 ?6.2 ?4.1 ?6.1 2 ?6.2 ?4.1 ?2.9 ?4.4 3 ?4.6 ?4.2 ?3.1 ?4 4 ?5.3 ?4.3 ?2.4 ?4 5 ?5 ?3.7 ?2.2 ?3.6 6 ?4.3 ?3 ?1.4 ?2.9 7 ?5.8 ?2.2 ?1.3 ?3.1 8 ?2.9 ?1.9 ?1.8 ?2.2 9 ?1.5 ?1.4 ?1.4 ?1.4 Follicle # ?? Volume(cc) ? Comments 1 ?0.1 2 ?0 3 ?0 4 ?0 5 ?0 6 ?0 7 ?0 8 ?0 9 ?0 Endometrium Thickness (mm): ?10.18 ------ Uterus ------ Description: ?? No fluid in cul-de-sac Impression Ultrasound - Follicular Monitoring - Summary This transvaginal study was performed for follicular monitoring. The endometrial stripe measures 10.18 mm. The individual ovarian follicles are measured [...] Final 05/11/2012 02:14 pm) Patient Info ID: [id number] : [birth year] (36 yrs) Name: BALAJI SAM Visit Date: 05/08/2012 08:14 am Performed By Performed By: Minal Wang RDMS Attending: Darian Davila MD Referred By: DARIAN CHO MD Service(s) Provided UOI - Ovulation Induction - [id number] Indications Follicular monitoring, Day 7 ------- History ------- Determined by: First Stimulation First Stimul.Day: 05/02/12 Day Of Cycle: 7 Right Ovary Follicles Follicle # Length(mm) Width(mm) Height(mm) Avg(mm) 1 26.6 24.8 15.7 22.4 2 25.1 19.5 15.8 20.1 3 16.1 14.7 9.3 13.4 4 15.9 14.6 8.8 13.1 5 13.6 10.5 7.4 10.5 6 7.4 6.9 5.3 6.5 7 8.7 7.7 4 6.8 Follicle # Volume(cc) Comments 1 5.4 2 4 3 1.2 Follicle # Volume(cc) Comments 4 1.1 5 0.6 6 0.1 7 0.1 Left Ovary Follicles Follicle # Length(mm) Width(mm) Height(mm) Avg(mm) 1 8 6.2 4.1 6.1 2 6.2 4.1 2.9 4.4 3 4.6 4.2 3.1 4 4 5.3 4.3 2.4 4 5 5 3.7 2.2 3.6 6 4.3 3 1.4 2.9 7 5.8 2.2 1.3 3.1 8 2.9 1.9 1.8 2.2 9 1.5 1.4 1.4 1.4 Follicle # Volume(cc) Comments 1 0.1 2 0 3 0 4 0 5 0 6 0 7 0 8 0 9 0 Endometrium Thickness (mm): 10.18 ------ Uterus ------ Description: No fluid in cul-de-sac Impression Ultrasound - Follicular Monitoring - Summary This transvaginal study was performed for follicular monitoring. The endometrial stripe measures 10.18 mm. The individual ovarian follicles are measured [...] this encounter Visit Diagnoses Diagnosis Unspecified procreative management- Primary Unspecified procreative management Unspecified procreative management documented in this encounter Care Teams Fisher Sponge Hooking Relationship Specialty Start Date End Date Florentino Kent MD [address] [place] [address] PCP - General 12/23/11 07/16/18 documented as of this encounter
--- OUTSIDE RECORDS SUMMARY | 2024-02-25 15:22 | XMS_ITS | Encounter Summary ---
[place] [address] Care Team Providers Care Ram Press Operator Name Role Phone Florentino Kent MD Primary Care Provider [phone] Reason for Visit * Reason Comments Infertility Encounter Details Date Type Department Care Team (Late st Contact Info) Description 04/30/2012 8:30 AM EST Office Visit Obstetrics [place] [address] CLINIC, Michelle Dowell, RN Nurse, Obgycathleen II, RN Unspecified procreative management (Primary Dx) Discharge Disposition: Home Social History Tobacco Use [...] as of this encounter Progress Notes * Michelle Iqbal, RN - 04/30/2012 9:59 AM EST REPRODUCTIVE MEDICINE OVULATION INDUCTION MONITORING Chief Complaint: Ovulation induction monitoring. 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 She is cycle day baseline. Shehas had a transvaginal ultrasound to evaluate ovarian activity. OBJECTIVE: Transvaginal US results were reviewed with the patient. Please see her infertility chartfor details of her scan results today. ASSESSMENT: Ovulation induction monitoring lead follicle: many small bilaterally. Endometrial lining @ .6mm. Time spent with patient: 15 minutes, 100 % spent in face to face counseling with regards her recenttreatment plan and the potential ongoing treatment plan. She was counseled to check her supply of medication and needles and syringes to be certain she has enough and the proper medications to complete the cycle. PLAN: 1.) Medication protocol reviewed with the patient and documented in the chart 2.) Estradiol not needed 3.) Continue folic acid supplementation 4.) Patient to proceed per med protocol. 5.) Plan likely : Ready to start cycle after review with Dr. Cho. documented in this encounter Plan of Treatment Not on file documented as of this encounter Visit Diagnoses Diagnosis Unspecified procreative management- Primary documented in this encounter Care Teams Ram Press Operator Relationship Specialty Start Date End Date Florentino Kent MD [address] [place] [address] PCP - General 12/23/11 07/16/18 documented as of this encounter
--- OUTSIDE RECORDS SUMMARY | 2024-02-25 15:22 | XMS_ITS | Encounter Summary ---
Author Organization [facility] Address [facility] [place] [address] Care Team Providers Care Critical Systems Technician Name Role Phone Florentino Kent MD Primary Care Provider [phone] Encounter Details Date Type Department Care Team (Latest Contact Info) Description 05/08/2012 8:46 AM EST - 05/08/2012 11:59 PM EST Hospital [place] [address] Sita Davila MD [facility] OBSTETRICS & [place] [address] Unspecified procreative management Discharge Disposition: Home Social [...] Procedure Name Priority Date/Time Associated Diagnosis Comments ESTRADIOL Routine 05/08/2012 8:53 AM EST Unspecified procreative management documented in this encounter Results * Estradiol (05/08/2012 8:53 AM EST) [facility] Estradiol 790 pg/mL [facility] Comment: Reference ranges: Males: ?? 1-10 years: <5 to 20 pg/mL ?? Adult: ? 0 to 45 pg/mL Females: ?? 1-10 years ??6 to 27 pg/mL Non- females: ?Follicular: ??0-178 pg/mL ?Ovulation: ??48-388 pg/mL ?Luteal: ??31-247 pg/mL ?Postmenopausal: ??0-46 pg/mL females: ?1st trimester: ??38-3175 pg/mL ?2nd trimester: ??678-12540 pg/mL ?3rd trimester: ??43-50287 pg/mL Blood specimen (specimen) 05/08/2012 8:53 AM EST 05/08/2012 9:08 AM EST Narrative Resulting Agency Comment Spec In Lab iSta Cho MD CHEMISTRY O RDERABLES [facility] documented in this encounter Visit Diagnoses Diagnosis Unspecified procreative management documented in this encounter Care Teams Critical Systems Technician Relationship Specialty Start Date End Date Florentino Kent MD [address] [place] [address] PCP - General 12/23/11 07/16/18 documented as of this encounter
--- OUTSIDE RECORDS SUMMARY | 2024-02-25 15:22 | XMS_ITS | Encounter Summary ---
Author Organization [facility] [place] [address] Care Team Providers Care Third Hand Name Role Phone Florentino Kent MD Primary Care Provider [phone] Reason for Visit * Reason Comments Pre-op Exam Encounter Details Date Type Department Care Team (Late st Contact Info) Description 05/08/2012 9:30 AM EST Follow-Up Obstetrics [place] [address] Kylah Dos Santos APRN [facility] [place] [address] Other specified pre-operative examination (Primary Dx) Social History Tobacco Use Types [...] Sign Reading Time Taken Comments Blood Pressure 90/70 05/08/2012 8:22 AM EST Pulse 66 05/08/2012 8:22 AM EST Temperature 36.8 ??C (98.2 ??F) 05/08/2012 8:22 AM ES T Respiratory Rate 16 05/08/2012 8:22 AM EST Oxygen Saturation - - Inhaled Oxygen Concentration - - Weight 65.1 kg (143 lb 9.6 oz) 05/08/2012 8:22 A M EST Height 161.9 cm (5' 3.75) 05/08/2012 8:22 AM ES T Body Mass Index 24.84 05/08/2012 8:22 AM EST documented in this encounter Progress Notes * Kylah Dos Santos APRN - 05/08/2012 8:57 AM EST Kesha is a 36 year old who comes to clinic for H&P in conjunction with Oocyte Retrieval, Pleasesee surgical H&P. documented in this encounter H&P Notes * Kylah Dos Santos APRN - 05/08/2012 8:58 AM EST Date of Visit: 05/08/2012 Planned Procedure: oocyte retrieval Indications/Pre-op Diagnosis: desire to conceive HISTORY OF PRESENT ILLNESS: Ms. Crawford is a 36 y.o. para 3 woman who presents for her preoperative examination. Patient with history of tubal factor infertility Please see prior encounter notes for more detail. REVIEW OF SYMPTOMS/FUNCTIONAL STATUS: Review of Systems - negative Bleeding disorder (h/o nose bleeds, excessive bleeding following a surgical procedure?): no Personal or Family history of blood clots?: please see note from Hematology for complete history Sexually active?: yes Last PAP smear: normal Past anesthesia problems?: no Past Medical History Diagnosis Date ??? MTHFR mutation homozygous ??? Prothrombin gene mutation heterozygous ??? Infertility, tubal origin 11/29/2011 ??? Prior with demise 11/29/2011 Past Surgical History Procedure Date ??? Tubal ligation 2000 ??? Cholecystectomy, laparoscopic 2009 ??? Laparoscopy diagnostic for ?ovarian cyst as teenager Social hx: Allergies Allergen Reactions ??? Bactrim (Sulfamethoxazole-Trimethoprim) Rash Outpatient Prescriptions Marked as Taking for the 05/08/12 encounter (Follow-Up) with Kylah Dos Santos APRN Medication Sig Dispense Refill ??? VIT/IRON FUMARATE/FA ( ORAL) Take 1 tablet by mouth daily. Gluten free Blood pressure 90/70, pulse 66, temperature 36.8 ??C (98.2 ??F), temperature source Oral, resp. rate 16, height 161.9 cm (5' 3.75), weight 65.137 kg (143 lb 9.6 oz), last menstrual period 04/17/2012. EXAM: General: alert/oriented x 3, NAD, cooperative Neck: No lymphadenopathy, no thyromegaly Chest: CTA COR: RRR, no murmur Abdomen: soft, NT Pelvic: defer Extremities: no calf tenderness, no swelling IMPRESSION: Kesha Crawford is a 36 y.o. woman with tubal factor infertility who desires Oocyte Retrieval PLAN: Oocyte retrieval Consent: Informed consent signed KYLAH DO SSANTOS APRN documented in this encounter Miscellaneous Notes * Miscellaneous - Provider, Scanning - 05/27/2012 2:00 PM EST documented in this encounter Plan of Treatment Not on file documented as of this encounter Visit Diagnoses Diagnosis Other specified pre-operative examination- Primary documented in this encounter Care Teams Third Hand Relationship Specialty Start Date End Date Florentino Kent MD [address] [place] [address] PCP - General 12/23/11 07/16/18 documented as of this encounter
--- OUTSIDE RECORDS SUMMARY | 2024-02-25 15:22 | XMS_ITS | Encounter Summary ---
[place] [address] Care Team Providers Care Sales Management Intern Name Role Phone Florentino Kent MD Primary Care Provider [phone] Reason for Visit * Reason Comments Infertility Encounter Details Date Type Department Care Team (Late st Contact Info) Description 05/09/2012 8:15 AM EST Office Visit Obstetrics [place] [address] Michelle Iqbal RN Unspecified procreative management (Primary Dx) Discharge [...] Progress Notes * Michelle Iqbal, RN - 05/09/2012 9:06 AM EST REPRODUCTIVE MEDICINE OVULATION INDUCTION MONITORING Chief Complaint: Ovulation induction monitoring. 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 She is cycle day 8. She has had a transvaginal ultrasound to evaluate ovarian activity. OBJECTIVE: Transvaginal US results were reviewed with the patient. Please see her infertility chartfor details of her scan results today. ASSESSMENT: Ovulation induction monitoring lead follicle: 25 Time spent with patient: 15 minutes, 100 [...] needed 3.) Continue folic acid supplementation 4.) Plan likely : Discussion regarding diminished response and likely poor outcome at retrieval. Given the option to cancel cycle now or continue with medication until Friday and repeat ultrasound. Discussed that at best we might be able to get to the 3 at maturity for retrieval but that was optimistic prediction. They decided to not proceed. Will review with Dr. Cho for plan for another attempt. documented in this encounter Plan of Treatment Not on file documented as of this encounter Visit Diagnoses Diagnosis Unspecified procreative management- Primary documented in this encounter Care Teams Sales Management Intern Relationship Specialty Start Date End Date Florentino Kent MD [address] [place] [address] PCP - General 12/23/11 07/16/18 documented as of this encounter
--- OUTSIDE RECORDS SUMMARY | 2024-02-25 15:22 | XMS_ITS | Encounter Summary ---
Author Organization [facility] Address [facility] [place] [address] Care Team Providers Care Towerman Name Role Phone Florentino Kent MD Primary Care Provider [phone] Encounter Details Date Type Department Care Team (Latest Contact Info) Description 04/28/2012 2:49 PM EST - 04/28/2012 11:59 PM [facility] Hospital Encounter Obstetrics [place] [address] Sita Davila MD [facility] OBSTETRICS & [place] [address] Discharge Disposition: Home Social History Tobacco Use [...] tablet by mouth daily. Gluten free 08/03/2018 norgestimate-ethinyl estradiol (ORTHO-CYCLEN, 28,) 0.25-35 mg-mcg per tabletIndications:Unspec ified procreative management Take 1 tablet by mouth daily for 56 days. Taking active pills only 56 tablet 2 03/25/2012 05/08/2012 documented as of this encounter Plan of Treatment Not on file documented as of this encounter Visit Diagnoses Not on filedocumented in this encounter Care Teams Towerman Relationship Specialty Start Date End Date Florentino Kent MD [address] [place] [address] PCP - General 12/23/11 07/16/18 documented as of this encounter
--- OUTSIDE RECORDS SUMMARY | 2024-02-25 15:22 | XMS_ITS | Encounter Summary ---
Author Organization [facility] Address [facility] [place] [address] Care Team Providers Care Line Tester Name Role Phone Florentino Kent MD Primary Care Provider Reason for Visit * Reason Onset Date Comments Vaginal Bleeding 04/28/2012 Spotting on lup taryn. Encounter Details Date Type Department Care Team (Late st Contact Info) Description 04/28/2012 Telephone Obstetrics [place] [phone] Sita Davila MD [facility] OBSTETRICS & [place] [address] Vaginal Bleeding (Spotting on lupron.) Social History Tobacco Use Types Packs/Day Years [...] encounter Miscellaneous Notes * Telephone Encounter - Taina Cannon LPN - 04/28/2012 11:38 AM EST Kesha called with vaginal bleeding. Cycle day 15 on lupron 10 units. Menses off OCPs was 04-17-12. Noted vaginal spotting this AM. Concerned. Did not think that she should have any bleeding at this time. Is 36 and starting an IVF cycle. Told her that it is not abnormal for some people to have some spotting while on the lupron. That itis probably either due to a thin endometrial lining most likely or that the dose may not be holdingher. Is scheduled for appt. on 04-30-12 to check lining I believe and it is to early for her menses. Will monitor spotting and call if it becomes very heavy vaginal bleeding. Will keep her appointmenton 04-30-12. documented in this encounter Plan of Treatment Not on file documented as of this encounter Visit Diagnoses Not on filedocumented in this encounter Care Teams Line Tester Relationship Specialty Start Date End Date Florentino Kent MD [address] [place] [address] PCP - General 12/23/11 07/16/18 documented as of this encounter
--- OUTSIDE RECORDS SUMMARY | 2024-02-25 15:22 | XMS_ITS | Encounter Summary ---
Author Organization [facility] Address [facility] [place] [address] Care Team Providers Care Contractor Broomcorn Threshing Name Role Phone Florentino Kent MD Primary Care Provider [phone] Encounter Details Date Type Department Care Team (Latest Contact Info) Description 05/09/2012 8:09 AM EST - 05/09/2012 11:59 PM [facility] Hospital [place] [address] Sita Davila MD [facility] OBSTETRICS & [place] [address] Unspecified procreative management Discharge Disposition: Home Social [...] Priority Date/Time Associated Diagnosis Comments ESTRADIOL Routine 05/09/2012 8:20 AM EST Unspecified procreative management documented in this encounter Results * Estradiol (05/09/2012 8:20 AM EST) Pathologist [facility] Estradiol 1027 pg/mL [facility] Comment: Reference ranges: Males: ?? 1-10 years: <5 to 20 pg/mL ?? Adult: ? 0 to 45 pg/mL Females: ?? 1-10 years ??6 to 27 pg/mL Non- females: ?Follicular: ??0-178 pg/mL ?Ovulation: ??48-388 pg/mL ?Luteal: ??31-247 pg/mL ?Postmenopausal: ??0-46 pg/mL females: ?1st trimester: ??38-3175 pg/mL ?2nd trimester: ??678-31094 pg/mL ?3rd trimester: ??43-01427 pg/mL Blood specimen (specimen) 05/09/2012 8:20 AM EST 05/09/2012 8:27 AM EST Narrative Resulting Agency Comment Spec In Lab Sita Cho MD CHEMISTRY O RDERABLES [facility] documented in this encounter Visit Diagnoses Diagnosis Unspecified procreative management documented in this encounter Care Teams Contractor Broomcorn Threshing Relationship Specialty Start Date End Date Florentino Kent MD [address] [place] [address] PCP - General 12/23/11 07/16/18 documented as of this encounter
--- OUTSIDE RECORDS SUMMARY | 2024-02-25 15:22 | XMS_ITS | Encounter Summary ---
Author Organization [facility]ly [facility] Address [facility] [place] [address] Care Team Providers Care Roller Print Tender Name Role Phone None Primary Care Provider Unavailabl e Reason for Visit * Reason Comments Advice Only DISC A Encounter Details Date Type Department Care Team (Late st Contact Info) Description 11/27/2011 10:30 AM EDT Office Visit Obstetrics [place] [id number] Sita Davila MD [facility] OBSTETRICS & [place] [address] Infertility, tubal origin (Primary Dx) Discharge Disposition: Home Social History [...] Sign Reading Time Taken Comments Blood Pressure 102/64 11/27/2011 10:43 AM EDT Pulse - - Temperature - - Respiratory Rate - - Oxygen Saturation - - Inhaled Oxygen Concentration - - Weight 68.5 kg (151 lb) 11/27/2011 10:43 AM EDT Height 164 cm (5' 4.57) 11/27/2011 10:43 AM EDT Body Mass Index 25.47 11/27/2011 10:43 AM EDT documented in this encounter Progress Notes * Aaliyah Vazquez - 11/27/2011 12:43 PM EDT NEW INFERTILITY CONSULTATION REPRODUCTIVE MEDICINE AND INFERTILITY [place], [place] Ibarra MD Professor and Chair Department of OIL PAINT SHADER Kolby Kelley MD Reproductive Medicine and Infertility, Long Filler Cigar Roller Machine Sita Cho MD IVF/ART Sales Account Manager MD Kylah Jacobsen ARNP CHIEF COMPLAINT: 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 old and her partner, Zachary, is a 36 year old Male. 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 The havecome here for second opinion and a 'second set of eyes.' They had a previous together after a successful IVF cycle which resulted in first an early loss of one twin and then a term demise which was likely a cord accident (see OBHx below for further details). They want to do another IVF cycle, this will likely be there last attempt and they want to maximize their chances. They have two questions they are hoping to answered today: 1) Is there some 'tweaking' that could be done to improve there chances. They were surprised that there were >10 follicles but only 3 eggs retrieved with 2 embryos formed. They were transferred but she did not get . They understand that this is all within the realm of probability. They were not satisfied with the interactions they had with the office after this last cycle which is one of the reasons they are seeking care elsewhere. 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 There primary OB initially recommended anticoagulation in any future pregnancies. When they had a MFM consult recently at [facility] the recommendation was for no treatment during the with consideration of treatment post-. Menarche occurred at age 12. Cycles are regular 28 day cycles. She reports 4-5 days of flow. She has previously had an abnormal pap smear, her last pap smear was NILM in August of this year. Her history is negative for: abnormal uterine bleeding requiring D and C, pelvic pain and STD. Positive for diagnostic laparoscopy for suspected ovarian cysts as well as interval laparoscopic bilateral tubal ligation. Pregnancies: OB History Grav Para Term Abortions TAB SAB Ect Mult Living 5 4 4 1 1 3 # Outc Date GA Lbr Ranulfo/2nd Wgt Sex Del Anes PTL Lv 1 TRM 1996 Yes 2 SAB 1997 3 TRM 1999 Yes 4 TRM 2000 Yes Comments: interval tubal 5 TRM 2006 No Comments: IVF, twins, A loss first trimester B term IUFD 2006 : IVF, di-di, late first/early second trimester loss of one twin, then carried secondtwin to term without complications. Then had term IUFD which was likely a cord accident. Autopsy showed hypoxia, normal karyotype. Only concern was smaller then expected placenta. Tested negative for factor V leiden, protein C and S. Past Infertility Management Evaluation was initiated with [employer] and has included: Hysterosalpingogram: did not see in records review Laboratory studies:TSH1.48 on 07/02/11 Semen analysis 05/19 no obvious male factor 68mil/ml Infertility treatment has included: 2006 IVF d-di- twin (see OBHx above) 2011 IVF cycle without (see HPI above) Coagulopathy work-up: (+) homozygous MTHFR (+) heterozygous PT PTT27 Dilute viper venom 31.9 (normal range) There is mention in MFM consult of ordering antiphospholipid panel with anticardiolipin antibody and [id number]. These results are not available at this time and it is unclear if they were drawn. Past Medical History Diagnosis Date ??? MTHFR mutation homozygous ??? Prothrombin gene mutation heterozygous Past Surgical History Procedure Date ??? Tubal ligation 2000 ??? Cholecystectomy, laparoscopic 2009 ??? Laparoscopy diagnostic for ?ovarian cyst as teenager Allergies Allergen Reactions ??? Bactrim (Sulfamethoxazole-trimethoprim) Rash No current outpatient prescriptions on file. She is not employed outside the home. The FAMILY HISTORY Family History Problem Relation Age of Onset ??? Hypertension Father ??? Coronary Art Dis Paternal Grandfather ??? Breast Cancer Maternal Aunt ??? Breast Cancer Other cousin, young age ??? Ovarian Cancer Neg Hx ??? Cancer Neg Hx colon ??? Thrombosis Sister VTE in teens, (+)FVL The GENETIC HISTORY is negative for the patient and her through first cousins for mental retardation, Down syndrome, neural tube defects, defects, inherited disorders such as cystic fibrosis, hemophilia, muscular dystrophy, polycystic kidney disease, thrombophelia, inherited skin, bone, or other neurologic disease or two or more spontaneous abortions. The patient has been screened for cystic fibrosis. The couple do not have Ashkenazi Latter Day heritageand have not been screened for the Ashkenazi panel. Other ethnic risk factors have not been identified. REVIEW OF SYSTEMS: Review of Systems - General ROS: negative Partner History: Her partner is employed as a [employer]. He has not fathered any children. He was the father for the prior IVF . He has no medical issues. His social history includes thathe does not SMOKE, does not DRINK ALCOHOL, and does not take recreational drugs. OBJECTIVE: BP 102/64 Ht 164 cm (5' 4.57) Wt 68.493 kg (151 lb) BMI 25.47 kg/m2 LMP 11/10/2011 NAD Exam deferred today as visit focused on counseling Assessment: 1. Tubal infertility s/p BTL 2. Prior term deliveries with different FOB 3. Successful IVF cycle in 2006 4. Unsuccessful IVF cycle this year 5. Homozygous MTHFR and heterozygous PT mutations I had a 60 minute visit with this patient and her spouse, with all 60 minutes spent in face to facecounseling. Our discussion included: logistics of IVF, potential reasons for failure of cycles including human error as well as more commonly inherent failure rate in the process. Importance of resolving the open question on whether lovenox treatment is recommended during a future so that the couple are comfortable with a plan. We reviewed the impact of her age and decreased chance for as compared to the cycle the conceived in with the twin . We reviewed their overall chance for with her age is ~ 1/3 and that her history and diagnosis lend a more favorable outcome. We reviewed the possible outcomes of a repeat IF cycle and that we can not guarantee nor a good obstetric outcome. They asked to proceed with treatment at [facility]. I have recommended a consult with Dr. Payan re useof lovenox in as they have had conflicting recommendations with regards to use of anticoagulation in their specific clinical situation. I have asked her to obtain all coagulation lab results and bring to her appointment with Heme Onc. They understand from prior consultation with [facility] that she should have increased monitoring and perhaps labor induction at 39-40 weeks. Recommendations: 1. Referral to Dr. Payan for Hematology consult. To finalize evaluation and recommendation on potential treatment in and post-. 2. Will then return for planning of IVF cycle AALIYAH VAZQUEZ MD I have seen the patient and reviewed the resident's above history and I agree with the details as written. The assessment and plan were formulated in discussion with me and I agree with them as documented. I counseled the patient directly myself in a one hour face to face discussion. CC MD Megan Stoner MD documented in this encounter Plan of Treatment Not on file documented as of this encounter Visit Diagnoses Diagnosis Infertility, tubal origin- Primary Female infertility of tubal origin documented in this encounter Care Teams Roller Print Tender Relationship Specialty Start Date End Date None None PCP - General 11/27/11 12/18/11 documented as of this encounter
--- OUTSIDE RECORDS SUMMARY | 2024-02-25 15:22 | XMS_ITS | Encounter Summary ---
Author Organization [facility] [place] [address] Care Team Providers Care Coil Placer Name Role Phone Delmy Manzo APRN Primary Care Provider [phone] Reason for Visit * Reason Comments Advice Only Encounter Details Date Type Department Care Team (Latest Contact Info) Description 12/20/2011 11:00 AM EDT Office Visit [place] [address] Allie Payan MD [facility] [address] [place] [address] Primary hypercoagulable state (Primary Dx) Discharge Disposition: Home Social History [...] Sign Reading Time Taken Comments Blood Pressure 111/71 12/20/2011 10:53 AM EDT Pulse 64 12/20/2011 10:53 AM EDT Temperature 36.9 ??C (98.4 ??F) 12/20/2011 10:53 AM E DT Respiratory Rate 16 12/20/2011 10:53 AM EDT Oxygen Saturation - - Inhaled Oxygen Concentration - - Weight 68.6 kg (151 lb 3.8 oz) 12/20/2011 10:53 AM EDT Height 164 cm (5' 4.57) 12/20/2011 10:53 AM EDT Body Mass Index 25.51 12/20/2011 10:53 AM EDT documented in this encounter Progress Notes * Allie Payan MD - 12/20/2011 6:[address] [facility] Department of Medicine [place] [address] [facility] THROMBOSIS CONSULTATION DATE OF VISIT 12/20/2011 Patient Kesha Crawford 1975 REFERRING PHYSICIAN DARIAN CHO PRIMARY CARE PHYSICIAN DELMY MANZO APRN REASON FOR CONSULTATION Anticoagulation recommendations in HISTORY OF THE PRESENT ILLNESS Kesha Crawford is a 36 y.o. woman with a late-term demise, who is seen in consultation at the request of Dr. Darian Cho for review of thrombophilia testing and recommendations for ante- and post- anticoagulation. The history is obtained from the patient, and I have reviewed extensivemedical records provided by the referring physician and located in the electronic medical recordto fill in gaps in the patient's recollection of events, treatments and outcomes. Kesha and her , Zachary are attempting to conceive a child using IVF. Kesha has three children from her previous marriage and underwent a tubal ligation in 2000. She subsequently and Zachary, who accompanies her to the office today. She conceived twins in 2005 via IVF performed at [facility], but the first twin underwent demise in the late first or early trimester. The second twin was viable up until Kesha went into labor a week before the due date at which point she presented to the hospital for delivery and was found to have a non-viable . The mechanism of the demise is not entirely clear. Kesha and Zachary understood there to be a clot on the placenta and the autopsy showed a placenta that was smaller than would be expected for a full term fetus. There was no evidence for placental abruption. 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 Protein C and protein S levels were normal, and evaluation for a lupus anticoagulant ([facility] 07/2011) was negative. Kesha has never had an episode of venous thromboembolism. Prior to the most recent demise, she had four pregnancies with three live births. She had an early miscarriage between the first and second successful pregnancies. Her deliveries were uncomplicated. Of interest is that her sister had an episode of VTE and was discovered to have factor V Leiden. Kesha's father was subsequently discovered to also have factor V Leiden but has never had VTE. Kesha is not significantly overweight, does not smoke and has no chronic medical illnesses. She has few in the way of ongoing thrombosis risk factors as noted below: THROMBOSIS RISK FACTORS Risk Factor Comment Obesity (BMI >30 kg/m2) V/A Body mass index is 25.51 kg/(m^2). Diabetes V/A Current smoker V/A Estrogen or estrogen/progestin V/A V/A Inflammatory disease V/A Recent surgery (<3 months) V Recent hospitalization (<3 mo) V Recent travel (<3 mo) V Period of immobility V Documented thrombophilia V X Heterozygous PT [id number] Accident/Trauma V/A Cancer or treatment for cancer V/A Blood transfusion V/A Central venous catheter V Family history (1st degree) V/A X Sister with DVT; has factor V Leiden Varicose veins/venous insuff. V Hypertension A Hyperlipidemia A Vascular disease A V: Risk factor for venous thrombosis; A: Risk factor for arterial thrombosis In the office today Kesha reports feeling well. She has no leg swelling or pain, no varicose veins and no shortness of breath or chest pain. Her legs swelled a little toward the end of each of her pregnancies but she never developed varicose veins, DVT or superficial thrombophlebitis. She and Zachary are interested in understanding the implications of heterozygous PT [id number] and homozygous MTHFR forKesha's risk for -associated VTE as well as for the risk for recurrent demise. They are also interested in understanding the role of antepartum anticoagulation for VTE prevention as well as for prevention of another loss. They are planning one more IVF cycle only and want to opt imize their chances of having a successful resulting in the of a healthy baby. PAST MEDICAL HISTORY 1. Late-term demise as above 2. Gluten sensitivity OPERATIVE PROCEDURES 1. Cholecystectomy 2. Exploratory laparoscopy 3. Tubal ligation OBSTETRIC HISTORY One first trimester miscarriage (between deliveries #1 and 2) Early and late-term demise of twins, MEDICATIONS No current outpatient prescriptions on file prior to encounter. ADVERSE DRUG REACTIONS Allergies as of 12/20/2011 - Review Complete 12/20/2011 Allergen Reaction Noted ??? Bactrim (sulfamethoxazole-trimethoprim) Rash 11/27/2011 FAMILY HISTORY Mother is alive and well at age 52; no VTE Father is alive and well at age 59; has factor V Leiden but no VTE One sister has hx DVT and has factor V Leiden Two half siblings have no VTE history SOCIAL HISTORY to Zachary x 8 years. They live in [facility]. 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 Lifelong nonsmoker No alcohol use REVIEW OF SYSTEMS Fevers/chills/sweats No Recent infections No Unexplained weight loss No Headache/lightheadedness/syncope No Sinus pain/pressure No Oral sores/lesions/bleeding No Sore throat/dysphagia No Nosebleeds No Cough/SOB/chest pain/heart racing No Nausea/vomiting/dyspepsia No Abdominal pain No Diarrhea/constipation No Urinary pain, burning, incontinence No Hematuria No Vaginal discharge/bleeding No Skin rashes/ulcers No Back/joint pain/swelling No Leg swelling/pain/redness No Bruising/petechiae/bleeding/melena No Sensory/motor No Polydipsia/polyuria/heat/cold intol No Lumps/bumps/swollen glands No Other Negative except as above PHYSICAL EXAMINATION BP 111/71 Pulse 64 Temp 36.9 ??C (98.4 ??F) Resp 16 Ht 164 cm (5' 4.57) Wt 68.6 kg (151 lb 3.8 oz) BMI 25.51 kg/m2 LMP 11/10/2011 GENERAL: Well-appearing, articulate white female. HEENT: Oropharynx clear; no mucosal lesions, petechiae, bleeding, thrush or ulcers. NECK: Supple; no cervical, supraclavicular or submental adenopathy. BREASTS: Exam deferred. CHEST/LUNGS: Clear to auscultation/percussion. No rales, rhonchi, wheezes. HEART: Regular rate and rhythm; no murmur, rub, gallop GASTROINTESTINAL: Abdomen soft, non-tender, no hepatosplenomegaly. GENITOURINARY: Exam deferred. EXTREMITIES: No clubbing, cyanosis or edema. No erythema, tenderness or palpable cords. No venous varicosities. No skin discoloration or hemosiderin deposits. Peripheral pulses palpable. MUSCULOSKELETAL: Spine nontender. Full ROM all joints. No acutely inflamed joints. SKIN: No ecchymoses, petechiae, ulcers or rashes. Tattoo left upper shoulder. LYMPH: No palpable lymph nodes. NEUROLOGIC: Alert, oriented. Speech clear, coherent. No focal deficits noted. PSYCHIATRIC: Appropriate affect, no apparent distress. LABORATORY STUDIES Reviewed above. RADIOGRAPHIC STUDIES None IMPRESSION Kesha Crawford is a 36 y.o. woman with heterozygous PT N53619F and no personal history of VTE. Though heterozygous PT [id number] is associated with a small increased risk for late term demise, several well-designed, contemporary randomized clinical trials reported within the last two years havefailed to demonstrate an improvement in the live rate for women with a previous loss with theuse of low molecular weight heparin outside of the setting of documented antiphospholipid syndrome.Moreover, the risk for VTE in in the setting of heterozygous PT C67871Y without a previous history of VTE is low enough that routine antepartum anticoagulation is not typically recommended in the absence of other risk factors. Finally, the presence of homozygous MTHFR is irrelevant with respect to VTE risk. Accordingly, I do not recommend antepartum thromboprophylaxis with low molecularweight heparin for Kesha at this time. PLAN/RECOMMENDATIONS I had a lengthy discussion with Kesha and Zachary about the issues above. First, I reviewed the implications of having PT T63574O and I reassured her that she's in good company because PT N41256M is common, affecting 2-3% or more of the population. Further I reassured her that it is considered a mild thrombophilia, imparting only a small increased risk for venous thrombosis. I discussed the risk of sustaining a first episode of venous thrombosis, and I explained the concept of the relative and absolute increase in risk. I quoted an approximately 2- to 3-fold increased risk for developing a first episode of VTE over the general population (i.e., from 1 in 1000 per year to 1 in 300 to 500 per year in middle age), but explained that the absolute risk is still very low and estimate it at less than 10% over this patient's lifetime. We discussed the additive nature of various risk factors including obesity, hormone use, immobility, long distance travel, diabetes, cancer, surgery, trauma and even blood type (type non-O > O). In her case, she has few in the way of concurrent VTE risk factors that would make a compelling case for anticoagulation during ovarian stimulation and/or . That being said, her age of 36 puts her at a little higher VTE risk associated with than a younger woman. Nevertheless, I think that antepartum anticoagulation can be safely deferred in favor of surveillance for VTE symptoms with quick medical evaluation in the event of such symptoms. These are in line with the current (2012) ACCP recommendations as well. Should she become bedridden or develop severe nausea, vomiting, dehydration then antepartum prophylaxis would be a good idea. Post- thromboprophylaxis for 4 to 6 weeks is similarly optional, but may be worthwhile depending on the course of the delivery. A surgical or difficult vaginal delivery poses a higher risk for VTE than an uncomplicated vaginal delivery, and thromboprophylaxis should be considered in these situations. Although there is a family history of VTE in her sister, her sister has factor V Leiden, which Kesha does not have, thus in the situation of an otherwise uncomplicated delivery, post- thromboprophylaxis for Kesha is optional, also in line with the 2012 ACCP guidelines. I reviewed the fact that while PT E60063H is associated with an increased risk for venous thromboembolism, it does not appear to contribute to increased risk for arterial thrombosis under most circumstances. Moreover, the available data suggest that people with PT J72669V alone may not necessarily be at any increased risk for developing a recurrent event than people without thrombophilia. I then reviewed ways to reduce the risk of developing a first episode of VTE. For example, I counseled her to try to engage in some daily physical activity, maintain a healthy weight and to try to avoid prolonged periods of immobility. We discussed ways to avoid venous stasis during and travel, e.g., by stopping every couple of hours on long car rides to get out of the car and walk around, maintaining good hydration and the use of compression stockings. We reviewed the signs and symptoms of DVT and PE, and I reminded her to seek medical attention should these develop. We then reviewed the role of PT C84862M in placental-mediated and unexplained loss. I discussed it is likely that heterozygous PT R20665D imparts a small increased risk for demise, but that well-designed clinical trials reported in the last couple of years have failed to demonstratea benefit for LMWH alone or with aspirin or for aspirin alone at improving live rates for women with recurrent miscarriages, including those that are placental- mediated. The studies have all generally reported similar results inasmuch as the live rate is ~60-70% with or without intervention. On that basis, I reviewed with Rodriguez that there was little likelihood that antepartum treatment with LMWH would improve their odds of a successful and comes at the hazard of asmall, but real, risk for bleeding. Accordingly, I recommended against routine use of LMWH for thispurpose. In the presence of a lupus anticoagulant, on the other hand, antepartum LMWH + aspirin does improvelive rates. Lupus anticoagulants are more strongly related to loss than are the other antibodies against phospholipids, although associations have also been seen with moderate- to high-titer IgG and IgM antibodies. The importance of anti-beta-2 -glycoprotein I antibodies has not been clearly established, though. Kesha has had an unequivocally negative evaluation for LA -- normal aPTT (27 sec) and normal DRVVT (32 sec). I am unable to find an evaluation for anticardiolipin or anti-mgzf5SW3 antibodies, however, and it would be reasonable to check for these. Finally, I reviewed the role of the homozygous MTHFR mutation, which occurs in about 10% of the population and has no association with VTE in or otherwise. The main issue with this is homocysteine accumulation, which is readily managed with routine folic acid supplementation in . In summary: ?? No routine thromboprophylaxis during ovarian stimulation or for VTE prophylaxis ?? Surveillance for DVT/PE with medical evaluation in the event of symptoms and standard anticoagulant treatment in the case of documented VTE ?? Lightweight, below knee compression stockings to help with edema, VTE prevention ?? LMWH thromboprophylaxis if bedridden, sick, dehydrated etc. ?? Extended post- thromboprophylaxis optional ?? In hospital prophylaxis after delivery, e.g., enoxaparin, 40 mg once daily ?? Extended prophylaxis recommended if surgical or otherwise complicated delivery ?? No antepartum thromboprophylaxis for prevention of loss in the setting of PT [id number] ?? Would check anticardiolipin and [id number] antibodies; if positive at moderate or high titerthen antepartum anticoagulation reasonable, otherwise not. ?? olic acid supplementation Kesha Crawford had the opportunity to ask questions and indicated that all her questions were answered to her satisfaction. I gave her some written information about PT K75329K, MTHFR and factor V Leiden and invited her to share this with her family members. While I won't plan to see her back routinely, I will be happy to see her back at any time as appropriate. Allie Payan MD State Appellate Clerk, [facility] documented in this encounter Plan of Treatment Not on file documented as of this encounter Visit Diagnoses Diagnosis Primary hypercoagulable state- Primary documented in this encounter Care Teams Coil Placer Relationship Specialty Start Date End Date Delmy Manzo APRN [address] [place] [address] PCP - General 12/19/11 12/22/11 documented as of this encounter
--- OUTSIDE RECORDS SUMMARY | 2024-02-25 15:22 | XMS_ITS | Encounter Summary ---
[facility] [place] [address] Care Team Providers Care Adult Literacy Teacher Name Role Phone Florentino Kent MD Primary Care Provider [phone] Encounter Details Date Type Department Care Team (Latest Contact Info) Description 05/08/2012 7:52 AM EST - 05/08/2012 8:45 AM EST Hospital [place] [address] Unspecified procreative management Social History Tobacco Use [...] Associated Diagnosis Comments US OVULATION INDUCTION Routine 05/08/2012 8:15 AM EST Unspecified procreative management documented in this encounter Results * US ovulation induction (05/08/2012 8:15 AM EST) Anatomical Region Laterality Modality Abdomen, Pelvis Ultrasound 05/08/2012 8:15 AM EST Narrative 05/11/2012 2:15 PM EST ? Follicles Report ? (Signed Final 05/11/2012 02:14 pm) Patient Info ID: ? [id number] ? : [birth year] (36 yrs) Name: ? BALAJI SAM ? Visit Date: 05/08/2012 08:14 am Performed By Performed By: ?Minal Wang RDMS Attending: ? Anshul Cho MD, Darian Referred By: ? DARIAN CHO MD Service(s) Provided UOI - Ovulation Induction - [id number] ? [id number] Indications Follicular monitoring, Day 7 ------- History [...] Final 05/11/2012 02:14 pm) Patient Info ID: [id number] : [birth year] (36 yrs) Name: BALAJI SAM Visit Date: 05/08/2012 08:14 am Performed By Performed By: Minal Wang RDMS Attending: Darian Davila MD Referred By: DARIAN CHO MD Service(s) Provided UOI - Ovulation Induction - [phone] [id number] Indications Follicular monitoring, Day 7 ------- History [...] us to participate in the care of ABLAJI SAM. Please do not hesitate to call if you have any questions. Darian Cho MD Electronically Signed Final Report 05/11/2012 02:14 pm Darian Cho MD IMG US PELV IC ORDERABLES documented in this encounter Visit Diagnoses Diagnosis Unspecified procreative management documented in this encounter Care Teams Adult Literacy Teacher Relationship Specialty Start Date End Date Florentino Kent MD [address] [place] [id number] PCP - General 12/23/11 07/16/18 documented as of this encounter
--- OUTSIDE RECORDS SUMMARY | 2024-02-25 15:22 | XMS_ITS | Encounter Summary ---
Author Organization [facility] Address [facility] [place] [address] Care Team Providers Care Scheduling Clerk Name Role Phone Florentino Kent MD Primary Care Provider [phone] Reason for Visit * Reason Comments Follow-up Infertility Consents Encounter Details Date Type Department Care Team (Late st Contact Info) Description 04/03/2012 9:00 AM EST Follow-Up Obstetrics [place] [address] Sita Davila MD [facility]ST[facility] & [place] [address] Female infertility (Primary Dx) Discharge Disposition: Home Social History [...] Reading Time Taken Comments Blood Pressure 110/80 04/03/2012 9:05 AM EST Pulse - - Temperature - - Respiratory Rate - - Oxygen Saturation - - Inhaled Oxygen Concentration - - Weight 64.4 kg (142 lb) 04/03/2012 9:05 AM EST Height - - Body Mass Index 23.95 12/20/2011 10:53 AM EDT documented in this encounter Progress Notes * Sita Davila MD - 04/03/2012 12:25 PM EST I had a 60 minute visit with this patient, 100% spent counseling this couple in detail with regardsto the standard IVF workup, the standard medications used with IVF and the monitoring of controlledovarian hyperstimulation, standard events surrounding IVF oocyte harvest, and embryo transfer. We discussed complications of IVF to include, but not be limited to, baseline ovarian cyst formation, failure to suppress on the medication, failure to obtained any oocytes and an approximate 1/500 risk of major complication of the oocyte harvest, failed fertilization, failure to achieve a , multiple gestations, potential for multi reduction, cycle cancellation, ectopic risk, risk of OHSS and the potential for resulting disability. We discussed the potential physical and emotional discomforts of use of ovulation induction agents,undergoing an IVF oocyte harvest and embryo transfer. We discussed costs in general and they were referred to patient financial services. Additionally we discussed our rates and national rates and the risk of loss. We reviewed the risk of having a baby with a congenital anomaly, and that this risk is mildly elevated with IVF. We reviewed the potential increased risk for miscarriage, , intrauterine growth restriction and small for gestational age infants. We discussed the risk of miscarriage, and the risk of aneuploidy or chromosomal abnormalities. Ty was advised to take a daily vitamin with folic acid (at least 400 mg). The couple were given a copy of the ASRM booklet on IVF and asked to read it. We discussed the option of cryopreserving a semen specimen for back up utilization before their cycle and that they would need to make a specific appointment and request freezing a specimen. He signed a consent for sperm cryopreservation. They desire to have all oocytes inseminated. They prefer to maximize their chance for and are willing to discard embryos. They are anticipating a day 3 or 5 transfer of up to 1-2 embryos. They would choose to cryopreserve embryos at day 1 ,3 or day 5. documented in this encounter Plan of Treatment Not on file documented as of this encounter Visit Diagnoses Diagnosis Female infertility- Primary Female infertility of unspecified origin documented in this encounter Care Teams Scheduling Clerk Relationship Specialty Start Date End Date Florentino Kent MD [address] [place] [address] PCP - General 12/23/11 07/16/18 documented as of this encounter
--- OUTSIDE RECORDS SUMMARY | 2024-02-25 15:22 | XMS_ITS | Encounter Summary ---
[facility] [place] [address] Care Team Providers Care Assistant Surveyor Name Role Phone Florentino Kent MD Primary Care Provider [phone] Encounter Details Date Type Department Care Team (Latest Contact Info) Description 04/30/2012 7:47 AM EST - 04/30/2012 11:59 PM [facility] Hospital En[place] [address] Unspecified procreative management Social History Tobacco Use [...] Name Priority Date/Time Associated Diagnosis Comments US TRANSVAGINAL NON OB Routine 04/30/2012 8:36 AM EST documented in this encounter Results * US Transvaginal non OB (04/30/2012 8:36 AM EST) Anatomical Region Laterality Modality Ultrasound 04/30/2012 8:36 AM EST Addenda Addendum on 04/30/2012 9:27 AM EST Addendum Begins ? Follicles Report ?(Corrected Final 04/30/2012 09:26 am) Patient Info ID: ? [id number] ? : ??[birth year] (36 yrs) Name: ? BALAJI SAM ? Visit Date: 04/30/2012 08:41 am Performed By Performed By: ?Rose Torrez RDMS Attending: ? Armando Cho MD, Darian Referred By: ? DARIAN ARMANDO CHO MD Service(s) Provided UTV - Ultrasound Transvaginal - [id number] ? [id number] Indications Baseline for IVF Right Ovary Size(cm): ?3.5 ?x ??1.8 ?x ?? 1.5 ?Vol(ml): ?? 4.9 Comment: ?Antral follicle count = 9 follicles < 1.0 cm Left Ovary Size(cm): ?2.9 ?x ??1.7 ?x ?? 1.6 ?Vol(ml): ?? 4.1 Comment: ?Antral follicle count = 4 follicles < 1.0 cm Endometrium Endometrium: ? Normal appearance Thickness (mm): ?Ant Wall 1.7mm, Post Wall 0.6 Intracavitary Fluid: ? Trace amount of fluid seen ------ Uterus ------ Uterus: ? Visualized Position: ?? Anteverted Size (cm) ?L: ??8.4 ? W: ?? 5.6 ?H: ??4.5 Vol(cc): ? 110.8 Description: ?? No fluid in cul-de-sac. Impression Ultrasound - Baseline Pelvic Morphology & Follicular Monitoring - Summary A real time transvaginal ultrasound was performed. Uterus and ovaries are normal. Endometrium: Ant Wall: 1.7mm, Post Wall: 0.6 mm with trace free fluid within endometrial cavity visualized. There is no significant free fluid in the cul-de-sac. I ??viewed the images and agree with the above interpretation. Thank you for allowing us to participate in the care of BALAJI SAM. Please do not hesitate to call if you have any questions. ? Darian Cho MD Electronically Signed Corrected Final Report ??04/30/2012 09:26 am Addendum Ends Addendum on 04/30/2012 9:27 AM EST Addendum Begins ? Follicles Report ?(Corrected Final 04/30/2012 09:26 am) Patient Info ID: ? [id number] ? : ??[birth year] (36 yrs) Name: ? BALAJI SAM ? Visit Date: 04/30/2012 08:41 am Performed By Performed By: ?Rose Torrez RDMS Attending: ? Armando Cho MD, Darian Referred By: ? DARIAN CHO MD Service(s) Provided UTV - Ultrasound Transvaginal - [id number] ? [id number] Indications Baseline for IVF Right Ovary Size(cm): ?3.5 ?x ??1.8 ?x ?? 1.5 ?Vol(ml): ?? 4.9 Comment: ?Antral follicle count = 9 follicles < 1.0 cm Left Ovary Size(cm): ?2.9 ?x ??1.7 ?x ?? 1.6 ?Vol(ml): ?? 4.1 Comment: ?Antral follicle count = 4 follicles < 1.0 cm Endometrium Endometrium: ? Normal appearance Thickness (mm): ?Ant Wall 1.7mm, Post Wall 0.6 Intracavitary Fluid: ? Trace amount of fluid seen ------ Uterus ------ Uterus: ? Visualized Position: ?? Anteverted Size (cm) ?L: ??8.4 ? W: ?? 5.6 ?H: ??4.5 Vol(cc): ? 110.8 Description: ?? No fluid in cul-de-sac. Impression Ultrasound - Baseline Pelvic Morphology & Follicular Monitoring - Summary A real time transvaginal ultrasound was performed. Uterus and ovaries are normal. Endometrium: Ant Wall: 1.7mm, Post Wall: 0.6 mm with trace free fluid within endometrial cavity visualized. There is no significant free fluid in the cul-de-sac. I ??viewed the images and agree with the above interpretation. Thank you for allowing us to participate in the care of BALAJI SAM. Please do not hesitate to call if you have any questions. ? Darian Cho MD Electronically Signed Corrected Final Report ??04/30/2012 09:26 am Addendum Ends Narrative 04/30/2012 9:27 AM EST ? Follicles Report ? (Signed Final 04/30/2012 08:52 am) Patient Info ID: ? [id number] ? : ??[birth year] (36 yrs) Name: ? BALAJI SAM ? Visit Date: 04/30/2012 08:41 am Performed By Performed By: ?Rose Torrez RDMS Attending: ? Armando Cho MD, Darian Referred By: ? DARIANMiesha CHO MD Service(s) Provided UOI - Ovulation Induction - [id number] ? [id number] Indications Baseline for IVF Right Ovary Size(cm): ?3.5 ?x ??1.8 ?x ?? 1.5 ?Vol(ml): ?? 4.9 Comment: ?Antral follicle count = 9 follicles < 1.0 cm Left Ovary Size(cm): ?2.9 ?x ??1.7 ?x ?? 1.6 ?Vol(ml): ?? 4.1 Comment: ?Antral follicle count = 4 follicles < 1.0 cm Endometrium Endometrium: ? Normal appearance Thickness (mm): ?Ant Wall 1.7mm, Post Wall 0.6 Intracavitary Fluid: ? Trace amount of fluid seen ------ Uterus ------ Uterus: ? Visualized Position: ?? Anteverted Size (cm) ?L: ??8.4 ? W: ?? 5.6 ?H: ??4.5 Vol(cc): ? 110.8 Description: ?? No fluid in cul-de-sac. Impression Ultrasound - Baseline Pelvic Morphology & Follicular Monitoring - Summary A real time transvaginal ultrasound was performed. Uterus and ovaries are normal. Endometrium: Ant Wall: 1.7mm, Post Wall: 0.6 mm with trace free fluid within endometrial cavity visualized. There is no significant free fluid in the cul-de-sac. I ??viewed the images and agree with the above interpretation. Thank you for allowing us to participate in the care of BALAJI SAM. Please do not hesitate to call if you have any questions. ?Darian Cho MD Electronically Signed Final Report ?? 04/30/2012 08:52 am Procedure Note Darian Davila MD - 04/30/2012 Follicles Report (Signed Final 04/30/2012 08:52 am) Patient Info ID: [id number] : [birth year] (36 yrs) Name: BALAJI SAM Visit Date: 04/30/2012 08:41 am Performed By Performed By: Rose Torrez RDMS Attending: Darian Davila MD Referred By: DARIAN CHO MD Service(s) Provided UOI - Ovulation Induction - [id number] Indications Baseline for IVF Right Ovary Size(cm): 3.5 x 1.8 x 1.5 Vol(ml): 4.9 Comment: Antral follicle count = 9 follicles < 1.0 cm Left Ovary Size(cm): 2.9 x 1.7 x 1.6 Vol(ml): 4.1 Comment: Antral follicle count = 4 follicles < 1.0 cm Endometrium Endometrium: Normal appearance Thickness (mm): Ant Wall 1.7mm, Post Wall 0.6 Intracavitary Fluid: Trace amount of fluid seen ------ Uterus ------ Uterus: Visualized Position: Anteverted Size (cm) L: 8.4 W: 5.6 H: 4.5 Vol(cc): 110.8 Description: No fluid in cul-de-sac. Impression Ultrasound - Baseline Pelvic Morphology & Follicular Monitoring - Summary A real time transvaginal ultrasound was performed. Uterus and ovaries are normal. Endometrium: Ant Wall: 1.7mm, Post Wall: 0.6 mm with trace free fluid within endometrial cavity visualized. There is no significant free fluid in the cul-de-sac. I viewed the images and agree with the above interpretation. Thank you for allowing us to participate in the care of BALAJI SAM. Please do not hesitate to call if you have any questions. Darian Cho MD Electronically Signed Final Report 04/30/2012 08:52 am Darian Cho MD IMG US PELV IC ORDERABLES documented in this encounter Visit Diagnoses Diagnosis Unspecified procreative management documented in this encounter Care Teams Assistant Surveyor Relationship Specialty Start Date End Date Florentino Kent MD [address] [place] [address] PCP - General 12/23/11 07/16/18 documented as of this encounter
--- OUTSIDE RECORDS SUMMARY | 2024-02-25 15:22 | XMS_ITS | Encounter Summary ---
Author Organization [facility] Address [facility] [place] [address] Care Team Providers Care Home Sales Consultant Name Role Phone Florentino Kent MD Primary Care Provider [phone] Reason for Referral * Consultation (Routine) - Closed Specialty Diagnoses / Procedures Referred By Contac t Referred To Contact Hematology and Oncology Diagnoses Unspecified procreative management Sita Davila MD [facility] OBSTETRICS & [place] [address] Allie Payan MD [facility] [address] HEMATOLOGY [place] [address] Referral ID Status Reason Start Date Expiration Date V isits Requested Visits Authorized [id number] Closed Consult Only 12/03/2011 05/31/2012 1 1 Encounter Details Date Type Department Care Team (Late st Contact Info) Description 12/03/2011 Orders Only Obstetrics and Gynecology at [facility] [place] [address] Sita Davila MD [facility] OBSTETRICS & [place] [address] Unspecified procreative management (Primary Dx) Social History [...] as of this encounter Plan of Treatment Scheduled Referrals Name Type Priority Associated Diagnoses Orde r Schedule REFERRAL TO HEMATOLOGY AND ONCOLOGY Outpatient Referral Routine Unspecified procreative management Ordered: 12/03/2011 documented as of this encounter Results * CBC (with Diff) (12/20/2011 11:58 AM [...] In Lab Sita Cho MD HEMATOLOGY ORDERABLES Performing Organization Address [facility] Co de Phone Number [facility] * Rubella Antibody, IgG (12/20/2011 11:58 AM EDT) Rubella Antibody IgG Positive Positive [facility] Comment: Please note: ??A positive result for this assay indicates that antibody levels are >or= 10.0 IU/mL and is considered to be an indicator of positive immune status. Blood specimen (specimen) 12/20/2011 11:58 AM EDT 12/20/2011 12:01 PM EDT Narrative Resulting Agency Comment Spec In Lab Sita Cho MD CHEMISTRY O RDERABLES Performing Organization Address [facility] Co de Phone Number [facility] documented in this encounter Visit Diagnoses Diagnosis Unspecified procreative management- Primary documented in this encounter Care Teams Home Sales Consultant Relationship Specialty Start Date End Date Florentino Kent MD [address] [place] [address] PCP - General 12/23/11 07/16/18 documented as of this encounter
--- OUTSIDE RECORDS SUMMARY | 2024-02-25 15:22 | XMS_ITS | Encounter Summary ---
[place] [address] Care Team Providers Care Caustic Purification Operator Name Role Phone Florentino Kent MD Primary Care Provider [phone] Reason for Visit * Reason Comments Infertility Encounter Details Date Type Department Care Team (Late st Contact Info) Description 05/08/2012 8:30 AM EST Office Visit Obstetrics [place] [address] CLINIC, Michelle Dowell, RN Nurse, Obgycathleen II, [...] Progress Notes * Michelle Iqbal, RN - 05/08/2012 8:40 AM EST REPRODUCT[employer] MEDICINE OVULATION INDUCTION MONITORING Chief Complaint: Ovulation induction monitoring. SUBJECTIVE: 36 year old with a history of tubal factor infertilty . She is cycle day 7. She has hada transvaginal ultrasound to evaluate ovarian activity. OBJECTIVE: Transvaginal US results were reviewed with the patient. Please see her infertility chartfor details of her scan results today. ASSESSMENT: Ovulation induction monitoring lead follicle: 24, 19, with discordant growth of remaining follicles. Time spent with patient: 10 minutes, 100 % spent in face to face counseling with regards her recenttreatment plan and the potential ongoing treatment plan. She was counseled to check her supply of medication and needles and syringes to be certain she has enough and the proper medications to complete the cycle. PLAN: 1.) Medication protocol reviewed with the patient and documented in the chart 2.) Estradiol pending 3.) Continue folic acid supplementation 4.) Patient to call this afternoon at 2:30 pm to review results of the estradiol in the context of her US and confirm ongoing treatment plan 5.) Plan likely : Will review plan of care with dr. Cho, cancellation vs. Return Friday to attempt IVF cycle. documented in this encounter Plan of Treatment Not on file documented as of this encounter Visit Diagnoses Diagnosis Unspecified procreative management- Primary documented in this encounter Care Teams Caustic Purification Operator Relationship Specialty Start Date End Date Florentino Kent MD [address] [place] [address] PCP - General 12/23/11 07/16/18 documented as of this encounter
--- OUTSIDE RECORDS SUMMARY | 2024-02-25 15:22 | XMS_ITS | Encounter Summary ---
Author Organization [facility] Address [facility] [place] [address] Care Team Providers Care Assembly Line Brazer Name Role Phone Florentino Kent MD Primary Care Provider [phone] Encounter Details Date Type Department Care Team (Late st Contact Info) Description 03/25/2012 Orders Only Obstetrics [place] [id number] Sita Davila MD [facility] OBSTETRICS & [place] [address] Unspecified procreative management (Primary Dx) Social History [...] Primary documented in this encounter Care Teams Assembly Line Brazer Relationship Specialty Start Date End Date Florentino Kent MD [address] [place] [address] PCP - General 12/23/11 07/16/18 documented as of this encounter
== END 2024-02-25 15:36 ==
LOC: DI 15:17
PROVIDERS: PCP Nurse Practitioner Family; Visit Provider Family Medicine
DX: J18.9 Pneumonia, unspecified organism (principal); J45.909 Unspecified asthma, uncomplicated
CPT/HCPCS: 71046

== ENCOUNTER 2024-09-30 01:07 | Outpatient (CLI) | payer BC, SELFPAY ==
[2024-09-30 11:32] LABS: Anion Gap 8.6 mmol/L (3-11); BUN 12 mg/dL (7-18); CO2 24.4 mmol/L (21.0-32.0); Calcium 9.1 mg/dL (8.5-10.1); Calculated LDL 97 mg/dL (<100); Chloride 105 mmol/L (98-107); Cholesterol 174 mg/dL (<200); Estimated GFR 69.93 (mL/min/1.73m2); Glucose 109 mg/dL (74-106); HDL Cholesterol 51 mg/dL (>or=50); Potassium 4.1 mmol/L (3.5-5.1); Sodium 138 mmol/L (136-145); Triglyceride 131 mg/dL (<150)
[2024-10-01 16:02] LABS: Hemoglobin A1C 6.8 % (<5.7)
== END 2024-09-30 01:08 | disposition home or self-care (01) ==
LOC: LBO 01:07
PROVIDERS: PCP Nurse Practitioner Family; Visit Provider Nurse Practitioner Family
DX: E78.2 Mixed hyperlipidemia; R73.03 Prediabetes; F32.9 Major depressive disorder, single episode, unspecified; J45.21 Mild intermittent asthma with (acute) exacerbation
CPT/HCPCS: 36415; 80048; 80061; 83036

== ENCOUNTER 2024-11-02 01:53 | Outpatient (CLI) | payer BC, SELFPAY ==
--- NOTE | 2024-11-02 06:45 | DI.MAMMO_ITS ---
Exam(s) MAMMO SCREENING EXAM: MAMMO SCREENING CLINICAL HISTORY: screening,z12.39 TECHNIQUE: Mammograms were interpreted according to the usual protocol including computer analysis with CAD system, tomosynthesis and C-view imaging. COMPARISON: 2016 through 2023 FINDINGS: The breasts are composed of scattered fibroglandular densities, Breast Density category B. No suspicious masses or suspicious microcalcifications are seen. No skin thickening or abnormal axillary lymph nodes are seen. There has been no significant change from prior exams. IMPRESSION: BI-RADS Category 1, Negative mammogram Yearly screening mammography is recommended. Breast Density - Category B - There are scattered areas of fibroglandular density. Breast density Category C or D implies that the patient has dense breast tissue. Dense breast tissue can make it harder to find cancer on a mammogram. Dense breast tissue is also associated with an increased risk of breast cancer. This information about the result of the mammogram report was provided to the patient to raise their awareness. Use this report when you speak with the patient about their risks for breast cancer, which includes their family history. At that time, you may recommend additional screening tests (Ultrasound or MRI) as these tests may add significant information. A negative radiographic report should not delay biopsy if a dominant or clinically suspicious mass is present. Up to ten percent of cancers are not identified on mammography. A negative report may reinforce clinical impression. Adenosis and dense breasts may obscure an underlying neoplasm. False positive reports average 6 to 10%. Patient will receive a letter notifying them of these results.
== END 2024-11-02 02:13 ==
LOC: DI 01:53
PROVIDERS: PCP Nurse Practitioner Family; Visit Provider Nurse Practitioner Family
DX: Z12.31 Encounter for screening mammogram for malignant neoplasm of breast (principal); R92.323 Mammographic fibroglandular density, bilateral breasts
CPT/HCPCS: 77063; 77067